=== PATIENT | female | born 1970 | race Caucasian/White ===

== ENCOUNTER 2020-04-05 06:52 | Outpatient (REF) | payer MEDICARE, MEDICAID, SELFPAY ==
[2020-04-05 07:25] LABS: MANUAL DIFF FLAG NO
[2020-04-05 07:28] LABS: Basophils Absolute Auto 0.1 X10*3/uL (0.0-0.2); Basophils Percent Auto 0.6 % (0-2); Eosinophils Absolute Auto 0.1 X10*3/uL (0.0-0.4); Eosinophils Percent Auto 1.7 % (0-4); Hemoglobin 14.4 g/dl (12.0-16.0); Imm Gran Abs Auto 0.06 X10*3/uL (0.00-0.03); Imm Gran Pct Auto 0.7 % (0.0-0.4); Lymphocytes Absolute Auto 2.2 X10*3/uL (1.2-4.9); Lymphocytes Percent Auto 27.2 % (20-40); Mean Corpuscular HGB Conc 34.3 g/dl (31.0-35.0); Mean Corpuscular Hemoglobin 30.7 pg (27.0-33.0); Mean Corpuscular Volume 89.6 fL (80-98); Mean Platelet Volume 9.5 fL (9.4-12.3); Monocytes Absolute Auto 0.6 X10*3/uL (0.1-1.2); Monocytes Percent Auto 7.3 % (2-11); Neutrophils Absolute Auto 5.1 X10*3/uL (2.0-8.3); Neutrophils Percent Auto 62.5 % (45-73); Platelet Count 300 X10*3/uL (160-400); Red Blood Count 4.69 X10*6/uL (4.20-5.50); Red Cell Distribution Width 12.3 % (11.0-16.0); White Blood Count 8.2 X10*3/uL (4.8-10.8)
[2020-04-05 07:51] LABS: Alanine Aminotransferase 24 U/L (0-31); Alkaline Phosphatase 82 U/L (39-117); Anion Gap 12 (12-20); Aspartate Amino Transferase 17 U/L (5-31); Bilirubin Total 0.6 mg/dL (0.0-1.0); Blood Urea Nitrogen 13 mg/dL (9-16); Calcium 8.3 mg/dL (8.4-10.2); Carbon Dioxide 22 mmol/L (22-29); Chloride 110 mmol/L (96-108); Cholesterol 169 mg/dL; Estimated Glomerular Filt Rate > 60; Glucose Random 109 mg/dL (60-115); HDL Cholesterol 43 mg/dL; LDL Cholesterol Calculated 108 mg/dl; Potassium 4.2 mmol/l (3.3-5.1); Sodium 140 mmol/L (135-145); Total Protein 6.6 g/dL (6.5-8.0); Triglycerides 91 mg/dL
[2020-04-05 08:12] LABS: Vitamin D 25-OH Total 25.9 ng/mL (>30)
== END 2020-04-05 06:53 | disposition home or self-care (01) ==
LOC: HO.LAB 06:52
PROVIDERS: Visit Provider Internal Medicine
DX: Z00.00 Encounter for general adult medical examination without abnormal findings (principal); Z13.6 Encounter for screening for cardiovascular disorders
CPT/HCPCS: 36415; 80053; 80061; 82306; 85025

== ENCOUNTER 2020-06-04 08:36 | Outpatient (REF) | payer MEDICARE, MEDICAID, SELFPAY ==
--- NOTE | 2020-06-04 | MM_ITS ---
EXAMINATION: BONE DENSITOMETRY CLINICAL INDICATION: Other specified disorders of bone density and structure, multiple sites. COMPARISON: None (current study represents initial baseline exam). TECHNIQUE: Using a [employer] DXA System (software version: 13.1) manufactured by [employer], dual-energy x-ray absorptiometry was performed of the lumbar spine and left hip. The images are of good technical quality. Summary results are attached. FINDINGS: AP SPINE L1-L2 (excluding L3 and L4): The data of L1-L4 has been changed to exclude the L3 and L4 vertebral bodies, because probable degenerative changes at these levels may cause overestimation of lumbar spine density. BMD 1.251 g/cm2, Z-score 0.1, T-score 0.7, normal. LEFT FEMUR, NECK: BMD 1.225 g/cm2, Z-score 1.4, T-score 1.3, normal. LEFT FEMUR, TOTAL: BMD 1.289 g/cm2, Z-score 1.9, T-score 2.2, normal. IDENTIFIED RISK FACTORS: Early menopause, secondary osteoporosis, family history (parental hip fracture), hysterectomy. HISTORY OF FRACTURE: None listed. MEDICATIONS: None listed. MM/XR DEXA axial skeleton IMPRESSION: 1. DIAGNOSIS: Normal bone density based on the lowest T-score value of 0.7 in the lumbar spine applying World Health Organization criteria. 2. 10-YEAR FRACTURE RISK PREDICTION, FRAX: Major osteoporotic fracture (clinical spine, forearm, hip or shoulder) 6.7%. Hip fracture 0.0%. 3. Treatment Recommendations: NOF guidelines recommend consideration for treatment in postmenopausal women and men age 50 and older presenting with the following: -A hip or vertebral (clinical or morphometric) fracture. -T-score less than or equal to -2.5 at the femoral neck or spine after appropriate evaluation to exclude secondary causes. -Low bone mass at the hip or spine and a 10-year fracture probability by FRAX of greater than or equal to 3% for hip fracture or greater than or equal to 20% for major osteoporotic fracture based on the [place] adapted WHO algorithm. 4. Other Recommendations: All treatment decisions require clinical judgment and consideration of individual patient factors, including patient preferences, comorbidities, previous drug use, risk factors not captured in the FRAX model (e.g. frailty, falls, vitamin D deficiency, increased bone turnover, interval significant decline in bone density) and possible under or overestimation of fracture risk by FRAX. FUTURE SCAN RECOMMENDATION: People with diagnosed cases of osteoporosis or at high risk for fracture should have regular bone mineral density tests. For patients eligible for Medicare, routine testing is allowed once every 2 years. The testing frequency can be increased to one year for patients who have rapidly progressing disease, those who are receiving or discontinuing medical therapy to restore bone mass, or have additional risk factors.
--- NOTE | 2020-06-04 | MM_ITS ---
EXAMINATION: MM SCREENING DIGITAL BREAST TOMOSYNTHESIS, BILATERAL CLINICAL INFORMATION: Screening. Asymptomatic. The lifetime risk of breast cancer based on the Tyrer-Cuzick Model is 16%. COMPARISON: Outside 2-D mammography images 04/20/2018, 12/31/2016, 04/20/2013 ([facility]) TECHNIQUE: Digital breast tomosynthesis is performed in both the craniocaudal and mediolateral oblique views along with computer-aided detection (CAD). Synthesized 2D images are generated from the tomosynthesis. FINDINGS: The breasts are almost entirely fatty (ACR BI-RADS breast composition Category a). There are no significant masses, abnormal calcifications, or other abnormalities. The axilla and skin contours are unremarkable. No significant changes from prior outside exams. MM/MM tomosynthesis screening BI IMPRESSION: No mammographic evidence of malignancy. ASSESSMENT: BI-RADS 1: Negative RECOMMENDATION: Routine annual mammography screening. This patient's information was entered into a reminder system with a target due date for their next mammogram.
== END 2020-06-04 08:37 | disposition home or self-care (01) ==
LOC: HO.MAMMO 08:36
PROVIDERS: PCP Internal Medicine; Visit Provider Internal Medicine
DX: Z12.31 Encounter for screening mammogram for malignant neoplasm of breast (principal); M85.89 Other specified disorders of bone density and structure, multiple sites
CPT/HCPCS: 77063; 77067; 77080

== ENCOUNTER 2021-05-07 07:50 | Outpatient (REF) | payer MEDICARE, MEDICAID, SELFPAY ==
[2021-05-07 09:01] LABS: TSH reflex Free T4 0.14 uIU/mL (0.32-4.0)
[2021-05-07 09:38] LABS: Free T4 (Free Thyroxine) 1.47 ng/dL (0.71-1.85)
== END 2021-05-07 07:51 | disposition home or self-care (01) ==
LOC: HO.LAB 07:50
PROVIDERS: PCP Internal Medicine; Visit Provider Internal Medicine
DX: E03.9 Hypothyroidism, unspecified (principal)
CPT/HCPCS: 36415; 84439; 84443

== ENCOUNTER 2021-06-13 13:09 | Outpatient (REF) | payer MEDICARE, MEDICAID, SELFPAY ==
--- NOTE | ~2021-06-13 | XR_ITS ---
EXAMINATION: XR ANKLE, RIGHT CLINICAL INFORMATION: Right ankle joint pain COMPARISON: None TECHNIQUE: AP, lateral, and mortise views of the right ankle. FINDINGS: The bones and soft tissues are normal. No fracture. Alignment is anatomic. Joint spaces are maintained. No joint effusion. XR/XR ankle RT min 3V IMPRESSION: Normal right ankle.
== END 2021-06-13 13:10 | disposition home or self-care (01) ==
LOC: HO.XRAY 13:09
PROVIDERS: PCP Internal Medicine; Visit Provider Physician Assistant
DX: M25.571 Pain in right ankle and joints of right foot (principal)
CPT/HCPCS: 73610

== ENCOUNTER 2021-06-20 18:05 | Outpatient (REF) | payer MEDICARE, MEDICAID, SELFPAY ==
--- NOTE | ~2021-06-20 | MR_ITS ---
EXAMINATION: MR KNEE WITHOUT CONTRAST, LEFT CLINICAL INFORMATION: Left knee pain. COMPARISON: None TECHNIQUE: MRI of the knee without contrast was performed using routine sequences on a high-field scanner. FINDINGS: MENISCI: Medial Meniscus: Intact. Subtle focus of degenerative signal of the posterior horn. Lateral Meniscus: Intact. Subtle focus of degenerative signal of the posterior horn without a definite tear. LIGAMENTS: Cruciate: Intact. Collateral: Prominent edema extends along the medial collateral ligament likely representing a grade 1 sprain. The lateral collateral ligament complex appears intact. EXTENSOR MECHANISM: Intact. ARTICULAR CARTILAGE/BONE: Patellofemoral Compartment: Foci of mild cartilage thinning and surface irregularity of the central patella and lateral trochlea. Medial Compartment: Mild cartilage thinning and surface irregularity of the weightbearing femoral condyle and cartilage thinning of the peripheral tibia medially. Small marginal osteophytes. Lateral Compartment: Probable mild contusion at the posterior-most aspect of the femoral condyle. No focal articular cartilage defect. JOINT FLUID AND BURSAE: Small joint effusion. MR/MR knee LT wo con IMPRESSION: Grade 1 MCL sprain. No definite meniscal tear. Impaction bone bruise of the lateral tibia posteriorly. Mild patellofemoral and medial compartment osteoarthritis with a small joint effusion.
--- NOTE | ~2021-06-20 | MR_ITS ---
EXAMINATION: MR KNEE WITHOUT CONTRAST, RIGHT CLINICAL INFORMATION: Right knee pain. COMPARISON: None TECHNIQUE: MRI of the knee without contrast was performed using routine sequences on a high-field scanner. FINDINGS: MENISCI: Medial Meniscus: Intact Lateral Meniscus: There is a discoid lateral meniscus. Mild inner margin fraying/ill-defined tearing along the inner margin which is adjacent to the tibial spine. LIGAMENTS: Cruciate: Areas of ill-defined intermediate signal along the anterior cruciate ligament may represent mucoid degeneration or sprain/minimal partial tearing. The posterior cruciate ligament is intact. Collateral: Intact. EXTENSOR MECHANISM: Intact. ARTICULAR CARTILAGE/BONE: Patellofemoral Compartment: Areas of mild cartilage thinning and surface irregularity throughout the patellofemoral compartment. Medial Compartment: Mild cartilage thinning and surface irregularity of the weightbearing femoral condyle and cartilage thinning peripherally of the tibia medially. Small marginal osteophytes. Lateral Compartment: Peripheral cartilage thinning of the tibia medially. Small marginal osteophytes. Probable impaction bone bruise of the tibia posteriorly. JOINT FLUID AND BURSAE: Moderate joint effusion. There is a lobulated, elongated ganglion measuring 3.5 cm in length deep to the lateral retinaculum/joint capsule. MR/MR knee RT wo con IMPRESSION: Discoid lateral meniscus with inner margin fraying/ill-defined tearing adjacent to the tibial spine. Mucoid degeneration versus sprain/mild ill-defined partial tearing of the anterior cruciate ligament. Mild tricompartmental osteoarthritis with a moderate joint effusion.
== END 2021-06-20 18:06 | disposition home or self-care (01) ==
LOC: HO.MRI 18:05
PROVIDERS: PCP Internal Medicine; Visit Provider Physician Assistant
DX: M22.42 Chondromalacia patellae, left knee (principal); M22.41 Chondromalacia patellae, right knee; M25.562 Pain in left knee
CPT/HCPCS: 73721

== ENCOUNTER 2021-08-16 09:57 | Outpatient (REF) | payer MEDICARE, MEDICAID, SELFPAY ==
--- NOTE | ~2021-08-16 | MM_ITS ---
EXAMINATION: MM SCREENING DIGITAL BREAST TOMOSYNTHESIS, BILATERAL CLINICAL INFORMATION: Screening. Asymptomatic. The lifetime risk of breast cancer based on the Tyrer-Cuzick Model is 16%. COMPARISON: Mammography: 06/04/2020; outside mammography 04/20/2018, 12/31/2016 ([facility] TECHNIQUE: Digital breast tomosynthesis is performed in both the craniocaudal and mediolateral oblique views along with computer-aided detection (CAD). Synthesized 2D images are generated from the tomosynthesis. FINDINGS: The breasts are almost entirely fatty (ACR BI-RADS breast composition Category a). Background stromal and fibroglandular densities are stable. No developing density or interval architectural abnormality. There are no significant masses, abnormal calcifications, or other abnormalities. There are surgical clips again seen high left axilla. MM/MM tomosynthesis screening BI IMPRESSION: No mammographic evidence of malignancy. ASSESSMENT: BI-RADS 1: Negative RECOMMENDATION: Routine annual mammography screening. This patient's information was entered into a reminder system with a target due date for their next mammogram.
== END 2021-08-16 09:58 | disposition home or self-care (01) ==
LOC: HO.MAMMO 09:57
PROVIDERS: PCP Internal Medicine; Visit Provider Internal Medicine
DX: Z12.31 Encounter for screening mammogram for malignant neoplasm of breast (principal)
CPT/HCPCS: 77063; 77067

== ENCOUNTER 2021-11-08 07:41 | Outpatient (REF) | payer MEDICARE, MEDICAID, SELFPAY ==
[2021-11-08 07:51] LABS: MANUAL DIFF FLAG NO
[2021-11-08 08:27] LABS: Basophils Percent Auto 0.3 % (0-2); Eosinophils Absolute Auto 0.1 X10*3/uL (0.0-0.4); Eosinophils Percent Auto 2.2 % (0-4); Hematocrit 44.4 % (37.0-47.0); Hemoglobin 15.1 g/dl (12.0-16.0); Imm Gran Abs Auto 0.02 X10*3/uL (0.00-0.03); Imm Gran Pct Auto 0.3 % (0.0-0.4); Lymphocytes Absolute Auto 2.1 X10*3/uL (1.2-4.9); Lymphocytes Percent Auto 32.8 % (20-40); Mean Corpuscular Hemoglobin 30.9 pg (27.0-33.0); Mean Platelet Volume 9.2 fL (9.4-12.3); Monocytes Absolute Auto 0.5 X10*3/uL (0.1-1.2); Monocytes Percent Auto 7.5 % (2-11); Neutrophils Absolute Auto 3.6 x10*3/uL (2.0-8.3); Neutrophils Percent Auto 56.9 % (45-73); Platelet Count 272 X10*3/uL (160-400); Red Blood Count 4.88 X10*6/uL (4.20-5.50); Red Cell Distribution Width 11.9 % (11.0-16.0); White Blood Count 6.4 X10*3/uL (4.8-10.8)
[2021-11-08 08:58] LABS: Alanine Aminotransferase 18 U/L (0-31); Albumin Level 3.9 g/dL (3.5-5.0); Alkaline Phosphatase 74 U/L (39-117); Anion Gap 11 (12-20); Aspartate Amino Transferase 14 U/L (5-31); Bilirubin Total 0.7 mg/dL (0.0-1.0); Blood Urea Nitrogen 16 mg/dL (9-16); Calcium 9.6 mg/dL (8.4-10.2); Carbon Dioxide 27 mmol/L (22-29); Chloride 109 mmol/L (96-108); Estimated Glomerular Filt Rate > 60; Glucose Random 93 mg/dL (60-115); Magnesium 2.3 mg/dL (1.6-2.6); Potassium 4.5 mmol/L (3.3-5.1); Sodium 142 mmol/L (135-145); Total Protein 6.7 g/dL (6.5-8.0)
[2021-11-08 09:09] LABS: Free T4 (Free Thyroxine) 1.14 ng/dL (0.71-1.85); Thyroid Stimulating Hormone 1.68 uIU/mL (0.32-4.0)
== END 2021-11-08 07:42 | disposition home or self-care (01) ==
LOC: HO.LAB 07:41
PROVIDERS: PCP Internal Medicine; Visit Provider Internal Medicine
DX: E03.9 Hypothyroidism, unspecified (principal); R00.2 Palpitations
CPT/HCPCS: 36415; 80053; 83735; 84439; 84443; 85025

== ENCOUNTER 2022-09-15 12:47 | Outpatient (REF) | payer MEDICARE, MEDICAID, SELFPAY ==
[2022-09-15 14:11] LABS: TSH reflex Free T4 2.99 uIU/mL (0.32-4.0)
== END 2022-09-15 12:48 | disposition home or self-care (01) ==
LOC: HO.LAB 12:47
PROVIDERS: PCP Internal Medicine; Visit Provider Internal Medicine
DX: E03.9 Hypothyroidism, unspecified (principal)
CPT/HCPCS: 36415; 84443

== ENCOUNTER 2022-10-01 08:07 | Outpatient (REF) | payer MEDICARE, MEDICAID, SELFPAY ==
--- NOTE | ~2022-10-01 | MM_ITS ---
EXAMINATION: MM SCREENING DIGITAL BREAST TOMOSYNTHESIS, BILATERAL CLINICAL INFORMATION: Screening. Asymptomatic. The lifetime risk of breast cancer based on the Tyrer-Cuzick Model is 13.1%. COMPARISON: Mammography: August 16, 2021 and studies dating back to April 20, 2013 TECHNIQUE: Digital breast tomosynthesis is performed in both the craniocaudal and mediolateral oblique views along with computer-aided detection (CAD). Synthesized 2D images are generated from the tomosynthesis. FINDINGS: There are scattered areas of fibroglandular density (ACR BI-RADS breast composition Category b). Ulises are noted about the left axilla from previous surgery. There are no significant masses, abnormal calcifications, or other abnormalities. MM/MM tomosynthesis screening BI IMPRESSION: No significant changes ASSESSMENT: BI-RADS 1: Negative RECOMMENDATION: Routine annual mammography screening. This patient's information was entered into a reminder system with a target due date for their next mammogram.
== END 2022-10-01 08:08 | disposition home or self-care (01) ==
LOC: HO.MAMMO 08:07
PROVIDERS: PCP Internal Medicine; Visit Provider Internal Medicine
DX: Z12.31 Encounter for screening mammogram for malignant neoplasm of breast (principal)
CPT/HCPCS: 77063; 77067

== ENCOUNTER 2023-02-21 06:57 | Emergency (ER) | payer MEDICARE, MEDICAID, SELFPAY ==
--- NOTE | ~2023-02-21 | XR_ITS ---
EXAMINATION: X-ray left ankle X-ray left foot CLINICAL INFORMATION: Pain COMPARISON: None TECHNIQUE: Ankle 2 views. Left foot 3 views. FINDINGS: Ankle: No visible acute fracture. There is slight asymmetric prominence of the ankle mortise medial clear space, which may be related to positioning/technique. The talar dome appears intact. Question mild ankle soft tissue swelling. No suspicious soft tissue calcifications. Foot: Normal bone mineralization. Bony alignment is anatomic. Tarsometatarsal alignment is maintained. No visible acute fracture or dislocation. No significant joint space narrowing. No suspicious soft tissue calcifications. XR/XR foot LT min 3V IMPRESSION: Slight asymmetry of the ankle mortise, could be related to positioning/technique. Clinically correlate. No radiographic evidence of acute fracture or dislocation. If there are persistent symptoms, consider short-term follow-up imaging.
--- NOTE | ~2023-02-21 | XR_ITS ---
EXAMINATION: X-ray left ankle X-ray left foot CLINICAL INFORMATION: Pain COMPARISON: None TECHNIQUE: Ankle 2 views. Left foot 3 views. FINDINGS: Ankle: No visible acute fracture. There is slight asymmetric prominence of the ankle mortise medial clear space, which may be related to positioning/technique. The talar dome appears intact. Question mild ankle soft tissue swelling. No suspicious soft tissue calcifications. Foot: Normal bone mineralization. Bony alignment is anatomic. Tarsometatarsal alignment is maintained. No visible acute fracture or dislocation. No significant joint space narrowing. No suspicious soft tissue calcifications. XR/XR ankle LT min 3V IMPRESSION: Slight asymmetry of the ankle mortise, could be related to positioning/technique. Clinically correlate. No radiographic evidence of acute fracture or dislocation. If there are persistent symptoms, consider short-term follow-up imaging.
[2023-02-21 07:34] VITALS: BP 120/69; PULSE 83; RESP 18; TEMP 36.6; O2SAT 96; BMI 39.6
--- NOTE | 2023-02-21 07:44 | ED_ITS ---
HPI - Extremity Injury (Lower) General Chief Complaint: Extremity Injury, Lower Stated Complaint: L Leg pain Time Seen by Provider: 02/21/23 07:30 Source: patient Mode of arrival: ambulatory History of Present Illness HPI Narrative: 53-year-old female presents with top of left foot pain after she feels she may have hyperextended her foot yesterday during a mechanical fall and has no other acute complaints. Related Data Allergies Allergy/AdvReac Type Severity Reaction Status Date / Time No Known Allergies Allergy Verified 02/21/23 07:40 Review of Systems Review of Systems: Pertinent positives and negatives as stated in [facility] Past Medical History Source: nursing notes reviewed Social History Social History Alcohol intake: current Alcohol intake frequency: holidays/special occasions only Smoked in Last 30 Days: No Use of substances other than those prescribed or required for medical reasons: No Advance Directives: No Advance Directives Information Provided: Yes Physical Exam Vital Signs: Vital Signs: Last Vital Signs Temp 97.9 F 02/21/23 07:34 Pulse 83 02/21/23 07:34 Resp 18 02/21/23 07:34 BP 120/69 02/21/23 07:34 Pulse Ox 96 02/21/23 07:34 O2 Del Method Room Air 02/21/23 07:34 BMI result Body Mass Index 39.6 VITAL SIGNS: Reviewed. GENERAL: Well developed, well nourished, in no acute distress. HEAD: Normocephalic/atraumatic EYES: PERRLA, EOMI LUNGS: Normal breath sounds. No adventitious sounds or accessory muscle use. SpO2<96> CARDIOVASCULAR: Regular rate and rhythm without noted murmurs ABDOMEN: Soft, non-tender, non-distended with bowel sounds. MUSCULOSKELETAL: No tenderness, deformities, or effusions noted on gross inspection. EXTREMITIES: No cyanosis, clubbing or edema. LEFT FOOT: Pain on palpation over the mid foot, no medial or lateral malleoli swelling/erythema/induration noted, warm foot, palpable DP/PT, good capillary refill. Pain on dorsiflexion SKIN: Inspection of the skin reveals no rashes, ulcerations, jaundice, pallor, or petechiae. NEUROLOGIC: Alert and oriented x 4. Strength and sensation to light touch were grossly intact x 4. Medications Administered Discontinued Medications Generic Name Dose Route Start Last Admin Trade Name Dominic PRN Reason Stop Dose Admin Acetaminophen 975 mg 02/21/23 07:42 02/21/23 07:55 Acetaminophen 325 Mg Tablet PO 02/21/23 07:43 975 mg ONCE ONE Administration Ibuprofen 400 mg 02/21/23 07:42 02/21/23 07:56 Ibuprofen 400 Mg Tablet PO 02/21/23 07:43 400 mg ONCE ONE Administration Medical Decision Making Medical Decision Making MDM Narrative: 53-year-old female with history and clinical presentation of possible f racture/anterior strain of ankle, lower clinical suspicion for dislocation. Patient given combination analgesics and an ice pack. I reviewed imaging studies in do not appreciate any fracture or dislocation, after review of radiology evaluation my interpretation is in agreement. Jovani wrap and crutches provided as well as instructions for RICE. Differential Diagnosis Differential Diagnoses: The differential diagnosis associated with the presentation includes Please see the discussion above Admission/Observation Consideration of admission/observation: Escalation of care including admission/observation considered Please see the discussion above Radiology Impression Discussion of test interpretation with radiology: I have reviewed the radiologist's reading. Radiologist Impression: Please see the discussion above External Record Review External record reviewed: Outpatient record, Prior outpatient labs and Prior outpatient radiology Discharge Plan Discharge Clinical Impression: Ankle sprain and strain Patient Disposition: Home, Self-Care Instructions: Crutch Instructions (ED), R.I.C.E. Treatment (ED), Ankle Sprain (ED) Additional Instructions: 1. I recommend [id number] Tylenol/ibuprofen as needed for pain control. 2. Modify work as needed. Return to the ER for any worsening symptoms. Referrals: Brendan Dockery MD [Primary Care Provider] - Stand Alone Forms: Work/School Release
[2023-02-21] MEDS: Acetaminophen 325 MG TABLET 975 MG PO (07:55)
[2023-02-21] MEDS: Ibuprofen 400 MG TABLET PO (07:56)
== END 2023-02-21 08:42 | disposition home or self-care (01) ==
PROVIDERS: Emergency Provider Student in an Organized Health Care Education/Training Program; PCP Internal Medicine
DX: S93.402A Sprain of unspecified ligament of left ankle, initial encounter (principal); M79.605 Pain in left leg; W01.0XXA Fall on same level from slipping, tripping and stumbling without subsequent striking against object, initial encounter; Y93.9 Activity, unspecified; Y92.9 Unspecified place or not applicable; Y99.9 Unspecified external cause status
CPT/HCPCS: 73610; 73630; 99284

== ENCOUNTER 2023-08-06 14:06 | Outpatient (REF) | payer MEDICARE, MEDICAID, SELFPAY ==
[2023-08-06 16:01] LABS: Thyroid Stimulating Hormone 4.64 uIU/mL (0.32-4.0)
== END 2023-08-06 14:07 | disposition home or self-care (01) ==
LOC: HO.LAB 14:06
PROVIDERS: PCP Internal Medicine; Visit Provider Internal Medicine
DX: E03.9 Hypothyroidism, unspecified (principal)
CPT/HCPCS: 36415; 84443

== ENCOUNTER 2023-10-18 10:26 | Outpatient (REF) | payer MEDICARE, MEDICAID, SELFPAY ==
--- NOTE | ~2023-10-18 | MM_ITS ---
EXAMINATION: MM SCREENING DIGITAL BREAST TOMOSYNTHESIS, BILATERAL CLINICAL INFORMATION: Screening. Asymptomatic. The patient is status post left axillary surgery. COMPARISON: Mammography: This study is compared with prior exams dating back to 2017. TECHNIQUE: Digital breast tomosynthesis is performed in both the craniocaudal and mediolateral oblique views along with computer-aided detection (CAD). Synthesized 2D images are generated from the tomosynthesis. FINDINGS: The breasts are almost entirely fatty (ACR BI-RADS breast composition Category a). There are no significant masses, abnormal calcifications, or other abnormalities. There are multiple surgical clips in left axilla from prior surgery. MM/MM tomosynthesis screening BI IMPRESSION: No mammographic evidence of malignancy. ASSESSMENT: BI-RADS BI-RADS 2 - Benign Findings RECOMMENDATION: Routine annual mammography screening. 1 year F/U This examination should not preclude the clinical evaluation of a suspicious palpable abnormality. This patient's information was entered into a reminder system with a target due date for their next mammogram.
[2023-10-18 13:01] LABS: Free T4 (Free Thyroxine) 1.13 ng/dL (0.71-1.85); Thyroid Stimulating Hormone 1.15 uIU/mL (0.32-4.0)
== END 2023-10-18 10:27 | disposition home or self-care (01) ==
LOC: HO.MAMMO 10:26
PROVIDERS: PCP Internal Medicine; Visit Provider Internal Medicine
DX: E03.9 Hypothyroidism, unspecified (principal); Z12.31 Encounter for screening mammogram for malignant neoplasm of breast
CPT/HCPCS: 36415; 77063; 77067; 84439; 84443

== ENCOUNTER → 2023-10-18 11:00 | Outpatient (BNV) | payer MEDICARE, MEDICAID, SELFPAY | PROVIDERS: PCP Internal Medicine; Visit Provider Radiology Diagnostic Radiology | DX: Z12.31 Encounter for screening mammogram for malignant neoplasm of breast (principal) | CPT/HCPCS: 77063; 77067 ==

== ENCOUNTER 2023-11-08 06:34 | Outpatient (REF) | payer MEDICARE, MEDICAID, SELFPAY ==
[2023-11-08 06:47] LABS: MANUAL DIFF FLAG NO
[2023-11-08 08:04] LABS: Basophils Absolute Auto 0.1 X10*3/uL (0.0-0.2); Basophils Percent Auto 0.6 % (0-2); Eosinophils Absolute Auto 0.2 X10*3/uL (0.0-0.4); Hematocrit 43.8 % (37.0-47.0); Hemoglobin 15.2 g/dl (12.0-16.0); Imm Gran Abs Auto 0.04 X10*3/uL (0.00-0.03); Imm Gran Pct Auto 0.5 % (0.0-0.4); Lymphocytes Absolute Auto 2.4 X10*3/uL (1.2-4.9); Lymphocytes Percent Auto 28.1 % (20-40); Mean Corpuscular HGB Conc 34.7 g/dl (31.0-35.0); Mean Corpuscular Volume 92.2 fL (80.0-98.0); Mean Platelet Volume 9.9 fL (9.4-12.3); Monocytes Absolute Auto 0.5 X10*3/uL (0.1-1.2); Monocytes Percent Auto 5.9 % (2-11); Neutrophils Absolute Auto 5.5 x10*3/uL (2.0-8.3); Neutrophils Percent Auto 62.9 % (45-73); Platelet Count 276 X10*3/uL (160-400); Red Blood Count 4.75 X10*6/uL (4.20-5.50); Red Cell Distribution Width 12.6 % (11.0-16.0); White Blood Count 8.7 X10*3/uL (4.8-10.8)
[2023-11-08 08:53] LABS: Alanine Aminotransferase 24 U/L (0-31); Alkaline Phosphatase 74 U/L (39-117); Anion Gap 14 (12-20); Aspartate Amino Transferase 19 U/L (5-31); Bilirubin Total 0.4 mg/dL (0.0-1.0); Blood Urea Nitrogen 19 mg/dL (9-16); Calcium 9.4 mg/dL (8.4-10.2); Carbon Dioxide 22 mmol/L (22-29); Chloride 108 mmol/L (96-108); Cholesterol 208 mg/dL (<200); Estimated Glomerular Filt Rate > 60; Glucose Random 100 mg/dL (60-115); HDL Cholesterol 56 mg/dL (>40); LDL Cholesterol Calculated 127 mg/dL (<100); Potassium 3.8 mmol/L (3.3-5.1); Sodium 140 mmol/L (135-145); Total Protein 7.3 g/dL (6.5-8.0); Triglycerides 127 mg/dL (<150)
== END 2023-11-08 06:35 | disposition home or self-care (01) ==
LOC: HO.LAB 06:34
PROVIDERS: PCP Internal Medicine; Visit Provider Internal Medicine
DX: Z00.00 Encounter for general adult medical examination without abnormal findings (principal); Z13.6 Encounter for screening for cardiovascular disorders
CPT/HCPCS: 36415; 80053; 80061; 82306; 85025

== ENCOUNTER 2024-02-04 11:30 | Outpatient (REF) | payer MEDICARE, MEDICAID, SELFPAY ==
--- NOTE | ~2024-02-04 | XR_ITS ---
EXAMINATION: XR CHEST XR CERVICAL SPINE CLINICAL INFORMATION: Cervicalgia. Cough. COMPARISON: None available. TECHNIQUE: 2 views of the chest were obtained. 3 views of the cervical spine were obtained. FINDINGS: Chest: The lungs are moderately expanded. There is patchy opacity in the lingula. No pleural effusion. Cardiac silhouette is within normal limits. Cervical spine: The cervical spine is visualized to the C7 vertebral body. Relative straightening of the cervical lordosis. 2 mm anterolisthesis of C4 on C5. Vertebral body heights are maintained. Moderate intervertebral disc space narrowing at C5-C6 and C6-C7 with marginal osteophytes. Lateral masses are symmetric. The vertebral soft tissues are within normal limits. Status post partial first rib resection. Surgical clips project over the left apex. XR/XR cervical spine 3V IMPRESSION: Patchy opacity in the lingula possibly representing an acute infiltrate. Advise clinical correlation. Moderate degenerative disc disease at C5-C6 and C6-C7. Electronically signed by: Isaiah Rascon MD 02/04/2024 02:13 PM EDT
--- NOTE | ~2024-02-04 | XR_ITS ---
EXAMINATION: XR CHEST XR CERVICAL SPINE CLINICAL INFORMATION: Cervicalgia. Cough. COMPARISON: None available. TECHNIQUE: 2 views of the chest were obtained. 3 views of the cervical spine were obtained. FINDINGS: Chest: The lungs are moderately expanded. There is patchy opacity in the lingula. No pleural effusion. Cardiac silhouette is within normal limits. Cervical spine: The cervical spine is visualized to the C7 vertebral body. Relative straightening of the cervical lordosis. 2 mm anterolisthesis of C4 on C5. Vertebral body heights are maintained. Moderate intervertebral disc space narrowing at C5-C6 and C6-C7 with marginal osteophytes. Lateral masses are symmetric. The vertebral soft tissues are within normal limits. Status post partial first rib resection. Surgical clips project over the left apex. XR/XR chest 2V IMPRESSION: Patchy opacity in the lingula possibly representing an acute infiltrate. Advise clinical correlation. Moderate degenerative disc disease at C5-C6 and C6-C7. Electronically signed by: Isaiah Rascon MD 02/04/2024 02:13 PM EDT
== END 2024-02-04 11:31 | disposition home or self-care (01) ==
LOC: HO.XRAY 11:30
PROVIDERS: PCP Internal Medicine; Visit Provider Internal Medicine
DX: R05.9 Cough, unspecified (principal); M54.2 Cervicalgia
CPT/HCPCS: 71046; 72040

== ENCOUNTER 2024-02-11 11:12 | Outpatient (REF) | payer MEDICARE, MEDICAID, SELFPAY ==
--- NOTE | ~2024-02-11 | XR_ITS ---
EXAMINATION: XR CHEST CLINICAL INFORMATION: PNEUMONIA COMPARISON: Chest radiograph 02/04/2024 TECHNIQUE: 2 views of the chest FINDINGS: Lines and tubes: Surgical clips overlie the left axilla and left hemithorax. Clear lungs. No pleural effusion. No pneumothorax. Normal cardiomediastinal silhouette. XR/XR chest 2V IMPRESSION: * Clear lungs. Electronically signed by: Fany Dexter MD 02/18/2024 04:44 PM EDT
== END 2024-02-11 11:13 | disposition home or self-care (01) ==
LOC: HO.XRAY 11:12
PROVIDERS: PCP Internal Medicine; Visit Provider Physician Assistant
DX: J18.9 Pneumonia, unspecified organism (principal)
CPT/HCPCS: 71046

== ENCOUNTER 2024-03-03 18:07 | Outpatient (REF) | payer MEDICARE, MEDICAID, SELFPAY ==
--- NOTE | ~2024-03-03 | MR_ITS ---
EXAMINATION: MR CERVICAL SPINE WITHOUT CONTRAST CLINICAL INFORMATION: Radiculopathy COMPARISON: None available. TECHNIQUE: MRI of the cervical spine was obtained using routine sequences without contrast. FINDINGS: The imaged posterior fossa is unremarkable. Straightening of the normal cervical lordosis. Trace retrolisthesis at C5-6. No acute bone marrow abnormality. The vertebral body heights are preserved. Multilevel disc desiccation without significant disc height loss. The visualized spinal cord is normal in caliber. No abnormal cord signal. C2-3: Bilateral facet arthrosis. No significant spinal canal or neural foraminal narrowing. C3-4: Bilateral facet arthrosis. Mild left neural foraminal narrowing. No significant spinal canal or neural foraminal narrowing. C4-5: Bilateral facet arthrosis. No significant spinal canal or neural foraminal narrowing. C5-6: Disc osteophyte complex, bilateral uncovertebral hypertrophy, and bilateral facet arthrosis. Mild right neural foraminal narrowing. No significant spinal canal stenosis. C6-7: Disc osteophyte complex and bilateral facet arthrosis. No significant spinal canal or neural foraminal narrowing. C7-T1: Disc osteophyte complex. No significant spinal canal or neural foraminal narrowing. The paravertebral soft tissues are unremarkable. MR/MR cervical spine wo con IMPRESSION: Multilevel degenerative changes of the cervical spine without significant spinal canal or neural foraminal narrowing. Electronically signed by: Milena Henderson MD 03/13/2024 06:07 PM EDT
== END 2024-03-03 18:08 | disposition home or self-care (01) ==
LOC: HO.MRI 18:07
PROVIDERS: PCP Internal Medicine; Visit Provider Physician Assistant
DX: M54.12 Radiculopathy, cervical region (principal)
CPT/HCPCS: 72141

== ENCOUNTER 2024-03-16 14:15 | Outpatient (REF) | payer MEDICARE, MEDICAID, SELFPAY ==
--- NOTE | 2024-03-16 14:20 | EMG_ITS ---
Chief complaint: Neck pain, hand numbness History of TOS, left 1st rib removal, with good results after. Reason for referral: Evaluate for radiculopathy versus Carpal Tunnel Syndrome Referred by: Viviana LINARES Procedure done: Bilateral upper extremities NCS/EMG Precautions and/or limitations: None The limb temperature was monitored continuously and remained between 32-36 degrees C during the performance of the NCS. Nerve Conduction Studies Anti Sensory Summary Table ?Stim Site NR Onset (ms) Norm Onset (ms) Peak (ms) Norm Peak (ms) O-P Amp (?V) Norm O-P Amp Site1 Site2 Delta-0 (ms) Dist (cm) Yovanny (m/s) Norm Yovanny (m/s) Left Median Anti Sensory (2nd Digit) Wrist ? 2.1 2.8 <3.6 29.4 >10 Wrist 2nd Digit 2.1 14.0 67 Right Median Anti Sensory (2nd Digit) Wrist ? 2.3 3.1 <3.6 25.4 >10 Wrist 2nd Digit 2.3 14.0 61 Left Ulnar Anti Sensory (5th Digit) Wrist ? 0.9 3.0 <3.7 16.3 >15.0 Wrist 5th Digit 0.9 14.0 156 Right Ulnar Anti Sensory (5th Digit) Wrist ? 1.8 3.0 <3.7 7.1 >15.0 Wrist 5th Digit 1.8 14.0 78 Motor Summary Table ?Stim Site NR Onset (ms) Norm Onset (ms) O-P Amp (mV) Norm O-P Amp iAmp (mV) Amp (1st) (%) Site1 Site2 Delta-0 (ms) Dist (cm) Yovanny (m/s) Norm Yovanny (m/s) Left Median Motor (Abd Poll Brev) Wrist ? 3.3 <3.9 13.7 >4.5 17.5 100.0 Elbow Wrist 3.3 20.0 61 >45 Elbow ? 6.6 11.2 14.3 81.8 Right Median Motor (Abd Poll Brev) Wrist ? 3.2 <3.9 6.3 >4.5 8.3 100.0 Elbow Wrist 3.6 19.0 53 >45 Elbow ? 6.8 6.2 8.3 98.4 Left Ulnar Motor (Abd Dig Minimi) Wrist ? 2.7 <3.0 6.7 >5 8.1 100.0 B Elbow Wrist 2.9 18.0 62 >45 B Elbow ? 5.6 6.1 7.4 91.0 A Elbow B Elbow 2.0 10.0 50 >45 A Elbow ? 7.6 5.4 6.7 80.6 Right Ulnar Motor (Abd Dig Minimi) Wrist ? 2.6 <3.0 8.6 >5 10.6 100.0 B Elbow Wrist 3.1 18.5 60 >45 B Elbow ? 5.7 8.2 10.2 95.3 A Elbow B Elbow 1.8 10.0 56 >45 A Elbow ? 7.5 7.5 9.6 87.2 Comparison Summary Table ?Stim Site NR Peak (ms) Norm Peak (ms) P-T Amp (?V) Site1 Site2 Delta-P (ms) Norm Delta (ms) Right Median/Radial Dig I Comparison (Digit 1 - 10cm) Median ? 2.4 <2.9 38.9 Median Radial 0.0 Radial ? 2.4 <2.8 13.5 EMG ?Side Muscle Nerve Root Ins Act Fibs Psw Amp Dur Poly Recrt Int Pat Comment Right 1stDorInt Ulnar C8-T1 Nml Nml Nml Nml Nml 0 Nml Complete Right FlexCarRad Median C6-7 Nml Nml Nml Nml Nml 0 Nml Complete Right Biceps Musculocut C5-6 Nml Nml Nml Nml Nml 0 Nml Complete Right Triceps Radial C6-7-8 Nml Nml Nml Nml Nml 0 Nml Complete Right Deltoid Axillary C5-6 Nml Nml Nml Nml Nml 0 Nml Complete Left 1stDorInt Ulnar C8-T1 Nml Nml Nml Nml Nml 0 Nml Complete Left FlexCarRad Median C6-7 Nml Nml Nml Nml Nml 0 Nml Complete Left Biceps Musculocut C5-6 Nml Nml Nml Nml Nml 0 Nml Complete Left Triceps Radial C6-7-8 Nml Nml Nml Nml Nml 0 Nml Complete Left Deltoid Axillary C5-6 Nml Nml Nml Nml Nml 0 Nml Complete Paraspinal EMG ?Side Muscle Nerve Root Ins Act Fibs Psw Comment Right Cervical Upper Rami Nml Nml Nml Right Cervical Mid Rami Nml Nml Nml Right Cervical Lower Rami Nml Nml Nml Left Cervical Upper Rami Nml Nml Nml Left Cervical Mid Rami Nml Nml Nml Left Cervical Lower Rami Nml Nml Nml FINDINGS: All motor and sensory nerves tested showed normal latencies, amplitudes and conduction velocities. Concentric needle EMG was performed in selected muscles of the bilateral upper extremities and cervical paraspinals. Study did not reveal signs of electric abnormalities as shown in the table above. IMPRESSION: 1. This is a normal study. 2. There is no electrodiagnostic evidence for median neuropathy, ulnar neuropathy, brachial plexopathy, or cervical radiculopathy. Thank you for your kind referral. Italia Porter MD, MARTHA Board Certified, [place] [employer] and [employer] (ABPMR) Board Certified, [place] Board of Electrodiagnostic Medicine (ABEM) CODIN [phone] x 2 MTDD
== END 2024-03-16 14:16 | disposition home or self-care (01) ==
LOC: HO.NEURO 14:15
PROVIDERS: PCP Internal Medicine; Visit Provider Physician Assistant
DX: G56.03 Carpal tunnel syndrome, bilateral upper limbs (principal)
CPT/HCPCS: 95886; 95911

== ENCOUNTER → 2024-03-16 14:20 | Outpatient (BNV) | payer MEDICARE, MEDICAID, SELFPAY | PROVIDERS: PCP Internal Medicine; Visit Provider Physical Medicine & Rehabilitation | DX: R20.0 Anesthesia of skin (principal); R20.2 Paresthesia of skin; M54.2 Cervicalgia | CPT/HCPCS: 95886; 95911 ==

== ENCOUNTER 2024-03-31 13:44 | Outpatient (AMB) | payer MEDICARE, MEDICAID, SELFPAY ==
--- NOTE | 2024-03-31 13:58 | A.SPINEOV_ITS ---
Intake Visit Reasons: Disc desiccation with arthritic changes Intake Note: Mr. Chacon is here today c/o neck pain. 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
--- NOTE | 2024-03-31 14:07 | A.SPINEOV_ITS ---
Intake Visit Reasons: Disc desiccation with arthritic changes Allergies No Known Allergies Allergy (Verified 03/31/24 13:59) Assessment & Plan Assessment & Plan (1) Cervicalgia: Code(s): M54.2 - Cervicalgia Category: Medical Plan Dear colleague Thank you for referring Tamar Chacon to the office today with a chief complaint of neck pain. HPI: This 54-year-old legally blind female comes into the office complaining of posterior neck pain. She states that she is always in a flexed position her neck for reading due to the vision loss and has developed posterior neck pain. The pain is mostly day with flexion-extension. No radiation down her arms. No motor or sensory deficits. She has not tried any form of injections recently. She did receive occipital Botox injections for migraine headaches PMH: Hypertension, migraine, hypothyroidism Medications: Synthroid, propranolol, topiramate, famotidine, amitriptyline, omeprazole Allergies: Vaccines Social history: Nonsmoker Physical Exam: Pleasant female. She is able to move her neck in all directions. Spurling test is negative. No motor or sensory deficits. No pathological reflexes Radiological Studies: MRI done at [facility] on 03/03/2024, shows mild degenerative disc disease C5-6 and C6-7. Impression/Plan: This patient is suffering from cervicalgia most likely facet joint related. I will send her to our pain management team to see if they can alleviate her symptoms with some type of injections. Thank you for allowing me to participate in your patients care. total time spent was 30 minutes in counseling ,coordination of plan, personal review of imaging, surgical decision making and subsequent plan Jim Montanez MD, PhD Spine Fellowship Trained Neurosurgeon Director, [facility] Orders: Referrals Pain Management Referral M54.2 - Cervicalgia Coding Level of Care Code New Pt Level 3 (50136) Diagnoses Cervicalgia M54.2
== END 2024-03-31 14:12 | disposition home or self-care (01) ==
PROVIDERS: PCP Internal Medicine; Referring Provider Physician Assistant; Visit Provider Neurological Surgery
DX: M54.2 Cervicalgia (principal)
CPT/HCPCS: 99203

== ENCOUNTER → 2024-03-31 13:44 | Outpatient (BNVA) | payer MEDICARE, MEDICAID, SELFPAY | PROVIDERS: PCP Internal Medicine; Visit Provider Neurological Surgery | DX: M54.2 Cervicalgia (principal) | CPT/HCPCS: 99202 ==

== ENCOUNTER 2024-04-28 09:34 | Outpatient (AMB) | payer MEDICARE, MEDICAID, SELFPAY ==
[2024-04-28 09:40] VITALS: BP 141/71; PULSE 79; RESP 14; O2SAT 97; BMI 38.2
--- NOTE | 2024-04-28 09:40 | MHC.OFFVIS ---
Vital Signs 04/28/24 09:40 Height 5 ft 8 in Weight 251 lb BMI 38.2 BP 141/71 H Blood Pressure Location Lt brachial Position Sitting Respiration 14 Pulse 79 Pulse Source Pulse Oximeter Pulse Oximetry (%) 97 Oxygen Delivery Method Room Air Intake Visit Reasons: Cervicalgia steroid injection/facet blocks? Allergies No Known Allergies Allergy (Verified 04/28/24 09:41) Medication List - Last Reconciled 04/28/24 by Chetna Brewer LPN famotidine 40 mg PO DAILY levothyroxine (Synthroid) 137 mcg PO DAILY propranolol ER 80 mg PO DAILY topiramate 25 mg PO TID HPI HPI Cervicalgia steroid injection/facet blocks?: Details: 54-year-old female who presents to the office today for evaluation of cervicalgia. She was referred by Anthony Lou. She reports experiencing neck pain for a while. The pain is mostly day with flexion-extension. She has good days and bad days. She has not tried physical therapy yet. She had an MRI done at [facility] on 03/03/2024, which showed mild degenerative disc disease at C5-6 and C6-7. She also had an EMG done on 03/16/24, which was unremarkable. [facility] Social History Alcohol intake: current Alcohol intake frequency: holidays/special occasions only Review of Systems Const All systems reviewed & are unremarkable except as noted in HPI and below Physical Exam Vital Signs: Last Vital Signs Pulse 79 04/28/24 09:40 Resp 14 04/28/24 09:40 BP 141/71 H 04/28/24 09:40 Pulse Ox 97 04/28/24 09:40 Oxygen Delivery Method Room Air 04/28/24 09:40 BMI result Body Mass Index 38.2 General: Appears afebrile. Alert and oriented. Mood and affect appropriate. Follows and participates in conversation appropriately. Respiratory effort is unlabored. Able to transition from sit to stand unassisted. Ambulates with bilaterally normal heel strike and toe off. Cervical range of motion, flexion and extension is painful. Results Reviewed Results Reviewed: 03/03/24: MR CERVICAL SPINE WITHOUT CONTRAST The imaged posterior fossa is unremarkable. Straightening of the normal cervical lordosis. Trace retrolisthesis at C5-6. No acute bone marrow abnormality. The vertebral body heights are preserved. Multilevel disc desiccation without significant disc height loss. The visualized spinal cord is normal in caliber. No abnormal cord signal. C2-3: Bilateral facet arthrosis. No significant spinal canal or neural foraminal narrowing. C3-4: Bilateral facet arthrosis. Mild left neural foraminal narrowing. No significant spinal canal or neural foraminal narrowing. C4-5: Bilateral facet arthrosis. No significant spinal canal or neural foraminal narrowing. C5-6: Disc osteophyte complex, bilateral uncovertebral hypertrophy, and bilateral facet arthrosis. Mild right neural foraminal narrowing. No significant spinal canal stenosis. C6-7: Disc osteophyte complex and bilateral facet arthrosis. No significant spinal canal or neural foraminal narrowing. C7-T1: Disc osteophyte complex. No significant spinal canal or neural foraminal narrowing. The paravertebral soft tissues are unremarkable. IMPRESSION: Multilevel degenerative changes of the cervical spine without significant spinal canal or neural foraminal narrowing. Assessment & Plan Assessment & Plan (1) Degenerative cervical disc: Code(s): M50.30 - Other cervical disc degeneration, unspecified cervical region Category: Medical (2) Cervical spondylosis: Code(s): M47.812 - Spondylosis without myelopathy or radiculopathy, cervical region Category: Medical Plan Patient is suffering from cervicalgia, most likely facet joint related. Reviewed the MRI results with the patient. It showed multilevel degenerative changes of the cervical spine. As she has not tried physical therapy yet, I recommended physical therapy and advised her do stretching exercises twice a day for 15-20 minutes at home to help alleviate the pain. I also recommended using pillow with the groove. If the pain does not improve with physical therapy, we will consider nerve stimulator therapy. Patient will return to the office as needed. Scribed for Dr. Sanchez by Williams Harrison, medical lab scientist, on 04/28/2024. I, Dr. Sanchez, have personally reviewed and agree with the information entered by the scribe. Orders: Orders PT Evaluation and Treatment 04/28/24 M47.812 - Spondylosis without myelopathy or radiculopathy, cervical region, M50.30 - Other cervical disc degeneration, unspecified cervical region Scribe Plan - Not visible on output: Scribed for Dr. Sanchez by Williams Tao, medical lab scientist, on 04/17/2024.? I, Dr. Sanchez, have personally reviewed and agree with the information entered by the scribe. Coding Level of Care Code New Pt Level 4 (17580) Diagnoses Degenerative cervical disc M50.30 Cervical spondylosis M47.812
== END 2024-04-28 10:07 | disposition home or self-care (01) ==
PROVIDERS: PCP Internal Medicine; Visit Provider Internal Medicine
DX: M50.30 Other cervical disc degeneration, unspecified cervical region (principal); M47.812 Spondylosis without myelopathy or radiculopathy, cervical region
CPT/HCPCS: 99204

== ENCOUNTER → 2024-04-28 09:34 | Outpatient (BNVA) | payer MEDICARE, MEDICAID, SELFPAY | PROVIDERS: PCP Internal Medicine; Visit Provider Internal Medicine | DX: M50.30 Other cervical disc degeneration, unspecified cervical region (principal); M47.812 Spondylosis without myelopathy or radiculopathy, cervical region | CPT/HCPCS: 99202 ==

== ENCOUNTER 2024-06-09 10:53 | Outpatient (RCR) | payer MEDICARE, MEDICAID, SELFPAY ==
[2024-05-29 12:59] VITALS: BP 133/82; PULSE 85
--- NOTE | 2024-05-29 13:59 | MHC.PT.EP ---
[facility] [place] Office [place] Office [place] Office [address] [phone] F: [phone] F: [phone] F: [phone] F: [phone] Physical Therapy Plan of Care Date of Evaluation: 05/29/24 Date of Surgery: NA Diagnosis: Spondylosis without myelopathy or radiculopathy Degenerative cervical disc Assessment: Tamar is a 54 year old female who is referred to PT for Spondylosis without myelopathy or radiculopathy, Degenerative cervical disc . She reports of having neck pain for several years however it got worse about 2 years back. Her pain has progressively gotten worse. She is legally blind and looks down or leans forward too much to read and this has aggravated her neck pain. On PT examination she presents with 5/10 pain in her neck, TTP from C7 to T4 and B medial border of scapula, B UT- R>L, decreased cervical ROM, decreased scap and cervical muscle strength and altered posture. She lives alone and is independent with all ADLS but has pain with them. She is disabled due to vision. She would benefit from skilled PT to address the aforementioned impairments and improve tolerance to functional activities. Frequency and Duration: The patient will be seen 2/week for 5 weeks Short Term Goals: 1. Pt will have 50% decrease in pain which will enable her to sleep without pain in 2 weeks 2. Pt will be able to move her neck through all planes of motion without pain which will enable her perform all her ADLS with pain no more than 2/10 in 3 weeks Long-Term Goals: 1. Pt will demonstrate an increase in muscle strength by 1 grade which will enable her to hold upright posture when on phone, tablet or when cooking in 5 weeks. 2. Pt will be independent with all HEP for symptom management and maintenance following d/c in 5 weeks. Treatment Plan: Modalities to reduce pain, spasms and effusion. Manual therapy to restore motion and function. Therapeutic exercise to improve strength and flexibility. Neuromuscular re-education for posture and balance. Therapeutic activities to return to functional activities of daily living. Electronically signed by: Lorin Diaz PT DPT Please sign and return to therapist. Thank you for your referral.
--- NOTE | 2024-07-12 08:46 | MHC.PT.DC ---
[facility] [place] Office [place] Office [place] Office [address] [phone] F: [phone] F: [phone] F: [phone] F: [phone] Physical Therapy Discharge Report Diagnosis: Spondylosis without myelopathy or radiculopathy Degenerative cervical disc Date of Surgery: NA Date of Evaluation: 05/29/24 Date of Discharge: 07/12/24 Treatments to Date: 4 Cancellations to Date: 0 No Shows to Date: 0 Discharge Status: Patient Elected to Stop Discharge Summary: Tamar attended 4 PT visits. 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 She planned to return to PT in Jul if needed. She however has not called to schedule any appointments. She is therefore being d/c from PT. Electronically signed by: Lorin Diaz PT DPT Please sign and return to therapist. Thank you for your referral.
== END 2024-07-12 08:46 | disposition home or self-care (01) ==
LOC: HO.PT 10:53
PROVIDERS: PCP Internal Medicine; Visit Provider Internal Medicine
DX: M50.30 Other cervical disc degeneration, unspecified cervical region (principal); M47.812 Spondylosis without myelopathy or radiculopathy, cervical region
CPT/HCPCS: 97110; 97112; 97161

== ENCOUNTER → 2024-07-27 08:10 | Outpatient (BNVA) | payer MEDICARE, MEDICAID, SELFPAY | PROVIDERS: PCP Internal Medicine; Visit Provider Physician Assistant Surgical ==

== ENCOUNTER 2024-07-28 07:59 | Outpatient (AMB) | payer MEDICARE, MEDICAID, SELFPAY ==
--- NOTE | 2024-07-28 11:48 | MHC.OFFVISWM ---
VS Expanded 07/28/24 12:08 Height 5 ft 8 in Weight 255 lb BMI 38.8 Body Fat % 46.1 Body Fat Mass 117.6 Fat Free Mass 137.4 Visceral Fat Rating 14 Body Water % 38.3 Body Water Mass 97.6 Basal Metabolic Rate/Score 1,931 Intake Visit Reasons: [employer] [facility] vs [facility] BMI 38.8 Allergies Seasonal Allergies Allergy (Mild, Verified 07/28/24 11:48) sneezing vaccines Allergy (Unknown, Uncoded 07/28/24 11:48) unknown Medication List - Last Reconciled 07/28/24 by Alan Herr MD amitriptyline 50 mg PO BEDTIME famotidine 40 mg PO DAILY [hair skin and nails PO] levothyroxine (Synthroid) 137 mcg PO DAILY omeprazole 20 mg PO DAILY propranolol ER 80 mg PO DAILY topiramate 25 mg PO TID HPI HPI [employer] [facility] vs [facility] BMI 38.8: Details: Start time: 11.36am, End time: 12.36pm ?I spent 55 minutes speaking with the patient on the phone plus an additional 5 minutes reviewing and updating records for a total of 60 minutes HPI Comments Details: Previous weight loss efforts: WW, Weight management program Wakes up: 6am, Sleeps: 9.30pm Breakfast: 8am (toast, yogurt) Lunch: 12pm (yogurt, Barebell protein bar) Dinner: 4.30pm (salmon, salad, vegetables, soups) Snacks: 10am (pretzels, cheese, fruits), 2pm (same), after dinner (ice cream bars) Exercise: Has a stationary bike and Elliptical at home Fluids: Coffee (1 cup and 1 with Premade protein shake), tea:none, soda: rare, juice: none, ETOH: 1/mth (Vodka) PFSH Medical History (Updated 07/28/24 @ 12:26 by Alan Herr MD) History of nephrolithiasis Diaphragmatic hernia GERD (gastroesophageal reflux disease) Hypertension DJD (degenerative joint disease) Familial juvenile macular degeneration syndrome Anxiety Depression Surgical History (Updated 07/28/24 @ 11:55 by Alan Herr MD) History of resection of rib Hx of hysterectomy Hx of adenoidectomy Hx of tonsillectomy Hx of bladder endoscopy Hx of colonoscopy Family History (Updated 07/27/24 @ 08:51 by Sarah Leung CMA) Mother Malignant neoplasm of breast in full remission Arthritis Father Landon's disease Son No problems noted. Son No problems noted. Social History (Updated 07/27/24 @ 08:51 by Sarah Leung RECREATION LEADER) Alcohol intake: current Alcohol intake frequency: holidays/special occasions only Patient Tobacco Use Status: Never used Tobacco Telehealth Telehealth Telehealth Platform: Telephone Location of provider rendering services: practice address Location of patient: address on file Patient Identification confirmed using: Name, : Yes Telehealth method: voice only Patient verbally consented to treatment: Yes Patient verbally consented to billing insurance company: Yes Patient informed of any privacy concerns related to visit: Yes Minutes spent on Phone/Video with Pt.: 60 Assessment & Plan Assessment & Plan (1) Obesity: Code(s): E66.9 - Obesity, unspecified Category: Medical Qualifiers: Obesity type: due to excess calories Obesity classification: adult class 2 (BMI 35 - 39.9) Serious obesity comorbidity presence: with serious comorbidity Body mass index: BMI 38.0-38.9 Qualified Code(s): E66.812 - Obesity, class 2; E66.01 - Morbid (severe) obesity due to excess calories; Z68.38 - Body mass index [BMI] 38.0-38.9, adult Plan: 1.? Plan for lap sleeve gastrectomy. If diaphragmatic or ventral hernias are present at time of surgery, these will be repaired laparoscopically as well. I emphasized the importance of close follow-up, adherence to instructions and good communication. The surgery does not replace the need to change your lifestlyle which is the cause of the obesity problem. The surgery provides the motivation to try again to change your lifestyle, it reduces the appetite and make the transition to a better lifestyle easier and doubles the amount of weight you would lose compared to doing the lifestyle change without the surgery. You will need to be on a liquid diet with protein shakes for 2 weeks before surgery to maximize weight loss and boost your nutritional status to recover better from surgery and also for the first two weeks after surgery to let the stomach heal before we introduce other foods. After the first 2 weeks we will introduce protein bars and soft foods like scrambled eggs, cottage cheese and yogurt and after the 6th week will introduce meat, fish and cooked vegetables in small amounts. Over time you should be able to eat everything in small amounts. Side effects like nausea, vomiting, heartburn or abdominal pain are not common in the practice unless you are not following in the practice. This operation requires lifetime commitment to following in our practice and communication with me. You will much less weight and experience side effects if you don?t communicate or not following in the practice. Complications are rare and in our practice is about 1/10 of the national average. However, you can develop bleeding that may require transfusion (hasn?t happened for year in the practice), you may from complications (we did not have any deaths in the practice) and infections. Infections are usually a result of breakdown in communication or not understanding or following directions correctly. They are difficult to treat, they can happen during the first 6 weeks, they may require to be in the hospital for weeks or even months, not being able to eat by mouth and you may have drains and surgeries to try and correct the issue. Other risks and complications include possible conversion to an open procedure, leaks, small bowel obstruction, blood clots, cardiac, or pulmonary complications, as termite control technician complications such as ulcers, insufficient weight loss and vitamin deficiencies. 2.? Nutritional counseling. Start with one premade PREMIER shake (mix 4oz of Premier with 4oz low fat unsweetened almond milk each) at 7am-9am, 1 Barebell protein bar at 10am-12pm, one premade PREMIER shake (mix 4oz of Premier with 4oz low fat unsweetened almond milk each) at 1pm-3pm, one Barebell protein bar at 4pm-6pm and dinner at 7pm (8 forks of protein and 8 forks of salad/vegetables). So you do 2 protein shakes, 2 protein bars and one meal per day. Meal to include lean meat (beef, fish, pork, turkey, chicken), or tamazight yogurt, or egg whites, or beans with a salad with olive oil and fruits (berries, pears, apples, kiwi). Avoid salt, breads, potatoes, rice, pasta, desserts. 3. Each shake would be drunk slowly, like coffee in a period of 2 hours. 4. Cut each bar in 4 pieces and eat each piece in 30min ?to make each bar last 2 hours. 5. I emphasized the importance of measuring accurately the food portion and measure it when serving the food in plate 6. The meal portions include 8 full-size forks of meat and 8 full-size forks of salad. You always eat the meat portion but you can replace up to 4 forks for salad/vegetables with rice, potatoes or pasta, or a fruit ?if you like. The less you do it the better weight loss will be. 7. One full-size fork is what it can be scooped on the fork without falling aside and not what can be bit with the fork. Use regular forks like those you find in a typical restaurant. 8.? Please buy the body composition scale we discussed and send me weight measurements as soon as possible and then once a week. Always include your diet and exercise plan. 9. Start Elliptical with an incline of 0.0 and resistance of 0.0. Increase resistance by 1 every 3 min to a max resistance of 6.0, and repeat cycles for 300 calories. 10. Alternatively start stationary bike at a resistance level of 0.0 Increase level by 1.0 every 3 min to a max level of 6.0. Stay at this level for 3 min and then return to level 0.0 and repeat same steps until 300 calories are burned. . Goal is to burn 2000 calories per week on exercise 11. Goal is to lose at least 1.5-2lbs per week 12. Goal to lose 10% of your weight before surgery, which is about 25lbs. Ultimate weight goal: 230lbs before surgery 13. Please follow the diet plan exactly without any change. If you don't like something about the plan or you feel hungry you need to communicate with me so I can help you revise the plan. You should not change the plan yourself 14. To be scheduled for EGD on 08/16/24 due to the severe GERD. The possibility of biopsies was discussed. Patient needs to avoid use of NSAIDs and aspirin for 1 week prior to EGD. You must be on liquids only the day before your endoscopy. Risks of perforation and bleeding was discussed with the patient. This will be an outpatient procedure with IV sedation. Orders: Orders Hemoglobin A1c Today E66.9 - Obesity, unspecified, I10 - Essential (primary) hypertension, K21.9 - Gastro-esophageal reflux disease without esophagitis, Z68.38 - Body mass index [BMI] 38.0-38.9, adult Lipid Panel Today E66.9 - Obesity, unspecified, I10 - Essential (primary) hypertension, K21.9 - Gastro-esophageal reflux disease without esophagitis, Z68.38 - Body mass index [BMI] 38.0-38.9, adult Vitamin B12 and Folate Today E66.9 - Obesity, unspecified, I10 - Essential (primary) hypertension, K21.9 - Gastro-esophageal reflux disease without esophagitis, Z68.38 - Body mass index [BMI] 38.0-38.9, adult Vitamin D 25-OH Total Today E66.9 - Obesity, unspecified, I10 - Essential (primary) hypertension, K21.9 - Gastro-esophageal reflux disease without esophagitis, Z68.38 - Body mass index [BMI] 38.0-38.9, adult XR chest 2V Today E66.9 - Obesity, unspecified, I10 - Essential (primary) hypertension, K21.9 - Gastro-esophageal reflux disease without esophagitis, Z68.38 - Body mass index [BMI] 38.0-38.9, adult Insulin Today E66.9 - Obesity, unspecified, I10 - Essential (primary) hypertension, K21.9 - Gastro-esophageal reflux disease without esophagitis, Z68.38 - Body mass index [BMI] 38.0-38.9, adult H Pylori Breath Test Today E66.9 - Obesity, unspecified, I10 - Essential (primary) hypertension, K21.9 - Gastro-esophageal reflux disease without esophagitis, Z68.38 - Body mass index [BMI] 38.0-38.9, adult Complete Blood Count Auto Diff Today E66.9 - Obesity, unspecified, I10 - Essential (primary) hypertension, K21.9 - Gastro-esophageal reflux disease without esophagitis, Z68.38 - Body mass index [BMI] 38.0-38.9, adult IRON PROFILE Today E66.9 - Obesity, unspecified, I10 - Essential (primary) hypertension, K21.9 - Gastro-esophageal reflux disease without esophagitis, Z68.38 - Body mass index [BMI] 38.0-38.9, adult Comprehensive Met. Panel Today E66.9 - Obesity, unspecified, I10 - Essential (primary) hypertension, K21.9 - Gastro-esophageal reflux disease without esophagitis, Z68.38 - Body mass index [BMI] 38.0-38.9, adult Zinc Today E66.9 - Obesity, unspecified, I10 - Essential (primary) hypertension, K21.9 - Gastro-esophageal reflux disease without esophagitis, Z68.38 - Body mass index [BMI] 38.0-38.9, adult C Reactive Protein Today E66.9 - Obesity, unspecified, I10 - Essential (primary) hypertension, K21.9 - Gastro-esophageal reflux disease without esophagitis, Z68.38 - Body mass index [BMI] 38.0-38.9, adult Vitamin B1 Today E66.9 - Obesity, unspecified, I10 - Essential (primary) hypertension, K21.9 - Gastro-esophageal reflux disease without esophagitis, Z68.38 - Body mass index [BMI] 38.0-38.9, adult Vitamin A Today E66.9 - Obesity, unspecified, I10 - Essential (primary) hypertension, K21.9 - Gastro-esophageal reflux disease without esophagitis, Z68.38 - Body mass index [BMI] 38.0-38.9, adult TSH reflex Free T4 Today E66.9 - Obesity, unspecified, I10 - Essential (primary) hypertension, K21.9 - Gastro-esophageal reflux disease without esophagitis, Z68.38 - Body mass index [BMI] 38.0-38.9, adult Ferritin Today E66.9 - Obesity, unspecified, I10 - Essential (primary) hypertension, K21.9 - Gastro-esophageal reflux disease without esophagitis, Z68.38 - Body mass index [BMI] 38.0-38.9, adult US abdomen comp w elastography Today E66.9 - Obesity, unspecified, I10 - Essential (primary) hypertension, K21.9 - Gastro-esophageal reflux disease without esophagitis, Z68.38 - Body mass index [BMI] 38.0-38.9, adult ECG 12 lead EKG Today E66.9 - Obesity, unspecified, I10 - Essential (primary) hypertension, K21.9 - Gastro-esophageal reflux disease without esophagitis, Z68.38 - Body mass index [BMI] 38.0-38.9, adult FL upper GI w air Today E66.9 - Obesity, unspecified, I10 - Essential (primary) hypertension, K21.9 - Gastro-esophageal reflux disease without esophagitis, Z68.38 - Body mass index [BMI] 38.0-38.9, adult Referrals Behavioral Health Referral E66.9 - Obesity, unspecified, I10 - Essential (primary) hypertension, K21.9 - Gastro-esophageal reflux disease without esophagitis, Z68.38 - Body mass index [BMI] 38.0-38.9, adult Nutrition/Dietitian Referral E66.9 - Obesity, unspecified, I10 - Essential (primary) hypertension, K21.9 - Gastro-esophageal reflux disease without esophagitis, Z68.38 - Body mass index [BMI] 38.0-38.9, adult
[2024-07-28 12:08] VITALS: BMI 38.8
== END 2024-07-28 12:37 | disposition home or self-care (01) ==
LOC: HO.HBS 07:59
PROVIDERS: PCP Internal Medicine; Visit Provider Surgery
DX: E66.812 Obesity, class 2 (principal); E66.01 Morbid (severe) obesity due to excess calories; Z68.38 Body mass index [BMI] 38.0-38.9, adult
CPT/HCPCS: 99205

== ENCOUNTER 2024-07-31 06:18 | Outpatient (REF) | payer MEDICARE, MEDICAID, SELFPAY ==
--- NOTE | ~2024-07-31 | XR_ITS ---
EXAMINATION: XR CHEST CLINICAL INFORMATION: E66.9 - Obesity, unspecified COMPARISON: February 11, 2024 TECHNIQUE: 2 views of the chest were obtained. FINDINGS: No consolidation, pleural effusion or pneumothorax. Vascular clips overlapping the left upper hemithorax. Cardiomediastinal silhouette size is normal. Mild multilevel thoracolumbar spondylosis.. XR/XR chest 2V IMPRESSION: No acute airspace disease. Electronically signed by: Homar Gupta MD 07/31/2024 07:16 AM EST
--- OUTSIDE RECORDS SUMMARY | 2024-07-31 06:21 | XMS_ITS | Data Portability ---
Author Organization [facility] Luis Miguel Internal Medicine, Home Service Address [address] [place] [address] Assessment Encounter Date Assessment Date Assessment LastModified by Organization Details LastModified Time 09/23/2022 09/23/2022 Patient agreed and verbally consents to this audio and video Telehealth appt via a secure platform [email or web address] Not available 09/23/2022 11:25:36 08/23/2023 08/23/2023 Patient presente d to office today for their Medicare Annual Wellness Visit. Education was provided on healthy nutrition, including a diet rich in fruits and vegetables, minimizing simple carbohydrates, salt, and saturated fats. Encouraged regular cardiovascular exercise such as walking at least 30 minutes daily, 5 times per week. Emphasized preventive health measures and educated pt on fall prevention and community-based lifestyle interventions to help reduce health risks and promote healthy living. [email or web address] Not available 08/23/2023 10:15:32 11/03/2023 11/03/2023 Patient presente d to office today for their Medicare Annual Wellness Visit. Education was provided on healthy nutrition, including a diet rich in fruits and vegetables, minimizing simple carbohydrates, salt, and saturated fats. Encouraged regular cardiovascular exercise such as walking at least 30 minutes daily, 5 times per week. Emphasized preventive health measures and educated pt on fall prevention and community-based lifestyle interventions to help reduce health risks and promote healthy living. [email or web address] Not available 11/02/2023 16:23:59 02/04/2024 02/04/2024 [id number] [place] [id number] (COMMERCIAL CREDIT OFFICER) MDM MODERATE MUST MEET 2 OUT OF 3 ELEMENTS: PROBLEMS, DATA OR RISK ELEMENT 1: PROBLEMS ADDRESSED 1 OR MORE CHRONIC ILLNESS WITH EXACERBATION OR 2 OR MORE STABLE CHRONIC ILLNESSES OR 1 UNDIAGNOSED NEW PROBLEM OR 1 ACUTE ILLNESS W/SYMPTOMS OR 1 ACUTE COMPLICATED INJURY ELEMENT 2: DATA MUST MEET 1 OF 3 CATEGORIES CATEGORY 1: REVIEW OF PRIOR EXTERNAL NOTES, REVIEW OF RESULTS, ORDERING OF EACH TEST, ASSESSMENT REQUIRING INDEPENDENT HISTORIAN OR CATEGORY 2: INDEPENDENT INTERPRETATION OF TESTS BY ANOTHER PHYSICIAN OR SPECIALIST OR CATEGORY 3: DISCUSSION OF MGT OR TEST INTERPRETATION W/EXTERNAL PHYSICIAN OR SPECIALIST ELEMENT 3: RISK RISK OF COMPLICATIONS AND/OR MORBIDITY OR MORTALITY OF PATIENT MANAGEMENT PROVIDER MUST THOROUGHLY DOCUMENT EACH ELEMENT THAT IS COVERED Not available 02/04/2024 09:19:29 Plan of Treatment Reminders Order Date Submit Date Provider Last Modified By Organization Details Last Modified Time Details Appointments None recorded. Lab lipid panel, blood 2023 024 [facility], [address] [place] [address], [id number], 4 11:09:35 CBC w/ auto diff 2023 024 [facility], [address] [place] [address], [address], 4 11:09:35 CMP, serum or plasma 2023 024 [facility], [address] [place] [address], [address], 4 11:09:35 vitamin D, 25-hydroxy , total, serum 2023 024 [facility], [address] [place] [address], [address], 4 11:26:40 TSH + free T4, serum 2023 024 [facility], [address] [place] [address], [address], 4 11:07:38 TSH + free T4, serum 2023 024 [facility], [address] [place] [address], [address], 4 11:07:38 Referral neurologis t referral 2022 023 [email or web address] 10 [facility], [address], [place], [address], 3 08:49:05 Procedures None recorded. Surgeries None recorded. Imaging MRI, cervical spine, w/o contrast 2023 024 [email or web address] 10 [facility], [address] [place], [address], 4 07:54:29 electromyo gram + nerve conduction study - carpal tunnel, castillo hands and wrists 2023 024 [facility]), [address] [place], [address], 4 09:19:32 XR, cervical spine, 2 or 3 view 2023 024 [facility], [address] [place], [address], 4 14:30:08 XR, chest, 2 view 2023 024 [facility], [address] [place], [address], 4 14:30:08 Medication Orders codeine 10 mg-guaifen esin 100 mg/5 mL oral liquid 2023 024 [facility] #[id number], [address], [place], [id number], 4 09:45:13 cephalexin 500 mg capsule 2023 024 [facility] #[id number], [address], [place], [id number], 4 09:20:25 Synthroid 137 mcg tablet 2023 024 [facility] #[id number], [address], [place], [id number], 4 11:42:08 ciprofloxa radha 500 mg tablet 2022 023 [email or web address] [facility] #[id number], [address], [place], [id number], 09:58:28 Patient TargetsNo targets recorded. Patient Instructions Encounter Date Encounter Id Patient Instructions Last Modified By Organization Details Last Modified Time 08/23/2023 [id number] hypothyroidism: care instructions Not available 08/23/2023 22:06:42 11/03/2023 [id number] Skin Cyst: Care Instructions Not available 11/03/2023 11:27:04 Discussed and explained advance directives such as standard forms to the {{patient* caregi paola patient and caregiver}}. Face to face discussion lasted for a duration of _5__ minutes. Not available 11/03/2023 11:28:02 02/04/2024 [id number] neck pain: care instructions Not available 02/04/2024 09:16:54 cough: care instructions Not available 02/04/2024 09:21:28 Reason for Referral Neurologist Referral for Chauncey landa needs new neurologist, other neurologist retired Referring Physician: Jami Ramey, Internal Medicine, Encounter Date: 09/23/2022 Results Created Date Observation Date Name Description Value Unit Range Abnormal Flag Note LastModifiedBy Organization Detail LastModifiedTime 10/07/1910/01/2022 MAMMO , scree owen, digit al, bilat eral No observ ation record ed. [facility]'s [address] [place], [address], 10/07/2022 08:10:20 02/22/20 23 02/21/2023 XR, foot No observ ation record ed. [address] (Medical Records) [address] [place], [address], 02/21/2023 08:35:27 02/22/20 23 02/21/2023 XR, ankle No observ ation record ed. [address] (Medical Records) [address] [place], [address], 02/21/2023 08:35:58 11/08/19 24 10/18/2023 MAMMO , scree owen, digit al, bilat eral No observ ation record ed. [facility] [address] [place], [address], 11/08/2023 13:26:33 02/04/20 24 02/04/2024 XR, cervi alix spine , 2 or 3 view No observ ation record ed. [facility] (Medical Records) [address] [place], [address], 02/18/2024 09:49:01 02/04/20 24 02/04/2024 XR, chest , 2 view No observ ation record ed. [facility] (Medical Records) [address] [facility] [place], [address], 02/18/2024 09:49:00 02/18/20 24 02/11/2024 XR, chest , 2 view No observ ation record ed. [facility] (Medical Records) [address] [place], [address], 02/22/2024 15:40:53 03/13/20 24 03/03/2024 MRI, cervi alix spine , w/o contr ast No observ ation record ed. [facility] (Medical Records) [address] [facility] [place], [address], 03/14/2024 15:53:15 03/16/20 24 03/16/2024 elect romyo gram + nerve condu ction study No observ ation record ed. [email or web address] [facility] (Medical Records) [address] [place], [address], 03/17/2024 12:09:59 03/16/2003/16/2024 elect romyo gram + nerve condu ction study No observ ation record ed. [email or web address] [facility] (Medical Records) [address] [place], [address], 03/17/2024 12:09:59 Result Notes None recorded. 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 2019 Not Available [facility] 2 14:39:08 Acute sinusiti s 27933762 Active 2021 VIJAY HAAS [address] [place] [address], [address], [facility] 2 10:05:14 Posterio r rhinorrh ea 03532001 Active 2021 VIJAY HAAS [address] [place] [address], [address], [facility] 2 10:05:48 Pain in throat 842498131 Active 2021 VIJAY HAAS [address] [place] [address], [address], [facility] 2 10:05:53 COVID-19 346067627 Active 2021 VIJAY HAAS [address] [place] [address], [address], [facility] 2 10:28:01 Intermit tent palpitat ions 199005990 Active 2021 Brendan Dockery DO [address] [place] [address], [address], [facility] 2 14:24:47 Acute otitis media 7684774 Active 2022 VIJAY HAAS [address] [place] [address], [address], [facility] 3 14:11:22 Acute bronchit is 27458256 Active 2022 VIJAY HAAS [address] [place] [address], [address], [facility] 3 11:29:57 Acute otitis media 9928149 Active 2023 Brendan Dockery, DO [address] [place] [address], [address], [facility] 4 15:34:59 Epidermo id cyst of skin 235673311 Active 2023 Brendan Dockery, DO [address] [place] [address], [address], [facility] 4 11:26:25 Anxiety 01561204 Active 2023 Brendan Dockery, DO [address] [place] [address], [address], [facility] 4 11:04:14 Cough 23738500 Active 2023 Brendan Dockery, DO [address] [place] [address], [address], [facility] 4 09:46:18 Neck pain 70798866 Active 2023 Brendan Dockery, DO [address] [place] [address], [address], [facility] 4 09:16:11 Pneumoni a 512437886 Active 2023 Brendan Dockery, DO [address] [place] [address], [address], [facility] 4 14:44:04 Cervical radiculo lore 28893928 Active 2023 VIJAY HAAS [address] [place], [address], [facility] 4 09:40:00 Bilpritesh l carpal tunnel syndrome 39933607329 274479 Active 2023 VIJAY HAAS [address] [place], [address], [facility] 4 09:42:34 Cervical disc disorder 710112449 Active 2023 VIJAY HAAS [address] [place], [address], [facility] 4 15:54:20 Gastroes ophageal reflux disease 326499108 Active 2017 Not Available [facility] 2 14:39:08 Hypothyr oidism 69920244 Active 2017 Not Available [facility] 2 14:39:09 Migraine 20592711 Active 2017 Not Available [facility] 2 14:39:08 Fibromya lgia 233278899 Active 2017 Not Available [facility] 2 14:39:09 Family history of non-Hodg kin's lymphoma 317484174 Active 2017 father, dx'd 11/2010 Not Available [facility] 2 14:39:09 Thoracic outlet syndrome 952563919 Active 2017 s/p 1st rib removal 03/2012 Not Available [facility] 2 14:39:09 Chronic headache disorder 314453989 Active 2017 Not Available [facility] 2 14:39:09 Ventricu lar prematur e complex 484764413 Active 2017 Not Available [facility] 2 14:39:09 Hyperten sive disorder 31563887 Active 2017 Not Available [facility] 2 14:39:08 Tachycar mehnaz 3611625 Active 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 Procedures Surgical History Date Name Laterality Status Provider Name and Address Organization Details Recorded Time Colonoscopy completed Brendan Dockery , DO [address] [facility], [place], [address], [facility] 11/17/2021 15:53:34 Imaging Results Imaging Date Name Status LastModified by Organization Details LastModified Time 10/01/2022 MAMMO, screening, digital, bilateral completed [address] [place], [address], 10/07/2022 08:10:20 02/21/2023 XR, foot completed [address] (Medical Records) [address] [place] [address] [place], [address], 02/21/2023 08:35:27 02/21/2023 XR, ankle completed [address] (Medical Records) [address] [place] [address] [place], [address], 02/21/2023 08:35:58 10/18/2023 MAMMO, screening, digital, bilateral completed [address] [place], [address], 11/08/2023 13:26:33 02/04/2024 XR, cervical spine, 2 or 3 view completed [facility] (Medical Records) [address] [place], [address], 02/18/2024 09:49:01 02/04/2024 XR, chest, 2 view completed [facility] (Medical Records) [address] [place], [address], 02/18/2024 09:49:00 02/11/2024 XR, chest, 2 view completed [facility] (Medical Records) [address] [facility] [place], [address], 02/22/2024 15:40:53 03/03/2024 MRI, cervical spine, w/o contrast completed [email or web address] [facility] (Medical Records) [address] [place], [address], 03/14/2024 15:53:15 03/16/2024 electromyogram + nerve conduction study completed [email or web address] [facility] (Medical Records) [address] [place], [address], 03/17/2024 12:09:59 03/16/2024 electromyogram + nerve conduction study completed [email or web address] [facility] (Medical Records) [address] [place], [address], 03/17/2024 12:09:59 Procedure Notes None recorded. Medical Equipment None Reported. Allergies Allergen ID Allergen Name Allergen Category Reaction Reaction Severity Criticality Documentation Date Start Date Code Code System Note Provider Name and Address Organization Details Recorded Time 1277 Fluarix medicatio n Not available Not available Not available 10/15/2017 98254 UNK Rowan freitas [facility] 8 09:01:31 5796 Shingrix medicatio n Not available Not available Not available 11/17/2021 78137 26 RxNorm Brendan Dockery, DO [address] [place], [address], [facility] 2 15:05:01 8069 SARS-CoV- 2 (COVID-19 ) vaccine, protein [id number] 73 medicatio n Not available Not available Not available 11/03/2023 20965 73 RxNorm Hai freitas [facility] 4 10:55:25 Medications Name Sig Start Date Stop Date Status Note LastModified by Organization Details LastModified Time amoxicillin 500 mg capsule 11/23 completed Not Available Not Available Not Available furosemide 40 mg tablet Take 1 tablet every day by oral route for 30 days. active only prn Not Available Not Available Not Available levothyroxi ne 137 mcg tablet TAKE 1 TABLET BY MOUTH EVERY DAY active Not Available Not Available No t Available prednisone 10 mg tablet TAKE 4 TABLETS BY MOUTH DAILY FOR 2 DAYS THEN TAKE 3 TABLETS FOR 2 DAYS THEN TAKE 2 TABLETS FOR 2 DAYS THEN TAKE 1 TABLET FOR 2 DAYS 08/11 completed Not Available Not Available Not Available gabapentin 600 mg tablet 02/28 completed Not Available Not Available Not Available cefuroxime axetil 250 mg tablet Take 1 tablet every 12 hours by oral route for 10 days. 04/01 completed Not Available Not Available Not Available azithromyci n 250 mg tablet TAKE 2 TABLETS BY MOUTH ONCE FOR 1 DAY THEN 1 TABLET DAILY FOR 4 DAYS 02/17 completed Not Available Not Available Not Available sumatriptan 100 mg tablet prn 07/12 completed Not Available Not Available Not Available Synthroid 125 mcg tablet TAKE 1 TABLET BY MOUTH EVERY DAY 08/22 completed Not Available Not Available Not Available famotidine 40 mg tablet TAKE 1 TABLET BY MOUTH EVERY DAY active Not Available Not Available No t Available prednisone 20 mg tablet 3 tabs X 2 days, 2 tabs X 3 days 1 tab X 3 days 04/01 completed Not Available Not Available Not Available topiramate 25 mg tablet TAKE 1 TABLET BY MOUTH THREE TIMES DAILY active Not Available Not Available No t Available potassium chloride ER 10 mEq tablet,exte nded release Take 1 tablet every day by oral route for 30 days. active only prn w/fur osemi de Not Available Not Available Not Available valacyclovi r 500 mg tablet prn 01/13 completed Not Available Not Available Not Available ciprofloxac in 500 mg tablet TAKE 1 TABLET BY MOUTH EVERY 12 HOURS FOR 7 DAYS active Not Available Not Available No t Available sulfamethox azole 800 mg-trimetho prim 160 mg tablet Take 1 tablet every 12 hours by oral route. 10/03 completed Not Available Not Available Not Available tramadol 50 mg tablet Take 1 tablet every 6 hours by oral route for 7 days. 06/24 completed Not Available Not Available Not Available amitriptyli ne 50 mg tablet TAKE 1 TABLET BY MOUTH EVERY DAY active Not Available Not Available No t Available amoxicillin 500 mg tablet TAKE 1 TABLET BY MOUTH TWICE DAILY 7 DAYS 03/25 completed Not Available Not Available Not Available acyclovir 800 mg tablet TAKE 1 TABLET BY MOUTH FIVE TIMES DAILY FOR 10 DAYS 02/17 completed Not Available Not Available Not Available oxycodone-a cetaminophe n 5 mg-325 mg tablet TAKE 1 TABLET BY MOUTH EVERY 6 HOURS FOR 7 DAYS 08/11 completed Not Available Not Available Not Available lorazepam 0.5 mg tablet TAKE 1 TABLET BY MOUTH FOR 6 DAYS NEEDED active Not Available Not Available No t Available cephalexin 500 mg capsule TAKE 1 CAPSULE BY MOUTH THREE TIMES DAILY FOR 10 DAYS 02/17 completed Not Available Not Available Not Available ropinirole 0.5 mg tablet Take 1 tablet every day by oral route. 02/28 completed Not Available Not Available Not Available ranitidine 150 mg tablet Take one tablet every day. 04/01 completed Not Available Not Available Not Available propranolol ER 80 mg capsule,24 hr,extended release TAKE 1 CAPSULE BY MOUTH EVERY DAY active Not Available Not Available No t Available codeine 10 mg-guaifene sin 100 mg/5 mL oral liquid TAKE 10 ML BY MOUTH EVERY 4 HOURS active Not Available Not Available No t Available ranitidine 150 mg capsule 04/01 completed Not Available Not Available Not Available levofloxaci n 500 mg tablet TAKE 1 TABLET BY MOUTH EVERY 24 HOURS FOR 10 DAYS 02/17 completed Not Available Not Available Not Available methylpredn isolone 4 mg tablets in a dose pack FOLLOW PACKAGE DIRECTION S active Not Available Not Available No t Available albuterol sulfate HFA 90 mcg/actuati on aerosol inhaler INHALE 2 PUFFS BY MOUTH EVERY 4 HOURS NEEDED active Not Available Not Available No t Available etodolac 500 mg tablet Take one tablet twice a day. 07/12 completed Not Available Not Available Not Available fluticasone propionate 50 mcg/actuati on nasal spray,suspe nsion [place] 1 spray every day by intranasa l route. active Not Available Not Available No t Available doxycycline hyclate 100 mg tablet TAKE 1 TABLET BY MOUTH TWICE DAILY FOR 7 DAYS 11/17 completed Not Available Not Available Not Available spironolact one 50 mg tablet TAKE 1 TABLET BY MOUTH EVERY DAY 01/13 completed Not Available Not Available Not Available amoxicillin 875 mg-potassiu m clavulanate 125 mg tablet TAKE 1 TABLET BY MOUTH EVERY 12 HOURS FOR 10 DAYS 08/22 completed Not Available Not Available Not Available neomycin-po lymyxin-hyd rocort 3.5 mg-10,000 unit/mL-1 % ear drops,susp SHAKE LIQUID AND INSTILL 4 DROPS TO AFFECTED EAR THREE TIMES DAILY 09/23 completed Not Available Not Available Not Available metaxalone 800 mg tablet Take by oral route. 02/28 completed Not Available Not Available Not Available biotin active Not Available Not Availa ble Not Available Botox 200 unit injection Every 91 days. active Not Available Not Available No t Available COVID-19 test specimen collection TEST DIRECTED 03/25 completed Not Available Not Available Not Available BinaxNOW COVID-19 Ag Self Test kit TEST DIRECTED TODAY 08/11 completed Not Available Not Available Not Available Paxlovid 300 mg (150 mg x 2)-100 mg tablets in a dose pack TAKE 3 TABLETS BY MOUTH TWICE DAILY FOR 5 DAYS 08/11 completed Not Available Not Available Not Available Vitals Date Recorded Body height Body mass index (BMI) Body weight Heart rate Oxygen saturation Oxygen saturation in Arterial blood by Pulse oximetry Systolic blood pressure Diastolic blood pressure Provider Name and Address Organization Details Last Updated DateTime 4 172.72 cm 37.7 kg/m2 682489. 91 g 87 /min 97 % 97 % 138 mm[Hg] 68 mm[Hg] Madison Smith [facility] 4 10:00:36 Date Recorded Body height Body mass index (BMI) Body weight Heart rate Respiratory rate Oxygen saturation Oxygen saturation in Arterial blood by Pulse oximetry Systolic blood pressure Diastolic blood pressure Provider Name and Address Organization Details Last Updated DateTime 4 172.72 cm 38 kg/m2 090363. 45 g 64 /min 18 /min 96 % 96 % 128 mm[Hg] 70 mm[Hg] Hai Ahumada [facility] 4 10:55:03 Date Recorded Body height Body mass index (BMI) Body weight Heart rate Oxygen saturation Oxygen saturation in Arterial blood by Pulse oximetry Systolic blood pressure Diastolic blood pressure Provider Name and Address Organization Details Last Updated DateTime 4 172.72 cm 37.6 kg/m2 452279. 32 g 74 /min 95 % 95 % 116 mm[Hg] 82 mm[Hg] Cathy Forbes [facility] 4 09:29:51 Social History Question Answer Notes LastModified by Organizat ion Details LastModified Time Tobacco Smoking Status Never Smoker Not Available [facility] 04/09/2020 03:36:23 What Was The Date Of Your Most Recent Tobacco Screening? 02/18/2024 [email or web address] Information not available 02/18/2024 Sex: Unknown Functional Status None recorded. Mental Status None recorded. Family History Nothing Reported. Medical History Condition Response Coronary Artery Disease N Other N Gout N Kidney Stones N Blood Diseases N Breast Cancer N Blood Transfusion N Lung Disease N Depression N COPD N Defects or Inherited Disease N Anxiety Disorder N Muscle, Joint, or Bone Problems N Obesity N Vision or Eye Problems N Arthritis N Polyps N Infertility N Mental Disorder N Cancer N Varicosities N Stroke N Endometriosis N Bladder or Kidney Problems N High Cholesterol N Liver Disease N Headaches N Fibromyalgia N Kidney Disease N Allergies/Hayfever N Heart Problems N Hospitalizations N Thyroid Problems N GI Problems N Skin Problems N Eating Disorder N Anemia N MRSA exposure N Constipation N Mental Illness N Ovarian Cancer N Diabetes N Seizures/Epilepsy N Tuberculosis N Congestive Heart Failure (CHF) N Eczema N Diverticulitis N Abuse/Domestic Violence N Asthma N Reflux/GERD N Hepatitis N Heart Disease N Pulmonary Embolism N Hypertension N Osteoporosis N Chicken Pox N Autism Spectrum Disorder (ASD) N Gynecological HistoryNo gynecological history recorded. Obstetrics History GPAL:G 0 P 0 0 0 0 Immunizations Vaccine Type Date Status Note Provider Nam e and Address Organization Details Recorded Time COVID-19, mRNA, LNP-S, PF, 30 mcg/0.3 mL dose 1 completed Brendan Dockery DO [address] [place] [address], [address], [facility] 03/25/2021 14:56:42 COVID-19, mRNA, LNP-S, PF, 30 mcg/0.3 mL dose 1 completed Brendan Dockery DO [address] [place] [address], [address], [facility] 03/25/2021 14:56:50 COVID-19, mRNA, LNP-S, PF, 100 mcg/0.5mL dose or 50 mcg/0.25mL dose 2 completed Brendan Dockery DO [address] [place] [address], [address], [facility] 11/17/2021 15:06:29 zoster recombinant 2 completed Brendan Dockery [address], [address], [facility] 11/17/2021 15:06:54 Past Encounters Encounter ID Performer Location Encounter Start Date Encounter Closed Date Diagnosis/Indication Diagnosis SNOMED-CT Code Diagnosis ICD10 Code Diagnosis Note [id number] Brendan Dockery [facility] [address] [place] [address],[place] [address] 10/15/2017 14:39:05 10/15/2017 16:02:57 Tenosynovitis of wrist 293000490 M65.839 given she has tried splint and taken otc and rx nsaids without resolution Hypertensive disorder 38 225509 I10 bp is stable no issues noc cp [id number] Sheyla Coon NP, [facility] [address] [place] [address],[place] [address] 11/23/2017 13:24:41 11/23/2017 14:43:03 Acute bacterial sinusitis 18004011 J01.90 Hypothyroidism 33634092 E03.9 stable, reviewed labs Essential hypertension 04832296 I10 stable [id number] Brendan Dockery [facility] [address] [place] [address],[place] [address] 02/28/2018 10:59:14 02/28/2018 12:08:52 Hypothyroidism 76200496 E03.9 tsh is 0.8 Hypertensive disorder 38 824545 I10 bp is stable no issues noc cp Adult heal th examination 247204373 Z00.00 discussed need for exercise and diet Screening for cardiovascular system disease 182115693 Z13.6 Screening mammography 24 525910 Z12.31 [place] [id number] September STEPHANIE Ballesteros [facility] [address] [place] [address],[place] [address] 07/12/2018 09:48:11 07/12/2018 11:06:37 Migraine 73195377 G43.909 Using imitrex with relief Hypertensive disorder 38 958480 I10 diastolic slightly elevated, will monitor Hypothyroidism 15690356 E03.9 labs last done 02/2018 Benign par oxysmal positional vertigo 847567051 H81.11 improving with meclizine Acute sinusitis 84396481 J01.90 continue mucinex, flonase, fluids, humidifier [id number] Sheyla Coon NP, [facility] [address] [facility],[place] [address] 09/16/2018 11:50:53 09/16/2018 15:19:18 Otitis media 52273879 H66.92 Allergic cough 756967455 R05 Active or passive immunization 330522059 Z23 Hypertensive disorder 38 312633 I10 stable, reviewed Mar 2018 labs [id number] Sheyla Coon NP, [facility] [address] [facility],[place] [address] 09/26/2018 13:31:49 09/26/2018 14:23:51 Dysfunction of eustachian tube 71562788 H69.92 [id number] Sheyla Coon NP, [facility] Internal [facility] [address] [facility],[place] [address] 10/03/2018 14:57:35 10/03/2018 16:29:59 Dysfunction of left eustachian tube 0009597459 091434 H69.92 [id number] [facility] [address] [facility],[place] [address] 11/23/2018 16:09:46 11/25/2018 08:16:23 Hypertensive disorder 90299028 I10 bp is stable no issues noc cp Hypothyroidism 12641088 E03.9 tsh is 0.8 Edema of l ower extremity 949844823 R60.0 will add furosemide 40mg [id number] Brendan Dockery [facility] [address] [facility], [place] [address] 12/02/2018 13:35:55 12/02/2018 14:40:20 Hypertensive disorder 30520065 I10 bp is stable no issues noc cp will cont Edema of l ower extremity 971622265 R60.0 will cont furosemide 40mg [id number] September STEPHANIE Ballesteros [facility] [address] [facility],[place] [address] 01/13/2019 10:20:35 01/13/2019 11:04:19 Edema of lower extremity 090502831 R60.0 b/l improved on increased dose of lasix do 80 mg again today then return to 40 mg Hypertensive disorder 38 769398 I10 stable Hypothyroidism 67350316 E03.9 normal tsh 12/2018 [id number] Brendan Dockery [facility] [address] [facility],[place] [address] 01/30/2019 13:31:42 01/30/2019 14:09:46 Edema of lower extremity 914740493 R60.0 will cont furosemide 40mg and will cont to use bid when sudden changes potassium supp or bananas Hypertensive disorder 38 874095 I10 bp is stable no issues noc cp will cont Hypothyroidism 54305351 E03.9 tsh is wnl per [facility] lab Tinea pedis 2280258 B35. 3 lotrimin cream [id number] Brendan Dockery [facility] [address] [facility],[place] [address] 09/04/2019 11:07:27 09/04/2019 13:34:20 Acute sinusitis 39813093 J01.90 will need to treat given her past issues [id number] Brendan Dockery [facility] [address] [place] [address] 04/01/2020 13:27:40 04/01/2020 14:38:28 Adult health examination 288870064 Z00.00 discussed need for exercise and diet Screening for cardiovascular system disease 794972792 Z13.6 Screening for osteoporosis 681971077 Z13.820 Screening mammography 24 105719 Z12.31 [place] [id number] JAMI RAMEY [facility] [address] [facility],[place] [address] 04/15/2020 09:07:48 04/15/2020 11:14:34 Acute otitis media 5408390 H65.01 most likely another ear infection given symptoms and hx will fu with patient if still having symptoms or worsening pt understand s and will call Nasal congestion 3022958 0 R09.81 more with pressure, all right sided along maxillary and frontal sinuses Headache 81462519 R51.9 right sided, also suffers from chronic headaches so not uncommon [id number] Brendan Dockery DO [facility] [address] [facility],[place] [address] 03/25/2021 14:34:54 03/25/2021 16:24:44 Hypothyroidism 93728284 E03.9 tsh low and t4 is high and we nmeed to decrease her dose she is having a lot of hairloss Gastroesop hageal reflux disease 710455413 K21.00 has breakthrog uh [place] [id number] Brendan Dockery DO [facility] [address] [facility],[place] [address] 05/14/2021 09:37:08 05/14/2021 14:28:14 Gastroesophageal reflux disease 016758559 K21.00 has breakthrog uh need to incerease the nexium to bid Hypertensive disorder 38 473336 I10 bp is stable no issues noc cp will cont current tx Edema of l ower extremity 375950605 R60.0 furosemide 40mg as needed only and has not taken any since the summer and will cont to use prn when sudden changes potassium supp or bananas when she does take furosemide [id number] VIJAY HAAS [facility] [address] [facility],[place] [address] 06/16/2021 09:40:38 06/16/2021 16:20:27 Chondromalacia of patella 43725350 M22.41 will fu with MRI Pain of le ft knee joint 3875776936 10752 M25.562 will fu with MRI [id number] VIJAY HAAS [facility] [address] [facility],[place] [address] 06/30/2021 09:21:10 07/01/2021 15:55:17 Acute sinusitis 75237613 J01.01 will start on abx and fu with patient if no improvemen t Otalgia 07593144 H92.01 [place] [id number] VIJAY HAAS [facility] [address] [facility] [address] [address] 10/17/2021 09:21:32 10/17/2021 11:33:49 Acute sinusitis 53463983 J01.01 will start on abx and fu with patient if no improvemen t Posterior rhinorrhea 758 57205 R09.82 will fu with testing Pain in throat 803382671 R07.0 can use APAP and IBU for symptom management [id number] Brendan Dockery DO [facility] [address] [facility] [address],[place] [address] 11/17/2021 14:48:20 11/17/2021 15:56:50 Hypertensive disorder 51361145 I10 bp is stable no issues noc cp will cont current tx Hypothyroidism 67292364 E03.9 tsh low and t4 is high and we nmeed to decrease her dose she is having a lot of hairloss Active or passive immunization 033410460 Z23 patient advised she is due for a tdap Screening for malignant neoplasm of colon 581932269 Z12.11 already had done in jul Depression screening 171 606039 Z13.31 Did not bring glasses to fill out PHQ9 not able to complete today Tachycardia 6416961 R00. 0 given just one episode [id number] VIJAY HAAS [facility] [address] [facility] [address],[place] [address] 08/11/2022 13:49:58 08/11/2022 16:33:49 Acute otitis media 2646051 H65.01 will set up with cipro for 7 days BIDworks best for the patient [id number] VIJAY HAAS [facility] [address] [facility] [address] [address] 09/23/2022 09:07:41 09/23/2022 12:05:06 Acute otitis media 5605477 H65.01 will set up with cipro for 7 days BIDworks best for the patient Migraine 89369807 G43.10 9 will set up with second opinion with neuro [id number] Brendan Dockery DO [facility] [address] [facility],[place] [address] 08/23/2023 09:51:36 08/23/2023 10:25:31 Hypertensive disorder 12133292 I10 bp is stable no issues no cp will cont current tx Hypothyroidism 58447278 E03.9 tsh low and t4 is high and we need to decrease her dose she is having a lot of hairloss [id number] Brendan Dockery DO [facility] [address] [facility] [place] [address] 11/03/2023 10:35:53 11/03/2023 12:15:08 Adult health examination 621128575 Z00.00 discussed need for exercise and diet Screening for cardiovascular system disease 271645977 Z13.6 Screening for malignant neoplasm of colon 463335374 Z12.11 already had done in jul Depression screening 171 295528 Z13.31 Did not bring glasses to fill out PHQ9 not able to complete today Epidermoid cyst of skin 036907769 L72.0 [id number] Brendan Dockery DO [facility] [address] [facility], [place] [address] 02/04/2024 08:34:01 02/04/2024 14:30:07 Anxiety 57131082 F41.9 stable Hypertensive disorder 38 570816 I10 bp is stable no issues no cp will cont current tx Hypothyroidism 24217201 E03.9 stable Thoracic o utlet syndrome 138796160 G54.0 no chnges Neck pain 36602453 M54.2 possible radiculopa thy issue here having numbness Cough 45315956 R05.9 not getting better , will use use guaifen over weekend if no better will need levoflox etc will get cxr today [id number] VIJAY HAAS [facility] [address] [facility], [place] [address] 02/18/2024 09:14:53 02/18/2024 09:50:41 Cervical radiculopathy 22887470 M54.12 will set up MRI now and EMG for her arms Bilateral carpal tunnel syndrome 7458999242 2133035 G56.03 fu EMG Cough 08007093 R05.2 given syrup to use PRN for the coughing Health Concerns Section Related Observation LastModified by Organization Detai ls LastModified Time None Recorded Concern Status LastModified by Organization Details LastModified Time None Recorded Advance Directives Directive None Recorded Payers Encounter Date Sequence Insurance Name Policy Number Policy Blandon Covered Member ID Blandon Member ID Guarantor Name 09/23/2022 1 [place] [employer] Tamar Wenreau [id number] Tamar Wenreau 09/23/2022 2 [place] Tamar Wenreau [id number] Tamar Wenreau 08/23/2023 1 [place] Tamar Wenreau [id number] Tamar Wenreau 08/23/2023 2 [place] Tamar Wenreau [id number] Tamar Wenreau 11/03/2023 1 [place] [employer] Tamar Wenreau [id number] Tamar Wenreau 11/03/2023 2 [place] Tamar Wenreau [id number] Tamar Wenreau 02/04/2024 1 [place] [employer] Tamar Wenreau [id number] Tamar Wenreau 02/04/2024 2 [place] Tamar Wenreau [id number] Tamar Wenreau 02/18/2024 1 [place] [employer] Tamar Wenreau [id number] Tamar Wenreau 02/18/2024 2 [place] Tamar Wenreau [id number] Tamar Chacon Notes Date Note Type Note Provider Name a nd Address Organization Details Recorded Time 3 text/html c/o sore throat, right ear pain, swollen lymph nodes tele-med phone callpt consents to phone call the patient has a h/x of acute sinusitisanother infection; sinus pressure pain, nasal congestion, teeth pain agreed to do another round of cipro; works the best for her historically needs new neurologistwould like to stick with VIJAY De La Torre [address] [place], [address], [facility] 09/23/2022 11:28:14 4 text/html here for annual wellnessrelates has been under a lot of stress relates that she has been sad bc she can no longer drive etc Brendan Dockery, [address] [place], [address], [facility] 08/23/2023 22:06:45 4 text/html Medicare Annual Wellness VisitReported bypatient.Diet and Nutrition:healthy diet Fracture Risk:no history of fractures; no recent explained fracture; no sudden unexplained fractures; no previous musculoskeletal injuries Physical Activity:exercises on a regular basis; recent increase in physical activity; good physical condition Depression Risk:never feels sad, empty, or tearful; no loss of interest in activities; no significant changes in weight; no sleep disturbances or insomnia; no agitation; no loss of energy; no feelings of worthlessness or guilt; no thoughts of suicide; no history of depression; no history of mood disorders Orientation:no disorientation to time; no disorientation to date; no disorientation to place Concentration and Memory:no decreased concentrating ability; no memory lapses or loss; does not forget words Speech/Motor difficulties:no speech difficulties; no difficulty expressing formulated concepts; no difficulty with fine manipulative tasks; no difficulty writing/copying; no slowed reaction time; does not knock things over when trying to pick them up Hearing:no loss of hearing Vision:no vision problems Activities of Daily Living:able to bathe with limited or no assistance; able to contol urination and bowels; able to dress with limited or no assistance; able to feed self with limited or no assistance; able to get out of chair or bed with limited or no assistance; able to groom with limited or no assistance; able to toilet with limited or no assistance Instrumental Activities of Daily Living:able to do house work with limited or no assistance; able to grocery shop with limited or no assistance; able to manage medications with limited or no assistance; able to manage money with limited or no assistance; able to prepare meals with limited or no assistance; able to use the phone with limited or no assistance Falls Risk Assessment:no frequent falls while walking; no fall in the past year; no fall since last visit; no dizziness/vertigo Home Safety:no unsafe nehemiah hazzards; no unsafe stairs; no unsafe gas appliances; working smoke/CO detectors; wears protective head gear for biking/high velocity; use of seatbelts; practicing 'safer sex'; no vision or hearing loss while driving; no fire arms; has hand bars in the bathroom/shower; good lighting in the home here for rech and annual wellness evalstates biggest issue is fatigue always feels tired Brendan Dockery DO [address] [place], [address], [facility] 11/03/2023 11:28:39 4 text/html patient is evaluated via tele/video assessment per patient consentduring current pandemic starts with a head cold 2 weeks agonow coughing and hears crackle in chest no head cold synmptoms now just coughhaving neck pain as well with radiation down her arm worse lying downstates feels like something is in her neckhurts down her mid backfeels when arches her back Brendan Dockery DO [address] [place], [address], [facility] 02/04/2024 09:24:45 4 text/html f/u neck pain the patient reports that she is having neck painagreed to MRI for more information waiting on repeat CXRfor the pna, given cough syrup EMG will be needed for possible carpal tunnel on top of the radiculopathy from the neck will f/u after CXR comes in will fu after MRI VIJAY HAAS [address] [place], [address], [facility] 02/18/2024 09:49:55 OBGyn Episode No OBEpisode recorded.
[2024-07-31 06:33] LABS: MANUAL DIFF FLAG NO
--- NOTE | 2024-07-31 06:51 | ECG_ITS ---
Test Reason : e66.9 Blood Pressure : */* mmHG Vent. Rate : 80 BPM Atrial Rate : 80 BPM P-R Int : 186 ms QRS Dur : 108 ms QT Int : 370 ms P-R-T Axes : 66 1 5 degrees QTcB Int : 426 ms Normal sinus rhythm Incomplete right bundle branch block Nonspecific T wave abnormality Abnormal ECG No previous ECGs available Referred By: Alan Herr Electronically Signed By: TOREY BESS
[2024-07-31 07:40] LABS: Basophils Percent Auto 0.3 % (0-2); Eosinophils Absolute Auto 0.1 X10*3/uL (0.0-0.4); Eosinophils Percent Auto 1.2 % (0-4); Hematocrit 45.1 % (37.0-47.0); Hemoglobin 16.1 g/dl (12.0-16.0); Imm Gran Abs Auto 0.04 X10*3/uL (0.00-0.03); Imm Gran Pct Auto 0.4 % (0.0-0.4); Lymphocytes Absolute Auto 2.2 X10*3/uL (1.2-4.9); Lymphocytes Percent Auto 24.5 % (20-40); Mean Corpuscular HGB Conc 35.7 g/dl (31.0-35.0); Mean Corpuscular Hemoglobin 31.4 pg (27.0-33.0); Mean Corpuscular Volume 88.1 fL (80.0-98.0); Mean Platelet Volume 9.6 fL (9.4-12.3); Monocytes Absolute Auto 0.6 X10*3/uL (0.1-1.2); Monocytes Percent Auto 6.5 % (2-11); Neutrophils Absolute Auto 6.1 x10*3/uL (2.0-8.3); Neutrophils Percent Auto 67.1 % (45-73); Platelet Count 296 X10*3/uL (160-400); Red Blood Count 5.12 X10*6/uL (4.20-5.50); Red Cell Distribution Width 12.1 % (11.0-16.0)
[2024-07-31 07:59] LABS: Estimated Average Glucose 100 mg/dL; Hemoglobin A1C 134.6659 umol/L; Hemoglobin A1c % 5.1 % (<6.0); Total Hemoglobin (HGBA1C) 4122.3306 umol/L
[2024-07-31 08:12] LABS: Alanine Aminotransferase 30 U/L (0-31); Albumin Level 4.2 g/dL (3.5-5.0); Alkaline Phosphatase 78 U/L (39-117); Anion Gap 14 (12-20); Aspartate Amino Transferase 24 U/L (5-31); Bilirubin Total 0.5 mg/dL (0.0-1.0); Blood Urea Nitrogen 19 mg/dL (9-16); Calcium 9.6 mg/dL (8.4-10.2); Carbon Dioxide 21 mmol/L (22-29); Chloride 109 mmol/L (96-108); Cholesterol 200 mg/dL (<200); Estimated Glomerular Filt Rate > 60; Glucose Random 99 mg/dL (60-115); HDL Cholesterol 48 mg/dL (>40); Iron 82 mcg/dL (30-160); LDL Cholesterol Calculated 129 mg/dL (<100); Percent Iron Saturation 34 % (15-50); Potassium 3.9 mmol/L (3.3-5.1); Sodium 140 mmol/L (135-145); Total Iron Binding Capacity 238 mcg/dL (228-428); Total Protein 8.1 g/dL (6.5-8.0); Triglycerides 115 mg/dL (<150); Unsaturated Iron Binding 156 ug/dL
[2024-07-31 08:40] LABS: Folate 12.9 ng/mL (> or = 4.0); Vitamin B12 762 pg/mL (200-900)
[2024-07-31 08:41] LABS: Ferritin 113 ng/mL (10-250); TSH reflex Free T4 2.49 uIU/mL (0.32-4.0); Vitamin D 25-OH Total 38.5 ng/mL (>30)
[2024-07-31 08:51] LABS: Insulin 12 uU/mL (2-29)
[2024-08-02 19:08] LABS: Zinc 73 mcg/dL (60-130)
[2024-08-03 18:38] LABS: Vitamin A 67 mcg/dL (38-98)
[2024-08-11 00:33] LABS: Vitamin B1 31 nmol/L (8-30)
== END 2024-07-31 06:19 | disposition home or self-care (01) ==
LOC: HO.LAB 06:18
PROVIDERS: PCP Internal Medicine; Visit Provider Surgery
DX: E66.9 Obesity, unspecified (principal); Z68.38 Body mass index [BMI] 38.0-38.9, adult; I10 Essential (primary) hypertension; K21.9 Gastro-esophageal reflux disease without esophagitis; Z13.1 Encounter for screening for diabetes mellitus
CPT/HCPCS: 36415; 71046; 80053; 80061; 82306; 82607; 82728; 82746; 83036; 83525; 83540; 84425; 84443; 84590; 84630; 85025; 86140; 93005

== ENCOUNTER → 2024-07-31 06:35 | Outpatient (BNV) | payer MEDICARE, MEDICAID, SELFPAY | PROVIDERS: PCP Internal Medicine; Visit Provider Radiology Diagnostic Radiology | DX: E66.9 Obesity, unspecified (principal); Z68.38 Body mass index [BMI] 38.0-38.9, adult; I10 Essential (primary) hypertension; K21.9 Gastro-esophageal reflux disease without esophagitis | CPT/HCPCS: 71046 ==

== ENCOUNTER → 2024-07-31 06:51 | Outpatient (BNV) | payer MEDICARE, MEDICAID, SELFPAY | PROVIDERS: PCP Internal Medicine; Visit Provider Internal Medicine | DX: I45.19 Other right bundle-branch block (principal); R94.31 Abnormal electrocardiogram [ECG] [EKG] | CPT/HCPCS: 93010 ==

== ENCOUNTER → 2024-08-15 08:35 | Outpatient (REF) | payer MEDICARE, MEDICAID, SELFPAY ==
--- NOTE | 2024-08-15 08:38 | CA_ITS ---
Transthoracic Echocardiogram Patient (Last, First, Middle): Tamar Chacon A Gender: Female Date of : 1970 Age: 54 Procedure Date: 08/15/2024 Procedure Type: Transthoracic Echocardiogram Location: OP Height: 203.2 cm Weight: 115.67 kg BSA: 2.55 m2 Heart Rate: 74 bpm BP: 120 / 62 mmHg Home Security Alarm Installer: SB Referring MD: Alan Herr MD Symptoms: R94.31 - Abnormal electrocardiogram [ECG] [EKG] Study Quality: Adequate w contrast ECG Rhythm: Sinus Conclusions: - The left ventricular systolic function is normal. The calculated ejection fraction is 62% by biplane method. - No obvious valvular pathology seen on this study. Findings Procedure Information Contrast agent, definity, is being given per protocol without apparent complications. Left Ventricle Normal left ventricular cavity size. The left ventricular systolic function is normal. The calculated ejection fraction is 62% by biplane method. There is no evidence of regional wall motion abnormalities. Diastolic function is normal for age. There is mild septal asymmetric hypertrophy. Right Ventricle Normal right ventricular cavity size. There is normal right ventricular systolic function. Atria Both atria are normal in size. Aortic Valve There is a normal trileaflet aortic valve. There is no aortic valve stenosis. There is no aortic valve regurgitation. Mitral Valve The mitral valve appears normal. There is no mitral valve regurgitation. There is no mitral valve stenosis. Pulmonic Valve The pulmonic valve is likely normal. Tricuspid Valve There is trace tricuspid valve regurgitation. There is no evidence of pulmonary hypertension. Great Vessels The asc aorta and aortic arch are normal in size. Venous The inferior vena cava is normal in size and collapses less than 50% with inspiration. Pericardium/Pleural There is a trivial pericardial effusion. Prior Study Comparison No prior study available for comparison. Recommendations, Care & Conclusions No obvious valvular pathology seen on this study. Measurements 2D Linear Measurements IVSd: 1.06 0.6-0.9/0.6-1.0 cm LVIDd: 4.14 3.9-5.3/4.2-5.9 cm LVIDd Index: 1.62 2.4-3.2/2.2-3.1 cm/m2 LVIDs: 2.82 2.0-3.6 cm LVPWd: 0.86 0.7-1.1 cm LA Diam: 3.30 2.7-3.8/3.0-4.0 cm LAIDs Index: 1.29 1.5-2.3 cm/m2 LV Mass: 157.08 67-162/88-224 g LV Mass Index: 61.60 43-95/49-115 g/m2 LVOT Diam: 2.40 3.0+(-)1.3 cm 2D Systolic Function EF 4C: 53.70 >55% EF 2C: 65.80 >55% EF BiP: 61.70 >55% Mitral Valve MV Pk E: 0.53 MV PK A: 0.43 MV Decel Time: 186.00 E/A: 1.20 E'Lateral: 8.16 E'Medial: 6.20 E/E' Med: 8.50 E/E' Lat: 6.50 PHT: 54.00 MVA PHT: 4.07 Decel [place]: 2.84 Aortic Valve AoV Pk Yovanny: 0.95 AoV Pk Grad: 4.00 IVETT: 4.60 LVOT LVOT Pk Yovanny: 0.93 LVOT Mn Yovanny: 0.67 LVOT VTI: 0.18 LVOT Pk Grad: 3.00 LVOT Mn Grad: 2.00 LVOT Diam: 2.40 LVOT Area: 4.52 Diastolic Function MV Pk E: 0.53 MV Pk A: 0.43 E/A: 1.20 E'Medial: 6.20 E/E' Med: 8.50 E' Laterial: 8.16 E/E' Lat: 6.50 Right Ventricle TVS' Yovanny: 11.10 Tricuspid Valve TR Pk Yovanny: 2.10 TR Pk Grad: 18.00 RA Press: 3.00 RVSP: 21.00 Great Vessels Aorta Sinus of Valsalva: 3.50 2.0-3.5 cm Ao Asc: 3.00 2.1-3.4 cm Ao Arch: 2.50 Pulmonary Valve PV Pk Yovanny: 0.82 Peak PV Grad: 3.00 Updated in Other Vendor System with Status of Final Tonny Tobar MD electronically signed on 08/15/2024 10:38:56 AM with status of Final
--- OUTSIDE RECORDS SUMMARY | 2024-08-15 09:17 | XMS_ITS | Data Portability ---
Author Organization [facility], Home Service Address [address] [place] [address] Assessment Encounter Date Assessment Date Assessment LastModified [...] reduce health risks and promote healthy living. [email or web address] Not available 08/23/2023 10:15:32 11/03/2023 11/03/2023 Patient [...] [email or web address] Not available 11/02/2023 16:23:59 02/04/2024 02/04/2024 [id number] [place] [id number] (HOSPICE VOLUNTEER COORDINATOR) MDM MODERATE MUST MEET 2 OUT OF [...] recorded. Lab lipid panel, blood 2023 024 [facility], [address] [place] [address], [address], 4 11:09:35 CBC w/ auto diff 2023 024 [facility], [address] [place] [address], [address], 4 11:09:35 CMP, serum or plasma 2023 024 [facility], [address] [place] [address], [address], 4 11:09:35 vitamin D, 25-hydroxy , total, serum 2023 024 [facility], [address] [place] [address], [address], 4 11:26:40 TSH + free T4, serum 2023 024 [facility], [address] [place] [address], [address], 4 11:07:38 TSH + free T4, serum 2023 024 [facility], [address] [place] [address], [address], 4 11:07:38 Referral neurologis t referral 2022 023 [email or web address] 10 [facility], [address], [place], [address], 3 08:49:05 Procedures None recorded. Surgeries None recorded. Imaging MRI, cervical spine, w/o contrast 2023 024 [email or web address] 10 [facility], [address] [place], [address], 4 07:54:29 electromyo gram + nerve conduction study - carpal tunnel, castillo hands and wrists 2023 024 [facility] (Imaging), [address] [place], [address], 4 09:19:32 XR, cervical spine, 2 or 3 view 2023 024 [facility], [address] [place], [address], 4 14:30:08 XR, chest, 2 view 2023 024 [facility], [address] [place], [address], 4 14:30:08 Medication Orders codeine 10 mg-guaifen esin 100 mg/5 mL oral liquid 2023 024 [facility][id number], [address] [place], [place], [id number], 4 09:45:13 cephalexin 500 mg capsule 2023 024 [facility] #[id number], [address] [place], [place], [id number], 4 09:20:25 Synthroid 137 mcg tablet 2023 024 [facility] #51191, [address] [place], [place], [id number], 4 11:42:08 ciprofloxa radha 500 mg tablet 2022 023 [email or web address] [facility] #[id number], [address] [place], [place], [id number], 09:58:28 Patient TargetsNo targets recorded. Patient Instructions Encounter Date Encounter Id Patient Instructions Last Modified By Organization Details Last Modified Time 08/23/2023 [id number] hypothyroidism: care instructions Not available 08/23/2023 22:06:42 11/03/2023 [id number] Skin Cyst: Care Instructions Not available 11/03/2023 11:27:04 Discussed and explained advance directives such as standard forms to the {{patient* caregi paola patient and caregiver}}. Face to face discussion lasted for a duration of _5__ minutes. Not available 11/03/2023 11:28:02 02/04/2024 [id number] neck pain: care instructions Not available 02/04/2024 [...] bilat eral No observ ation record ed. [facility] [address] [place], [address], 10/07/2022 08:10:20 02/22/20 23 02/21/2023 XR, foot No observ ation record ed. [address] (Medical Records) [address] [facility] [place], [address], 02/21/2023 08:35:27 02/22/20 23 02/21/2023 XR, ankle No observ ation record ed. [address] (Medical Records) [address] [facility] [place], [address], 02/21/2023 08:35:58 11/08/19 24 10/18/2023 MAMMO , scree owen, digit al, bilat eral No observ ation record ed. [facility] [address] [place], [address], 11/08/2023 13:26:33 02/04/20 24 02/04/2024 XR, cervi alix spine , 2 or 3 view No observ ation record ed. [facility] (Medical Records) [address] [facility] [place], [address], 02/18/2024 09:49:01 02/04/20 24 02/04/2024 XR, chest , 2 view No observ ation record ed. [facility] (Medical Records) [address] [facility], [address], 02/18/2024 09:49:00 02/18/20 24 02/11/2024 XR, chest , 2 view No observ ation record ed. [facility] (Medical Records) [address] [facility] [place], [address], 02/22/2024 15:40:53 03/13/20 24 03/03/2024 MRI, cervi alix spine , w/o contr ast No observ ation record ed. [facility] (Medical Records) [address] [facility], [address], 03/14/2024 15:53:15 03/16/20 24 03/16/2024 elect romyo gram + nerve condu ction study No observ ation record ed. [email or web address] [facility] (Medical Records) [address] [place], [address], 03/17/2024 12:09:59 03/16/20 24 03/16/2024 elect romyo gram + nerve condu ction study No observ ation record ed. [email or web address] [facility] (Medical Records) [address] [place], [address], 03/17/2024 12:09:59 07/31/1907/31/2024 XR, chest , 2 view No observ ation record ed. [facility] (Medical Records) [address] [place], [address], 07/31/2024 08:12:29 Result Notes None recorded. Problems Name Problem SNOMED Code Status Onset Date Resolution Date Notes Provider Name and Address Organization Details Recorded Time Edema of lower extremit y 943727905 Active 2018 Not Available [facility] 2 14:39:08 Stargard t's disease 48351797 Active 2019 Not Available [facility] 2 14:39:08 Acute sinusiti s 02627580 Active 2021 VIJAY HAAS [address] [place] [address], [address], [facility] 2 10:05:14 Posterio r rhinorrh ea 00424241 Active 2021 VIJAY HAAS [address] [place], [address], [facility] 2 10:05:48 Pain in throat 019214504 Active 2021 VIJAY HAAS [address] [place] [address], [address], [facility] 2 10:05:53 COVID-19 973799925 Active 2021 VIJAY HAAS [address] [place] [address] [place], [address], [facility] 2 10:28:01 Intermit tent palpitat ions 037146547 Active 2021 Brendan Dockery, DO [address] [place] [address], [address], [facility] 2 14:24:47 Acute otitis media 0720376 Active 2022 VIJAY HAAS [address] [place] [address], [address], [facility] 3 14:11:22 Acute bronchit is 55807323 Active 2022 VIJAY HAAS [address] [place] [address], [address], [facility] 3 11:29:57 Acute otitis media 5416629 Active 2023 Brendan Dockery DO [address] [place] [address], [address], [facility] 4 15:34:59 Epidermo id cyst of skin 538137733 Active 2023 Brendan Dockery DO [address] [place] [address], [address], [facility] 4 11:26:25 Anxiety 36629265 Active 2023 Brendan Dockery DO [address] [place] [address], [address], [facility] 4 11:04:14 Cough 03420869 Active 2023 Brendan Dockery DO [address] [place] [address], [address], [facility] 4 09:46:18 Neck pain 51087424 Active 2023 Brendan Dockery DO [address] [place] [address], [address], [facility] 4 09:16:11 Pneumoni a 024440516 Active 2023 Brendan Dockery, [address] [place], [address], [facility] 4 14:44:04 Cervical radiculo lore 10003403 Active 2023 VIJAY HAAS [address] [place], [address], [facility] 4 09:40:00 Bilatera l carpal tunnel syndrome 21019787019 076887 Active 2023 VIJAY HAAS [address] [place], [address], [facility] 4 09:42:34 Cervical disc disorder 144981405 Active 2023 VIJAY HAAS [address] [place], [address], [facility] 4 15:54:20 Gastroes ophageal reflux disease 566285395 Active 2017 Not Available [facility] 2 14:39:08 Hypothyr oidism 66399526 Active 2017 Not Available [facility] 2 14:39:09 Migraine 27790954 Active 2017 Not Available [facility] 2 14:39:08 Fibromya lgia 486642932 Active 2017 Not Available [facility] 2 14:39:09 Family history of non-Hodg kin's lymphoma 561344759 Active 2017 father, dx'd 11/2010 Not Available [facility] 2 14:39:09 Thoracic outlet syndrome 809139449 Active 2017 s/p 1st rib removal 03/2012 Not Available [facility] 2 14:39:09 Chronic headache disorder 356306851 Active 2017 Not Available [facility] 2 14:39:09 Ventricu lar prematur e complex 244703396 Active 2017 Not Available [facility] 2 14:39:09 Hyperten sive disorder 24968010 Active 2017 Not Available [facility] 2 14:39:08 Tachycar mehnaz 8843099 Active 2017 w/RBBB Not Available [facility] 2 14:39:09 Tenosyno vitis of wrist 966204809 Active 2017 Not Available [facility] 2 14:39:09 Problem Notes None recorded. Procedures Surgical History Date Name Laterality Status Provider Name and Address Organization Details Recorded Time Colonoscopy completed Brendan Dockery , DO [address] [place] [address], [address], [facility] 11/17/2021 15:53:34 Imaging Results Imaging Date Name Status LastModified by Organization Details LastModified Time 10/01/2022 MAMMO, screening, digital, bilateral completed [address] [place], [address], 10/07/2022 08:10:20 02/21/2023 XR, foot completed [address] (Medical Records) [address] [place], [address], 02/21/2023 08:35:27 02/21/2023 XR, ankle completed [address] (Medical Records) [address] [facility] [place], [address], 02/21/2023 08:35:58 10/18/2023 MAMMO, screening, digital, bilateral completed [address] [place], [address], 11/08/2023 13:26:33 02/04/2024 XR, cervical spine, 2 or 3 view completed [facility] (Medical Records) [address] [place], [address], 02/18/2024 09:49:01 02/04/2024 XR, chest, 2 view completed [facility] (Medical Records) [address] [place], [address], 02/18/2024 09:49:00 02/11/2024 XR, chest, 2 view completed [facility] (Medical Records) [address] [facility] [place], [address], 02/22/2024 15:40:53 03/03/2024 MRI, cervical spine, w/o contrast completed [email or web address] [facility] (Medical Records) [address] [place], [address], 03/14/2024 15:53:15 03/16/2024 electromyogram + nerve conduction study completed [email or web address] (Medical Records) [address] [place], [address], 03/17/2024 12:09:59 03/16/2024 electromyogram + nerve conduction study [email or web address] [address] [place], [address], 03/17/2024 12:09:59 07/31/2024 XR, chest, 2 view completed [email or web address] [facility] (Medical Records) [address] [place], [address], 07/31/2024 08:12:29 Procedure Notes None recorded. Medical Equipment None Reported. Allergies Allergen ID Allergen Name Allergen Category Reaction Reaction Severity Criticality Documentation Date Start Date Code Code System Note Provider Name and Address Organization Details Recorded Time 1277 Fluarix medicatio n Not available Not available Not available 10/15/2017 06706 UNK Rowan freitas [facility] 8 09:01:31 5796 Shingrix medicatio n Not available Not available Not available 11/17/2021 18410 26 RxNorm Brendan Dockery, DO [address] [place], [address], [facility] 15:05:01 8069 SARS-CoV- 2 (COVID-19 ) vaccine, protein [id number] 73 medicatio n Not available Not available Not available 11/03/2023 32358 73 RxNorm Hai freitas [facility] 4 10:55:25 Medications Name [...] propionate 50 mcg/actuati on nasal spray,suspe nsion [place] 1 spray every day by intranasa l [...] Updated DateTime 4 172.72 cm 37.7 kg/m2 760486. 91 g 87 /min 97 % 97 % 138 mm[Hg] 68 mm[Hg] Madison [facility] 4 10:00:36 Date Recorded Body height Body mass index (BMI) Body weight Heart rate Respiratory rate Oxygen saturation Oxygen saturation in Arterial blood by Pulse oximetry Systolic blood pressure Diastolic blood pressure Provider Name and Address Organization Details Last Updated DateTime 4 172.72 cm 38 kg/m2 795195. 45 g 64 /min 18 /min 96 % 96 % 128 mm[Hg] 70 mm[Hg] Hai [facility] 4 10:55:03 Date Recorded Body height Body mass index (BMI) Body weight Heart rate Oxygen saturation Oxygen saturation in Arterial blood by Pulse oximetry Systolic blood pressure Diastolic blood pressure Provider Name and Address Organization Details Last Updated DateTime 4 172.72 cm 37.6 kg/m2 153057. 32 g 74 /min 95 % 95 % 116 mm[Hg] 82 mm[Hg] Cathy Forbes [facility] 4 09:29:51 Social History [...] mL dose 1 completed Brendan Dockery, DO [address] [place] [address], [place], [address], [facility] 03/25/2021 14:56:42 COVID-19, mRNA, LNP-S, PF, 30 mcg/0.3 mL dose 1 completed Brendan Dockery DO [address] [place] [address], [address], [facility] 03/25/2021 14:56:50 COVID-19, mRNA, LNP-S, PF, 100 mcg/0.5mL dose or 50 mcg/0.25mL dose 2 completed Brendan Dockery DO [address] [place] [address], [address], [facility] 11/17/2021 15:06:29 zoster recombinant 2 completed Brendan Dockrey DO [address] [place] [address], [address], [facility] 11/17/2021 15:06:54 Past Encounters Encounter ID Performer Location Encounter Start Date Encounter Closed Date Diagnosis/Indication Diagnosis SNOMED-CT Code Diagnosis ICD10 Code Diagnosis Note [id number] [facility] [address] [place] [address], [place] [address] 10/15/2017 14:39:05 10/15/2017 16:02:57 Tenosynovitis of wrist 367772038 M65.839 given she has tried splint and taken otc and rx nsaids without resolution Hypertensive disorder 38 750685 I10 bp is stable no issues noc cp [id number] Sheyla Coon NP, S [facility] [address] [place] [address], [place] [address] 11/23/2017 13:24:41 11/23/2017 14:43:03 Acute bacterial sinusitis 53587377 J01.90 Hypothyroidism 26171438 E03.9 stable, reviewed labs Essential hypertension 62174592 I10 stable [id number] [facility] [address] [place] [address],[place] [address] 02/28/2018 10:59:14 02/28/2018 12:08:52 Hypothyroidism 90749350 E03.9 tsh is 0.8 Hypertensive disorder 38 868718 I10 bp is stable no issues noc cp Adult heal th examination 777258146 Z00.00 discussed need for exercise and diet Screening for cardiovascular system disease 196364720 Z13.6 Screening mammography 24 760655 Z12.31 [place] [id number] September STEPHANIE Ballesteros [facility] [address] [facility] [address] [address] 07/12/2018 09:48:11 07/12/2018 11:06:37 Migraine 12693963 G43.909 Using imitrex with relief Hypertensive disorder 38 741140 I10 diastolic slightly elevated, will monitor Hypothyroidism 71388416 E03.9 labs last done 02/2018 Benign par oxysmal positional vertigo 595864521 H81.11 improving with meclizine Acute sinusitis 03376115 J01.90 continue mucinex, flonase, fluids, humidifier [id number] Sheyla Coon NP, [facility] [address] [facility], [place] [place] [address] 09/16/2018 11:50:53 09/16/2018 15:19:18 Otitis media 95559512 H66.92 Allergic cough 130889272 R05 Active or passive immunization 277134994 Z23 Hypertensive disorder 38 522985 I10 stable, reviewed Mar 2018 labs [id number] Sheyla Coon NP, [facility] [address] [facility], [place] [address] 09/26/2018 13:31:49 09/26/2018 14:23:51 Dysfunction of eustachian tube 85724667 H69.92 [id number] Sheyla Coon NP, [facility] [address] [facility], [place] [address] 10/03/2018 14:57:35 10/03/2018 16:29:59 Dysfunction of left eustachian tube 5572129170 769697 H69.92 [id number] Brendan Dockery, [facility] [address] [facility], [place] [address] 11/23/2018 16:09:46 11/25/2018 08:16:23 Hypertensive disorder 70179709 I10 bp is stable no issues noc cp Hypothyroidism 39163884 E03.9 tsh is 0.8 Edema of l ower extremity 099873507 R60.0 will add furosemide 40mg [id number] [facility] [address] [facility] [address] [address] 12/02/2018 13:35:55 12/02/2018 14:40:20 Hypertensive disorder 37401952 I10 bp is stable no issues noc cp will cont Edema of l ower extremity 160399188 R60.0 will cont furosemide 40mg [id number] September STEPHANIE Ballesteros [facility] [address] [facility] [address],[place] [facility] [place] [address] 01/13/2019 10:20:35 01/13/2019 11:04:19 Edema of lower extremity 649308136 R60.0 b/l improved on increased dose of lasix do 80 mg again today then return to 40 mg Hypertensive disorder 38 228701 I10 stable Hypothyroidism 42362470 E03.9 normal tsh 12/[id number] [facility] [address] [facility],[place] [address] [facility] [address] 01/30/2019 13:31:42 01/30/2019 14:09:46 Edema of lower extremity 913039809 R60.0 will cont furosemide 40mg and will cont to use bid when sudden changes potassium supp or bananas Hypertensive disorder 38 636738 I10 bp is stable no issues noc cp will cont Hypothyroidism 48091625 E03.9 tsh is wnl per [facility] lab Tinea pedis 6022375 B35. 3 lotrimin cream [id number] [facility] [address] [facility],[place] [address] 09/04/2019 11:07:27 09/04/2019 13:34:20 Acute sinusitis 73384079 J01.90 will need to treat given her past issues [id number] [facility] [address] [facility],[place] [address] 04/01/2020 13:27:40 04/01/2020 14:38:28 Adult health examination 715159331 Z00.00 discussed need for exercise and diet Screening for cardiovascular system disease 352468975 Z13.6 Screening for osteoporosis 283016494 Z13.820 Screening mammography 24 633869 Z12.31 [place] [id number] VIJAY HAAS [facility] [address] [facility], [place] [address] 04/15/2020 09:07:48 04/15/2020 11:14:34 Acute otitis media 1419534 H65.01 most likely another ear infection given symptoms and hx will fu with patient if still having symptoms or worsening pt understand s and will call Nasal congestion 8656398 0 R09.81 more with pressure, all right sided along maxillary and frontal sinuses Headache 70364692 R51.9 right sided, also suffers from chronic headaches so not uncommon [id number] Brendan Dockery DO [facility] [address] [facility],[place] [address] 03/25/2021 14:34:54 03/25/2021 16:24:44 Hypothyroidism 36482204 E03.9 tsh low and t4 is high and we nmeed to decrease her dose she is having a lot of hairloss Gastroesop hageal reflux disease 418555964 K21.00 has breakthrog uh [place] [id number] Brendan Dockery DO [facility] [address] [facility], [place] [address] 05/14/2021 09:37:08 05/14/2021 14:28:14 Gastroesophageal reflux disease 045066184 K21.00 has breakthrog uh need to incerease the nexium to bid Hypertensive disorder 38 878507 I10 bp is stable no issues noc cp will cont current tx Edema of l ower extremity 492967053 R60.0 furosemide 40mg as needed only and has not taken any since the summer and will cont to use prn when sudden changes potassium supp or bananas when she does take furosemide [id number] VIJAY HAAS [facility] [address] [facility], [place] [address] 06/16/2021 09:40:38 06/16/2021 16:20:27 Chondromalacia of patella 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.41 will fu with MRI Pain of le ft knee joint 7502535854 73550 M25.562 will fu with MRI [id number] VIJAY HAAS [facility] [address] [facility] [address],[place] [address] 06/30/2021 09:21:10 07/01/2021 15:55:17 Acute sinusitis 31212542 J01.01 will start on abx and fu with patient if no improvemen t Otalgia 71885482 H92.01 [place] on abx [id number] VIJAY HAAS [facility] [address] [facility] [address],[place] [address] 10/17/2021 09:21:32 10/17/2021 11:33:49 Acute sinusitis 55608971 J01.01 will start on abx and fu with patient if no improvemen t Posterior rhinorrhea 758 01797 R09.82 will fu with testing Pain in throat 309498002 R07.0 can use APAP and IBU for symptom management [id number] Brendan Dockery DO [facility] [address] [facility] [address] [address] 11/17/2021 14:48:20 11/17/2021 15:56:50 Hypertensive disorder 31236889 I10 bp is stable no issues noc cp will cont current tx Hypothyroidism 50738337 E03.9 tsh low and t4 is high and we nmeed to decrease her dose she is having a lot of hairloss Active or passive immunization 606299989 Z23 patient advised she is due for a tdap Screening for malignant neoplasm of colon 452989618 Z12.11 already had done in jul Depression screening 171 050413 Z13.31 Did not bring glasses to fill out PHQ9 not able to complete today Tachycardia 9629037 R00. 0 given just one episode [id number] VIJAY HAAS [facility] [address] [facility] [address],[place] [address] 08/11/2022 13:49:58 08/11/2022 16:33:49 Acute otitis media 5554838 H65.01 will set up with cipro for 7 days BIDworks best for the patient [id number] VIJAY HAAS [facility] [address] [facility],[place] [address] 09/23/2022 09:07:41 09/23/2022 12:05:06 Acute otitis media 8638058 H65.01 will set up with cipro for 7 days BIDworks best for the patient Migraine 53075177 G43.10 9 will set up with second opinion with neuro [id number] Brendan Dockery [facility] [address] [facility],[place] [address] 08/23/2023 09:51:36 08/23/2023 10:25:31 Hypertensive disorder 75038069 I10 bp is stable no issues no cp will cont current tx Hypothyroidism 09598414 E03.9 tsh low and t4 is high and we need to decrease her dose she is having a lot of hairloss [id number] Brendan Dockery DO [facility] [address] [facility],[place] [facility] [place] [address] 11/03/2023 10:35:53 11/03/2023 12:15:08 Adult health examination 395400389 Z00.00 discussed need for exercise and diet Screening for cardiovascular system disease 329510139 Z13.6 Screening for malignant neoplasm of colon 625653326 Z12.11 already had done in jul Depression screening 171 384381 Z13.31 Did not bring glasses to fill out PHQ9 not able to complete today Epidermoid cyst of skin 167404091 L72.0 [id number] Brendan Dockery DO [facility] [address] [facility],[place] [address] 02/04/2024 08:34:01 02/04/2024 14:30:07 Anxiety 13830970 F41.9 stable Hypertensive disorder 38 493566 I10 bp is stable no issues no cp will cont current tx Hypothyroidism [id number] E03.9 stable Thoracic o utlet syndrome [id number] G54.0 no chnges Neck pain [id number] M54.2 possible radiculopa thy issue here having numbness Cough [id number] R05.9 not getting better , will use use guaifen over weekend if no better will need levoflox etc will get cxr today [id number] VIJAY HAAS [facility] [address],[place] [address] 02/18/2024 09:14:53 02/18/2024 09:50:41 Cervical radiculopathy [id number] M54.12 will set up MRI now and EMG for her arms Bilateral carpal tunnel syndrome [id number] G56.03 fu EMG Cough [id number] R05.2 given syrup to use PRN for [...] [place] Tamar Chacon [id number] Tamar Chacon 09/23/2022 2 [place] Tamar Chacon [id number] Tamar Chacon 08/23/2023 1 [place] Tamar Chacon [id number] Tamar Chacon 08/23/2023 2 [place] Tamar Chacon [id number] Tamar Chacon 11/03/2023 1 [place] Tamar Chacon [id number] Y65 Tamar Wenreau 11/03/2023 2 [place] Tamar Chacon [id number] Tamar Chacon 02/04/2024 1 [place] Tamar Chacon [id number] Y65 Tamar Chacon 02/04/2024 2 [place] Tamar Chacon [id number] Tamar Chacon 02/18/2024 1 [place] [facility] Tamar Salinas Oswaldo [id number] Y65 Tamar Oswaldo 02/18/2024 2 [place] [facility] Tamar Salinas Oswaldo [id number] Tamar Oswaldo Notes Date Note Type Note [...] stick with VIJAY De La Torre [address], [place], [address], [facility] 09/23/2022 11:28:14 4 text/html here for annual wellnessrelates has been under a lot of stress relates that she has been sad bc she can no longer drive etc Brendan Dockery DO [address], [place], [address], [facility] 08/23/2023 22:06:45 4 text/html Medicare [...] fatigue always feels tired Brendan Dockery DO [address] [place] [address], [phone], [facility] 11/03/2023 11:28:39 4 text/html patient [...] when arches her back Brendan Dockery DO [address] [place] [address], [phone], [facility] 02/04/2024 09:24:45 4 text/html f/u neck pain the patient reports that she is having neck painagreed to MRI for more information waiting on repeat CXRfor the pna, given cough syrup EMG will be needed for possible carpal tunnel on top of the radiculopathy from the neck will f/u after CXR comes in will fu after MRI VIJAY HAAS [address], [place], [address], [facility] 02/18/2024 09:49:55 OBGyn Episode No OBEpisode recorded.
== END ==
LOC: HO.CARD 08:35
PROVIDERS: PCP Internal Medicine; Visit Provider Surgery
DX: R94.31 Abnormal electrocardiogram [ECG] [EKG] (principal)
CPT/HCPCS: 93306; Q9957

== ENCOUNTER → 2024-08-15 08:38 | Outpatient (BNV) | payer MEDICARE, MEDICAID, SELFPAY | PROVIDERS: PCP Internal Medicine; Visit Provider Internal Medicine | DX: I42.2 Other hypertrophic cardiomyopathy (principal); R94.31 Abnormal electrocardiogram [ECG] [EKG] | CPT/HCPCS: 93306 ==

== ENCOUNTER → 2024-08-23 09:10 | Outpatient (AMB) | payer MEDICARE, MEDICAID, SELFPAY ==
--- NOTE | 2024-08-23 09:00 | MHC.WMTHER ---
Intake Intake Visit Reasons: VIDEO BH Intake Allergies Seasonal Allergies Allergy (Mild, Verified 07/28/24 11:48) sneezing vaccines Allergy (Unknown, Uncoded 07/28/24 11:48) unknown [facility] Medical History (Updated 08/05/24 @ 09:47 by Alan Herr MD) History of nephrolithiasis Diaphragmatic hernia GERD (gastroesophageal reflux disease) Hypertension DJD (degenerative joint disease) Familial juvenile macular degeneration syndrome Anxiety Depression Surgical History (Updated 07/28/24 @ 11:55 by Alan Herr MD) History of resection of rib Hx of hysterectomy Hx of adenoidectomy Hx of tonsillectomy Hx of bladder endoscopy Hx of colonoscopy Family History (Updated 07/27/24 @ 08:51 by Sarah Leung CMA) Mother Malignant neoplasm of breast in full remission Arthritis Father Landon's disease Son No problems noted. Son No problems noted. Social History (Updated 07/27/24 @ 08:51 by Sarah Leung CMA) Alcohol intake: current Alcohol intake frequency: holidays/special occasions only Patient Tobacco Use Status: Never used Tobacco Behavioral Health Assessment Weight Management Therapy Therapy Notes Details PT is a 54 years old Female, who presents for initial visit to complete BH assessment as part of surgical weight loss program. PT reports her interest in weight-loss surgery as she is tired of being unhealthy and wants to feel good again. Presenting Concerns Referral Source WMP-Provider. Pt had an initial visit with Dr. Grover on 07/28. Reason for referral Completion of behavioral health assessment as part of process for weight-loss surgery. Precipitating Event Obesity. Living Situation Current Living Situation Own At risk of losing current housing? No Satisfied with current living situation? Yes Comments Pt lives alone with her 2 cats and 1 dog. Food/Weight/Diet Expectations of change The initial goal is to lose 10% of her weight before surgery, which is about 25lbs. Ultimate weight goal: 230lbs before surgery PT started the program on 07/28 at 255 Lbs, her Most recent weight as of 08/22/2024 was 239 lbs. The patient's goal is to be healthy and her target weight is 150 lbs. PT is implementing the following: Current meal plan: 2 protein shakes, 2 protein bars, and one meal per day. doing well, not feeling hungry . Exercise plan: 45 min walk every day, also had an elliptical and a bike, does 30 min on the days she doesn't walk. History/Relationship with food Example of meals before starting the program: Breakfast: Lunch: Dinner: Snacks: Drinks/Liquids: History/Relationship with weight She remembers being a chubby kid . 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 In the last 10 years, the patient's Lowest weight was 148 Lbs, and the highest was 259 lbs. Social History Family history and relationship . PT has 2 adult children they are 30 and 32, she also has 3 grandchildren. Mother is alive, father 9 years ago due to cancer. She has 2 sisters, she is the youngest. Parental/Familial high speed printer operator obligations None. Developmental history and status PT is legally blind. She has an eye degenerative condition since age 7 that become worse on her 40's. 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 Social support A neighbor across the street. Her mother, children, 2 sisters, 2 best friends. Community support Neighbors. Presybeterian/Spirituality None. Cultural/Ethnic information . Legal Involvement and History Current or historical involvement with the legal system? None reported. Education Highest grade completed 1 year college Preferred learning style Learn by doing Currently enrolled in educational program? No Interested in further educational program? 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 Employment Employment Status Other (Disable due to vision loss. ) Wants help to find employment? No Meaningful activities Baking bread, card scraper for veggies, kaley, Financial Situation Describe current financial situation Comfortable Financial assistance? Food [place], SSDI and Other (Alimony) Service Service? No Mental Health and Addiction Treatment Current/Past substance abuse? No Comments Alcohol: 1 at week with friends. Cigarettes/Tobacco: None. Cannabis/Edibles: None. Current/Past addictive behavior concerns? No Psychiatric history PT reports she has never been in counseling before, also in crisis, or is hospitalized for mental health. PT reports she suffers from seasonal and situational triggered depression/anxiety, but has never been formally diagnosed. She also had insomnia in the past and was treated with psych. meds by her PCP. It took about 6 months to return to normal sleep. Medical and Physical Health Summary Additional Medical History not covered in history None additional to the listed. Sexual History concerns None reported. Physical exam in the last year? Yes Pain Screening Current pain? Yes Pain in the last few months? Yes Comments Daily pain, due to multiple health conditions; on average is a 2 every day, very manageable and she doesn't take any pain meds. Medications Is the patient compliant with medications? Yes Does the patient have Garcia Guardian in place? Not applicable Does the patient use complimentary health approaches? No Trauma/Abuse History History of trauma? No Questionnaires PHQ-9 Over the last 2 weeks, how often have you been bothered by any of the following problems? 1. Little interest or pleasure in doing things: not at all 2. Feeling down, depressed, or hopeless: not at all 3. Trouble falling or staying asleep, or sleeping too much: several days 4. Feeling tired or having little energy: several days 5. Poor appetite or overeating: more than half the days 6. Feeling bad about yourself - or that you are a failure or have let yourself or your family down: more than half the days 7. Trouble concentrating on things, such as reading the newspaper or watching television: not at all 8. Moving or speaking so slowly that other people could have noticed. Or the opposite - being so fidgety or restless that you have been moving around a lot more than usual: not at all 9. Thoughts that you would be better off or of hurting yourself in some way: not at all Total score: 6 Depression Screening Interpretation: Positive (Given at new Pt maritza . ) Depression Screening Done: Yes Source: Developed by Drs. Molina Nj, Estrella Avendano, Arie Rooney and colleagues, with an educational rigoberto from [employer]. Assessment & Plan Assessment & Plan (1) Adjustment disorder with mixed anxiety and depressed mood: Code(s): F43.23 - Adjustment disorder with mixed anxiety and depressed mood Plan PT will return in 2 weeks to finish assessment. A new PHQ-9 will be administered for accurate scores, and BES will be reviewed. Next maritza: 09/06/2024 9am, Phone call Telehealth Telehealth Telehealth Platform: [employer] Location of provider rendering services: other Location of patient: address on file Patient Identification confirmed using: Name, : Yes Telehealth method: voice only Patient verbally consented to treatment: Yes Patient verbally consented to billing insurance company: Yes Patient informed of any privacy concerns related to visit: Yes Minutes spent on Phone/Video with Pt.: 60 Coding Level of Care Code New Pt Tele Psy Diag Eval (10966) Patient Type New Diagnoses Adjustment disorder with mixed anxiety and depressed mood F43.23 Time Spent (min) 60
--- OUTSIDE RECORDS SUMMARY | 2024-08-23 09:59 | XMS_ITS | Data Portability ---
Author Organization [facility], Home Service Address [address] [place] [address] Assessment Encounter Date Assessment Date Assessment LastModified [...] reduce health risks and promote healthy living. 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 Lab lipid panel, blood 2023 024 [facility], [address] [place] [address], [address], 4 11:09:35 CBC w/ auto diff 2023 024 [facility], [address] [place] [address], [address], 4 11:09:35 CMP, serum or plasma 2023 024 [facility], [address] [place] [address], [address], 4 11:09:35 vitamin D, 25-hydroxy , total, serum 2023 024 [facility], [address] [place] [address], [address], 4 11:26:40 TSH + free T4, serum 2023 024 [facility], [address] [place] [address], [address], 4 11:07:38 TSH + free T4, serum 2023 024 [facility], [address] [place] [address], [address], 4 11:07:38 Referral neurologis t referral 2022 023 [email or web address] 10 [facility], [address], [place], [address], 3 08:49:05 Procedures None recorded. Surgeries None recorded. Imaging MRI, cervical spine, w/o contrast 2023 024 [email or web address] 10 [facility], [address] [place], [address], 4 07:54:29 electromyo gram + nerve conduction study - carpal tunnel, castillo hands and wrists 2023 024 [facility] (Imaging), [address] [place], [address], 4 09:19:32 XR, cervical spine, 2 or 3 view 2023 024 [facility], [address] [place], [address], 4 14:30:08 XR, chest, 2 view 2023 024 [facility], [address] [place], [address], 4 14:30:08 Medication Orders codeine 10 mg-guaifen esin 100 mg/5 mL oral liquid 2023 024 [facility] #[id number], [address], [place], [id number], 4 09:45:13 cephalexin 500 mg capsule 2023 024 [facility] #[id number], [address], [place], [id number], 4 09:20:25 Synthroid 137 mcg tablet 2023 024 [facility] #[id number], [address], [place], [id number], 4 11:42:08 ciprofloxa radha 500 mg tablet 2022 023 [email or web address] [facility] #[id number], [address], [place], [id number], 09:58:28 Patient TargetsNo targets recorded. Patient Instructions Encounter Date Encounter Id Patient Instructions Last Modified By Organization Details Last Modified Time 08/23/2023 [id number] hypothyroidism: care instructions Not available 08/23/2023 22:06:42 11/03/2023 [id number] Skin Cyst: Care Instructions Not available 11/03/2023 11:27:04 Discussed and explained advance directives such as standard forms to the {{patient* caregi paola patient and caregiver}}. Face to face discussion lasted for a duration of _5__ minutes. Not available 11/03/2023 11:28:02 02/04/2024 [id number] neck pain: care instructions Not available 02/04/2024 [...] bilat eral No observ ation record ed. [facility] [address] [place], [address], 10/07/2022 08:10:20 02/22/20 23 02/21/2023 XR, foot No observ ation record ed. [address] (Medical Records) [address] [facility] [place], [address], 02/21/2023 08:35:27 02/22/20 23 02/21/2023 XR, ankle No observ ation record ed. [address] (Medical Records) [address] [facility] [place], [address], 02/21/2023 08:35:58 11/08/19 24 10/18/2023 MAMMO , scree owen, digit al, bilat eral No observ ation record ed. [facility] [address] [place], [address], 11/08/2023 13:26:33 02/04/20 24 02/04/2024 XR, cervi alix spine , 2 or 3 view No observ ation record ed. [facility] (Medical Records) [address] [facility] [place], [address], 02/18/2024 09:49:01 02/04/20 24 02/04/2024 XR, chest , 2 view No observ ation record ed. [facility] (Medical Records) [address] [facility] [place], [address], 02/18/2024 09:49:00 02/18/20 24 02/11/2024 XR, chest , 2 view No observ ation record ed. [facility] (Medical Records) [address] [facility] [place], [address], 02/22/2024 15:40:53 03/13/20 24 03/03/2024 MRI, cervi alix spine , w/o contr ast No observ ation record ed. [facility] (Medical Records) [address] [facility] [place], [address], 03/14/2024 15:53:15 03/16/20 24 03/16/2024 elect romyo gram + nerve condu ction study No observ ation record ed. [email or web address] [facility] (Medical Records) [address] [place], [address], 03/17/2024 12:09:59 03/16/20 24 03/16/2024 elect romyo gram + nerve condu ction study No observ ation record ed. [email or web address] [facility] (Medical Records) [address] [place], [address], 03/17/2024 12:09:59 07/31/1907/31/2024 XR, chest , 2 view No observ ation record ed. [facility] (Medical Records) [address] [place], [address], 07/31/2024 08:12:29 Result Notes None recorded. 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 2019 Not Available [facility] 2 14:39:08 Acute sinusiti s 21023417 Active 2021 VIJAY HAAS [address] [place] [address], [address], [facility] 2 10:05:14 Posterio r rhinorrh ea 97705148 Active 2021 VIJAY HAAS [address] [place], [address], [facility] 2 10:05:48 Pain in throat 712078872 Active 2021 VIJAY HAAS [address] [place] [address], [address], [facility] 2 10:05:53 COVID-19 798709540 Active 2021 VIJAY HAAS [address] [place] [address] [place], [address], [facility] 2 10:28:01 Intermit tent palpitat ions 108668580 Active 2021 Brendan Dockery, DO [address] [place] [address], [address], [facility] 2 14:24:47 Acute otitis media 4816031 Active 2022 VIJAY HAAS [address] [place] [address], [address], [facility] 3 14:11:22 Acute bronchit is 72307233 Active 2022 VIJAY HAAS [address] [place] [address], [address], [facility] 3 11:29:57 Acute otitis media 4749492 Active 2023 Brendan Dockery DO [address] [place] [address], [address], [facility] 4 15:34:59 Epidermo id cyst of skin 035880520 Active 2023 Brendan Dockery DO [address] [place] [address], [address], [facility] 4 11:26:25 Anxiety 88434654 Active 2023 Brendan Dockery DO [address] [place] [address], [address], [facility] 4 11:04:14 Cough 29417556 Active 2023 Brendan Dockery DO [address] [place] [address], [address], [facility] 4 09:46:18 Neck pain 45279826 Active 2023 Brendan Dockery DO [address] [place] [address], [address], [facility] 4 09:16:11 Pneumoni a 736757117 Active 2023 Brendan Dockery, [address] [place], [address], [facility] 4 14:44:04 Cervical radiculo lore 81428495 Active 2023 VIJAY HAAS [address] [place], [address], [facility] 4 09:40:00 Bilatera l carpal tunnel syndrome 05032660687 165307 Active 2023 VIJAY HAAS [address] [place], [address], [facility] 4 09:42:34 Cervical disc disorder 343208348 Active 2023 VIJAY HAAS [address] [place], [address], [facility] 4 15:54:20 Gastroes ophageal reflux disease 010629739 Active 2017 Not Available [facility] 2 14:39:08 Hypothyr oidism 48455851 Active 2017 Not Available [facility] 2 14:39:09 Migraine 70389986 Active 2017 Not Available [facility] 2 14:39:08 Fibromya lgia 631878317 Active 2017 Not Available [facility] 2 14:39:09 Family history of non-Hodg kin's lymphoma 667438416 Active 2017 father, dx'd 11/2010 Not Available [facility] 2 14:39:09 Thoracic outlet syndrome 297294222 Active 2017 s/p 1st rib removal 03/2012 Not Available [facility] 2 14:39:09 Chronic headache disorder 566486640 Active 2017 Not Available [facility] 2 14:39:09 Ventricu lar prematur e complex 098994681 Active 2017 Not Available [facility] 2 14:39:09 Hyperten sive disorder 87406412 Active 2017 Not Available [facility] 2 14:39:08 Tachycar mehnaz 3716865 Active 2017 w/RBBB Not Available [facility] 2 14:39:09 Tenosyno vitis of wrist 034555526 Active 2017 Not Available [facility] 2 14:39:09 Problem Notes None recorded. Procedures Surgical History Date Name Laterality Status Provider Name and Address Organization Details Recorded Time Colonoscopy completed Brendan Dockery , DO [address] [place] [address], [address], [facility] 11/17/2021 15:53:34 Imaging Results Imaging Date Name Status LastModified by Organization Details LastModified Time 10/01/2022 MAMMO, screening, digital, bilateral completed [address] [place], [address], 10/07/2022 08:10:20 02/21/2023 XR, foot completed [address] (Medical Records) [address] [place], [address], 02/21/2023 08:35:27 02/21/2023 XR, ankle completed [address] (Medical Records) [address] [facility] [place], [address], 02/21/2023 08:35:58 10/18/2023 MAMMO, screening, digital, bilateral completed [address] [place], [address], 11/08/2023 13:26:33 02/04/2024 XR, cervical spine, 2 or 3 view completed [facility] (Medical Records) [address] [place], [address], 02/18/2024 09:49:01 02/04/2024 XR, chest, 2 view completed [facility] (Medical Records) [address] [place], [address], 02/18/2024 09:49:00 02/11/2024 XR, chest, 2 view completed [facility] (Medical Records) [address] [facility] [place], [address], 02/22/2024 15:40:53 03/03/2024 MRI, cervical spine, w/o contrast completed [email or web address] [facility] (Medical Records) [address] [place], [address], 03/14/2024 15:53:15 03/16/2024 electromyogram + nerve conduction study completed [email or web address] [facility] (Medical Records) [address] [place], [address], 03/17/2024 12:09:59 03/16/2024 electromyogram + nerve conduction study completed [email or web address] (Medical Records) [address] [place], [address], 03/17/2024 12:09:59 07/31/2024 XR, chest, 2 view completed [email or web address] [facility] (Medical Records) [address] [place], [address], 07/31/2024 08:12:29 Procedure Notes None recorded. Medical Equipment None Reported. Allergies Allergen ID Allergen Name Allergen Category Reaction Reaction Severity Criticality Documentation Date Start Date Code Code System Note Provider Name and Address Organization Details Recorded Time 1277 Fluarix medicatio n Not available Not available Not available 10/15/2017 17803 UNK Rowan freitas [facility] 8 09:01:31 5796 Shingrix medicatio n Not available Not available Not available 11/17/2021 40692 26 RxNorm Brendan Dockery, DO [address] [place], [address], [facility] 15:05:01 8069 SARS-CoV- 2 (COVID-19 ) vaccine, protein [id number]-CoV23 73 medicatio n Not available Not available Not available 11/03/2023 85529 73 RxNorm Hai freitas [facility] [...] propionate 50 mcg/actuati on nasal spray,suspe nsion Hewlett 1 spray every day by intranasa l [...] Updated DateTime 4 172.72 cm 37.7 kg/m2 182125. 91 g 87 /min 97 % 97 % 138 mm[Hg] 68 mm[Hg] [facility] 4 10:00:36 Date Recorded Body height Body mass index (BMI) Body weight Heart rate Respiratory rate Oxygen saturation Oxygen saturation in Arterial blood by Pulse oximetry Systolic blood pressure Diastolic blood pressure Provider Name and Address Organization Details Last Updated DateTime 4 172.72 cm 38 kg/m2 217744. 45 g 64 /min 18 /min 96 % 96 % 128 mm[Hg] 70 mm[Hg] Hai [facility] 4 10:55:03 Date Recorded Body height Body mass index (BMI) Body weight Heart rate Oxygen saturation Oxygen saturation in Arterial blood by Pulse oximetry Systolic blood pressure Diastolic blood pressure Provider Name and Address Organization Details Last Updated DateTime 4 172.72 cm 37.6 kg/m2 130221. 32 g 74 /min 95 % 95 [...] mL dose 1 completed Brendan Dockery, DO [address] [place] [address], [place], [address], [facility] 03/25/2021 14:56:42 COVID-19, mRNA, LNP-S, PF, 30 mcg/0.3 mL dose 1 completed Brendan Dockery DO [address] [place] [address], [address], [facility] 03/25/2021 14:56:50 COVID-19, mRNA, LNP-S, PF, 100 mcg/0.5mL dose or 50 mcg/0.25mL dose 2 completed Brendan Dockery DO [address] [place] [address], [address], [facility] 11/17/2021 15:06:29 zoster recombinant 2 completed Brendan Dockery DO [address] [place] [address], [address], [facility] 11/17/2021 15:06:54 Past Encounters Encounter ID Performer Location Encounter Start Date Encounter Closed Date Diagnosis/Indication Diagnosis SNOMED-CT Code Diagnosis ICD10 Code Diagnosis Note [id number] Brendan Dockery [facility] [address] [place] [address], [place] [address] 10/15/2017 14:39:05 10/15/2017 16:02:57 Tenosynovitis of wrist 801438035 M65.839 given she has tried splint and taken otc and rx nsaids without resolution Hypertensive disorder 38 020059 I10 bp is stable no issues noc cp [id number] Sheyla Coon NP, S [facility] [address] [place] [address], [place] [address] 11/23/2017 13:24:41 11/23/2017 14:43:03 Acute bacterial sinusitis 67920327 J01.90 Hypothyroidism 68997528 E03.9 stable, reviewed labs Essential hypertension 91097984 I10 stable [id number] Brendan Dockery [facility] [address] [place] [address],[place] [address] 02/28/2018 10:59:14 02/28/2018 12:08:52 Hypothyroidism 05751749 E03.9 tsh is 0.8 Hypertensive disorder 38 311533 I10 bp is stable no issues noc cp Adult heal th examination 796398600 Z00.00 discussed need for exercise and diet Screening for cardiovascular system disease 999141898 Z13.6 Screening mammography 24 135435 Z12.31 [place] [id number] September STEPHANIE Ballesteros [facility] [address] [facility] [address] 07/12/2018 09:48:11 07/12/2018 11:06:37 Migraine 28498741 G43.909 Using imitrex with relief Hypertensive disorder 38 630929 I10 diastolic slightly elevated, will monitor Hypothyroidism 65624153 E03.9 labs last done 02/2018 Benign par oxysmal positional vertigo 273071880 H81.11 improving with meclizine Acute sinusitis 36967582 J01.90 continue mucinex, flonase, fluids, humidifier [id number] Sheyla Coon NP, [facility] [address] [facility], [facility] [place] [address] 09/16/2018 11:50:53 09/16/2018 15:19:18 Otitis media 39983663 H66.92 Allergic cough 240414274 R05 Active or passive immunization 941572118 Z23 Hypertensive disorder 38 740927 I10 stable, reviewed Mar 2018 labs [id number] Sheyla Coon NP, [facility] [address] [facility], [place] [address] 09/26/2018 13:31:49 09/26/2018 14:23:51 Dysfunction of eustachian tube 49744087 H69.92 [id number] Sheyla Coon NP, [facility] [address] [facility], [place] [address] 10/03/2018 14:57:35 10/03/2018 16:29:59 Dysfunction of left eustachian tube 9227629485 030440 H69.92 [id number] Brendan Dockery, [facility] [address] [facility], [place] [address] 11/23/2018 16:09:46 11/25/2018 08:16:23 Hypertensive disorder 39740426 I10 bp is stable no issues noc cp Hypothyroidism 11572717 E03.9 tsh is 0.8 Edema of l ower extremity 752623227 R60.0 will add furosemide 40mg [id number] Brendan Dockery [facility] [address] [facility],[place] [address] 12/02/2018 13:35:55 12/02/2018 14:40:20 Hypertensive disorder 66122538 I10 bp is stable no issues noc cp will cont Edema of l ower extremity 599868676 R60.0 will cont furosemide 40mg [id number] September STEPHANIE Ballesteros [facility] [address] [facility],[place] [facility] [place] [address] 01/13/2019 10:20:35 01/13/2019 11:04:19 Edema of lower extremity 871006389 R60.0 b/l improved on increased dose of lasix do 80 mg again today then return to 40 mg Hypertensive disorder 38 552911 I10 stable Hypothyroidism 60618755 E03.9 normal tsh 12/2018 [id number] Brendan Dockery [facility] [address] [facility],[place] [facility] [address] 01/30/2019 13:31:42 01/30/2019 14:09:46 Edema of lower extremity 101899755 R60.0 will cont furosemide 40mg and will cont to use bid when sudden changes potassium supp or bananas Hypertensive disorder 38 082794 I10 bp is stable no issues noc cp will cont Hypothyroidism 51580923 E03.9 tsh is wnl per [facility] lab Tinea pedis 0646687 B35. 3 lotrimin cream [id number] Brendan Dockery [facility] [address] [facility],[place] [address] 09/04/2019 11:07:27 09/04/2019 13:34:20 Acute sinusitis 27997663 J01.90 will need to treat given her past issues [id number] Brendan Dockery [facility] [address] [facility],[place] [address] 04/01/2020 13:27:40 04/01/2020 14:38:28 Adult health examination 618165726 Z00.00 discussed need for exercise and diet Screening for cardiovascular system disease 941883194 Z13.6 Screening for osteoporosis 487470747 Z13.820 Screening mammography 24 229034 Z12.31 [place] [id number] VIJAY HAAS [facility] [address] [facility], [place] [address] 04/15/2020 09:07:48 04/15/2020 11:14:34 Acute otitis media 2201173 H65.01 most likely another ear infection given symptoms and hx will fu with patient if still having symptoms or worsening pt understand s and will call Nasal congestion 0489726 0 R09.81 more with pressure, all right sided along maxillary and frontal sinuses Headache 41340097 R51.9 right sided, also suffers from chronic headaches so not uncommon [id number] Brendan Dockery DO [facility] [address] [facility],[place] [address] 03/25/2021 14:34:54 03/25/2021 16:24:44 Hypothyroidism 11667657 E03.9 tsh low and t4 is high and we nmeed to decrease her dose she is having a lot of hairloss Gastroesop hageal reflux disease 606850878 K21.00 has breakthrog uh [place] [id number] Brendan Dockery DO [facility] [address] [facility], [place] [address] 05/14/2021 09:37:08 05/14/2021 14:28:14 Gastroesophageal reflux disease 608996598 K21.00 has breakthrog uh need to incerease the nexium to bid Hypertensive disorder 38 388411 I10 bp is stable no issues noc cp will cont current tx Edema of l ower extremity 629186852 R60.0 furosemide 40mg as needed only and has not taken any since the summer and will cont to use prn when sudden changes potassium supp or bananas when she does take furosemide [id number] VIJAY HAAS [facility] [address] [facility], [place] [address] 06/16/2021 09:40:38 06/16/2021 16:20:27 Chondromalacia of patella 28866312 M22.41 will fu with MRI Pain of le ft knee joint 0237473148 85236 M25.562 will fu with MRI [id number] VIJAY HAAS [facility] [address],[place] [address] 06/30/2021 09:21:10 07/01/2021 15:55:17 Acute sinusitis 90015234 J01.01 will start on abx and fu with patient if no improvemen t Otalgia 50039476 H92.01 will start on abx [id number] VIJAY HAAS [facility] [address] [facility],[place] [address] 10/17/2021 09:21:32 10/17/2021 11:33:49 Acute sinusitis 87798398 J01.01 will start on abx and fu with patient if no improvemen t Posterior rhinorrhea 758 20130 R09.82 will fu with testing Pain in throat 397654186 R07.0 can use APAP and IBU for symptom management [id number] Brendan Dockery DO [facility] [address] [facility],[place] [address] 11/17/2021 14:48:20 11/17/2021 15:56:50 Hypertensive disorder 75394637 I10 bp is stable no issues noc cp will cont current tx Hypothyroidism 43386355 E03.9 tsh low and t4 is high and we nmeed to decrease her dose she is having a lot of hairloss Active or passive immunization 178556696 Z23 patient advised she is due for a tdap Screening for malignant neoplasm of colon 256223794 Z12.11 already had done in jul Depression screening 171 845799 Z13.31 Did not bring glasses to fill out PHQ9 not able to complete today Tachycardia 2121942 R00. 0 given just one episode [id number] VIJAY HAAS [facility] [address] [facility],[place] [address] 08/11/2022 13:49:58 08/11/2022 16:33:49 Acute otitis media 9735478 H65.01 will set up with cipro for 7 days BIDworks best for the patient [id number] VIJAY HAAS [facility] [address] [facility],[place] [address] 09/23/2022 09:07:41 09/23/2022 12:05:06 Acute otitis media 8449096 H65.01 will set up with cipro for 7 days BIDworks best for the patient Migraine 19073762 G43.10 9 will set up with second opinion with neuro [id number] Brendan Dockery [facility] Internal [facility] [address] [facility],[place] [address] 08/23/2023 09:51:36 08/23/2023 10:25:31 Hypertensive disorder 72379129 I10 bp is stable no issues no cp will cont current tx Hypothyroidism 34412153 E03.9 tsh low and t4 is high and we need to decrease her dose she is having a lot of hairloss [id number] Brendan Dockery DO [facility] [address] [facility],[place] [address] 11/03/2023 10:35:53 11/03/2023 12:15:08 Adult health examination 721063301 Z00.00 discussed need for exercise and diet Screening for cardiovascular system disease 828161357 Z13.6 Screening for malignant neoplasm of colon 865133011 Z12.11 already had done in jul Depression screening 171 363572 Z13.31 Did not bring glasses to fill out PHQ9 not able to complete today Epidermoid cyst of skin 239005932 L72.0 [id number] Brendan Dockery DO [facility] [address] [facility] [place] [address] 02/04/2024 08:34:01 02/04/2024 14:30:07 Anxiety 69600966 F41.9 stable Hypertensive disorder 38 [id number] I10 bp is stable no issues no cp will cont current tx Hypothyroidism 88218672 E03.9 stable Thoracic o utlet syndrome [id number] G54.0 no chnges Neck pain 13617564 M54.2 possible radiculopa thy issue here having numbness Cough [id number] R05.9 not getting better , will use use guaifen over weekend if no better will need levoflox etc will get cxr today [id number] VIJAY HAAS [facility] Internal [facility] [address],[place] [address] 02/18/2024 09:14:53 02/18/2024 09:50:41 Cervical radiculopathy [id number] M54.12 will set up MRI now and EMG for her arms Bilateral carpal tunnel syndrome [id number] G56.03 fu EMG Cough [id number] R05.2 given syrup to use PRN for [...] [place] Tamar Chacon [id number] Y65 Tamar Chacon 09/23/2022 2 [place] Tamar Chacon [id number] Tamar Chacon 08/23/2023 1 [place] Tamar Chacon [id number] Y65 Tamar Chacon 08/23/2023 2 [place] Tamar Chacon [id number] Tamar Chacon 11/03/2023 1 [place] [place] Tamar Chacon [id number] Y65 Tamar Wenreau 11/03/2023 2 [place] Tamar Chacon [id number] Tamar Chacon 02/04/2024 1 [place] [place] Tamar Chacon [id number] Y65 Tamar Chacon 02/04/2024 2 [place] Tamar Chacon [id number] Tamar Chacon 02/18/2024 1 [place] [facility] Tamar Salinas Oswaldo [id number] Y65 Tamar Oswaldo 02/18/2024 2 [place] [facility] Tamar Salinas Oswaldo [id number] Tamar Oswaldo Notes Date Note Type Note [...] stick with VIJAY De La Torre [address] [facility], [place], [address], [facility] Internal [facility] 09/23/2022 11:28:14 4 text/html here for annual wellnessrelates has been under a lot of stress relates that she has been sad bc she can no longer drive etc Brendan Dockery DO [address] [facility], [place], [address], [facility] Internal [facility] 08/23/2023 22:06:45 4 [...] fatigue always feels tired Brendan Dockery DO [address] [place] [address], [address], [facility] Internal [facility] 11/03/2023 11:28:39 4 [...] when arches her back Brendan Dockery DO [address] [place] [address], [address], [facility] 02/04/2024 09:24:45 4 text/html f/u neck pain the patient reports that she is having neck painagreed to MRI for more information waiting on repeat CXRfor the pna, given cough syrup EMG will be needed for possible carpal tunnel on top of the radiculopathy from the neck will f/u after CXR comes in will fu after MRI VIJAY HAAS [address] [facility], [place], [address], [facility] 02/18/2024 09:49:55 OBGyn Episode No OBEpisode recorded.
== END ==
LOC: HO.HBST 09:10
PROVIDERS: PCP Internal Medicine; Visit Provider Counselor Mental Health
DX: F43.23 Adjustment disorder with mixed anxiety and depressed mood (principal)
CPT/HCPCS: 90791

== ENCOUNTER → 2024-08-23 09:10 | Outpatient (BNVA) | payer MEDICARE, MEDICAID, SELFPAY | PROVIDERS: PCP Internal Medicine; Visit Provider Counselor Mental Health ==

== ENCOUNTER 2024-08-25 11:42 | Day surgery (SDC) | payer MEDICARE, MEDICAID, SELFPAY ==
--- OUTSIDE RECORDS SUMMARY | 2024-08-07 13:39 | XMS_ITS | Data Portability ---
Author Organization [facility], Home Service Address [address] [place] [address] Assessment Encounter Date Assessment Date Assessment LastModified [...] reduce health risks and promote healthy living. Not available 08/23/2023 10:15:32 11/03/2023 11/03/2023 Patient [...] [email or web address] Not available 11/02/2023 16:23:59 02/04/2024 02/04/2024 [id number] [place] [id number] ([employer] ARCHITECT) MDM MODERATE MUST MEET 2 OUT OF [...] recorded. Lab lipid panel, blood 2023 024 [facility], [address] [place] [address], [address], 4 11:09:35 CBC w/ auto diff 2023 024 [facility], [address] [place] [address], [address], 4 11:09:35 CMP, serum or plasma 2023 024 [facility], [address] [place] [address], [address], 4 11:09:35 vitamin D, 25-hydroxy , total, serum 2023 024 [facility], [address] [place] [address], [address], 4 11:26:40 TSH + free T4, serum 2023 024 [facility], [address] [place] [address], [address], 4 11:07:38 TSH + free T4, serum 2023 024 [facility], [address] [place] [address], [address], 4 11:07:38 Referral neurologis t referral 2022 023 [email or web address] [facility], [address], [place], [address], 3 08:49:05 Procedures None recorded. Surgeries None recorded. Imaging MRI, cervical spine, w/o contrast 2023 024 [email or web address] 10 [facility], [address] [place], [address], 4 07:54:29 electromyo gram + nerve conduction study - carpal tunnel, castillo hands and wrists 2023 024 [facility] ([facility]), [address] [place], [address], 4 09:19:32 XR, cervical spine, 2 or 3 view 2023 024 [facility], [address] [place], [address], 4 14:30:08 XR, chest, 2 view 2023 024 [facility], [address] [place], [address], 4 14:30:08 Medication Orders codeine 10 mg-guaifen esin 100 mg/5 mL oral liquid 2023 024 [facility] #[id number], [address], [place], [id number], 4 09:45:13 cephalexin 500 mg capsule 2023 024 [facility] #[id number], [address], [place], [id number], 4 09:20:25 Synthroid 137 mcg tablet 2023 024 [facility] #[id number], [address], [place], [id number], 4 11:42:08 ciprofloxa radha 500 mg tablet 2022 023 [email or web address] [facility] #[id number], [address], [place], [id number], 09:58:28 Patient TargetsNo targets recorded. Patient Instructions Encounter Date Encounter Id Patient Instructions Last Modified By Organization Details Last Modified Time 08/23/2023 [id number] hypothyroidism: care instructions Not available 08/23/2023 22:06:42 11/03/2023 [id number] Skin Cyst: Care Instructions Not available 11/03/2023 11:27:04 Discussed and explained advance directives such as standard forms to the {{patient* caregi paola patient and caregiver}}. Face to face discussion lasted for a duration of _5__ minutes. Not available 11/03/2023 11:28:02 02/04/2024 [id number] neck pain: care instructions Not available 02/04/2024 09:16:54 cough: care instructions Not available 02/04/2024 09:21:28 Reason for Referral Neurologist Referral for Chauncey landa needs new neurologist, other neurologist retired Referring Physician: Viviana Ramey, Internal Medicine, Encounter Date: 09/23/2022 Results Created Date Observation Date Name Description Value Unit Range Abnormal Flag Note LastModifiedBy Organization Detail LastModifiedTime 10/07/1910/01/2022 MAMMO , scree owen, digit al, bilat eral No observ ation record ed. [facility] [address] [place], [address], 10/07/2022 08:10:20 02/22/20 23 02/21/2023 XR, foot No observ ation record ed. [address] (Medical Records) [address] [place], [address], 02/21/2023 08:35:27 02/22/20 23 02/21/2023 XR, ankle No observ ation record ed. [address] (Medical Records) [address] [place], [address], 02/21/2023 08:35:58 11/08/19 24 10/18/2023 MAMMO , scree owen, digit al, bilat eral No observ ation record ed. [facility] [address] [place], [address], 11/08/2023 13:26:33 02/04/20 24 02/04/2024 XR, cervi alix spine , 2 or 3 view No observ ation record ed. [facility] (Medical Records) [address] [place], [address], 02/18/2024 09:49:01 02/04/20 24 02/04/2024 XR, chest , 2 view No observ ation record ed. [facility] (Medical Records) [address] [place], [address], 02/18/2024 09:49:00 02/18/20 24 02/11/2024 XR, chest , 2 view No observ ation record ed. [facility] (Medical Records) [address] [place], [address], 02/22/2024 15:40:53 03/13/20 24 03/03/2024 MRI, cervi alix spine , w/o contr ast No observ ation record ed. [facility] (Medical Records) [address] [place], [address], 03/14/2024 15:53:15 03/16/20 24 03/16/2024 elect romyo gram + nerve condu ction study No observ ation record ed. [email or web address] [facility] (Medical Records) [address] [place], [address], 03/17/2024 12:09:59 03/16/20 24 03/16/2024 elect romyo gram + nerve condu ction study No observ ation record ed. [email or web address] [facility] (Medical Records) [address] [place], [address], 03/17/2024 12:09:59 07/31/1907/31/2024 XR, chest , 2 view No observ ation record ed. [facility] (Medical Records) [address] [place], [address], 07/31/2024 08:12:29 Result Notes None recorded. 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 2019 Not Available [facility] 2 14:39:08 Acute sinusiti s 26200505 Active 2021 VIJAY HAAS [address] [place] [address], [address], [facility] 2 10:05:14 Posterio r rhinorrh ea 94336441 Active 2021 VIJAY HAAS [address] [place], [address], [facility] 2 10:05:48 Pain in throat 304647346 Active 2021 VIJAY HAAS [address] [place] [address], [address], [facility] 2 10:05:53 COVID-19 842398482 Active 2021 VIJAY HAAS [address] [place] [address] [place], [address], [facility] 2 10:28:01 Intermit tent palpitat ions 254117581 Active 2021 Brendan Dockery, DO [address] [place] [address], [address], [facility] 2 14:24:47 Acute otitis media 1755867 Active 2022 VIJAY HAAS [address] [place] [address], [address], [facility] 3 14:11:22 Acute bronchit is 98117336 Active 2022 VIJAY HAAS [address] [place] [address], [address], [facility] 3 11:29:57 Acute otitis media 7254441 Active 2023 Brendan Dockery DO [address] [place] [address], [address], [facility] 4 15:34:59 Epidermo id cyst of skin 753789914 Active 2023 Brendan Dockery DO [address] [place] [address], [address], [facility] 4 11:26:25 Anxiety 60867761 Active 2023 Brendan Dockery DO [address] [place] [address], [address], [facility] 4 11:04:14 Cough 12109583 Active 2023 Brendan Dockery DO [address] [place] [address], [address], [facility] 4 09:46:18 Neck pain 93671033 Active 2023 Brendan Dockery DO [address] [place] [address], [address], [facility] 4 09:16:11 Pneumoni a 516926355 Active 2023 Brendan Dockery, [address] [place], [address], [facility] 4 14:44:04 Cervical radiculo lore 97418844 Active 2023 VIJAY HAAS [address] [place], [address], [facility] 4 09:40:00 Bilatera l carpal tunnel syndrome 53863215118 338275 Active 2023 VIJAY HAAS [address] [place], [address], [facility] 4 09:42:34 Cervical disc disorder 952394850 Active 2023 VIJAY HAAS [address] [place], [address], [facility] 4 15:54:20 Gastroes ophageal reflux disease 532879202 Active 2017 Not Available [facility] 2 14:39:08 Hypothyr oidism 08601928 Active 2017 Not Available [facility] 2 14:39:09 Migraine 70260497 Active 2017 Not Available [facility] 2 14:39:08 Fibromya lgia 198414238 Active 2017 Not Available [facility] 2 14:39:09 Family history of non-Hodg kin's lymphoma 430385421 Active 2017 father, dx'd 11/2010 Not Available [facility] 2 14:39:09 Thoracic outlet syndrome 355273874 Active 2017 s/p 1st rib removal 03/2012 Not Available [facility] 2 14:39:09 Chronic headache disorder 960005778 Active 2017 Not Available [facility] 2 14:39:09 Ventricu lar prematur e complex 097951521 Active 2017 Not Available [facility] 2 14:39:09 Hyperten sive disorder 07473665 Active 2017 Not Available [facility] 2 14:39:08 Tachycar mehnaz 3723164 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 Procedures Surgical History Date Name Laterality Status Provider Name and Address Organization Details Recorded Time Colonoscopy completed Brendan Dockery , DO [address] [place] [address], [address], [facility] 11/17/2021 15:53:34 Imaging Results Imaging Date Name Status LastModified by Organization Details LastModified Time 10/01/2022 MAMMO, screening, digital, bilateral completed [address] [place], [address], 10/07/2022 08:10:20 02/21/2023 XR, foot completed [address] (Medical Records) [address] [place], [address], 02/21/2023 08:35:27 02/21/2023 XR, ankle completed [address] (Medical Records) [address] [place], [address], 02/21/2023 08:35:58 10/18/2023 MAMMO, screening, digital, bilateral completed [address] [place], [address], 11/08/2023 13:26:33 02/04/2024 XR, cervical spine, 2 or 3 view completed [facility] (Medical Records) [address] [place], [address], 02/18/2024 09:49:01 02/04/2024 XR, chest, 2 view completed [facility] (Medical Records) [address] [place], [address], 02/18/2024 09:49:00 02/11/2024 XR, chest, 2 view completed [facility] (Medical Records) [address] [facility] [place], [address], 02/22/2024 15:40:53 03/03/2024 MRI, cervical spine, w/o contrast completed [email or web address] [facility] (Medical Records) [address] [place], [address], 03/14/2024 15:53:15 03/16/2024 electromyogram + nerve conduction study completed [email or web address] (Medical Records) [address] [place], [address], 03/17/2024 12:09:59 03/16/2024 electromyogram + nerve conduction study completed [email or web address] (Medical Records) [address] [place], [address], 03/17/2024 12:09:59 07/31/2024 XR, chest, 2 view completed [email or web address] [facility] (Medical Records) [address] [place], [address], 07/31/2024 08:12:29 Procedure Notes None recorded. Medical Equipment None Reported. Allergies Allergen ID Allergen Name Allergen Category Reaction Reaction Severity Criticality Documentation Date Start Date Code Code System Note Provider Name and Address Organization Details Recorded Time 1277 Fluarix medicatio n Not available Not available Not available 10/15/2017 29214 UNK Rowan freitas [facility] 8 09:01:31 5796 Shingrix medicatio n Not available Not available Not available 11/17/2021 76470 26 RxNorm Brendan Dockery, DO [address] [place], [address], [facility] 15:05:01 8069 SARS-CoV- 2 (COVID-19 ) vaccine, protein [id number]-[id number] 73 medicatio n Not available Not available Not available 11/03/2023 97376 73 RxNorm Hai freitas [facility] 4 10:55:25 Medications Name Sig [...] propionate 50 mcg/actuati on nasal spray,suspe nsion [facility] [place] 1 spray every day by intranasa l [...] Updated DateTime 4 172.72 cm 37.7 kg/m2 753961. 91 g 87 /min 97 % 97 % 138 mm[Hg] 68 mm[Hg] Madison [facility] 4 10:00:36 Date Recorded Body height Body mass index (BMI) Body weight Heart rate Respiratory rate Oxygen saturation Oxygen saturation in Arterial blood by Pulse oximetry Systolic blood pressure Diastolic blood pressure Provider Name and Address Organization Details Last Updated DateTime 4 172.72 cm 38 kg/m2 170075. 45 g 64 /min 18 /min 96 % 96 % 128 mm[Hg] 70 mm[Hg] Hai [facility] 4 10:55:03 Date Recorded Body height Body mass index (BMI) Body weight Heart rate Oxygen saturation Oxygen saturation in Arterial blood by Pulse oximetry Systolic blood pressure Diastolic blood pressure Provider Name and Address Organization Details Last Updated DateTime 4 172.72 cm 37.6 kg/m2 314749. 32 g 74 /min 95 % 95 % 116 mm[Hg] 82 mm[Hg] Cathy Forbes [facility] 4 09:29:51 Social History Question Answer Notes LastModified by Organizat ion Details LastModified Time Tobacco Smoking Status Never Smoker Not Available [facility] 04/09/2020 03:36:23 What Was The Date Of Your Most Recent Tobacco Screening? 02/18/2024 [email or web address] Information not available 02/18/2024 Sex: Unknown Functional Status None recorded. Mental Status None recorded. Family History Nothing Reported. Medical History Condition Response Coronary Artery Disease N Gout N Other N Kidney Stones N Blood Diseases N Blood Transfusion N Breast Cancer N Lung Disease N Depression N COPD N Defects or Inherited Disease N Anxiety Disorder N Muscle, Joint, or Bone Problems N Obesity N Vision or Eye Problems N Arthritis N Infertility N Polyps N Mental Disorder N Cancer N Stroke N Varicosities N Endometriosis N Bladder or Kidney Problems N High Cholesterol N Liver Disease N Fibromyalgia N Headaches N Kidney Disease N Allergies/Hayfever N Heart Problems N Hospitalizations N Thyroid Problems N GI Problems N Eating Disorder N Skin Problems N Anemia N MRSA exposure N Constipation N Mental Illness N Diabetes N Ovarian Cancer N Seizures/Epilepsy N Tuberculosis N Congestive Heart Failure (CHF) N Eczema N Abuse/Domestic Violence N Diverticulitis N Asthma N Reflux/GERD N Hepatitis N Heart Disease N Pulmonary Embolism N Hypertension N Chicken Pox N Autism Spectrum Disorder (ASD) N Osteoporosis N Gynecological HistoryNo gynecological history recorded. Obstetrics History GPAL:G 0 P 0 0 0 0 Immunizations Vaccine Type Date Status Note Provider Nam e and Address Organization Details Recorded Time COVID-19, mRNA, LNP-S, PF, 30 mcg/0.3 mL dose 1 completed Brendan Dockery, DO [address] [place] [address], [place], [address], [facility] 03/25/2021 14:56:42 COVID-19, mRNA, LNP-S, PF, 30 mcg/0.3 mL dose 1 completed Brendan Dockery DO [address] [place] [address], [address], [facility] 03/25/2021 14:56:50 COVID-19, mRNA, LNP-S, PF, 100 mcg/0.5mL dose or 50 mcg/0.25mL dose 2 completed Brendan Dockery DO [address] [place] [address], [address], [facility] 11/17/2021 15:06:29 zoster recombinant 2 completed Brendan Dockery DO [address] [place] [address], [address], [facility] 11/17/2021 15:06:54 Past Encounters Encounter ID Performer Location Encounter Start Date Encounter Closed Date Diagnosis/Indication Diagnosis SNOMED-CT Code Diagnosis ICD10 Code Diagnosis Note [id number] Brendan Dockery [facility] [address] [place] [address], [place] [address] 10/15/2017 14:39:05 10/15/2017 16:02:57 Tenosynovitis of wrist 064285013 M65.839 given she has tried splint and taken otc and rx nsaids without resolution Hypertensive disorder 38 782075 I10 bp is stable no issues noc cp [id number] Sheyla Coon NP, S [facility] [address] [place] [address], [place] [address] 11/23/2017 13:24:41 11/23/2017 14:43:03 Acute bacterial sinusitis 64020714 J01.90 Hypothyroidism 27744778 E03.9 stable, reviewed labs Essential hypertension 68353542 I10 stable [id number] Brendan Dockery [facility] [address] [place] [address],[place] [address] 02/28/2018 10:59:14 02/28/2018 12:08:52 Hypothyroidism 03212788 E03.9 tsh is 0.8 Hypertensive disorder 38 274656 I10 bp is stable no issues noc cp Adult heal th examination 749662603 Z00.00 discussed need for exercise and diet Screening for cardiovascular system disease 725841233 Z13.6 Screening mammography 24 416605 Z12.31 [place] [id number] September STEPHANIE Ballesteros [facility] [address] [facility] [address] [address] 07/12/2018 09:48:11 07/12/2018 11:06:37 Migraine 94532261 G43.909 Using imitrex with relief Hypertensive disorder 38 373463 I10 diastolic slightly elevated, will monitor Hypothyroidism 67140887 E03.9 labs last done 02/2018 Benign par oxysmal positional vertigo 247028955 H81.11 improving with meclizine Acute sinusitis 57427385 J01.90 continue mucinex, flonase, fluids, humidifier [id number] Sheyla Coon NP, [facility] [address] [facility], [place] [address] 09/16/2018 11:50:53 09/16/2018 15:19:18 Otitis media 79262838 H66.92 Allergic cough 910218853 R05 Active or passive immunization 576955694 Z23 Hypertensive disorder 38 729820 I10 stable, reviewed Mar 2018 labs [id number] Sheyla Coon NP, [facility] [address] [facility], [place] [address] 09/26/2018 13:31:49 09/26/2018 14:23:51 Dysfunction of eustachian tube 53117783 H69.92 [id number] Sheyla Coon NP, [facility] [address] [facility], [place] [address] 10/03/2018 14:57:35 10/03/2018 16:29:59 Dysfunction of left eustachian tube 0170814281 921510 H69.92 [id number] Brendan Dockery, [facility] [address] [facility], [place] [address] 11/23/2018 16:09:46 11/25/2018 08:16:23 Hypertensive disorder 54701952 I10 bp is stable no issues noc cp Hypothyroidism 17230268 E03.9 tsh is 0.8 Edema of l ower extremity 802938812 R60.0 will add furosemide 40mg [id number] Brendan Dockery [facility] [address] [facility] [address],[place] [address] 12/02/2018 13:35:55 12/02/2018 14:40:20 Hypertensive disorder 34742514 I10 bp is stable no issues noc cp will cont Edema of l ower extremity 421109460 R60.0 will cont furosemide 40mg [id number] September STEPHANIE Ballesteros [facility] [address] [facility] [address],[place] [address] 01/13/2019 10:20:35 01/13/2019 11:04:19 Edema of lower extremity 892391171 R60.0 b/l improved on increased dose of lasix do 80 mg again today then return to 40 mg Hypertensive disorder 38 504505 I10 stable Hypothyroidism 17957383 E03.9 normal tsh 12/2018 [id number] Brendan Dockery [facility] [address] [facility],[place] [facility] [address] 01/30/2019 13:31:42 01/30/2019 14:09:46 Edema of lower extremity 738305027 R60.0 will cont furosemide 40mg and will cont to use bid when sudden changes potassium supp or bananas Hypertensive disorder 38 045487 I10 bp is stable no issues noc cp will cont Hypothyroidism 00795473 E03.9 tsh is wnl per [facility] lab Tinea pedis 9185152 B35. 3 lotrimin cream [id number] Brendan Dockery [facility] [address] [facility],[place] [address] 09/04/2019 11:07:27 09/04/2019 13:34:20 Acute sinusitis 28754145 J01.90 will need to treat given her past issues [id number] Brendan Dockery [facility] [address] [facility],[place] [address] 04/01/2020 13:27:40 04/01/2020 14:38:28 Adult health examination 313435482 Z00.00 discussed need for exercise and diet Screening for cardiovascular system disease 478711799 Z13.6 Screening for osteoporosis 436493297 Z13.820 Screening mammography 24 104980 Z12.31 [place] [id number] VIJAY HAAS [facility] [address] [facility], [place] [address] 04/15/2020 09:07:48 04/15/2020 11:14:34 Acute otitis media 1229139 H65.01 most likely another ear infection given symptoms and hx will fu with patient if still having symptoms or worsening pt understand s and will call Nasal congestion 7505151 0 R09.81 more with pressure, all right sided along maxillary and frontal sinuses Headache 02132400 R51.9 right sided, also suffers from chronic headaches so not uncommon [id number] Brendan Dockery DO [facility] [address] [facility],[place] [address] 03/25/2021 14:34:54 03/25/2021 16:24:44 Hypothyroidism 63933287 E03.9 tsh low and t4 is high and we nmeed to decrease her dose she is having a lot of hairloss Gastroesop hageal reflux disease 064732164 K21.00 has breakthrog [place] [id number] Brendan Dockery DO [facility] [address] [facility], [place] [address] 05/14/2021 09:37:08 05/14/2021 14:28:14 Gastroesophageal reflux disease 633721551 K21.00 has breakthrog uh need to incerease the nexium to bid Hypertensive disorder 38 602638 I10 bp is stable no issues noc cp will cont current tx Edema of l ower extremity 162526262 R60.0 furosemide 40mg as needed only and has not taken any since the summer and will cont to use prn when sudden changes potassium supp or bananas when she does take furosemide [id number] VIJAY HAAS [facility] [address] [facility], [place] [address] 06/16/2021 09:40:38 06/16/2021 16:20:27 Chondromalacia of patella 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 M22.41 will fu with MRI Pain of le ft knee joint 8920730107 52951 M25.562 will fu with MRI [id number] VIJAY HAAS [facility] [address] [facility] [address] [address] 06/30/2021 09:21:10 07/01/2021 15:55:17 Acute sinusitis 76721582 J01.01 will start on abx and fu with patient if no improvemen t Otalgia 57676972 H92.01 will start on abx [id number] VIJAY HAAS [facility] [address] [facility] [address],[place] [address] 10/17/2021 09:21:32 10/17/2021 11:33:49 Acute sinusitis 77800948 J01.01 will start on abx and fu with patient if no improvemen t Posterior rhinorrhea 758 14761 R09.82 will fu with testing Pain in throat 378048516 R07.0 can use APAP and IBU for symptom management [id number] Brendan Dockery DO [facility] [address] [facility] [address],[place] [address] 11/17/2021 14:48:20 11/17/2021 15:56:50 Hypertensive disorder 46681435 I10 bp is stable no issues noc cp will cont current tx Hypothyroidism 95534148 E03.9 tsh low and t4 is high and we nmeed to decrease her dose she is having a lot of hairloss Active or passive immunization 498161978 Z23 patient advised she is due for a tdap Screening for malignant neoplasm of colon 587151574 Z12.11 already had done in jul Depression screening 171 125303 Z13.31 Did not bring glasses to fill out PHQ9 not able to complete today Tachycardia 9463157 R00. 0 given just one episode [id number] VIJAY HAAS [facility] [address] [facility] [address] 08/11/2022 13:49:58 08/11/2022 16:33:49 Acute otitis media 3076021 H65.01 will set up with cipro for 7 days BIDworks best for the patient [id number] VIJAY HAAS [facility] [address] [facility],[place] [address] 09/23/2022 09:07:41 09/23/2022 12:05:06 Acute otitis media 3018884 H65.01 will set up with cipro for 7 days [employer]IDworks best for the patient Migraine [id number] G43.10 9 will set up with second opinion with neuro [id number] Brendan Dockery [facility] [address] [facility] [address] 08/23/2023 09:51:36 08/23/2023 10:25:31 Hypertensive disorder 09328323 I10 bp is stable no issues no cp will cont current tx Hypothyroidism 60027438 E03.9 tsh low and t4 is high and we need to decrease her dose she is having a lot of hairloss [id number] Brendan Dockery DO [facility] [address] [facility] [address] 11/03/2023 10:35:53 11/03/2023 12:15:08 Adult health examination 011224250 Z00.00 discussed need for exercise and diet Screening for cardiovascular system disease [id number] Z13.6 Screening for malignant neoplasm of colon 144651403 Z12.11 already had done in jul Depression screening 171 961404 Z13.31 Did not bring glasses to fill out PHQ9 not able to complete today Epidermoid cyst of skin 201117409 L72.0 [id number] Brendan Dockery DO [facility] [address] [facility],[place] [address] 02/04/2024 08:34:01 02/04/2024 14:30:07 Anxiety 86377815 F41.9 stable Hypertensive disorder 38 444069 I10 bp is stable no issues no cp will cont current tx Hypothyroidism 66299234 E03.9 stable Thoracic o utlet syndrome 927582108 G54.0 no chnges Neck pain 35399867 M54.2 possible radiculopa thy issue here having numbness Cough 61057046 R05.9 not getting better , will use use guaifen over weekend if no better will need levoflox etc will get cxr today [id number] VIJAY HAAS [facility] [address],[place] [address] 02/18/2024 09:14:53 02/18/2024 09:50:41 Cervical radiculopathy 36385229 M54.12 will set up MRI now and EMG for her arms Bilateral carpal tunnel syndrome [id number] 4812970 G56.03 fu EMG Cough 69012336 R05.2 given syrup to use PRN for [...] 1 [place] [employer] Tamar Chacon [id number] Tamar Chacon 09/23/2022 2 [place] [facility] Tamar Chacon [id number] Tamar Chacon 08/23/2023 1 [place] [place] Tamar Chacon [id number] Tamar Chacon 08/23/2023 2 [place] Tamar Chacon [id number] Tamar Chacon 11/03/2023 1 [place] [employer] Tamar Chacon [id number] Tamar Chacon 11/03/2023 2 [place] Tamar Chacon [id number] Tamar Chacon 02/04/2024 1 [place] [employer] Tamar Chacon [id number] Tamar Chacon 02/04/2024 2 [place] Tamar Chacon [id number] Tamar Chacon 02/18/2024 1 [place] [employer] [place] Tamar Chacon [id number] Tamar Chacon 02/18/2024 2 [facility] Tamar Salinas Oswaldo [id number] Tamar Oswaldo Notes Date Note Type Note Provider Name [...] stick with VIJAY De La Torre [address] [place], [address], [facility] 09/23/2022 11:28:14 4 text/html here for annual wellnessrelates has been under a lot of stress relates that she has been sad bc she can no longer drive etc Brendan Dockery DO [address] [place], [address], [facility] 08/23/2023 22:06:45 4 text/html [...] always feels tired Brendan Dockery DO [address] [facility], [place], [address], [facility] 11/03/2023 11:28:39 4 text/html [...] arches her back Brendan Dockery DO [address] [place], [address], [facility] 02/04/2024 09:24:45 4 text/html f/u neck pain the patient reports that she is having neck painagreed to MRI for more information waiting on repeat CXRfor the pna, given cough syrup EMG will be needed for possible carpal tunnel on top of the radiculopathy from the neck will f/u after CXR comes in will fu after MRI VIJAY HAAS [address] [facility], [place], [address], [facility] 02/18/2024 09:49:55 OBGyn Episode No OBEpisode recorded.
--- NOTE | 2024-08-14 13:19 | P.CONAN_ITS ---
Documented by User: Su Penny NP 08/14/24 13:21 HPI - Anesthesia Eval Consult details Narrative: 54yo F for Upper Endoscopy PMFSH Active Problems Active Problems: All Active Problems Abnormal EKG (Acute) Diaphragmatic hernia (Acute) GERD (gastroesophageal reflux disease) (Acute) Hypertension (Acute) DJD (degenerative joint disease) (Acute) Familial juvenile macular degeneration syndrome (Acute) Anxiety (Acute) Depression (Acute) BMI 38.0-38.9,adult (Acute) Obesity (Acute) Cervical spondylosis (Acute) Degenerative cervical disc (Acute) Cervicalgia (Acute) Past Medical History Medical History Hypothyroid History of nephrolithiasis Diaphragmatic hernia GERD (gastroesophageal reflux disease) Hypertension DJD (degenerative joint disease) Familial juvenile macular degeneration syndrome Anxiety Depression Family History Family History (Updated 07/27/24 @ 08:51 by Sarah Leung CMA) Mother Malignant neoplasm of breast in full remission Arthritis Father Landon's disease Son No problems noted. Son No problems noted. Surgical History Surgical History History of resection of rib Hx of hysterectomy Hx of adenoidectomy Hx of tonsillectomy Hx of bladder endoscopy Hx of colonoscopy Social History Social History (Updated 07/27/24 @ 08:51 by Sarah Leung CMA) Alcohol intake: current Alcohol intake frequency: holidays/special occasions only Patient Tobacco Use Status: Never used Tobacco Use of substances other than those prescribed or required for medical reasons: No Are you DNR?: No Advance Directives: No Advance Directives Information Provided: Yes Meds Allergies Allergy/AdvReac Type Severity Reaction Status Date / Time Seasonal Allergies Allergy Mild sneezing Verified 08/25/24 12:42 vaccines Allergy Unknown unknown Uncoded 07/28/24 11:48 Home Medications ?Medication ?Instructions ?Recorded ?Confirmed ?Last Taken ?Type famotidine 40 mg tablet 40 mg PO DAILY 04/28/24 07/28/24 Unknown History levothyroxine 137 mcg tablet 137 mcg PO DAILY 04/28/24 07/28/24 Unknown History (Synthroid) propranolol 80 mg capsule,24 80 mg PO DAILY 04/28/24 07/28/24 Unknown History hr,extended release topiramate 25 mg tablet 25 mg PO TID 04/28/24 07/28/24 Unknown History amitriptyline 50 mg tablet 50 mg PO BEDTIME 07/27/24 07/28/24 Unknown History hair skin and nails PO 07/27/24 07/28/24 Unknown History omeprazole 20 mg capsule,delayed 20 mg PO DAILY 07/27/24 07/28/24 Unknown History release Exam Pertinent Lab Results Pertinent Lab Results: Laboratory Tests 07/31/24 06:32 WBC 9.0 Hgb 16.1 H Hct 45.1 Plt Count 296 Sodium 140 Potassium 3.9 Chloride 109 H Carbon Dioxide 21 L BUN 19 H Creatinine 0.82 Narrative Narrative: EKG 07/2024 Vent. Rate : 80 BPM Atrial Rate : 80 BPM P-R Int : 186 ms QRS Dur : 108 ms QT Int : 370 ms P-R-T Axes : 66 1 5 degrees QTcB Int : 426 ms Normal sinus rhythm Incomplete right bundle branch block Nonspecific T wave abnormality Abnormal ECG No previous ECGs available Assessment and Plan Assessment Anesthesia Assessment: Chart Reviewed Documented by User: Ender Pompa MD 08/25/24 13:22 [facility] Past Medical History Medical History Hypothyroid History of nephrolithiasis Diaphragmatic hernia GERD (gastroesophageal reflux disease) Hypertension DJD (degenerative joint disease) Familial juvenile macular degeneration syndrome Anxiety Depression Family History Family History (Updated 07/27/24 @ 08:51 by Sarah Leung CMA) Mother Malignant neoplasm of breast in full remission Arthritis Father Landon's disease Son No problems noted. Son No problems noted. Family history of problems with anesthesia: No Surgical History Surgical History History of resection of rib Hx of hysterectomy Hx of adenoidectomy Hx of tonsillectomy Hx of bladder endoscopy Hx of colonoscopy History of Problems with Anesthesia: No Social History Social History (Updated 07/27/24 @ 08:51 by Sarah Colon, SURVEY RESEARCH MANAGER) Alcohol intake: current Alcohol intake frequency: holidays/special occasions only Patient Tobacco Use Status: Never used Tobacco Use of substances other than those prescribed or required for medical reasons: No Are you DNR?: No Advance Directives: No Advance Directives Information Provided: Yes Meds Allergies Allergy/AdvReac Type Severity Reaction Status Date / Time Seasonal Allergies Allergy Mild sneezing Verified 08/25/24 12:42 vaccines Allergy Unknown unknown Uncoded 07/28/24 11:48 Home Medications ?Medication ?Instructions ?Recorded ?Confirmed ?Last Taken ?Type famotidine 40 mg tablet 40 mg PO DAILY 04/28/24 07/28/24 Unknown History levothyroxine 137 mcg tablet 137 mcg PO DAILY 04/28/24 07/28/24 Unknown History (Synthroid) propranolol 80 mg capsule,24 80 mg PO DAILY 04/28/24 07/28/24 Unknown History hr,extended release topiramate 25 mg tablet 25 mg PO TID 04/28/24 07/28/24 Unknown History amitriptyline 50 mg tablet 50 mg PO BEDTIME 07/27/24 07/28/24 Unknown History hair skin and nails PO 07/27/24 07/28/24 Unknown History omeprazole 20 mg capsule,delayed 20 mg PO DAILY 07/27/24 07/28/24 Unknown History release Exam Airway Mallampati Class: II TM Dist: <=3cm Neck ROM: Full Loose/Missing/Broken Teeth: No Heart: ok Lungs: ok Assessment and Plan Assessment Anesthesia Assessment: Anesthesia Plan Discussed Final Anesthetic Review Family History of Problems with Anesthesia: No History of Problems with Anesthesia: No NPO: Yes ASA Class: III Final Preanesthetic Review: No Changes in Pt Med Stat, Meds/Allgs Chart Reviewed, Consent Obtained/Reviewed and Anes Risks/Benef Reviewed Patient Risk: High Procedure Risk: Intermediate Anesthetic Plan Anesthetic Plan: Agree w/ Assess. and Plan and TIVA Disposition: Standard PACU
[2024-08-23 12:20] VITALS: BMI 38.8
[2024-08-25 12:47] VITALS: BMI 36.1
[2024-08-25 12:55] VITALS: BP 131/82; PULSE 89; RESP 15; TEMP 36.6; O2SAT 97
--- NOTE | 2024-08-25 13:03 | P.HPSUR_ITS ---
Pre-Procedural Eval Section A - 24 Hr Update-Section A only Date of Service: 08/25/24 The patient is an INPATIENT: No The patient has been examined within 24 hours of the surgical procedure. The History & Physical has been completed within 30 days and I have reviewed it.: Yes Section B - Complete if H&P > 30 days Chief Complaint: Morbid (severe) obesity due to excess calories Details of Present Illness: GERD Relevant Family History (Specify if Yes): No Relevant Social History: None Present Medications: None Medical History: No relevant PMH History of Previous Operations: No relevant previous surgery Allergies: Allergies Allergy/AdvReac Type Severity Reaction Status Date / Time Seasonal Allergies Allergy Mild sneezing Verified 08/25/24 12:42 vaccines Allergy Unknown unknown Uncoded 07/28/24 11:48 Review of Systems Sugical H&P ROS: Negative: Constitution, Cardiovascular, Respiratory, Neurological, Psychiatric, Hem-Onc, Allergic/Immunologic, Gastrointestinal, Genitourinary, Musculoskeletal, Integumentary, Endocrine and Eyes/Ears/Nose/Throat Exam Surgical H&P Exam: Normal: HEENT, Normal: Heart, Normal: Lungs, Normal: Extremi ties, Normal: Abdomen, Normal: Skin and Normal: Neurological Plan Diagnosis/Plan: Unchanged (EGD to assess etiology of GERD. Risks of bleeding and perforation were discussed with the patient and she is in agreement with the plan.) I have reviewed the history and physical and performed a pertinent physical examination on my patient. No changes have occurred unless specified. Time Spent With Patient Time: Total time managing care of this patient today ____ minutes.
[2024-08-25] MEDS: Lactated Ringers 1,000 ML 100 ML IVCONT (13:04)
--- NOTE | 2024-08-25 13:07 | PM.OP ---
Brief Operative Note Date of Service: 08/25/24 Pre-op diagnosis: GERD Post-op diagnosis: same (& gastric polyps) Procedure: PROCEDURE DATE: 08/25/2024 PREOPERATIVE DIAGNOSIS: GERD POSTOPERATIVE DIAGNOSIS: ?Same as above. 1) Gastric polyps PROCEDURE: Pmhqzulx-pqmfwn-jeiuwszjbuwl with biopsies Surgeon: ?Juarez Herr M.D.. Ph.D. Optical Engineering Technician: None ? Anesthesia: IV sedation Estimated blood loss: ?Minimal FINDINGS AND PROCEDURE: ? OPERATIVE INDICATIONS: ?The patient is a 54 year old female known to me who is interested in bariatric surgery. The patient has GERD. Based on this information I recommended an upper endoscopy to evaluate the patient's symptoms. Risks and complications of the surgery were discussed with the patient in advance particularly the possibility of perforation or bleeding that may require surgical intervention. The patient understood the risks and was in agreement with the plan. ? PROCEDURE: After informed consent was obtained by the patient, the patient was ?transferred to the Operating Room and was placed in the supine position.? After successful induction of IV sedation, a mouth block was inserted and the patient was placed in the left lateral decubitus position. An upper endoscopy was performed next, the oropharynx and esophagus appeared within the normal limits. There was no hiatal hernia. The z-line was smooth. Two biopsies were obtained from the distal esophagus 2-3 cm proximal to the GE junction and two additional biopsies from the GE junction. The stomach was entered and it appeared to be of normal size. There were scattered benign-appearing polyps of various sizes. Two of them were biopsied. There was no gastritis. There was no stricture or ulcer. A biopsy was obtained from the gastric fundus and the antrum. No significant bleeding was noted from any of the biopsy sites. Retroflexion of the scope confirmed a normal GE junction. The scope was then advanced into the duodenum which appeared to be normal as well. At that point the duodenum ?and the stomach were decompressed and the scope was withdrawn from the patient's mouth. The patient extubated and was transferred in stable condition to the Recovery Room for further care. I was present and performed all steps of the procedure. There were no residents to assist with this case. Juarez Herr M.D., Ph.D. Surgeon: Alan Herr MD Anesthesia: MAC Was an Optical Engineering Technician used for this Procedure?: No Estimated blood loss (mL): 0 IV fluids (mL): 400 Urine output (mL): 0 (No Ashley to record output) Pathology: other (1) antrum x1, 2) fundus x1, 3) GE junction x2, 4) distal esophagus x2, 5) gastric polyp #1 x1, 6) gastric polyp #2 x1) Condition: stable Disposition: PACU
[2024-08-25 13:49] VITALS: BP 120/69; PULSE 80; RESP 16; TEMP 36.6; O2SAT 96
[2024-08-25 14:04] VITALS: BP 119/74; PULSE 72; RESP 16; TEMP 36.4; O2SAT 97
== END 2024-08-25 14:44 | disposition home or self-care (01) ==
PROVIDERS: PCP Internal Medicine; Visit Provider Surgery
PROC: 0DJ08ZZ Inspection of Upper Intestinal Tract, Via Natural or Artificial Opening Endoscopic (ICD-10-PCS; CPT 43235; principal; 2024-08-25 13:20)
DX: K31.7 Polyp of stomach and duodenum (principal); K22.81 Esophageal polyp; K20.90 Esophagitis, unspecified without bleeding; K44.9 Diaphragmatic hernia without obstruction or gangrene; K21.9 Gastro-esophageal reflux disease without esophagitis; E66.01 Morbid (severe) obesity due to excess calories; Z68.38 Body mass index [BMI] 38.0-38.9, adult; I10 Essential (primary) hypertension; H35.54 Dystrophies primarily involving the retinal pigment epithelium; Z90.710 Acquired absence of both cervix and uterus; Z79.899 Other long term (current) drug therapy
CPT/HCPCS: 43239; 88305; 88313; 88342; J2003; J2704; J3010

== ENCOUNTER → 2024-08-25 11:42 | Outpatient (BNV) | payer MEDICARE, MEDICAID, SELFPAY | PROVIDERS: PCP Internal Medicine; Visit Provider Surgery | DX: K31.7 Polyp of stomach and duodenum (principal) | CPT/HCPCS: 43239 ==

== ENCOUNTER 2024-08-30 08:07 | Outpatient (REF) | payer MEDICARE, MEDICAID, SELFPAY ==
--- NOTE | ~2024-08-30 | US_ITS ---
EXAMINATION: US ABDOMEN COMPLETE WITH LIVER ELASTOGRAPHY HISTORY: E66.9 - Obesity, unspecified TECHNIQUE: Real-time grayscale ultrasound imaging of the abdomen was performed and images were reviewed. COMPARISON: There are no prior studies for comparison. FINDINGS: Liver: The right lobe of the liver measures 14.5 cm in size. The left lobe of the liver measures 6.8 cm in size. The liver demonstrates increased echotexture, consistent with steatosis. No focal mass or intrahepatic biliary ductal dilatation is identified. There is normal hepatopedal flow in the portal vein. Ultrasound elastography of the liver was performed with 10 separate measurements of the liver parenchyma with the patient in the supine position. Measurements were obtained approximately 2 cm below Elvi's capsule and perpendicular to the capsule. Images are of satisfactory quality. The median shear wave velocity is 1.25 m/s. The interquartile range/median (IQR/median) is 0.30. Gallbladder and biliary tree: The gallbladder is unremarkable, without evidence of calculi, wall thickening, or pericholecystic fluid. There is no sonographic Monreal sign. The common bile duct is normal in caliber measuring 5 mm. Kidneys: The right kidney measures 11.3 cm in length. The left kidney measures 10.2 cm in length. The kidneys are unremarkable, without evidence of masses, hydronephrosis, or calculi. Pancreas: The pancreatic head, neck, and body are unremarkable. The pancreatic tail is obscured by bowel gas. Spleen: The spleen is normal in size and contour, measuring 11.0 cm in length. Abdominal aorta and inferior vena cava: The visualized portions of the abdominal aorta and inferior vena cava are normal in caliber. There is no free fluid in the abdomen. US/US abdomen comp w elastography IMPRESSION: Hepatic steatosis. The median shear wave velocity in the liver is 1.25 m/s, corresponding to a median liver stiffness of 4.84 kPa. The IQR/median value is 0.30. This is indicative of a poor quality data set, and the estimated liver stiffness may be unreliable. Findings are indicative of a normal elastography value with a low likelihood of severe fibrosis or cirrhosis. REFERENCE: Society of Radiologists in Ultrasound Liver Stiffness Thresholds (2020): LIVER STIFFNESS THRESHOLDS: *Shear wave velocity less than 1.3 m/s (Liver Stiffness equal or less than 5 kPa): High probability of being normal. *Shear wave velocity less than 1.7 m/s (Liver Stiffness less than 9 kPa): In the absence of other known clinical signs, rules out compensated advanced chronic liver disease. *Shear wave velocity between 1.7-2.1 m/s (Liver Stiffness 9-13 kPa): Suggestive of compensated advanced chronic liver disease but need further test for confirmation. *Shear wave velocity between 2.1-2.4 m/s (Liver Stiffness 13-17 kPa): Rules in compensated advanced chronic liver disease. *Shear wave velocity greater than 2.4 m/s (Liver Stiffness over 17 kPa): Suggestive of clinically significant portal hypertension. QUALITY OF DATA SET: *IQR/Median value equal or less than 0.15 implies a quality data set. *IQR/Median value over 0.15 implies a poor quality data set. SIGNIFICANT CHANGE FROM PRIOR EXAM: Significant change if liver stiffness measurement is 10% or greater from prior exam. OTHER CONSIDERATIONS: The stage of liver fibrosis may be overestimated in the setting of acute hepatitis, liver inflammation, elevated liver function tests, hepatic vascular congestion, obstructive cholestasis, non-fasting state, and infiltrative diseases such as amyloidosis and lymphoma. In some patients with NAFLD, the liver stiffness thresholds for compensated advanced chronic liver disease may be lower. In causes other than viral hepatitis and NAFLD, liver stiffness thresholds are not well established. Electronically signed by: Molina Marrufo MD 08/30/2024 09:52 AM EDT
--- OUTSIDE RECORDS SUMMARY | 2024-08-30 08:21 | XMS_ITS | Data Portability ---
Author Organization [facility] Luis Miguel Internal [facility], Home Service Address [address] [place] [address] Assessment Encounter Date Assessment Date Assessment LastModified [...] reduce health risks and promote healthy living. [email or web address] Not available 08/23/2023 10:15:32 11/03/2023 11/03/2023 Patient [...] [email or web address] Not available 11/02/2023 16:23:59 02/04/2024 02/04/2024 [id number] [place] [id number] (RADIOLOGICAL TECHNICIAN) MDM MODERATE MUST MEET 2 OUT OF [...] recorded. Lab lipid panel, blood 2023 024 [facility], [address] [place] [address], [address], 4 11:09:35 CBC w/ auto diff 2023 024 [facility], [address] [place] [address], [address], 4 11:09:35 CMP, serum or plasma 2023 024 [facility], [address] [place] [address], [address], 4 11:09:35 vitamin D, 25-hydroxy , total, serum 2023 024 [facility], [address] [place] [address], [address], 4 11:26:40 TSH + free T4, serum 2023 024 [facility], [address] [place] [address], [address], 4 11:07:38 TSH + free T4, serum 2023 024 [facility], [address] [place] [address], [address], 4 11:07:38 Referral neurologis t referral 2022 023 [email or web address] 10 [facility], [address], [place], [address], 3 08:49:05 Procedures None recorded. Surgeries None recorded. Imaging MRI, cervical spine, w/o contrast 2023 024 [email or web address] 10 [facility], [address] [place], [address], 4 07:54:29 electromyo gram + nerve conduction study - carpal tunnel, castillo hands and wrists 2023 024 [facility] (Imaging), [address] [place], [address], 4 09:19:32 XR, cervical spine, 2 or 3 view 2023 024 [facility], [address] [place], [address], 4 14:30:08 XR, chest, 2 view 2023 024 [facility], [address] [place], [address], 4 14:30:08 Medication Orders codeine 10 mg-guaifen esin 100 mg/5 mL oral liquid 2023 024 [facility] #[id number], [address] [place], [place], [id number], 4 09:45:13 cephalexin 500 mg capsule 2023 024 [facility] #[id number], [address], [place], [id number], 4 09:20:25 Synthroid 137 mcg tablet 2023 024 [facility] #[id number], [address], [place], [id number], 4 11:42:08 ciprofloxa radha 500 mg tablet 2022 023 [email or web address] [facility] #[id number], [address], [place], [id number], 09:58:28 Patient TargetsNo targets recorded. Patient Instructions Encounter Date Encounter Id Patient Instructions Last Modified By Organization Details Last Modified Time 08/23/2023 [id number] hypothyroidism: care instructions Not available 08/23/2023 22:06:42 11/03/2023 [id number] Skin Cyst: Care Instructions Not available 11/03/2023 11:27:04 Discussed and explained advance directives such as standard forms to the {{patient* caregi paola patient and caregiver}}. Face to face discussion lasted for a duration of _5__ minutes. Not available 11/03/2023 11:28:02 02/04/2024 [id number] neck pain: care instructions Not available 02/04/2024 [...] bilat eral No observ ation record ed. [facility]'s [address] [place], [address], 10/07/2022 08:10:20 02/22/20 23 02/21/2023 XR, foot No observ ation record ed. [address] (Medical Records) [address] [facility] [place] [address], 02/21/2023 08:35:27 02/22/20 23 02/21/2023 XR, ankle No observ ation record ed. [address] (Medical Records) 575 [facility] [place] [address], 02/21/2023 08:35:58 11/08/19 24 10/18/2023 MAMMO , scree owen, digit al, bilat eral No observ ation record ed. [facility] [address] [place], [address], 11/08/2023 13:26:33 02/04/20 24 02/04/2024 XR, cervi alix spine , 2 or 3 view No observ ation record ed. [facility] (Medical Records) [address] [facility] [place], [address], 02/18/2024 09:49:01 02/04/20 24 02/04/2024 XR, chest , 2 view No observ ation record ed. [facility] (Medical Records) [address] [facility] [place], [address], 02/18/2024 09:49:00 02/18/20 24 02/11/2024 XR, chest , 2 view No observ ation record ed. [facility] (Medical Records) [address] [facility] [place] [address], 02/22/2024 15:40:53 03/13/20 24 03/03/2024 MRI, cervi alix spine , w/o contr ast No observ ation record ed. [facility] (Medical Records) [address] [facility] [place], [address], 03/14/2024 15:53:15 03/16/20 24 03/16/2024 elect romyo gram + nerve condu ction study No observ ation record ed. [email or web address] [facility] (Medical Records) [address] [place], [address], 03/17/2024 12:09:59 03/16/20 24 03/16/2024 elect romyo gram + nerve condu ction study No observ ation record ed. [email or web address] [facility] (Medical Records) [address] [place], [address], 03/17/2024 12:09:59 07/31/1907/31/2024 XR, chest , 2 view No observ ation record ed. [facility] (Medical Records) [address] [place], [address], 07/31/2024 08:12:29 Result Notes None recorded. Problems Name Problem SNOMED Code Status Onset Date Resolution Date Notes Provider Name and Address Organization Details Recorded Time Edema of lower extremit y 153069751 Active 2018 Not Available [facility] 2 14:39:08 Stargard t's disease 99359489 Active 2019 Not Available [facility] 2 14:39:08 Acute sinusiti s 99028614 Active 2021 VIJAY HAAS [address] [place] [address], [address], [facility] 2 10:05:14 Posterio r rhinorrh ea 92890406 Active 2021 VIJAY HAAS [address] [place], [address], [facility] 2 10:05:48 Pain in throat 098846692 Active 2021 VIJAY HAAS [address] [place] [address], [address], [facility] 2 10:05:53 COVID-19 783309624 Active 2021 VIJAY HAAS [address] [place] [address] [place], [address], [facility] 2 10:28:01 Intermit tent palpitat ions 125281844 Active 2021 Brendan Dockery, DO [address] [place] [address], [address], [facility] 2 14:24:47 Acute otitis media 5937195 Active 2022 VIJAY HAAS [address] [place] [address], [address], [facility] 3 14:11:22 Acute bronchit is 31875362 Active 2022 VIJAY HAAS [address] [place] [address], [address], [facility] 3 11:29:57 Acute otitis media 8126000 Active 2023 Brendan Dockery DO [address] [place] [address], [address], [facility] 4 15:34:59 Epidermo id cyst of skin 915157093 Active 2023 Brendan Dockery DO [address] [place] [address], [address], [facility] 4 11:26:25 Anxiety 75163418 Active 2023 Brendan Dockery DO [address] [place] [address], [address], [facility] 4 11:04:14 Cough 32619906 Active 2023 Brendan Dockery DO [address] [place] [address], [address], [facility] 4 09:46:18 Neck pain 08101581 Active 2023 Brendan Dockery DO [address] [place] [address], [address], [facility] 4 09:16:11 Pneumoni a 615863348 Active 2023 Brendan Dockery, [address] [place], [address], [facility] 4 14:44:04 Cervical radiculo lore 97844216 Active 2023 VIJAY HAAS [address] [place], [address], [facility] 4 09:40:00 Bilatera l carpal tunnel syndrome 16889182516 938434 Active 2023 VIJAY HAAS [address] [place], [address], [facility] 4 09:42:34 Cervical disc disorder 072829565 Active 2023 VIJAY HAAS [address] [place], [address], [facility] 4 15:54:20 Gastroes ophageal reflux disease 185743386 Active 2017 Not Available [facility] 2 14:39:08 Hypothyr oidism 60187175 Active 2017 Not Available [facility] 2 14:39:09 Migraine 51871924 Active 2017 Not Available [facility] 2 14:39:08 Fibromya lgia 818818445 Active 2017 Not Available [facility] 2 14:39:09 Family history of non-Hodg kin's lymphoma 677873887 Active 2017 father, dx'd 11/2010 Not Available [facility] 2 14:39:09 Thoracic outlet syndrome 800437025 Active 2017 s/p 1st rib removal 03/2012 Not Available [facility] 2 14:39:09 Chronic headache disorder 558238522 Active 2017 Not Available [facility] 2 14:39:09 Ventricu lar prematur e complex 261171838 Active 2017 Not Available [facility] 2 14:39:09 Hyperten sive disorder 66098767 Active 2017 Not Available [facility] 2 14:39:08 Tachycar 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 Procedures Surgical History Date Name Laterality Status Provider Name and Address Organization Details Recorded Time Colonoscopy completed Brendan Dockery , DO [address] [place] [address], [address], [facility] 11/17/2021 15:53:34 Imaging Results Imaging Date Name Status LastModified by Organization Details LastModified Time 10/01/2022 MAMMO, screening, digital, bilateral completed [address] [place], [address], 10/07/2022 08:10:20 02/21/2023 XR, foot completed [address] (Medical Records) 575 [place], [address], 02/21/2023 08:35:27 02/21/2023 XR, ankle completed [address] (Medical Records) 575 [facility] [place], [address], 02/21/2023 08:35:58 10/18/2023 MAMMO, screening, digital, bilateral completed [address] [place], [address], 11/08/2023 13:26:33 02/04/2024 XR, cervical spine, 2 or 3 view completed [facility] (Medical Records) [address] [place] [place], [address], 02/18/2024 09:49:01 02/04/2024 XR, chest, 2 view completed [facility] (Medical Records) [address] [place], [address], 02/18/2024 09:49:00 02/11/2024 XR, chest, 2 view completed [facility] (Medical Records) 575 [facility] [place], [address], 02/22/2024 15:40:53 03/03/2024 MRI, cervical spine, w/o contrast completed [email or web address] [facility] (Medical Records) [address] [place], [address], 03/14/2024 15:53:15 03/16/2024 electromyogram + nerve conduction study completed [facility]9 [facility] (Medical Records) [address] [place], [address], 03/17/2024 12:09:59 03/16/2024 electromyogram + nerve conduction study [email or web address] (Medical Records) [address] [place], [address], 03/17/2024 12:09:59 07/31/2024 XR, chest, 2 view completed [email or web address] [facility] (Medical Records) [address] [place], [address], 07/31/2024 08:12:29 Procedure Notes None recorded. Medical Equipment None Reported. Allergies Allergen ID Allergen Name Allergen Category Reaction Reaction Severity Criticality Documentation Date Start Date Code Code System Note Provider Name and Address Organization Details Recorded Time 1277 Fluarix medicatio n Not available Not available Not available 10/15/2017 02000 UNK Rowan freitas [facility] 8 09:01:31 5796 Shingrix medicatio n Not available Not available Not available 11/17/2021 01690 26 RxNorm Brendan Dockery, DO [address] [place], [address], [facility] 15:05:01 8069 SARS-CoV- 2 (COVID-19 ) vaccine, protein NVX-CoV23 73 medicatio n Not available Not available Not available 11/03/2023 47547 73 RxNorm Hai freitas [facility] 4 10:55:25 Medications Name Sig [...] propionate 50 mcg/actuati on nasal spray,suspe nsion [place] 1 spray every day by intranasa l [...] Updated DateTime 4 172.72 cm 37.7 kg/m2 024315. 91 g 87 /min 97 % 97 % 138 mm[Hg] 68 mm[Hg] Madison [facility] 4 10:00:36 Date Recorded Body height Body mass index (BMI) Body weight Heart rate Respiratory rate Oxygen saturation Oxygen saturation in Arterial blood by Pulse oximetry Systolic blood pressure Diastolic blood pressure Provider Name and Address Organization Details Last Updated DateTime 4 172.72 cm 38 kg/m2 133116. 45 g 64 /min 18 /min 96 % 96 % 128 mm[Hg] 70 mm[Hg] Hai [facility] 4 10:55:03 Date Recorded Body height Body mass index (BMI) Body weight Heart rate Oxygen saturation Oxygen saturation in Arterial blood by Pulse oximetry Systolic blood pressure Diastolic blood pressure Provider Name and Address Organization Details Last Updated DateTime 4 172.72 cm 37.6 kg/m2 736278. 32 g 74 /min 95 % 95 % 116 mm[Hg] 82 mm[Hg] Cathy Forbes [facility] 4 09:29:51 Social History Question [...] N Blood Diseases N Blood Transfusion N COPD N Depression N Anxiety Disorder N Muscle, Joint, or Bone Problems N Obesity N Vision or Eye Problems N Arthritis N Polyps N Infertility N Mental Disorder N Cancer N Varicosities N Stroke N Headaches N Fibromyalgia N Kidney Disease N Heart Problems N Hospitalizations N Eating Disorder N Skin Problems N MRSA exposure N Constipation N Tuberculosis N Asthma N Hepatitis N Pulmonary Embolism N Chicken Pox N Autism Spectrum Disorder (ASD) N Breast Cancer N Lung Disease N Defects or Inherited Disease N Endometriosis N Bladder or Kidney Problems N High Cholesterol N Liver Disease N Allergies/Hayfever N Thyroid Problems N GI Problems N Anemia N Mental Illness N Diabetes N Ovarian Cancer N Seizures/Epilepsy N Congestive Heart Failure (CHF) N Eczema N Abuse/Domestic Violence N Diverticulitis N Reflux/GERD N Heart Disease N Hypertension N Osteoporosis N Gynecological HistoryNo gynecological history recorded. Obstetrics History GPAL:G 0 P 0 0 0 0 Immunizations Vaccine Type Date Status Note Provider Nam e and Address Organization Details Recorded Time COVID-19, mRNA, LNP-S, PF, 30 mcg/0.3 mL dose 1 completed Brendan Dockery, DO [address] [place] [address], [place], [address], [facility] 03/25/2021 14:56:42 COVID-19, mRNA, LNP-S, PF, 30 mcg/0.3 mL dose 1 completed Brendan Dockery DO [address] [place] [address], [address], [facility] 03/25/2021 14:56:50 COVID-19, mRNA, LNP-S, PF, 100 mcg/0.5mL dose or 50 mcg/0.25mL dose 2 completed Brendan Dockery DO [address] [place] [address], [address], [facility] 11/17/2021 15:06:29 zoster recombinant 2 completed Brendan Dockery DO [address] [place] [address], [address], [facility] 11/17/2021 15:06:54 Past Encounters Encounter ID Performer Location Encounter Start Date Encounter Closed Date Diagnosis/Indication Diagnosis SNOMED-CT Code Diagnosis ICD10 Code Diagnosis Note [id number] Brendan Dockery [facility] [address] [place] [address], [place] [address] 10/15/2017 14:39:05 10/15/2017 16:02:57 Tenosynovitis of wrist 227380579 M65.839 given she has tried splint and taken otc and rx nsaids without resolution Hypertensive disorder 38 814376 I10 bp is stable no issues noc cp [id number] Sheyla Coon NP, S [facility] [address] [place] [address], [place] [address] 11/23/2017 13:24:41 11/23/2017 14:43:03 Acute bacterial sinusitis 90522358 J01.90 Hypothyroidism 81350263 E03.9 stable, reviewed labs Essential hypertension 52930775 I10 stable [id number] Brendan Dockery [facility] [address] [place] [address],[place] [address] 02/28/2018 10:59:14 02/28/2018 12:08:52 Hypothyroidism 60883728 E03.9 tsh is 0.8 Hypertensive disorder 38 691767 I10 bp is stable no issues noc cp Adult heal th examination 074180128 Z00.00 discussed need for exercise and diet Screening for cardiovascular system disease 423140600 Z13.6 Screening mammography 24 918364 Z12.31 [place] [id number] September STEPHANIE Ballesteros [facility] [address] [facility] [place] [address] 07/12/2018 09:48:11 07/12/2018 11:06:37 Migraine 60349143 G43.909 Using imitrex with relief Hypertensive disorder 38 320905 I10 diastolic slightly elevated, will monitor Hypothyroidism 06628954 E03.9 labs last done 02/2018 Benign par oxysmal positional vertigo 437788526 H81.11 improving with meclizine Acute sinusitis 78848565 J01.90 continue mucinex, flonase, fluids, humidifier [id number] Sheyla Coon NP, [facility] [address] [facility], [facility] [place] [address] 09/16/2018 11:50:53 09/16/2018 15:19:18 Otitis media 76214874 H66.92 Allergic cough 630569725 R05 Active or passive immunization 409908305 Z23 Hypertensive disorder 38 445642 I10 stable, reviewed Mar 2018 labs [id number] Sheyla Coon NP, [facility] [address] [facility], [place] [address] 09/26/2018 13:31:49 09/26/2018 14:23:51 Dysfunction of eustachian tube 75713737 H69.92 [id number] Sheyla Coon NP, [facility] [address] [facility], [place] [address] 10/03/2018 14:57:35 10/03/2018 16:29:59 Dysfunction of left eustachian tube 8877325969 906712 H69.92 [id number] Brendan Dockery, [facility] [address] [facility], [place] [address] 11/23/2018 16:09:46 11/25/2018 08:16:23 Hypertensive disorder 04399628 I10 bp is stable no issues noc cp Hypothyroidism 05467940 E03.9 tsh is 0.8 Edema of l ower extremity 724716758 R60.0 will add furosemide 40mg [id number] Brendan Dockery [facility] [address] [facility] [address] [address] 12/02/2018 13:35:55 12/02/2018 14:40:20 Hypertensive disorder 46391666 I10 bp is stable no issues noc cp will cont Edema of l ower extremity 495223855 R60.0 will cont furosemide 40mg [id number] September STEPHANIE Ballesteros [facility] [address] [facility] [address] [address] 01/13/2019 10:20:35 01/13/2019 11:04:19 Edema of lower extremity 534498479 R60.0 b/l improved on increased dose of lasix do 80 mg again today then return to 40 mg Hypertensive disorder 38 308248 I10 stable Hypothyroidism 24192554 E03.9 normal tsh 12/2018 [id number] Brendan Dockery [facility] [address] [facility],[place] [address] 01/30/2019 13:31:42 01/30/2019 14:09:46 Edema of lower extremity 002788923 R60.0 will cont furosemide 40mg and will cont to use bid when sudden changes potassium supp or bananas Hypertensive disorder 38 689695 I10 bp is stable no issues noc cp will cont Hypothyroidism 13100148 E03.9 tsh is wnl per [facility] lab Tinea pedis 4584254 B35. 3 lotrimin cream [id number] Brendan Dockery [facility] [address] [facility],[place] [address] 09/04/2019 11:07:27 09/04/2019 13:34:20 Acute sinusitis 39931552 J01.90 will need to treat given her past issues [id number] Brendan Dockery [facility] [address] [facility],[place] [address] 04/01/2020 13:27:40 04/01/2020 14:38:28 Adult health examination 300848959 Z00.00 discussed need for exercise and diet Screening for cardiovascular system disease 933445017 Z13.6 Screening for osteoporosis 950680348 Z13.820 Screening mammography 24 329190 Z12.31 [place] [id number] VIJAY HAAS [facility] [address] [facility], [place] [address] 04/15/2020 09:07:48 04/15/2020 11:14:34 Acute otitis media 0189574 H65.01 most likely another ear infection given symptoms and hx will fu with patient if still having symptoms or worsening pt understand s and will call Nasal congestion 3126816 0 R09.81 more with pressure, all right sided along maxillary and frontal sinuses Headache 03048653 R51.9 right sided, also suffers from chronic headaches so not uncommon [id number] Brendan Dockery DO [facility] [address] [facility],[place] [address] 03/25/2021 14:34:54 03/25/2021 16:24:44 Hypothyroidism 51803697 E03.9 tsh low and t4 is high and we nmeed to decrease her dose she is having a lot of hairloss Gastroesop hageal reflux disease 969734040 K21.00 has breakthrog uh [place] [id number] Brendan Dockery DO [facility] [address] [facility], [place] [address] 05/14/2021 09:37:08 05/14/2021 14:28:14 Gastroesophageal reflux disease 256539797 K21.00 has breakthrog uh need to incerease the nexium to bid Hypertensive disorder 38 070002 I10 bp is stable no issues noc cp will cont current tx Edema of l ower extremity 368540001 R60.0 furosemide 40mg as needed only and has not taken any since the summer and will cont to use prn when sudden changes potassium supp or bananas when she does take furosemide [id number] VIJAY HAAS [facility] [address] [facility], [place] [address] 06/16/2021 09:40:38 06/16/2021 16:20:27 Chondromalacia of patella 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 M22.41 will fu with MRI Pain of le ft knee joint 7922049086 21721 M25.562 will fu with MRI [id number] VIJAY HAAS [facility] [address] [facility] [address],[place] [address] 06/30/2021 09:21:10 07/01/2021 15:55:17 Acute sinusitis 06314150 J01.01 will start on abx and fu with patient if no improvemen t Otalgia 93424599 H92.01 [place] on abx [id number] VIJAY HAAS [facility] [address] [facility] [address] [address] 10/17/2021 09:21:32 10/17/2021 11:33:49 Acute sinusitis 35854356 J01.01 will start on abx and fu with patient if no improvemen t Posterior rhinorrhea 758 94123 R09.82 will fu with testing Pain in throat 440461283 R07.0 can use APAP and IBU for symptom management [id number] Brendan Dockery DO [facility] [address] [facility] [address] [address] 11/17/2021 14:48:20 11/17/2021 15:56:50 Hypertensive disorder 12477502 I10 bp is stable no issues noc cp will cont current tx Hypothyroidism 11714258 E03.9 tsh low and t4 is high and we nmeed to decrease her dose she is having a lot of hairloss Active or passive immunization 265438876 Z23 patient advised she is due for a tdap Screening for malignant neoplasm of colon 334128249 Z12.11 already had done in jul Depression screening 171 548904 Z13.31 Did not bring glasses to fill out PHQ9 not able to complete today Tachycardia 6473489 R00. 0 given just one episode [id number] VIJAY HAAS [facility] [address] [facility] [address] [address] 08/11/2022 13:49:58 08/11/2022 16:33:49 Acute otitis media 9113470 H65.01 will set up with cipro for 7 days [employer] best for the patient [id number] VIJAY HAAS [facility] [address] [facility] [address] 09/23/2022 09:07:41 09/23/2022 12:05:06 Acute otitis media [id number] H65.01 will set up with cipro for 7 days [employer] for the patient Migraine [id number] G43.10 9 will set up with second opinion with neuro [id number] Brendan Dockery [facility] [address] [facility] [address] 08/23/2023 09:51:36 08/23/2023 10:25:31 Hypertensive disorder [id number] I10 bp is stable no issues no cp will cont current tx Hypothyroidism 85442399 E03.9 tsh low and t4 is high and we need to decrease her dose she is having a lot of hairloss [id number] Brendan Dockery DO [facility] [address] [facility] [address] 11/03/2023 10:35:53 11/03/2023 12:15:08 Adult health examination [id number] Z00.00 discussed need for exercise and diet Screening for cardiovascular system disease 021115602 Z13.6 Screening for malignant neoplasm of colon 384154320 Z12.11 already had done in jul Depression screening 171 770395 Z13.31 Did not bring glasses to fill out PHQ9 not able to complete today Epidermoid cyst of skin [id number] L72.0 [id number] Brendan Dockery DO [facility] [address] [facility] [address] 02/04/2024 08:34:01 02/04/2024 14:30:07 Anxiety 42968209 F41.9 stable Hypertensive disorder 38 744121 I10 bp is stable no issues no cp will cont current tx Hypothyroidism 49106253 E03.9 stable Thoracic o utlet syndrome 344372471 G54.0 no chnges Neck pain 63012957 M54.2 possible radiculopa thy issue here having numbness Cough 54244597 R05.9 not getting better , will use use guaifen over weekend if no better will need levoflox etc will get cxr today [id number] VIJAY HAAS [facility] [address] [facility] [address],[place] [address] 02/18/2024 09:14:53 02/18/2024 09:50:41 Cervical radiculopathy 85513900 M54.12 will set up MRI now and EMG for her arms Bilateral carpal tunnel syndrome [id number] 2444062 G56.03 fu EMG Cough 47222649 R05.2 given syrup to use PRN for [...] [place] Tamar Chacon [id number] Tamar Chacon 09/23/2022 2 [place] Tamar Chacon [id number] Tamar Chacon 08/23/2023 1 [place] Tamar Chacon [id number] Tamar Chacon 08/23/2023 2 [place] Tamar Chacon [id number] Tamar Chacon 11/03/2023 1 [place] [place] Tamar Chacon [id number] Y65 Tamar Wenreau 11/03/2023 2 [place] Tamar Chacon [id number] Tamar Chacon 02/04/2024 1 [place] [employer] [place] Tamar Chacon [id number] Y65 Tamar Chacon 02/04/2024 2 [place] Tamar Chacon [id number] Tamar Chacon 02/18/2024 1 [place] [facility] Tamar Salinas Oswaldo [id number] Tamar Oswaldo 02/18/2024 2 [place] [facility] Tamar Salinas Oswaldo [id number] Tamar Oswaldo Notes Date Note Type Note [...] stick with VIJAY De La Torre [address] [facility], [place], [address], [facility] 09/23/2022 11:28:14 4 text/html here for annual wellnessrelates has been under a lot of stress relates that she has been sad bc she can no longer drive etc Brendan Dockery DO [address] [facility], [place], [address], [facility] 08/23/2023 22:06:45 4 [...] fatigue always feels tired Brendan Dockery DO [address] [place] [address], [phone], [facility] 11/03/2023 11:28:39 4 [...] when arches her back Brendan Dockery DO [address] [place] [address], [phone], [facility] 02/04/2024 09:24:45 4 text/html f/u neck pain the patient reports that she is having neck painagreed to MRI for more information waiting on repeat CXRfor the pna, given cough syrup EMG will be needed for possible carpal tunnel on top of the radiculopathy from the neck will f/u after CXR comes in will fu after MRI VIJAY HAAS [address] [facility], [place], [address], [facility] 02/18/2024 09:49:55 OBGyn Episode No OBEpisode recorded.
== END 2024-08-30 08:08 | disposition home or self-care (01) ==
LOC: HO.US 08:07
PROVIDERS: PCP Internal Medicine; Visit Provider Surgery
DX: E66.9 Obesity, unspecified (principal); Z68.38 Body mass index [BMI] 38.0-38.9, adult; I10 Essential (primary) hypertension; K21.9 Gastro-esophageal reflux disease without esophagitis
CPT/HCPCS: 76700; 76981

== ENCOUNTER → 2024-08-30 08:10 | Outpatient (BNV) | payer MEDICARE, MEDICAID, SELFPAY | PROVIDERS: PCP Internal Medicine; Visit Provider Radiology Diagnostic Radiology | DX: K76.0 Fatty (change of) liver, not elsewhere classified (principal) | CPT/HCPCS: 76700; 76981 ==

== ENCOUNTER 2024-09-06 09:03 | Outpatient (AMB) | payer MEDICARE, MEDICAID, SELFPAY ==
--- NOTE | 2024-09-06 09:00 | A.OFFWM_ITS ---
Intake Intake Visit Reasons: TV Intake Part 2 Allergies Seasonal Allergies Allergy (Mild, Verified 08/25/24 12:42) sneezing vaccines Allergy (Unknown, Uncoded 07/28/24 11:48) unknown PFSH Medical History Hypothyroid History of nephrolithiasis Diaphragmatic hernia GERD (gastroesophageal reflux disease) Hypertension DJD (degenerative joint disease) Familial juvenile macular degeneration syndrome Anxiety Depression Surgical History History of resection of rib Hx of hysterectomy Hx of adenoidectomy Hx of tonsillectomy Hx of bladder endoscopy Hx of colonoscopy Family History (Updated 07/27/24 @ 08:51 by Sarah Leung CMA) Mother Malignant neoplasm of breast in full remission Arthritis Father Landon's disease Son No problems noted. Son No problems noted. Social History (Updated 07/27/24 @ 08:51 by Sarah Leung CMA) Alcohol intake: current Alcohol intake frequency: holidays/special occasions only Patient Tobacco Use Status: Never used Tobacco Behavioral Health Assessment Weight Management Therapy Therapy Notes Details Patient is a 54-year-old female presenting for a second visit to complete behavioral health () assessment as part of a surgical weight loss program. The patient expresses interest in weight-loss surgery, stating she is tired of feeling unhealthy and desires to improve her overall well-being. The patient reports no prior history of counseling, psychiatric crises, or hospitalizations related to mental health. She describes experiencing seasonal a nd situational depression and anxiety, although she has never received a formal diagnosis. She also reports a past history of insomnia, for which she was treated with psychiatric medication by her primary care provider. It took approximately six months for her sleep to return to normal following treatment. The patient denies any history or current concerns regarding suicidal ideation (SI), self-harm, or harm to others. Additionally, there is no history of substance use reported. On the other hand, the patient reports no current issues with stress or emotional eating. The BES (Binge Eating Scale) suggests a low to moderate risk for binge eating behavior. PHQ-9 scores indicate no active symptoms of depression. The patient?s mental status exam is within normal limits, indicating that her current mental functioning is intact and not impaired. From a behavioral health standpoint, the patient is cleared to proceed with the surgical weight loss program. A follow-up behavioral health screening and support session will be scheduled in 1-3 weeks post-operatively. Presenting Concerns Referral Source WMP-Provider. Pt had an initial visit with Dr. Grover on 07/28. Reason for referral Completion of behavioral health assessment as part of process for weight-loss surgery. Precipitating Event Obesity. Living Situation Current Living Situation Own At risk of losing current housing? No Satisfied with current living situation? Yes Comments Pt lives alone with her 2 cats and 1 dog. Food/Weight/Diet Expectations of change The initial goal is to lose 10% of her weight before surgery, which is about 25 lbs. Ultimate weight goal: 230lbs before surgery PT started the program on 07/28 at 255 Lbs. Her most recent weight as of 08/22/2024 was 239 lbs. Weight as of 09/02/2024: 234Lbs The patient's goal is to be healthy, and her target weight is 150 lbs. PT is implementing the following: Current meal plan: 2 protein shakes, 2 protein bars, and one meal per day. Doing well, not feeling hungry . Exercise plan: 45-minute walk every day. She also has an elliptical and a bike, using them for 30 minutes on the days she doesn't walk. History/Relationship with food PT reports that she has a history of emotional eating, often eating food when bored, happy, or celebrating. In general, she has been used to food-centered activities, leading to gaining weight over the years. Before starting the program, she didn't have a set meal schedule. Since she has been living alone, she became less into cooking and was getting used to quick meals or pre-made foods. Example of meals before starting the program: Breakfast: @9am - yogurt and granola or a slice of sourdough with ham. Lunch: if hungry, @12- would have cheese and crackers, protein bar, or a sandwich if very hungry. Dinner: @5pm frozen pizza, pasta, roasted potatoes, and salmon or something simple and fast. Snacks: @7pm ice-cream Drinks/Liquids: @7am coffee in the morning History/Relationship with weight She remembers being a chubby kid . 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 In the last 10 years, the patient's Lowest weight was 148 Lbs, and the highest was 259 lbs. History/Relationship with dieting -Weight watchers 2 times. -Diet-centered program (lost 80 Lbs). -Counting calories. Binge Eating Do you frequently eat large amounts of food in short periods of time, not feeling physically hungry? Yes Do you feel out of control when you eat a large amount of food in a short period of time? No Do you eat large amounts of food rapidly and typically alone? No Night Eating Do you wake up at least once during the night to eat? No If you wake up in the night, do you find that it is necessary to eat something in order to fall back asleep? No Do you have little or no appetite in the morning and feel very hungry in the evening, often overeating between dinner and when you go to bed? No Social History Family history and relationship . PT has 2 adult children they are 30 and 32, she also has 3 grandchildren. Mother is alive, father 9 years ago due to cancer. She has 2 sisters, she is the youngest. Parental/Familial cold strip feeder obligations None. Developmental history and status PT is legally blind. She has an eye degenerative condition since age 7 that become worse on her 40's. 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 Social support A neighbor across the street. Her mother, children, 2 sisters, 2 best friends. Community support Neighbors. Restorationism/Spirituality None. Cultural/Ethnic information . Legal Involvement and History Current or historical involvement with the legal system? None reported. Education Highest grade completed 1 year college Preferred learning style Learn by doing Currently enrolled in educational program? No Interested in further educational program? 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 Employment Employment Status Other (Disable due to vision loss. ) Wants help to find employment? No Meaningful activities Baking bread, fermenter for veggies, kaley, Financial Situation Describe current financial situation Comfortable Financial assistance? Food [place], SSDI and Other (Alimony) Service Service? No Mental Health and Addiction Treatment Current/Past substance abuse? No Comments Alcohol: 1 at week with friends. Cigarettes/Tobacco: None. Cannabis/Edibles: None. Current/Past addictive behavior concerns? No Psychiatric history PT reports she has never been in counseling before, nor has she been in crisis or is hospitalized for mental health. PT reports she suffers from seasonal and situational triggered depression/anxiety, but has never been formally diagnosed. She also had insomnia in the past and was treated with psych. meds by her PCP. It took about 6 months to return to normal sleep. Medical and Physical Health Summary Additional Medical History not covered in history None additional to the listed. Sexual History concerns None reported. Physical exam in the last year? Yes Pain Screening Current pain? Yes Pain in the last few months? Yes Comments Daily pain, due to multiple health conditions; on average is a 2 every day, very manageable and she doesn't take any pain meds. Medications Is the patient compliant with medications? Yes Does the patient have Garcia Guardian in place? Not applicable Does the patient use complimentary health approaches? No Trauma/Abuse History History of trauma? No Questionnaires PHQ-9 Over the last 2 weeks, how often have you been bothered by any of the following problems? 1. Little interest or pleasure in doing things: not at all 2. Feeling down, depressed, or hopeless: not at all 3. Trouble falling or staying asleep, or sleeping too much: not at all 4. Feeling tired or having little energy: not at all 5. Poor appetite or overeating: not at all 6. Feeling bad about yourself - or that you are a failure or have let yourself or your family down: not at all 7. Trouble concentrating on things, such as reading the newspaper or watching television: not at all 8. Moving or speaking so slowly that other people could have noticed. Or the opposite - being so fidgety or restless that you have been moving around a lot more than usual: not at all 9. Thoughts that you would be better off or of hurting yourself in some way: not at all Total score: 0 Depression Screening Interpretation: Negative Depression Screening Done: Yes 60344 - PHQ-9 Billing: Yes Source: Developed by Drs. Molina Nj, Estrella Avendano, Arie Rooney and colleagues, with an educational rigoberto from [employer]. Binge Eating Scale Group 1 A. I don't feel self-conscious about my wt. or body size when I'm with others. B. I feel concerned about how I look to others, but it normally does not make me fell disappointed with myself C. I do get self-conscious about my appearance and wt. which makes me feel disappointed in myself. D. I feel very self-conscious about my wt. and frequently I feel intense shame and disgust for myself. I try to avoid social contacts because of my self- consciousness. Response Group 1: D Group 2 A. I don't have any difficulty eating slowly in the proper manner. B. Although I seem to gobble down foods, I don't end up feeling stuffed because of eating to much. C. At times, I tend to eat quickly and then, I feel uncomfortably full afterwards. D. I have the habit of bolting down my food, without really chewing it. When this happens I usually feel uncomfortably stuffed because I've eaten to much. Response Group 2: B Group 3 A. I feel capable to control my eating urges when I want to. B. I feel like I have failed to control my eating more than the average person. C. I feel utterly helpless when it comes to feeling in control of my eating urges. D. Because I feel so helpless about controlling my eating I have become very desperate about trying to get control. Response Group 3: B Group 4 A. I don't have the habit of eating when I'm bored. B. I sometimes eat when I'm bored, but often I'm able to get busy and get my mind off food. C. I have a regular habit of eating when I'm bored, but occasionally, I can use some other activity to get my mind off eating. D. I have a strong habit of eating when I'm bored. Nothing seems to help me breath the habit. Response Group 4: C Group 5 A. I'm usually physically hungry when I eat something. B. Occasionally, I eat something on impulse even though I really am not hungry. C. I have the regular habit of eating foods, that I might not really enjoy, to satisfy a hungry feeling even though physically, I don't need the food. D. Although I'm not physically hungry, I get a hungry feeling in my mouth that only seems to be satisfied when I eat a food, like sandwich, that fills my mouth. Sometimes, when I eat the food to satisfy my mouth hunger, I then spit the food out so I won't gain weight. Response Group 5: C Group 6 A. I don't feel any guilt or self-hate after I overeat. B. After I overeat, occasionally I feel guilt or self-hate. C. Almost all the time I experience strong guilt or self-hate after I overeat. Response Group 6: B Group 7 A. I don't lose total control of my eating when dieting even after periods when I overeat. B. Sometimes when I eat a forbidden food on a diet, I feel like I blew it and eat even more. C. Frequently, I have the habit of saying to myself, I've blown it now, why not go all the way, when I overeat on a diet. When that happens I eat more. D. I have a regular habit of starting a strict diets for myself but I break the diets by going on an eating binge. My life seems to be either a feast or famine. Response Group 7: B Group 8 A. I rarely eat so much food that I feel uncomfortably stuffed afterwards. B. Usually about once a month, I each such a quantity of food, I end up feeling very stuffed. C. I have regular periods during the month when I eat large amounts of food, either at mealtime or at snacks. D. I eat so much food that I regularly feel quite uncomfortable after eating and sometimes a bit nauseous. Response Group 8: A Group 9 A. My level of calorie intake does not go up very high or go down very low on a regular basis. B. Sometimes after I overeat, I will try to reduce my caloric intake to almost nothing to compensate for the excess calories I've eaten. C. I have a regular habit of overeating during the night. It seems that my routine is not to be hungry in the morning but overeat in the evening. D. In my adult years, I have had week-long periods where I practically starve myself. This follows periods when I overeat. It seems I live a life of either feast or famine. Response Group 9: A Group 10 A. I usually am able to stop eating when I want to. I know when enough is enough. B. Every so often, I experience a compulsion to eat which I can't seem to control. C. Frequently, I experience strong urges to eat which I seem unable to control, but at other times I can control my eating urges. D. I feel incapable of controlling urges to eat. I have a fear of not being able to stop eating voluntarily. Response Group 10: B Group 11 A. I don't have any problem stopping eating when I feel full. B. I usually can stop eating when I feel full but occasionally overeat leaving me feeling uncomfortably stuffed. C. I have a problem stopping eating once I start and usually I feel uncomfortably stuffed after I eat a meal. D. Because I have a problem not being able to stop eating when I want, I sometimes have to induce vomiting to relieve my stuffed feeling. Response Group 11: B Group 12 A. I seem to eat just as much when I'm with others, Family social gatherings as when I'm by myself. B. Sometimes, when I'm with other persons, I don't eat as much as I want to eat because I'm self-conscious about my eating. C. Frequently, I eat only a small amount of food when others are present, because I'm very embarrassed about my eating. D. I feel so ashamed about overeating that I pick times to overeat when I know no one will see me. I feel like a closet eater. Response Group 12: B Group 13 A. I eat three meals a day with only an occasional between meal snack. B. I eat 3 meals a day, but I also normally snack between meals. C. When I am snacking heavily, I get in the habit of skipping regular meals. D. There are regular periods when I seem to be continually eating, with no planned meals. Response Group 13: D Group 14 A. I don't think much about trying to control unwanted eating urges. B. At least some of the time, I feel my thoughts are pre-occupied with trying to control my eating urges. C. I feel that frequently I spend much time thinking about how much I ate or about trying not to eat anymore. D. It seems to me that most of my waking hours are pre-occupied by thoughts about eating or not eating. I feel like I'm constantly struggling not to eat. Response Group 14: B Group 15 A. I don't think about food a great deal. B. I have strong craving for food but they last only for brief periods of time. C. I have days when I can't seem to think about anything else but food. D. Most of my days seem to be pre-occupied with thoughts about food. I feel like I live to eat. Response Group 15: D Group 16 A. I usually know whether or not I'm physically hungry. I take the right portion of food to satisfy me. B. Occasionally, I feel uncertain about knowing whether or not I'm physically hungry. A these times it's hard to know how much food I should take to satisfy me. C. Even though I might know how many calories I should eat, I don't have any idea what is a normal amount of food for me. Response Group 16: C Binge Eating Score: 23 Score less than 17 Minimal Risk Score between 18-26 Moderate Risk Score between 27-46 High Risk Assessment & Plan Assessment & Plan (1) Adjustment disorder with mixed anxiety and depressed mood: Code(s): F43.23 - Adjustment disorder with mixed anxiety and depressed mood Plan The patient is cleared from BH standpoint and can be submitted for insurance approval when ready. A follow-up behavioral health screening and support session will be scheduled in 1-3 weeks post-operatively. Telehealth Telehealth [facility] Location of provider rendering services: other Location of patient: address on file Patient Identification confirmed using: Name, : Yes Telehealth method: voice only Patient verbally consented to treatment: Yes Patient verbally consented to billing insurance company: Yes Patient informed of any privacy concerns related to visit: Yes Minutes spent on Phone/Video with Pt.: 45 Coding Level of Care Code Established Pt Tele Psytx 45 mins (16077) Patient Type Established Diagnoses Adjustment disorder with mixed anxiety and depressed mood F43.23 Additional Codes PHQ-9 - 75147 - PHQ-9 Billing: Yes ([id number]) Time Spent (min) 45
--- OUTSIDE RECORDS SUMMARY | 2024-09-06 09:54 | XMS_ITS | Data Portability ---
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 Lab lipid panel, blood 2023 024 [facility], [address] [place] [address], [address], 4 11:09:35 CBC w/ auto diff 2023 024 [facility], [address] [place] [address], [address], 4 11:09:35 CMP, serum or plasma 2023 024 [facility], [address] [place] [address], [address], 4 11:09:35 vitamin D, 25-hydroxy , total, serum 2023 024 [facility], [address] [place] [address], [address], 4 11:26:40 TSH + free T4, serum 2023 024 [facility], [address] [place] [address], [address], 4 11:07:38 TSH + free T4, serum 2023 024 [facility], [address] [place] [address], [address], 4 11:07:38 Referral neurologis t referral 2022 023 [email or web address] 10 [facility], [address], [place], [address], 3 08:49:05 Procedures None recorded. Surgeries None recorded. Imaging MRI, cervical spine, w/o contrast 2023 024 [email or web address] 10 [facility], [address] [place], [address], 4 07:54:29 electromyo gram + nerve conduction study - carpal tunnel, castillo hands and wrists 2023 024 [facility] (Imaging), [address] [place], [address], 4 09:19:32 XR, cervical spine, 2 or 3 view 2023 024 [facility], [address] [place], [address], 4 14:30:08 XR, chest, 2 view 2023 024 [facility], [address] [place], [address], 4 14:30:08 Medication Orders codeine 10 mg-guaifen esin 100 mg/5 mL oral liquid 2023 024 [facility] #[id number], [address] [place], [place], [id number], 4 09:45:13 cephalexin 500 mg capsule 2023 024 [facility] #[id number], [address] [place], [place], [id number], 4 09:20:25 Synthroid 137 mcg tablet 2023 024 [facility] #93505, [address], [place], [id number], 4 11:42:08 ciprofloxa radha 500 mg tablet 2022 023 [email or web address] [facility] #[id number], [address], [place], [id number], 09:58:28 Patient TargetsNo targets recorded. Patient Instructions Encounter Date Encounter Id Patient Instructions Last Modified By Organization Details Last Modified Time 08/23/2023 [id number] hypothyroidism: care instructions Not available 08/23/2023 22:06:42 11/03/2023 [id number] Skin Cyst: Care Instructions Not available 11/03/2023 11:27:04 Discussed and explained advance directives such as standard forms to the {{patient* caregi paola patient and caregiver}}. Face to face discussion lasted for a duration of _5__ minutes. Not available 11/03/2023 11:28:02 02/04/2024 [id number] neck pain: care instructions Not available 02/04/2024 [...] bilat eral No observ ation record ed. [facility]'s [address] [place], [address], 10/07/2022 08:10:20 02/22/20 23 02/21/2023 XR, foot No observ ation record ed. [address] (Medical Records) [address] [place], [address], 02/21/2023 08:35:27 02/22/20 23 02/21/2023 XR, ankle No observ ation record ed. [address] (Medical Records) [address] [place], [address], 02/21/2023 08:35:58 11/08/19 24 10/18/2023 MAMMO , scree owen, digit al, bilat eral No observ ation record ed. [facility] [address] [place], [address], 11/08/2023 13:26:33 02/04/20 24 02/04/2024 XR, cervi alix spine , 2 or 3 view No observ ation record ed. [facility] (Medical Records) [address] [place], [address], 02/18/2024 09:49:01 02/04/20 24 02/04/2024 XR, chest , 2 view No observ ation record ed. [facility] (Medical Records) [address] [place], [address], 02/18/2024 09:49:00 02/18/20 24 02/11/2024 XR, chest , 2 view No observ ation record ed. [facility] (Medical Records) [address] [place], [address], 02/22/2024 15:40:53 03/13/20 24 03/03/2024 MRI, cervi alix spine , w/o contr ast No observ ation record ed. [facility] (Medical Records) [address] [place], [address], 03/14/2024 15:53:15 03/16/20 24 03/16/2024 elect romyo gram + nerve condu ction study No observ ation record ed. [email or web address] [facility] (Medical Records) [address] [place], [address], 03/17/2024 12:09:59 03/16/20 24 03/16/2024 elect romyo gram + nerve condu ction study No observ ation record ed. [email or web address] [facility] (Medical Records) [address] [place], [address], 03/17/2024 12:09:59 07/31/19 25 07/31/2024 XR, chest , 2 view No observ ation record ed. [facility] (Medical Records) [address] [place], [address], 07/31/2024 08:12:29 08/31/19 25 08/30/2024 US, abdom en No observ ation record ed. [email or web address] [facility] (Medical Records) [address] [place], [address], 08/30/2024 10:11:14 Result Notes None recorded. 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 Active 2019 Not Available [facility] 2 14:39:08 Acute sinusiti s 82811161 Active 2021 VIJAY HAAS [address] [place], [address], [place] [facility] 2 10:05:14 Posterio r rhinorrh ea 86927882 Active 2021 VIJAY HAAS [address] [place], [address], [place] [facility] 2 10:05:48 Pain in throat 552353082 Active 2021 VIJAY HAAS [address] [place] [address], [address], [facility] 2 10:05:53 COVID-19 465650219 Active 2021 VIJAY HAAS [address] [place] [address], [address], [facility] 2 10:28:01 Intermit tent palpitat ions 788178273 Active 2021 Brendan Dockery, DO [address] [place] [address], [address], [facility] 2 14:24:47 Acute otitis media 7477924 Active 2022 VIJAY HAAS [address] [place] [address], [address], [facility] 3 14:11:22 Acute bronchit is 71793860 Active 2022 VIJAY HAAS [address] [place] [address], [address], [facility] 3 11:29:57 Acute otitis media 7255254 Active 2023 Brendan Dockery DO [address] [place] [address], [address], [facility] 4 15:34:59 Epidermo id cyst of skin 951255226 Active 2023 Brendan Dockery DO [address] [place] [address], [address], [facility] 4 11:26:25 Anxiety 12453763 Active 2023 Brendan Dockery DO [address] [place] [address], [address], [facility] 4 11:04:14 Cough 93802165 Active 2023 Brendan Dockery DO [address] [place] [address], [address], [facility] 4 09:46:18 Neck pain 96069687 Active 2023 Brendan Dockery, [address] [place] [address], [address], [facility] 4 09:16:11 Pneumoni a 176102026 Active 2023 Brendan Dockery DO [address] [place], [address], [facility] 4 14:44:04 Cervical radiculo lore 96492622 Active 2023 VIJAY HAAS [address] [place] [address], [address], [facility] 4 09:40:00 Bilatera l carpal tunnel syndrome 92864124702 794138 Active 2023 VIJAY HAAS [address] [place] [address], [address], [facility] 4 09:42:34 Cervical disc disorder 659032900 Active 2023 VIJAY HAAS [address] [place] [address], [address], [facility] 4 15:54:20 Gastroes ophageal reflux disease 290305467 Active 2017 Not Available [facility] 2 14:39:08 Hypothyr oidism 91512460 Active 2017 Not Available [facility] 2 14:39:09 Migraine 11307073 Active 2017 Not Available [facility] 2 14:39:08 Fibromya lgia 529026812 Active 2017 Not Available [facility] 2 14:39:09 Family history of non-Hodg kin's lymphoma 151655569 Active 2017 father, dx'd 11/2010 Not Available [facility] 2 14:39:09 Thoracic outlet syndrome 938840431 Active 2017 s/p 1st rib removal 03/2012 Not Available [facility] 2 14:39:09 Chronic headache disorder 635752507 Active 2017 Not Available [facility] 2 14:39:09 Ventricu lar prematur e complex 863294380 Active 2017 Not Available [facility] 2 14:39:09 Hyperten sive disorder 03874555 Active 2017 Not Available [facility] 2 14:39:08 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 Procedures Surgical History Date Name Laterality Status Provider Name and Address Organization Details Recorded Time Colonoscopy completed Brendan Dockery , DO [address] [place], [address], [facility] 11/17/2021 15:53:34 Imaging Results Imaging Date Name Status LastModified by Organization Details LastModified Time 10/01/2022 MAMMO, screening, digital, bilateral completed [address] [place], [address], 10/07/2022 08:10:20 02/21/2023 XR, foot completed [address] (Medical Records) [address] [place], [address], 02/21/2023 08:35:27 02/21/2023 XR, ankle completed [address] (Medical Records) [address] [place], [address], 02/21/2023 08:35:58 10/18/2023 MAMMO, screening, digital, bilateral completed [email or web address] [place], [address], 11/08/2023 13:26:33 02/04/2024 XR, cervical spine, 2 or [facility] [address] [place], [address], 02/18/2024 09:49:01 02/04/2024 XR, chest, 2 view completed [facility] (Medical Records) [address] [place], [address], 02/18/2024 09:49:00 02/11/2024 XR, chest, 2 view completed [facility] (Medical Records) [address] [place], [address], 02/22/2024 15:40:53 03/03/2024 MRI, cervical spine, w/o contrast completed [facility] (Medical Records) [address] [place], [address], 03/14/2024 15:53:15 03/16/2024 electromyogram + nerve conduction study completed [email or web address] (Medical Records) [address] [place], [address], 03/17/2024 12:09:59 03/16/2024 electromyogram + nerve conduction study completed [address] (Medical Records) [address] [place] [address], [address], 03/17/2024 12:09:59 07/31/2024 XR, chest, 2 view completed [address] (Medical Records) [address] [place], [address], 07/31/2024 08:12:29 08/30/2024 [email or web address] [address] [place], [address], 08/30/2024 10:11:14 Procedure Notes None recorded. Medical Equipment None Reported. Allergies Allergen ID Allergen Name Allergen Category Reaction Reaction Severity Criticality Documentation Date Start Date Code Code System Note Provider Name and Address Organization Details Recorded Time 127 Fluarix medicatio n Not available Not available Not available 10/15/2017 48737 UNK Rowan Sean freitas, [facility] 8 09:01:31 5796 Shingrwillie medicatio n Not available Not available Not available 11/17/2021 60690 26 RxNorm Brendan Dockery, DO [address] [place], [address], [facility] 2 15:05:01 8069 SARS-CoV- 2 (COVID-19 ) vaccine, protein [id number] 73 medicatio n Not available Not available Not available 11/03/2023 22353 73 RxNorm Hai freitas [facility] 4 10:55:25 Medications Name Sig Start Date [...] propionate 50 mcg/actuati on nasal spray,suspe nsion [place] 1 spray every day by intranasa l [...] Updated DateTime 4 172.72 cm 37.7 kg/m2 360981. 91 g 87 /min 97 % 97 % 138 mm[Hg] 68 mm[Hg] Madison Smith [facility] 4 10:00:36 Date Recorded Body height Body mass index (BMI) Body weight Heart rate Respiratory rate Oxygen saturation Oxygen saturation in Arterial blood by Pulse oximetry Systolic blood pressure Diastolic blood pressure Provider Name and Address Organization Details Last Updated DateTime 4 172.72 cm 38 kg/m2 930999. 45 g 64 /min 18 /min 96 % 96 % 128 mm[Hg] 70 mm[Hg] Hai [place] [facility] 4 10:55:03 Date Recorded Body height Body mass index (BMI) Body weight Heart rate Oxygen saturation Oxygen saturation in Arterial blood by Pulse oximetry Systolic blood pressure Diastolic blood pressure Provider Name and Address Organization Details Last Updated DateTime 4 172.72 cm 37.6 kg/m2 433863. 32 g 74 /min 95 % 95 % 116 mm[Hg] 82 mm[Hg] Cathy Forbes [facility] 4 09:29:51 Social History Question Answer Notes LastModified by Foneshow ion Details LastModified Time Tobacco Smoking Status Never Smoker Not Available [facility] 04/09/2020 03:36:23 What Was The Date Of Your Most Recent Tobacco Screening? 02/18/2024 [email or web address] Information not available 02/18/2024 Sex: Unknown Functional Status None recorded. Mental Status None recorded. Family History Nothing Reported. Medical History Condition Response Coronary Artery Disease N Gout N Other N Kidney Stones N Blood Diseases N Blood Transfusion N Breast Cancer N COPD N Depression N Lung Disease N Defects or Inherited Disease N Anxiety [...] mL dose 1 completed Brendan Dockery DO [address] [place] [address], [address], [facility] 03/25/2021 14:56:42 COVID-19, mRNA, LNP-S, PF, 30 mcg/0.3 mL dose 1 completed Brendan Dockery DO [address] [place] [address], [address], [facility] 03/25/2021 14:56:50 COVID-19, mRNA, LNP-S, PF, 100 mcg/0.5mL dose or 50 mcg/0.25mL dose 2 completed Brendan Dockery DO [address] [place] [address], [address], [facility] 11/17/2021 15:06:29 zoster recombinant 2 completed Brendan Dockery DO [address] [place] [address], [address], [facility] 11/17/2021 15:06:54 Past Encounters Encounter ID Performer Location Encounter Start Date Encounter Closed Date Diagnosis/Indication Diagnosis SNOMED-CT Code Diagnosis ICD10 Code Diagnosis Note [id number] Brendan Dockery DO [facility] [address],[place] [address] 10/15/2017 14:39:05 10/15/2017 16:02:57 Tenosynovitis of wrist 454513135 M65.839 given she has tried splint and taken otc and rx nsaids without resolution Hypertensive disorder 38 794473 I10 bp is stable no issues noc cp [id number] Sheyla Coon NP, S [facility] Medicine [address] [place] [address],[place] [address] 11/23/2017 13:24:41 11/23/2017 14:43:03 Acute bacterial sinusitis 82962325 J01.90 Hypothyroidism 60442495 E03.9 stable, reviewed labs Essential hypertension 93906023 I10 stable [id number] Brendan Dockery DO [facility] [address] [facility],[place] [address] 02/28/2018 10:59:14 02/28/2018 12:08:52 Hypothyroidism 93286277 E03.9 tsh is 0.8 Hypertensive disorder 38 625491 I10 bp is stable no issues noc cp Adult heal th examination 261842905 Z00.00 discussed need for exercise and diet Screening for cardiovascular system disease 810911391 Z13.6 Screening mammography 24 862833 Z12.31 [place] [id number] September STEPHANIE Ballesteros [facility] Medicine [address] [facility],[place] [address] 07/12/2018 09:48:11 07/12/2018 11:06:37 Migraine 29892890 G43.909 Using imitrex with relief Hypertensive disorder 38 041082 I10 diastolic slightly elevated, will monitor Hypothyroidism 13745640 E03.9 labs last done 02/2018 Benign par oxysmal positional vertigo 030822333 H81.11 improving with meclizine Acute sinusitis 41057400 J01.90 continue mucinex, flonase, fluids, humidifier [id number] Sheyla Coon NP, [facility] Medicine [address] [facility],[place] [address] 09/16/2018 11:50:53 09/16/2018 15:19:18 Otitis media 29138590 H66.92 Allergic cough 208550201 R05 Active or passive immunization 852262934 Z23 Hypertensive disorder 38 425408 I10 stable, reviewed Mar 2018 labs [id number] Sheyla Coon NP, [facility] Medicine [address] [facility],[place] [address] 09/26/2018 13:31:49 09/26/2018 14:23:51 Dysfunction of eustachian tube 74779473 H69.92 [id number] Sheyla Coon NP, [facility] Medicine [address] [facility],[place] [address] 10/03/2018 14:57:35 10/03/2018 16:29:59 Dysfunction of left eustachian tube 0765319258 601575 H69.92 [id number] Brendan Dockery [facility] Medicine [address] [facility],[place] [address] 11/23/2018 16:09:46 11/25/2018 08:16:23 Hypertensive disorder 55961688 I10 bp is stable no issues noc cp Hypothyroidism 70965305 E03.9 tsh is 0.8 Edema of l ower extremity 647533082 R60.0 will add furosemide 40mg [id number] Brendan Dockery [facility] Medicine [address] [facility], [place] [address] 12/02/2018 13:35:55 12/02/2018 14:40:20 Hypertensive disorder 41400760 I10 bp is stable no issues noc cp will cont Edema of l ower extremity 429422056 R60.0 will cont furosemide 40mg [id number] September STEPHANIE Ballesteros [facility] Medicine [address] [facility] [address] 01/13/2019 10:20:35 01/13/2019 11:04:19 Edema of lower extremity 033456637 R60.0 b/l improved on increased dose of lasix do 80 mg again today then return to 40 mg Hypertensive disorder 38 842408 I10 stable Hypothyroidism 54432898 E03.9 normal tsh 12/2018 [id number] Brendan Dockery [facility] [address] [facility] [place] [address] 01/30/2019 13:31:42 01/30/2019 14:09:46 Edema of lower extremity 204738088 R60.0 will cont furosemide 40mg and will cont to use bid when sudden changes potassium supp or bananas Hypertensive disorder 38 676876 I10 bp is stable no issues noc cp will cont Hypothyroidism 56857900 E03.9 tsh is wnl per [facility] lab Tinea pedis 2596524 B35. 3 lotrimin cream [id number] Brendan Dockery [facility] [address] [facility],[place] [address] 09/04/2019 11:07:27 09/04/2019 13:34:20 Acute sinusitis 25989210 J01.90 will need to treat given her past issues [id number] Brendan Dockery DO [facility] Medicine [address] [facility],[place] [address] 04/01/2020 13:27:40 04/01/2020 14:38:28 Adult health examination 394546198 Z00.00 discussed need for exercise and diet Screening for cardiovascular system disease 481441676 Z13.6 Screening for osteoporosis 707863791 Z13.820 Screening mammography 24 351894 Z12.31 [place] [id number] VIJAY HAAS [facility] Medicine [address] [facility],[place] [address] 04/15/2020 09:07:48 04/15/2020 11:14:34 Acute otitis media 9332622 H65.01 most likely another ear infection given symptoms and hx will fu with patient if still having symptoms or worsening pt understand s and will call Nasal congestion 4183682 0 R09.81 more with pressure, all right sided along maxillary and frontal sinuses Headache 78915591 R51.9 right sided, also suffers from chronic headaches so not uncommon [id number] Brendan SalinasAlba DO Sarkis [facility] Medicine [address] [facility],[place] [address] 03/25/2021 14:34:54 03/25/2021 16:24:44 Hypothyroidism 36064576 E03.9 tsh low and t4 is high and we nmeed to decrease her dose she is having a lot of hairloss Gastroesop hageal reflux disease 324058700 K21.00 has breakthrog uh [place] [id number] Brendan Dockery DO [facility] Medicine [address] [facility], [place] [address] 05/14/2021 09:37:08 05/14/2021 14:28:14 Gastroesophageal reflux disease 552000579 K21.00 has breakthrog uh need to incerease the nexium to bid Hypertensive disorder 38 671687 I10 bp is stable no issues noc cp will cont current tx Edema of l ower extremity 757171713 R60.0 furosemide 40mg as needed only and has not taken any since the summer and will cont to use prn when sudden changes potassium supp or bananas when she does take furosemide [id number] VIJAY HAAS [facility] Medicine [address] [facility] [address] 06/16/2021 09:40:38 06/16/2021 16:20:27 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 will fu with MRI Pain of le ft knee joint 4461370979 99415 M25.562 will fu with MRI [id number] VIJAY HAAS [facility] Medicine [address] [facility] [address] 06/30/2021 09:21:10 07/01/2021 15:55:17 Acute sinusitis 84589177 J01.01 will start on abx and fu with patient if no improvemen t Otalgia 95812394 H92.01 [place] on abx [id number] VIJAY HAAS [facility] Medicine [address] [facility],[place] [address] 10/17/2021 09:21:32 10/17/2021 11:33:49 Acute sinusitis 44445086 J01.01 will start on abx and fu with patient if no improvemen t Posterior rhinorrhea 758 76967 R09.82 will fu with testing Pain in throat 226595417 R07.0 can use APAP and IBU for symptom management [id number] Brendan Dockery DO [facility] [address] [facility],[place] [address] 11/17/2021 14:48:20 11/17/2021 15:56:50 Hypertensive disorder 09433180 I10 bp is stable no issues noc cp will cont current tx Hypothyroidism 83032766 E03.9 tsh low and t4 is high and we nmeed to decrease her dose she is having a lot of hairloss Active or passive immunization 194310549 Z23 patient advised she is due for a tdap Screening for malignant neoplasm of colon 259190188 Z12.11 already had done in jul Depression screening 171 Z13.31 Did not bring glasses to fill out PHQ9 not able to complete today Tachycardia 4057686 R00. 0 given just one episode [id number] VIJAY HAAS [facility] Medicine [address] [facility],[place] [address] 08/11/2022 13:49:58 08/11/2022 16:33:49 Acute otitis media 5572134 H65.01 will set up with cipro for 7 days BIDworks best for the patient [id number] VIJAY HAAS [facility] Medicine [address] [facility],[place] [address] 09/23/2022 09:07:41 09/23/2022 12:05:06 Acute otitis media 8846719 H65.01 will set up with cipro for 7 days BIDworks best for the patient Migraine 87276391 G43.10 9 will set up with second opinion with neuro [id number] Brendan Dockery [facility] Medicine [address] [facility],[place] [address] 08/23/2023 09:51:36 08/23/2023 10:25:31 Hypertensive disorder 35292158 I10 bp is stable no issues no cp will cont current tx Hypothyroidism 98620210 E03.9 tsh low and t4 is high and we need to decrease her dose she is having a lot of hairloss [id number] Brendan Dockery [facility] Medicine [address] [facility] [address] [address] 11/03/2023 10:35:53 11/03/2023 12:15:08 Adult health examination [id number] Z00.00 discussed need for exercise and diet Screening for cardiovascular system disease [id number] Z13.6 Screening for malignant neoplasm of colon 743629909 Z12.11 already had done in jul Depression screening 171 Z13.31 Did not bring glasses to fill out PHQ9 not able to complete today Epidermoid cyst of skin 514874168 L72.0 [id number] Brendan Dockery [facility] Internal Medicine [address] [facility],[place] [address] 02/04/2024 08:34:01 02/04/2024 14:30:07 Anxiety 47117285 F41.9 stable Hypertensive disorder 38 372536 I10 bp is stable no issues no cp will cont current tx Hypothyroidism 80962866 E03.9 stable Thoracic o utlet syndrome 398612892 G54.0 no chnges Neck pain 56314311 M54.2 possible radiculopa thy issue here having numbness Cough 20666002 R05.9 not getting better , will use use guaifen over weekend if no better will need levoflox etc will get cxr today [id number] VIJAY HAAS [facility] Internal Medicine [address] [facility],[place] [address] 02/18/2024 09:14:53 02/18/2024 09:50:41 Cervical radiculopathy 70769423 M54.12 will set up MRI now and EMG for her arms Bilateral carpal tunnel syndrome [id number] 6702948 G56.03 fu EMG Cough 51726810 R05.2 given syrup to use PRN for the coughing Health Concerns Section Related Observation LastModified by Organization Detai ls LastModified Time None Recorded Concern Status LastModified by Organization Details LastModified Time None Recorded Advance Directives Directive None Recorded Payers Encounter Date Sequence Insurance Name Policy Number Policy Blandon Covered Member ID Blandon Member ID Guarantor Name 09/23/2022 1 [place] [employer] Tamar Chacon [id number] Tamar Chacon 09/23/2022 2 [place] [facility] Tamar Chacon [id number] Tamar Chacon 08/23/2023 1 [place] [employer] Tamar Chacon [id number] Tamar Chacon 08/23/2023 2 [place] Tamar Chacon [id number] Tamar Chacon 11/03/2023 1 [place] [employer] Tamar Chacon [id number] Tamar Oswaldo 11/03/2023 2 [place] [facility] Tamar Chacon [id number] Tamar Chacon 02/04/2024 1 [place] [facility] Tamar Chacon [id number] Tamar Oswaldo 02/04/2024 2 [place] [facility] Tamar Chacon [id number] Tamar Oswaldo 02/18/2024 1 [place] [facility] Tamar Chacon [id number] Tamar Oswaldo 02/18/2024 2 [place] [facility] Tamar Chacon [id number] Tamar Chacon Notes Date Note Type Note Provider Name a mi Address Organization Details Recorded Time 3 text/html [...] stick with VIJAY De La Torre [address] [place], [address], [facility] Internal Medicine 09/23/2022 11:28:14 4 text/html here for annual wellnessrelates has been under a lot of stress relates that she has been sad bc she can no longer drive etc Brendan Dockery DO [address] [place], [address], [facility] Internal Medicine 08/23/2023 22:06:45 4 text/html [...] issue is fatigue always feels tired Brendan Dockery, DO [address] [facility], [place], [address], [facility] 11/03/2023 11:28:39 4 text/html patient [...] arches her back Brendan Dockery DO [address] [facility], [place], [address], [place] [facility] Internal Medicine 02/04/2024 09:24:45 4 text/html f/u neck pain the patient reports that she is having neck painagreed to MRI for more information waiting on repeat CXRfor the pna, given cough syrup EMG will be needed for possible carpal tunnel on top of the radiculopathy from the neck will f/u after CXR comes in will fu after MRI VIJAY HAAS [address] [facility], [place], [address], [place] [facility] Internal Medicine 02/18/2024 09:49:55 OBGyn Episode No OBEpisode recorded.
== END 2024-09-06 09:56 | disposition home or self-care (01) ==
LOC: HO.HBST 09:03
PROVIDERS: PCP Internal Medicine; Visit Provider Counselor Mental Health
DX: F43.23 Adjustment disorder with mixed anxiety and depressed mood (principal)
CPT/HCPCS: 90834

== ENCOUNTER 2024-09-15 09:52 | Outpatient (REF) | payer MEDICARE, MEDICAID, SELFPAY ==
--- NOTE | ~2024-09-15 | FL_ITS ---
EXAMINATION: XR FLUOROSCOPY UPPER GI WITH AIR CLINICAL INFORMATION: Obesity. Preop. COMPARISON: None available. TECHNIQUE: Routine upper GI air contrast study was performed in upright and lying position. FINDINGS: Following oral administration of thick barium and effervescent granules there is normal propagation bolus from the oral cavity through the pharynx, esophagus into stomach without obstruction, narrowing or stricture. No laryngeal penetration or aspiration seen. No retention of barium in the valleculae or piriform sinuses. On placing patient in supine and prone lying position there is small sliding hiatal hernia with mild gastroesophageal reflux. The mucosal pattern of stomach, duodenal bulb and sweep is normal. The course. The course and caliber of the duodenum is normal. FLUOROSCOPY TIME: 1 minute 52 seconds DOSE AREA PRODUCT: 1730 uGy-m2 (microgray-meter squared) FL/FL upper GI w air IMPRESSION: Small sliding hiatal hernia with mild gastroesophageal reflux . Electronically signed by: Baldev Hoyos MD 09/15/2024 02:11 PM EDT
--- OUTSIDE RECORDS SUMMARY | 2024-09-15 10:30 | XMS_ITS | Data Portability ---
Author Organization [facility] Luis Miguel [facility], Home Service Address [address] [place] [address] Assessment Encounter Date Assessment Date Assessment LastModified [...] reduce health risks and promote healthy living. [email or web address] Not available 08/23/2023 10:15:32 11/03/2023 11/03/2023 Patient [...] [email or web address] Not available 11/02/2023 16:23:59 02/04/2024 02/04/2024 [id number] [place] [id number] (AGENCY RECRUITER) MDM MODERATE MUST MEET 2 OUT OF [...] recorded. Lab lipid panel, blood 2023 024 [facility], [address] [place] [address], [address], 4 11:09:35 CBC w/ auto diff 2023 024 [facility], [address] [place] [address], [address], 4 11:09:35 CMP, serum or plasma 2023 024 [facility], [address] [place] [address], [address], 4 11:09:35 vitamin D, 25-hydroxy , total, serum 2023 024 [facility], [address] [place] [address], [address], 4 11:26:40 TSH + free T4, serum 2023 024 [facility], [address] [place] [address], [address], 4 11:07:38 TSH + free T4, serum 2023 024 [facility], [address] [place] [address], [address], 4 11:07:38 Referral neurologis t referral 2022 023 [email or web address] 10 [facility], [address], [place], [address], 3 08:49:05 Procedures None recorded. Surgeries None recorded. Imaging MRI, cervical spine, w/o contrast 2023 024 [email or web address] 10 [facility], [address] [place], [address], 4 07:54:29 electromyo gram + nerve conduction study - carpal tunnel, castillo hands and wrists 2023 024 [facility] (Imaging), [address] [place], [address], 4 09:19:32 XR, cervical spine, 2 or 3 view 2023 024 [facility], [address] [place], [address], 4 14:30:08 XR, chest, 2 view 2023 024 [facility], [address] [place], [address], 4 14:30:08 Medication Orders codeine 10 mg-guaifen esin 100 mg/5 mL oral liquid 2023 024 [id number], [address] [place], [place], [id number], 4 09:45:13 cephalexin 500 mg capsule 2023 024 [facility] #[id number], [address] [place], [place], [id number], 4 09:20:25 Synthroid 137 mcg tablet 2023 024 [facility] #01383, [address] [place], [place], [id number], 4 11:42:08 ciprofloxa radha 500 mg tablet 2022 023 [email or web address] [facility] #19435, [address] [place], [place], [id number], 09:58:28 Patient TargetsNo targets recorded. Patient Instructions Encounter Date Encounter Id Patient Instructions Last Modified By Organization Details Last Modified Time 08/23/2023 [id number] hypothyroidism: care instructions Not available 08/23/2023 22:06:42 11/03/2023 [id number] Skin Cyst: Care Instructions Not available 11/03/2023 11:27:04 Discussed and explained advance directives such as standard forms to the {{patient* caregi paola patient and caregiver}}. Face to face discussion lasted for a duration of _5__ minutes. Not available 11/03/2023 11:28:02 02/04/2024 [id number] neck pain: care instructions Not available 02/04/2024 [...] bilat eral No observ ation record ed. [facility]'s [address] [place], [address], 10/07/2022 08:10:20 02/22/20 23 02/21/2023 XR, foot No observ ation record ed. [address] (Medical Records) [address] [place], [address], 02/21/2023 08:35:27 02/22/20 23 02/21/2023 XR, ankle No observ ation record ed. [address] (Medical Records) [address] [place], [address], 02/21/2023 08:35:58 11/08/19 24 10/18/2023 MAMMO , scree owen, digit al, bilat eral No observ ation record ed. [facility] [address] [place], [address], 11/08/2023 13:26:33 02/04/20 24 02/04/2024 XR, cervi alix spine , 2 or 3 view No observ ation record ed. [facility] (Medical Records) [address] [place], [address], 02/18/2024 09:49:01 02/04/20 24 02/04/2024 XR, chest , 2 view No observ ation record ed. [facility] (Medical Records) [address] [place], [address], 02/18/2024 09:49:00 02/18/20 24 02/11/2024 XR, chest , 2 view No observ ation record ed. [facility] (Medical Records) [address] [place], [address], 02/22/2024 15:40:53 03/13/20 24 03/03/2024 MRI, cervi alix spine , w/o contr ast No observ ation record ed. [facility] (Medical Records) [address] [place], [address], 03/14/2024 15:53:15 03/16/20 24 03/16/2024 elect romyo gram + nerve condu ction study No observ ation record ed. [email or web address] [facility] (Medical Records) [address] [place], [address], 03/17/2024 12:09:59 03/16/20 24 03/16/2024 elect romyo gram + nerve condu ction study No observ ation record ed. [email or web address] [facility] (Medical Records) [address] [place], [address], 03/17/2024 12:09:59 07/31/19 25 07/31/2024 XR, chest , 2 view No observ ation record ed. [facility] (Medical Records) [address] [place], [address], 07/31/2024 08:12:29 08/31/19 25 08/30/2024 US, abdom en No observ ation record ed. [email or web address] [facility] (Medical Records) [address] [place], [address], 08/30/2024 10:11:14 Result Notes None recorded. Problems Name Problem SNOMED Code Status Onset Date Resolution Date Notes Provider Name and Address Organization Details Recorded Time Edema of lower extremit y 426807044 Active 2018 Not Available [facility] 2 14:39:08 Stargard t's disease 39124051 Active 2019 Not Available [facility] 2 14:39:08 Acute sinusiti s 83460227 Active 2021 VIJAY HAAS [address] [place], [address], [place] [facility] 2 10:05:14 Posterio r rhinorrh ea 65136147 Active 2021 VIJAY HAAS [address] [place], [address], [place] [facility] 2 10:05:48 Pain in throat 977024977 Active 2021 VIJAY HAAS [address] [place] [address], [address], [facility] 2 10:05:53 COVID-19 879876985 Active 2021 VIJAY HAAS [address] [place] [address], [address], [facility] 2 10:28:01 Intermit tent palpitat ions 994644275 Active 2021 Brendan Dockery, DO [address] [place] [address], [address], [facility] 2 14:24:47 Acute otitis media 5747023 Active 2022 VIJAY HAAS [address] [place] [address], [address], [facility] 3 14:11:22 Acute bronchit is 05607516 Active 2022 VIJAY HAAS [address] [place] [address], [address], [facility] 3 11:29:57 Acute otitis media 0282999 Active 2023 Brendan Dockery DO [address] [place] [address], [address], [facility] 4 15:34:59 Epidermo id cyst of skin 203376673 Active 2023 Brendan Dockery DO [address] [place] [address], [address], [facility] 4 11:26:25 Anxiety 61666152 Active 2023 Brendan Dockery DO [address] [place] [address], [address], [facility] 4 11:04:14 Cough 92020846 Active 2023 Brendan Dockery DO [address] [place] [address], [address], [facility] 4 09:46:18 Neck pain 52499223 Active 2023 Brendan Dockery, [address] [place] [address], [address], [facility] 4 09:16:11 Pneumoni a 345514627 Active 2023 Brendan Dockery DO [address] [place], [address], [facility] 4 14:44:04 Cervical radiculo lore 33696356 Active 2023 VIJAY HAAS [address] [place] [address], [address], [facility] 4 09:40:00 Bilatera l carpal tunnel syndrome 24229595007 675478 Active 2023 VIJAY HAAS [address] [place] [address], [address], [facility] 4 09:42:34 Cervical disc disorder 811560463 Active 2023 VIJAY HAAS [address] [place] [address], [address], [facility] 4 15:54:20 Gastroes ophageal reflux disease 272614935 Active 2017 Not Available [facility] 2 14:39:08 Hypothyr oidism 29992028 Active 2017 Not Available [facility] 2 14:39:09 Migraine 77417682 Active 2017 Not Available [facility] 2 14:39:08 Fibromya lgia 564565958 Active 2017 Not Available [facility] 2 14:39:09 Family history of non-Hodg kin's lymphoma 587448870 Active 2017 father, dx'd 11/2010 Not Available [facility] 2 14:39:09 Thoracic outlet syndrome 648047246 Active 2017 s/p 1st rib removal 03/2012 Not Available [facility] 2 14:39:09 Chronic headache disorder 247890414 Active 2017 Not Available [facility] 2 14:39:09 Ventricu lar prematur e complex 087817773 Active 2017 Not Available [facility] 2 14:39:09 Hyperten sive disorder 83539915 Active 2017 Not Available [facility] 2 14:39:08 Tachycar mehnaz 2482364 Active 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 Procedures Surgical History Date Name Laterality Status Provider Name and Address Organization Details Recorded Time Colonoscopy completed Brendan Dockery , DO [address] [place], [address], [facility] 11/17/2021 15:53:34 Imaging Results Imaging Date Name Status LastModified by Organization Details LastModified Time 10/01/2022 MAMMO, screening, digital, bilateral completed [address] [place], [address], 10/07/2022 08:10:20 02/21/2023 XR, foot completed [address] (Medical Records) [address] [place], [address], 02/21/2023 08:35:27 02/21/2023 XR, ankle completed [address] (Medical Records) [address] [place], [address], 02/21/2023 08:35:58 10/18/2023 MAMMO, screening, digital, bilateral completed [email or web address] [place], [address], 11/08/2023 13:26:33 02/04/2024 XR, cervical spine, 2 or 3 [facility] [address] [place], [address], 02/18/2024 09:49:01 02/04/2024 XR, chest, 2 view completed [facility] (Medical Records) [address] [place], [address], 02/18/2024 09:49:00 02/11/2024 XR, chest, 2 view completed [facility] (Medical Records) [address] [place], [address], 02/22/2024 15:40:53 03/03/2024 MRI, cervical spine, w/o contrast completed [facility] (Medical Records) [address] [place], [address], 03/14/2024 15:53:15 03/16/2024 electromyogram + nerve conduction study completed [email or web address] (Medical Records) [address] [place], [address], 03/17/2024 12:09:59 03/16/2024 electromyogram + nerve conduction study completed [address] (Medical Records) [address] [place] [address], [address], 03/17/2024 12:09:59 07/31/2024 XR, chest, 2 view completed [address] (Medical Records) [address] [place], [address], 07/31/2024 08:12:29 08/30/2024 [email or web address] [address] [place], [address], 08/30/2024 10:11:14 Procedure Notes None recorded. Medical Equipment None Reported. Allergies Allergen ID Allergen Name Allergen Category Reaction Reaction Severity Criticality Documentation Date Start Date Code Code System Note Provider Name and Address Organization Details Recorded Time 1272 Fluarix medicatio n Not available Not available Not available 10/15/2017 10058 UNK Rowan Sean freitas, [facility] 8 09:01:31 5796 Shingrwillie medicatio n Not available Not available Not available 11/17/2021 85560 26 RxNorm Brendan Dockery, DO [address] [place], [address], [facility] 2 15:05:01 8069 SARS-CoV- 2 (COVID-19 ) vaccine, protein [id number] medicatio n Not available Not available Not available 11/03/2023 17108 73 RxNorm Hai freitas [facility] 4 10:55:25 Medications Name Sig Start [...] propionate 50 mcg/actuati on nasal spray,suspe nsion Mcgregor 1 spray every day by intranasa l [...] Updated DateTime 4 172.72 cm 37.7 kg/m2 766450. 91 g 87 /min 97 % 97 % 138 mm[Hg] 68 mm[Hg] Madison Smith [facility] 4 10:00:36 Date Recorded Body height Body mass index (BMI) Body weight Heart rate Respiratory rate Oxygen saturation Oxygen saturation in Arterial blood by Pulse oximetry Systolic blood pressure Diastolic blood pressure Provider Name and Address Organization Details Last Updated DateTime 4 172.72 cm 38 kg/m2 940323. 45 g 64 /min 18 /min 96 % 96 % 128 mm[Hg] 70 mm[Hg] Hai Zita [facility] 4 10:55:03 Date Recorded Body height Body mass index (BMI) Body weight Heart rate Oxygen saturation Oxygen saturation in Arterial blood by Pulse oximetry Systolic blood pressure Diastolic blood pressure Provider Name and Address Organization Details Last Updated DateTime 4 172.72 cm 37.6 kg/m2 128381. 32 g 74 /min 95 % 95 % 116 mm[Hg] 82 mm[Hg] Cathy Forbes [facility] 4 09:29:51 Social History Question Answer Notes LastModified by Aivo ion Details LastModified Time Tobacco Smoking Status Never Smoker Not Available [facility] 04/09/2020 03:36:23 What Was The Date Of [...] mL dose 1 completed Brendan Dockery DO [address] [place] [address], [address], [facility] 03/25/2021 14:56:42 COVID-19, mRNA, LNP-S, PF, 30 mcg/0.3 mL dose 1 completed Brendan Dockery DO [address] [place] [address], [address], [facility] 03/25/2021 14:56:50 COVID-19, mRNA, LNP-S, PF, 100 mcg/0.5mL dose or 50 mcg/0.25mL dose 2 completed Brendan Dockery DO [address] [place] [address], [address], [facility] 11/17/2021 15:06:29 zoster recombinant 2 completed Brendan Dockery DO [address] [place] [address], [address], [facility] 11/17/2021 15:06:54 Past Encounters Encounter ID Performer Location Encounter Start Date Encounter Closed Date Diagnosis/Indication Diagnosis SNOMED-CT Code Diagnosis ICD10 Code Diagnosis Note [id number] Brendan Dockery DO [facility] [address] [address] 10/15/2017 14:39:05 10/15/2017 16:02:57 Tenosynovitis of wrist 120535691 M65.839 given she has tried splint and taken otc and rx nsaids without resolution Hypertensive disorder 38 256764 I10 bp is stable no issues noc cp [id number] Sheyla Coon NP, S [facility] [address] [place] [address],[place] [address] 11/23/2017 13:24:41 11/23/2017 14:43:03 Acute bacterial sinusitis 35627629 J01.90 Hypothyroidism 65242431 E03.9 stable, reviewed labs Essential hypertension 53710225 I10 stable [id number] Brendan Dockery DO [facility] [address] [facility],[place] [address] 02/28/2018 10:59:14 02/28/2018 12:08:52 Hypothyroidism 62000620 E03.9 tsh is 0.8 Hypertensive disorder 38 648851 I10 bp is stable no issues noc cp Adult heal th examination 024688603 Z00.00 discussed need for exercise and diet Screening for cardiovascular system disease 560865399 Z13.6 Screening mammography 24 030915 Z12.31 [place] [id number] September STEPHANIE Ballesteros [facility] [address] [facility],[place] [address] 07/12/2018 09:48:11 07/12/2018 11:06:37 Migraine 51621721 G43.909 Using imitrex with relief Hypertensive disorder 38 701988 I10 diastolic slightly elevated, will monitor Hypothyroidism 92636900 E03.9 labs last done 02/2018 Benign par oxysmal positional vertigo 854259810 H81.11 improving with meclizine Acute sinusitis 77260444 J01.90 continue mucinex, flonase, fluids, humidifier [id number] Sheyla Coon NP, [facility] [address] [facility],[place] [address] 09/16/2018 11:50:53 09/16/2018 15:19:18 Otitis media 20634195 H66.92 Allergic cough 127284505 R05 Active or passive immunization 570573662 Z23 Hypertensive disorder 38 431269 I10 stable, reviewed Mar 2018 labs [id number] Sheyla Coon NP, [facility] [address] [facility],[place] [address] 09/26/2018 13:31:49 09/26/2018 14:23:51 Dysfunction of eustachian tube 00861935 H69.92 [id number] Sheyla Coon NP, [facility] [address] [facility],[place] [address] 10/03/2018 14:57:35 10/03/2018 16:29:59 Dysfunction of left eustachian tube 7455227047 745065 H69.92 [id number] Brendan Dockery [facility] [address] [facility],[place] [address] 11/23/2018 16:09:46 11/25/2018 08:16:23 Hypertensive disorder 16648934 I10 bp is stable no issues noc cp Hypothyroidism 14459101 E03.9 tsh is 0.8 Edema of l ower extremity 522364366 R60.0 will add furosemide 40mg [id number] Brendan Dockery [facility] [address] [facility], [place] [address] 12/02/2018 13:35:55 12/02/2018 14:40:20 Hypertensive disorder 15420774 I10 bp is stable no issues noc cp will cont Edema of l ower extremity 135049255 R60.0 will cont furosemide 40mg [id number] September STEPHANIE Ballesteros [facility] [address] [facility] [place] [address] 01/13/2019 10:20:35 01/13/2019 11:04:19 Edema of lower extremity 383691578 R60.0 b/l improved on increased dose of lasix do 80 mg again today then return to 40 mg Hypertensive disorder 38 421181 I10 stable Hypothyroidism 28285030 E03.9 normal tsh 12/2018 [id number] Brendan Dockery [facility] [address] [facility] [address] [address] 01/30/2019 13:31:42 01/30/2019 14:09:46 Edema of lower extremity 820681288 R60.0 will cont furosemide 40mg and will cont to use bid when sudden changes potassium supp or bananas Hypertensive disorder 38 029482 I10 bp is stable no issues noc cp will cont Hypothyroidism 83843647 E03.9 tsh is wnl per [facility] lab Tinea pedis 2210323 B35. 3 lotrimin cream [id number] Brendan Dockery [facility] [address] [facility],[place] [address] 09/04/2019 11:07:27 09/04/2019 13:34:20 Acute sinusitis 41801376 J01.90 will need to treat given her past issues [id number] Brendan Dockery DO [facility] [address] [facility],[place] [address] 04/01/2020 13:27:40 04/01/2020 14:38:28 Adult health examination 853178316 Z00.00 discussed need for exercise and diet Screening for cardiovascular system disease 190863783 Z13.6 Screening for osteoporosis 436109000 Z13.820 Screening mammography 24 985847 Z12.31 [place] [id number] VIJAY HAAS [facility] [address] [facility],[place] [address] 04/15/2020 09:07:48 04/15/2020 11:14:34 Acute otitis media 2983643 H65.01 most likely another ear infection given symptoms and hx will fu with patient if still having symptoms or worsening pt understand s and will call Nasal congestion 3472119 0 R09.81 more with pressure, all right sided along maxillary and frontal sinuses Headache 09064212 R51.9 right sided, also suffers from chronic headaches so not uncommon [id number] Brendan SalinasAlba DO Sarkis [facility] [address] [facility],[place] [address] 03/25/2021 14:34:54 03/25/2021 16:24:44 Hypothyroidism 31099584 E03.9 tsh low and t4 is high and we nmeed to decrease her dose she is having a lot of hairloss Gastroesop hageal reflux disease 354018935 K21.00 has breakthrog uh [place] [id number] Brendan Dockery DO [facility] [address] [facility], [place] [address] 05/14/2021 09:37:08 05/14/2021 14:28:14 Gastroesophageal reflux disease 528256685 K21.00 has breakthrog uh need to incerease the nexium to bid Hypertensive disorder 38 024635 I10 bp is stable no issues noc cp will cont current tx Edema of l ower extremity 725303273 R60.0 furosemide 40mg as needed only and has not taken any since the summer and will cont to use prn when sudden changes potassium supp or bananas when she does take furosemide [id number] VIJAY HAAS [facility] [address] [facility] [address] [address] 06/16/2021 09:40:38 06/16/2021 16:20:27 Chondromalacia of patella 57473163 M22.41 will fu with MRI Pain of le ft knee joint 2812334291 64591 M25.562 will fu with MRI [id number] VIJAY HAAS [facility] [address] [facility] [address] [address] 06/30/2021 09:21:10 07/01/2021 15:55:17 Acute sinusitis 96439881 J01.01 will start on abx and fu with patient if no improvemen t Otalgia 99355028 H92.01 [place] start on abx [id number] VIJAY HAAS [facility] [address] [facility] [address],[place] [address] 10/17/2021 09:21:32 10/17/2021 11:33:49 Acute sinusitis 48400713 J01.01 will start on abx and fu with patient if no improvemen t Posterior rhinorrhea 758 04402 R09.82 will fu with testing Pain in throat 044169157 R07.0 can use APAP and IBU for symptom management [id number] Brendan Dockery DO [facility] [address] [facility] [address],[place] [address] 11/17/2021 14:48:20 11/17/2021 15:56:50 Hypertensive disorder 27924515 I10 bp is stable no issues noc cp will cont current tx Hypothyroidism 76020996 E03.9 tsh low and t4 is high and we nmeed to decrease her dose she is having a lot of hairloss Active or passive immunization 405419981 Z23 patient advised she is due for a tdap Screening for malignant neoplasm of colon 710016708 Z12.11 already had done in jul Depression screening 171 Z13.31 Did not bring glasses to fill out PHQ9 not able to complete today Tachycardia 0284742 R00. 0 given just one episode [id number] VIJAY HAAS [facility] [address] [facility] [address],[place] [address] 08/11/2022 13:49:58 08/11/2022 16:33:49 Acute otitis media 9109998 H65.01 will set up with cipro for 7 days BIDworks best for the patient [id number] VIJAY HAAS [facility] [address] [facility] [address],[place] [address] 09/23/2022 09:07:41 09/23/2022 12:05:06 Acute otitis media 8787887 H65.01 will set up with cipro for 7 days BIDworks best for the patient Migraine 51460932 G43.10 9 will set up with second opinion with neuro [id number] Brendan Dockery [facility] [address] [facility],[place] [address] 08/23/2023 09:51:36 08/23/2023 10:25:31 Hypertensive disorder 35612948 I10 bp is stable no issues no cp will cont current tx Hypothyroidism 11995726 E03.9 tsh low and t4 is high and we need to decrease her dose she is having a lot of hairloss [id number] Brendan Dockery [facility] [address] [facility] [address],[place] [address] 11/03/2023 10:35:53 11/03/2023 12:15:08 Adult health examination 652309276 Z00.00 discussed need for exercise and diet Screening for cardiovascular system disease 153980583 Z13.6 Screening for malignant neoplasm of colon 460578396 Z12.11 already had done in jul Depression screening 171 Z13.31 Did not bring glasses to fill out PHQ9 not able to complete today Epidermoid cyst of skin [id number] L72.0 [id number] Brendan Dockery [facility] [address] [facility],[place] [address] 02/04/2024 08:34:01 02/04/2024 14:30:07 Anxiety 09918443 F41.9 stable Hypertensive disorder 38 417723 I10 bp is stable no issues no cp will cont current tx Hypothyroidism 16828726 E03.9 stable Thoracic o utlet syndrome [id number] G54.0 no chnges Neck pain 45594515 M54.2 possible radiculopa thy issue here having numbness Cough 78470223 R05.9 not getting better , will use use guaifen over weekend if no better will need levoflox etc will get cxr today [id number] VIJAY HAAS [facility] Internal Medicine [address],[place] [address] 02/18/2024 09:14:53 02/18/2024 09:50:41 Cervical radiculopathy 07429804 M54.12 will set up MRI now and EMG for her arms Bilateral carpal tunnel syndrome [id number] 2790264 G56.03 fu EMG Cough 20485737 R05.2 given syrup to use PRN for the coughing Health Concerns Section Related Observation LastModified by Organization Detai ls LastModified Time None Recorded Concern Status LastModified by Organization Details LastModified Time None Recorded Advance Directives Directive None Recorded Payers Encounter Date Sequence Insurance Name Policy Number Policy B[place]on Covered Member ID Blandon Member ID Guarantor Name 09/23/2022 1 [place] [employer] Tamar Chacon [id number] Tamar Chacon 09/23/2022 2 [place] [facility] Tamar Chacon [id number] Tamar Chacon 08/23/2023 1 [place] [employer] Tamar Chacon [id number] Tamar Chacon 08/23/2023 2 [place] Tamar Chacon [id number] Tamar Chacon 11/03/2023 1 [place] [employer] Tamar Chacon [id number] Tamar Oswaldo 11/03/2023 2 [place] [facility] Tamar Chacon [id number] Tamar Chacon 02/04/2024 1 [place] [facility] Tamar Chacon [id number] Tamar Oswaldo 02/04/2024 2 [place] [facility] Tamar Chacon [id number] Tamar Oswaldo 02/18/2024 1 [place] [facility] Tamar Chacon [id number] Tamar Oswaldo 02/18/2024 2 [place] [facility] Tamar Chacon [id number] Tamar Chacon Notes Date Note Type Note Provider Name a ne Address Organization Details Recorded Time 3 text/html [...] stick with VIJAY De La Torre [address] [place], [address], [facility] 09/23/2022 11:28:14 4 text/html here for annual wellnessrelates has been under a lot of stress relates that she has been sad bc she can no longer drive etc Brendan Dockery DO [address] [place], [address], [facility] 08/23/2023 22:06:45 [...] always feels tired Brendan Dockery, DO [address] [facility], [place], [address], [facility] 11/03/2023 11:28:39 4 text/html [...] arches her back Brendan Dockery DO [address] [facility], [place], [address], [place] [facility] Internal Medicine 02/04/2024 09:24:45 4 text/html f/u neck pain the patient reports that she is having neck painagreed to MRI for more information waiting on repeat CXRfor the pna, given cough syrup EMG will be needed for possible carpal tunnel on top of the radiculopathy from the neck will f/u after CXR comes in will fu after MRI VIJAY HAAS [address] [facility], [place], [address], [place] [facility] Internal Medicine 02/18/2024 09:49:55 OBGyn Episode No OBEpisode recorded.
== END 2024-09-15 09:53 | disposition home or self-care (01) ==
LOC: HO.XRAY 09:52
PROVIDERS: PCP Internal Medicine; Visit Provider Surgery
DX: Z13.89 Encounter for screening for other disorder (principal)
CPT/HCPCS: 74246

== ENCOUNTER → 2024-09-15 09:55 | Outpatient (BNV) | payer MEDICARE, MEDICAID, SELFPAY | PROVIDERS: PCP Internal Medicine; Visit Provider Radiology Diagnostic Radiology | DX: E66.9 Obesity, unspecified (principal); Z01.818 Encounter for other preprocedural examination | CPT/HCPCS: 74246 ==

== ENCOUNTER → 2024-09-15 10:08 | Outpatient (REF) | payer MEDICARE, MEDICAID, SELFPAY ==
--- NOTE | 2024-09-15 10:12 | CA_ITS ---
Acquisition Time: 2024-09-15 10:34:19 Total Exercise Time: 00:06:30 Test Indications: Abnormal ECG,Pre-Op Evaluation Medications: PROPRANOLOL TOPIRAMATE OMEPRAZOLE LEVOTHYROXINE FAMOTIDINE AMITRIPTYLINE Protocol: ABEL Max HR: 151 BPM 91% of Pred: 165 BPM Max BP: 128/74 mmHG Max Work Load: 7.7 METS Exercise stress test with exercise 6 mins 30 secs of Abel Protocol, achieving 88% MPHR, with reports of mild SOB, no chest pain, without any arrythmias, with normotensive response to exercise. Without EKG changes meeting criteria for ischemia. In recovery, breathing returned to baseline. Echo images obtained by tech at rest and post peak exercise. Definity contrast utilized. Test reviewed with Dr. Rowley. Referred By: Alan Herr Electronically Signed By: Art Osei
== END ==
LOC: HO.CARD 10:08
PROVIDERS: PCP Internal Medicine; Visit Provider Surgery
DX: R94.31 Abnormal electrocardiogram [ECG] [EKG] (principal)
CPT/HCPCS: 74246; 93350; Q9957

== ENCOUNTER → 2024-09-15 10:12 | Outpatient (BNV) | payer MEDICARE, MEDICAID, SELFPAY | PROVIDERS: PCP Internal Medicine | DX: R06.02 Shortness of breath (principal); R94.31 Abnormal electrocardiogram [ECG] [EKG] | CPT/HCPCS: 93016; 93018; 93350; 93352 ==

== ENCOUNTER 2024-09-28 08:11 | Outpatient (AMB) | payer MEDICARE, MEDICAID, SELFPAY ==
--- OUTSIDE RECORDS SUMMARY | 2024-09-28 08:24 | XMS_ITS | Data Portability ---
Author Organization [facility], Home Service Address [address] [place] [address] Assessment Encounter Date Assessment Date Assessment LastModified [...] reduce health risks and promote healthy living. 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 Lab lipid panel, blood 2023 024 [facility], [address] [place] [address], [address], 4 11:09:35 CBC w/ auto diff 2023 024 [facility], [address] [place] [address], [address], 4 11:09:35 CMP, serum or plasma 2023 024 [facility], [address] [place] [address], [address], 4 11:09:35 vitamin D, 25-hydroxy , total, serum 2023 024 [facility], [address] [place] [address], [address], 4 11:26:40 TSH + free T4, serum 2023 024 [facility], [address] [place] [address], [address], 4 11:07:38 TSH + free T4, serum 2023 024 [facility], [address] [place] [address], [address], 4 11:07:38 Referral neurologis t referral 2022 023 [email or web address] 10 [facility], [address], [place], [address], 3 08:49:05 Procedures None recorded. Surgeries None recorded. Imaging MRI, cervical spine, w/o contrast 2023 024 [email or web address] 10 [facility], [address] [place], [address], 4 07:54:29 electromyo gram + nerve conduction study - carpal tunnel, castillo hands and wrists 2023 024 [facility] (Imaging), [address] [place], [address], 4 09:19:32 XR, cervical spine, 2 or 3 view 2023 024 [facility], [address] [place], [address], 4 14:30:08 XR, chest, 2 view 2023 024 [facility], [address] [place], [address], 4 14:30:08 Medication Orders codeine 10 mg-guaifen esin 100 mg/5 mL oral liquid 2023 024 [facility][id number], [address] [place], [place], [id number], 4 09:45:13 cephalexin 500 mg capsule 2023 024 [facility] #[id number], [address] [place], [place], [id number], 4 09:20:25 Synthroid 137 mcg tablet 2023 024 [facility] #[id number], [address], [place], [id number], 4 11:42:08 ciprofloxa radha 500 mg tablet 2022 023 [email or web address] [facility] #[id number], [address], [place], [id number], 09:58:28 Patient TargetsNo targets recorded. Patient Instructions Encounter Date Encounter Id Patient Instructions Last Modified By Organization Details Last Modified Time 08/23/2023 [id number] hypothyroidism: care instructions Not available 08/23/2023 22:06:42 11/03/2023 [id number] Skin Cyst: Care Instructions Not available 11/03/2023 11:27:04 Discussed and explained advance directives such as standard forms to the {{patient* caregi paola patient and caregiver}}. Face to face discussion lasted for a duration of _5__ minutes. Not available 11/03/2023 11:28:02 02/04/2024 [id number] neck pain: care instructions Not available 02/04/2024 [...] bilat eral No observ ation record ed. [facility] [address] [place], [address], 10/07/2022 08:10:20 02/22/20 23 02/21/2023 XR, foot No observ ation record ed. [address] (Medical Records) [address] [place], [address], 02/21/2023 08:35:27 02/22/20 23 02/21/2023 XR, ankle No observ ation record ed. [address] (Medical Records) [address] [place], [address], 02/21/2023 08:35:58 11/08/19 24 10/18/2023 MAMMO , scree owen, digit al, bilat eral No observ ation record ed. [facility] [address] [place], [address], 11/08/2023 13:26:33 02/04/20 24 02/04/2024 XR, cervi alix spine , 2 or 3 view No observ ation record ed. [facility] (Medical Records) [address] [place], [address], 02/18/2024 09:49:01 02/04/20 24 02/04/2024 XR, chest , 2 view No observ ation record ed. [facility] (Medical Records) [address] [place], [address], 02/18/2024 09:49:00 02/18/20 24 02/11/2024 XR, chest , 2 view No observ ation record ed. [facility] (Medical Records) [address] [place], [address], 02/22/2024 15:40:53 03/13/20 24 03/03/2024 MRI, cervi alix spine , w/o contr ast No observ ation record ed. [facility] (Medical Records) [address] [place], [address], 03/14/2024 15:53:15 03/16/20 24 03/16/2024 elect romyo gram + nerve condu ction study No observ ation record ed. [email or web address] [facility] (Medical Records) [address] [place], [address], 03/17/2024 12:09:59 03/16/20 24 03/16/2024 elect romyo gram + nerve condu ction study No observ ation record ed. [email or web address] [facility] (Medical Records) [address] [place], [address], 03/17/2024 12:09:59 07/31/19 25 07/31/2024 XR, chest , 2 view No observ ation record ed. [facility] (Medical Records) [address] [place], [address], 07/31/2024 08:12:29 08/31/19 25 08/30/2024 US, abdom en No observ [facility]ion [facility] ed. [email or web address] [address] [place], [address], 08/30/2024 10:11:14 09/16/19 25 09/15/2024 RF, upper gastr ointe gayatri l tract , w/ contr ast PO No observ ation record ed. [facility] (Medical Records) [address] [place], [address], 09/15/2024 15:29:33 Result Notes None recorded. Problems Name Problem SNOMED Code Status Onset Date Resolution Date Notes Provider Name and Address Organization Details Recorded Time Edema of lower extremit y 636517239 Active 2018 Not Available [facility] 2 14:39:08 Stargard t's disease 24322458 Active 2019 Not Available [facility] 2 14:39:08 Acute sinusiti s 43697202 Active 2021 VIJAY HAAS [address] [place] [address], [address], [facility] 2 10:05:14 Posterio r rhinorrh ea 53495808 Active 2021 VIJAY HAAS [address] [place] [address], [address], [facility] 2 10:05:48 Pain in throat 831260066 Active 2021 VIJAY HAAS [address] [place] [address], [address], [facility] 2 10:05:53 COVID-19 905048142 Active 2021 VIJAY HAAS [address] [place] [address], [address], [facility] 2 10:28:01 Intermit tent palpitat ions 018580995 Active 2021 Brendan Dockery DO [address] [place] [address], [address], [facility] 2 14:24:47 Acute otitis media 9850141 Active 2022 VIJAY HAAS [address] [place] [address], [address], [facility] 3 14:11:22 Acute bronchit is 29816592 Active 2022 VIJAY HAAS [address] [place] [address], [address], [facility] 3 11:29:57 Acute otitis media 8025842 Active 2023 Brendan Dockery, [address], [address], [facility] 4 15:34:59 Epidermo id cyst of skin 506514659 Active 2023 Brendan Dockery [address], [address], [facility] 4 11:26:25 Anxiety 91040690 Active 2023 Brendan Dockery DO [address] [place] [address], [address], [facility] 4 11:04:14 Cough 42162353 Active 2023 Brendan Dockery DO [address] [place] [address], [address], [facility] 4 09:46:18 Neck pain 35755081 Active 2023 Brendan Dockery DO [address] [place] [address], [address], [facility] 4 09:16:11 Pneumoni a 384763135 Active 2023 Brendan Dockery DO [address] [place] [address], [address], [facility] 4 14:44:04 Cervical radiculo lore 48957126 Active 2023 VIJAY HAAS [address] [place] [address], [address], [facility] 4 09:40:00 Bilatera l carpal tunnel syndrome 12744845084 844745 Active 2023 VIJAY HAAS [address] [place] [address], [address], [facility] 4 09:42:34 Cervical disc disorder 741002122 Active 2023 VIJAY HAAS [address] [place] [address], [address], [facility] 4 15:54:20 Gastroes ophageal reflux disease 305594460 Active 2017 Not Available [facility] 2 14:39:08 Hypothyr oidism 32530641 Active 2017 Not Available [facility] 2 14:39:09 Migraine 34825992 Active 2017 Not Available [facility] 2 14:39:08 Fibromya lgia 314911240 Active 2017 Not Available [facility] 2 14:39:09 Family history of non-Hodg kin's lymphoma 578630968 Active 2017 father, dx'd 11/2010 Not Available [facility] 2 14:39:09 Thoracic outlet syndrome 338005267 Active 2017 s/p 1st rib removal 03/2012 Not Available [facility] 2 14:39:09 Chronic headache disorder 412280345 Active 2017 Not Available [facility] 2 14:39:09 Ventricu lar prematur e complex 873530965 Active 2017 Not Available [facility] 2 14:39:09 Hyperten sive disorder 06261609 Active 2017 Not Available [facility] 2 14:39:08 Tachycar mehnaz 8508862 Active 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 Procedures Surgical History Date Name Laterality Status Provider Name and Address Organization Details Recorded Time Colonoscopy completed Brendan Dockery , DO [address] [place] [address], [place], [address], [facility] 11/17/2021 15:53:34 Imaging Results Imaging Date Name Status LastModified by Organization Details LastModified Time 10/01/2022 MAMMO, screening, digital, bilateral completed [facility] [address] [place] [address] [place], [address], 10/07/2022 08:10:20 02/21/2023 XR, foot completed [facility] (Medical Records) [address] [place], [address], 02/21/2023 08:35:27 02/21/2023 XR, ankle completed [facility] (Medical Records) [address] [place], [address], 02/21/2023 08:35:58 10/18/2023 MAMMO, screening, digital, bilateral completed [facility] [address] [place], [address], 11/08/2023 13:26:33 02/04/2024 XR, cervical spine, 2 or 3 view completed [facility] (Medical Records) [address] [place], [address], 02/18/2024 09:49:01 02/04/2024 XR, chest, 2 view completed [facility] (Medical Records) [address] [place], [address], 02/18/2024 09:49:00 02/11/2024 XR, chest, 2 view completed [facility] (Medical Records) [address] [place], [address], 02/22/2024 15:40:53 03/03/2024 MRI, cervical spine, w/o contrast completed [facility] (Medical Records) [address] [place], [address], 03/14/2024 15:53:15 03/16/2024 electromyogram + nerve conduction study completed [address] (Medical Records) [address] [place], [address], 03/17/2024 12:09:59 03/16/2024 electromyogram + nerve conduction study completed [address] (Medical Records) [address] [place], [address], 03/17/2024 12:09:59 07/31/2024 XR, chest, 2 view completed [address] (Medical Records) [address] [place], [address], 07/31/2024 08:12:29 08/30/2024 US, abdomen completed [facility] (Medical Records) [address] [place], [place], [address], 08/30/2024 10:11:14 09/15/2024 RF, upper gastrointestinal tract, w/ contrast PO completed [facility] (Medical Records) [address] [place], [address], 09/15/2024 15:29:33 Procedure Notes None recorded. Medical Equipment None Reported. Allergies Allergen ID Allergen Name Allergen Category Reaction Reaction Severity Criticality Documentation Date Start Date Code Code System Note Provider Name and Address Organization Details Recorded Time 1277 Fluarix medicatio n Not available Not available Not available 10/15/2017 60806 UNK Rowan freitas [facility] 8 09:01:31 5796 Shingrix medicatio n Not available Not available Not available 11/17/2021 99928 26 RxNorm Brendan Dockery, DO [address] [place], [address], [facility] 2 15:05:01 8069 SARS-CoV- 2 (COVID-19 ) vaccine, protein [id number]-CoV23 73 medicatio n Not available Not available Not available 11/03/2023 20825 73 RxNorm Hai freitas [facility] 4 10:55:25 Medications Name Sig [...] propionate 50 mcg/actuati on nasal spray,suspe nsion Lebo 1 spray every day by intranasa l [...] completed Not Available Not Available Not Available [employer] COVID-19 Ag Self Test kit TEST DIRECTED [...] Updated DateTime 4 172.72 cm 37.7 kg/m2 307545. 91 g 87 /min 97 % 97 % 138 mm[Hg] 68 mm[Hg] Madison Smith [facility] 4 10:00:36 Date Recorded Body height Body mass index (BMI) Body weight Heart rate Respiratory rate Oxygen saturation Oxygen saturation in Arterial blood by Pulse oximetry Systolic blood pressure Diastolic blood pressure Provider Name and Address Organization Details Last Updated DateTime 4 172.72 cm 38 kg/m2 240733. 45 g 64 /min 18 /min 96 % 96 % 128 mm[Hg] 70 mm[Hg] Hai Ahumada [facility] 4 10:55:03 Date Recorded Body height Body mass index (BMI) Body weight Heart rate Oxygen saturation Oxygen saturation in Arterial blood by Pulse oximetry Systolic blood pressure Diastolic blood pressure Provider Name and Address Organization Details Last Updated DateTime 4 172.72 cm 37.6 kg/m2 208518. 32 g 74 /min 95 % 95 % 116 mm[Hg] 82 mm[Hg] Cathy Forbes [facility] 4 09:29:51 Social History Question Answer Notes LastModified by Organizat ion Details LastModified Time Tobacco Smoking Status Never Smoker Not Available [facility] 04/09/2020 03:36:23 What Was The Date [...] dose 1 completed Brendan Dockery DO [address] [place] [address], [address], [facility] 03/25/2021 14:56:42 COVID-19, mRNA, LNP-S, PF, 30 mcg/0.3 mL dose 1 completed Brendan Dockery DO [address] [place] [address], [address], [facility] 03/25/2021 14:56:50 COVID-19, mRNA, LNP-S, PF, 100 mcg/0.5mL dose or 50 mcg/0.25mL dose 2 completed Brendan Dockery DO [address] [place] [address], [address], [facility] 11/17/2021 15:06:29 zoster recombinant 2 completed Brendan Dockery DO [address] [place] [address], [address], [facility] 11/17/2021 15:06:54 Past Encounters Encounter ID Performer Location Encounter Start Date Encounter Closed Date Diagnosis/Indication Diagnosis SNOMED-CT Code Diagnosis ICD10 Code Diagnosis Note [id number] [facility] [address] [facility] [address] 10/15/2017 14:39:05 10/15/2017 16:02:57 Tenosynovitis of wrist 298495757 M65.839 given she has tried splint and taken otc and rx nsaids without resolution Hypertensive disorder 38 297429 I10 bp is stable no issues noc cp [id number] Sheyla Coon NP, [facility] [address] [facility] [address],[place] [address] 11/23/2017 13:24:41 11/23/2017 14:43:03 Acute bacterial sinusitis 53074602 J01.90 Hypothyroidism 16708453 E03.9 stable, reviewed labs Essential hypertension 74690746 I10 stable [id number] [facility] [address] [facility] [address] 02/28/2018 10:59:14 02/28/2018 12:08:52 Hypothyroidism 21332908 E03.9 tsh is 0.8 Hypertensive disorder 38 765177 I10 bp is stable no issues noc cp Adult heal th examination 881577912 Z00.00 discussed need for exercise and diet Screening for cardiovascular system disease 893286017 Z13.6 Screening mammography 24 793179 Z12.31 [place] [id number] [facility] [address] [facility] [address] 07/12/2018 09:48:11 07/12/2018 11:06:37 Migraine 95348845 G43.909 Using imitrex with relief Hypertensive disorder 38 036536 I10 diastolic slightly elevated, will monitor Hypothyroidism 54497658 E03.9 labs last done 02/2018 Benign par oxysmal positional vertigo 729539742 H81.11 improving with meclizine Acute sinusitis 17285954 J01.90 continue mucinex, flonase, fluids, humidifier [id number] Sheyla Coon NP, S [facility] Internal Medicine [address] [facility] [address] [address] 09/16/2018 11:50:53 09/16/2018 15:19:18 Otitis media 05604410 H66.92 Allergic cough 988379020 R05 Active or passive immunization 663080523 Z23 Hypertensive disorder 38 474991 I10 stable, reviewed Mar 2018 labs [id number] Sheyla Coon NP, [facility] Medicine [address] [facility] [address], [place] [address] 09/26/2018 13:31:49 09/26/2018 14:23:51 Dysfunction of eustachian tube 04197358 H69.92 [id number] Sheyla Coon NP, [facility] [address] [facility] [address], [place] [address] 10/03/2018 14:57:35 10/03/2018 16:29:59 Dysfunction of left eustachian tube 5050410176 556523 H69.92 [id number] [facility] [address] [facility] [address], [place] [address] 11/23/2018 16:09:46 11/25/2018 08:16:23 Hypertensive disorder 59057361 I10 bp is stable no issues noc cp Hypothyroidism 04526298 E03.9 tsh is 0.8 Edema of l ower extremity 172267396 R60.0 will add furosemide 40mg [id number] [facility] [address] [facility] [address], [place] [address] 12/02/2018 13:35:55 12/02/2018 14:40:20 Hypertensive disorder 18403312 I10 bp is stable no issues noc cp will cont Edema of l ower extremity 783288660 R60.0 will cont furosemide 40mg [id number] September STEPHANIE Ballesteros [facility] Internal Medicine [address] [facility] [address], [place] [address] 01/13/2019 10:20:35 01/13/2019 11:04:19 Edema of lower extremity 501298245 R60.0 b/l improved on increased dose of lasix do 80 mg again today then return to 40 mg Hypertensive disorder 38 063641 I10 stable Hypothyroidism 48901555 E03.9 normal tsh 12/2018 [id number] Brendan Dockery DO [facility] Internal Medicine [address] [facility],[place] [address] 01/30/2019 13:31:42 01/30/2019 14:09:46 Edema of lower extremity 828060154 R60.0 will cont furosemide 40mg and will cont to use bid when sudden changes potassium supp or bananas Hypertensive disorder 38 434201 I10 bp is stable no issues noc cp will cont Hypothyroidism 27866998 E03.9 tsh is wnl per [facility] lab Tinea pedis 0434445 B35. 3 lotrimin cream [id number] Brendan Dockery DO [facility] Internal Medicine [address] [facility] [address] 09/04/2019 11:07:27 09/04/2019 13:34:20 Acute sinusitis 03704341 J01.90 will need to treat given her past issues [id number] Brendan Dockery [facility] Internal Medicine [address] [facility],[place] [address] 04/01/2020 13:27:40 04/01/2020 14:38:28 Adult health examination 656243109 Z00.00 discussed need for exercise and diet Screening for cardiovascular system disease 230094156 Z13.6 Screening for osteoporosis 953470303 Z13.820 Screening mammography 24 216940 Z12.31 [place] [id number] VIJAY HAAS [facility] Internal Medicine [address] [facility],[place] [address] 04/15/2020 09:07:48 04/15/2020 11:14:34 Acute otitis media 4546961 H65.01 most likely another ear infection given symptoms and hx will fu with patient if still having symptoms or worsening pt understand s and will call Nasal congestion 2217842 0 R09.81 more with pressure, all right sided along maxillary and frontal sinuses Headache 37745513 R51.9 right sided, also suffers from chronic headaches so not uncommon [id number] Brendan Dockery DO [facility] Internal Medicine [address] [facility],[place] [address] 03/25/2021 14:34:54 03/25/2021 16:24:44 Hypothyroidism 00563919 E03.9 tsh low and t4 is high and we nmeed to decrease her dose she is having a lot of hairloss Gastroesop hageal reflux disease 966472636 K21.00 has breakthrog uh [place] [id number] Brendan Dockery DO [facility] Internal Medicine [address] [facility], [place] [address] 05/14/2021 09:37:08 05/14/2021 14:28:14 Gastroesophageal reflux disease 926247416 K21.00 has breakthrog uh need to incerease the nexium to bid Hypertensive disorder 38 221983 I10 bp is stable no issues noc cp will cont current tx Edema of l ower extremity 922468611 R60.0 furosemide 40mg as needed only and has not taken any since the summer and will cont to use prn when sudden changes potassium supp or bananas when she does take furosemide [id number] VIJAY HAAS [facility] Internal Medicine [address] [facility], [place] [address] 06/16/2021 09:40:38 06/16/2021 16:20:27 Chondromalacia of patella 14264315 M22.41 will fu with MRI Pain of le ft knee joint 2786319373 31011 M25.562 will fu with MRI [id number] VIJAY HAAS [facility] Internal Medicine [address] [facility], [place] [facility] [place] [address] 06/30/2021 09:21:10 07/01/2021 15:55:17 Acute sinusitis 19424902 J01.01 will start on abx and fu with patient if no improvemen t Otalgia 05247217 H92.01 [place] abx [id number] VIJAY HAAS [facility] Internal Medicine [address] [facility], [place] [address] 10/17/2021 09:21:32 10/17/2021 11:33:49 Acute sinusitis 87195950 J01.01 will start on abx and fu with patient if no improvemen t Posterior rhinorrhea 758 45358 R09.82 will fu with testing Pain in throat 789587589 R07.0 can use APAP and IBU for symptom management [id number] Brendan Dockery DO [facility] Internal Medicine [address] [facility], [place] [address] 11/17/2021 14:48:20 11/17/2021 15:56:50 Hypertensive disorder 62860979 I10 bp is stable no issues noc cp will cont current tx Hypothyroidism 27735636 E03.9 tsh low and t4 is high and we nmeed to decrease her dose she is having a lot of hairloss Active or passive immunization 243740527 Z23 patient advised she is due for a tdap Screening for malignant neoplasm of colon 782822289 Z12.11 already had done in jul Depression screening 171 381556 Z13.31 Did not bring glasses to fill out PHQ9 not able to complete today Tachycardia 0889191 R00. 0 given just one episode [id number] VIJAY HAAS [facility] Internal Medicine [address] [facility], [place] [address] 08/11/2022 13:49:58 08/11/2022 16:33:49 Acute otitis media 9442022 H65.01 will set up with cipro for 7 days [facility] best for the patient [id number] VIJAY HAAS [facility] [address] [facility], [place] [address] 09/23/2022 09:07:41 09/23/2022 12:05:06 Acute otitis media 7900041 H65.01 will set up with cipro for 7 days [employer] the patient Migraine [id number] G43.10 9 will set up with second opinion with neuro [id number] Brendan Dockery DO [facility] [address] [facility], [address] [facility] [place] [address] 08/23/2023 09:51:36 08/23/2023 10:25:31 Hypertensive disorder [id number] I10 bp is stable no issues no cp will cont current tx Hypothyroidism 10886239 E03.9 tsh low and t4 is high and we need to decrease her dose she is having a lot of hairloss [id number] Brendan Dockery DO [facility] Internal [facility] [address] [facility],[place] [address] 11/03/2023 10:35:53 11/03/2023 12:15:08 Adult health examination 036120899 Z00.00 discussed need for exercise and diet Screening for cardiovascular system disease 818151147 Z13.6 Screening for malignant neoplasm of colon 370144147 Z12.11 already had done in jul Depression screening 171 181778 Z13.31 Did not bring glasses to fill out PHQ9 not able to complete today Epidermoid cyst of skin 328910957 L72.0 [id number] Brendan SalinasAlba Dockery [facility] Internal Medicine [address] [facility],[place] [address] 02/04/2024 08:34:01 02/04/2024 14:30:07 Anxiety 30663869 F41.9 stable Hypertensive disorder 38 229087 I10 bp is stable no issues no cp will cont current tx Hypothyroidism 74864449 E03.9 stable Thoracic o utlet syndrome 634246444 G54.0 no chnges Neck pain 00192387 M54.2 possible radiculopa thy issue here having numbness Cough 39169750 R05.9 not getting better , will use use guaifen over weekend if no better will need levoflox etc will get cxr today [id number] VIJAY HAAS [facility] Internal [facility] [address] [facility] [address] 02/18/2024 09:14:53 02/18/2024 09:50:41 Cervical radiculopathy 31683542 M54.12 will set up MRI now and EMG for her arms Bilateral carpal tunnel syndrome [id number] 8026475 G56.03 fu EMG Cough 82216008 R05.2 given syrup to use PRN for the coughing Health Concerns Section Related Observation LastModified by Organization Detai ls LastModified Time None Recorded Concern Status LastModified by Organization Details LastModified Time None Recorded Advance Directives Directive None Recorded Payers Encounter Date Sequence Insurance Name Policy Number Policy Blandon Covered Member ID Blandon Member ID Guarantor Name 09/23/2022 1 [place] [employer] Tamar Chacon [id number] Tamar Oswaldo 09/23/2022 2 [place] Tamar Salinas Oswaldo [id number] Tamar Oswaldo 08/23/2023 1 [place] [employer] Tamar Salinas Oswaldo [id number] Tamar Oswaldo 08/23/2023 2 [place] Tamar Salinas Oswaldo [id number] Tamar Oswaldo 11/03/2023 1 [place] [employer] Tamar Salinas Oswaldo [id number] Tamar Oswaldo 11/03/2023 2 [place] Tamar Salinas Oswaldo [id number] Tamar Oswaldo 02/04/2024 1 [place] [employer] Tamar Salinas Oswaldo [id number] Tamar Oswaldo 02/04/2024 2 [place] Tamar Salinas Oswaldo [id number] Tamar Oswaldo 02/18/2024 1 [place] [employer] Tamar Salinas Oswaldo [id number] Tamar Oswalod 02/18/2024 2 [place] Tamar Salinas Oswaldo [id number] Tamar Oswaldo Notes Date Note Type Note [...] to stick with VIJAY De La Torre [address] [place] [address], [place], [address], [facility] 09/23/2022 11:28:14 4 text/html here for annual wellnessrelates has been under a lot of stress relates that she has been sad bc she can no longer drive etc Brendan BradAlba Gomezkeyshawn, DO [address] [facility], [place], [address], [facility] 08/23/2023 22:06:45 4 text/html Medicare [...] issue is fatigue always feels tired Brendan BradAlba Dockery, [address] [place], [address], [facility] 11/03/2023 11:28:39 4 text/html [...] mid backfeels when arches her back Brendan BradAlba Dockery DO [address] [place], [address], [facility] 02/04/2024 09:24:45 4 text/html f/u neck pain the patient reports that she is having neck painagreed to MRI for more information waiting on repeat CXRfor the pna, given cough syrup EMG will be needed for possible carpal tunnel on top of the radiculopathy from the neck will f/u after CXR comes in will fu after MRI VIJAY HAAS [address] [place], [address], [facility] 02/18/2024 09:49:55 OBGyn Episode No OBEpisode recorded.
--- NOTE | 2024-09-28 08:29 | MHC.OFFVISWM ---
VS Expanded 09/28/24 08:44 Height 5 ft 8 in Weight 226 lb 4 oz BMI 34.4 Body Fat % 44.8 Body Fat Mass 101.4 Fat Free Mass 125 Visceral Fat Rating 16 Body Water % 37.9 Body Water Mass 85.8 Basal Metabolic Rate/Score 1,590 Intake Visit Reasons: TV Pre Op LSG 10/12/24 Allergies Seasonal Allergies Allergy (Mild, Verified 09/28/24 08:33) sneezing vaccines Allergy (Unknown, Uncoded 09/28/24 08:33) unknown Medication List - Last Reconciled 09/28/24 by Alan Herr MD amitriptyline 50 mg PO BEDTIME famotidine 40 mg PO DAILY [hair skin and nails PO] levothyroxine (Synthroid) 137 mcg PO DAILY omeprazole 20 mg PO DAILY ondansetron 4 mg PO Q12H pantoprazole 40 mg PO DAILY polyethylene glycol 3350 17 grams PO DAILY propranolol ER 80 mg PO DAILY sucralfate 10 mL PO BID topiramate 25 mg PO TID HPI HPI TV Pre Op LSG 10/12/24: Details: Start time: 8.22am, End time: 8.52am ?I spent 25 minutes speaking with the patient on the phone plus an additional 5 minutes reviewing and updating records for a total of 30 minutes HPI Comments Details: Overall weight loss: 28.6lbs, or 11.2% TBWL Is doing 2 premade Premier (4oz of Premier mixed with 4oz almond milk), 2 [employer]Bell protein bars and one meal (8 forks of protein and 8 forks of salad or vegetables) Exercise: either walking or elliptical/bike for 300 calories daily PFSH Medical History Hypothyroid History of nephrolithiasis Diaphragmatic hernia GERD (gastroesophageal reflux disease) Hypertension DJD (degenerative joint disease) Familial juvenile macular degeneration syndrome Anxiety Depression Surgical History History of resection of rib Hx of hysterectomy Hx of adenoidectomy Hx of tonsillectomy Hx of bladder endoscopy Hx of colonoscopy Family History (Updated 07/27/24 @ 08:51 by Sarah Leung CMA) Mother Malignant neoplasm of breast in full remission Arthritis Father Landon's disease Son No problems noted. Son No problems noted. Social History (Updated 07/27/24 @ 08:51 by Sarah Leung CMA) Alcohol intake: current Alcohol intake frequency: holidays/special occasions only Patient Tobacco Use Status: Never used Tobacco Telehealth Telehealth Telehealth Platform: Telephone Location of provider rendering services: practice address Location of patient: address on file Patient Identification confirmed using: Name, : Yes Telehealth method: voice only Patient verbally consented to treatment: Yes Patient verbally consented to billing insurance company: Yes Patient informed of any privacy concerns related to visit: Yes Minutes spent on Phone/Video with Pt.: 30 Assessment & Plan Assessment & Plan (1) Obesity: Code(s): E66.9 - Obesity, unspecified Category: Medical Qualifiers: Obesity type: due to excess calories Obesity classification: adult class 2 (BMI 35 - 39.9) Serious obesity comorbidity presence: with serious comorbidity Body mass index: BMI 38.0-38.9 Qualified Code(s): E66.812 - Obesity, class 2; E66.01 - Morbid (severe) obesity due to excess calories; Z68.38 - Body mass index [BMI] 38.0-38.9, adult Plan: 1. Plan for lap sleeve gastrectomy including upper GI endoscopy. All tests has been completed and reviewed and the patient is cleared for the surgery. ?If diaphragmatic or ventral hernias are present at time of surgery, these will be repaired laparoscopically as well. Risks and complications were discussed in detail including possible conversion to an open procedure, anastomotic leak, bleeding requiring transfusion, small bowel obstruction, , DVT and pulmonary embolism, cardiac, or pulmonary complications, as manager intermediate complications such as anastomotic ulcer, insufficient weight loss and vitamin deficiencies. I emphasized the importance of close follow-up, adherence to instructions and good communication. So far she has proven to be an excellent communicator and very compliant with all our directions accomplishing a great weight loss. I believe that she is an excellent candidate and she is ready. 2. Preop prescriptions were provided and explained the purpose of each one. Need to be purchased preop. Start Pantoprazole now as you get it from the pharmacy, 1 pill per day. Sucralfate and Zofran are for after surgery as needed. 3. Bowel prep: please do 7 packets ?of Miralax mixing each one with a an 8oz glass of water, crystal light, gatorade zero, or propel ?on 10/10/24 and the same amount on 10/11/24. The Miralax you begin with one packet at a time in 8oz water or crystal light, gatorade zero, or propel ?as early in the day as you can and you do them back to back until you finish them. Continue the protein shakes during ?the bowel prep. 4. Needs to purchase 1oz medicine cups . 5. Needs to purchase Children's liquid Tylenol for postop pain control. 6. Avoid aspirin, motrin, Advil, Aleve, Meloxicam, Excedrin, Ibuprofen, Naproxyn. Tylenol is OK. 7. She needs to purchase the Celebrate multivitamins from the hospital's gift shop, chewable or pills whatever you prefer. 8. Will do basic preop blood work-up on Wednesday10/04/24 fasting for 12 hours and is scheduled to see the Anesthesiologist prior to the day of surgery. 9. Importance of adherence to postop folllow-up and recommendations was underscored and she understands that. 10. Stop food and bars as of Wednesday10/02/24 and continue with 4 premade Premier protein shakes (5.5oz of Premier mixed with 4oz almond milk) at 7am-9am, 10am-12pm, 1pm-3pm, 4pm-6pm and at 7pm-9pm 11. No soups, broths or V8 12. The patient's?medical?history has been reviewed and they are considered low risk for post op DVT and therefore DVT prophylaxis is not considered necessary. Travel after surgery was reviewed. The patient has not disclosed any travel plans during the first 30 days after surgery and they have been advised that within the first 30 days after surgery any bus, plane, train or car travel over 2 hours in duration is contraindicated due to the possibility of developing blood clots from immobility. Any travel, needs to include periods of ambulation of 10 minutes in duration every 2 hours.? Patient was instructed to discuss any plans for travel during this period with their bariatric surgeon.? 13. As of tomorrow, please check your blood pressure daily in the morning. If your blood pressure is: Below 120/70: do not take the Propranolol 121/71 to 135/85: take HALF Propranolol Over 136/86: take the whole Propranolol 14. Please take at the day of surgery the following medications: Lisinopril if the blood pressure that day is high enough to justify it based on the parameters at the previous bullet point. 15. Stop any control pills and don't use them for one month after surgery 16. Absolutely no smoking or vaping, or marijuana until the surgery and for at least the first 4 weeks. Only nicotine patches are allowed. 17. Send me weight measurements on 10/05/24 and then on 10/12/24, the day of surgery before you go to the hospital. 18. Avoid any steroids by mouth for any reason. Let me know if someone prescribes them to you 19. These instructions supersede anything else you read in the handbook, anything you watched in videos or classes or you were told by any other provider. If there is any conflict, you follow the above instructions and nothing else. Orders: Orders Comprehensive Met. Panel Today E66.01 - Morbid (severe) obesity due to excess calories, E66.812 - Obesity, class 2, I10 - Essential (primary) hypertension, K21.9 - Gastro-esophageal reflux disease without esophagitis, Z68.34 - Body mass index [BMI] 34.0-34.9, adult, Z68.38 - Body mass index [BMI] 38.0-38.9, adult C Reactive Protein Today E66.01 - Morbid (severe) obesity due to excess calories, E66.812 - Obesity, class 2, I10 - Essential (primary) hypertension, K21.9 - Gastro-esophageal reflux disease without esophagitis, Z68.34 - Body mass index [BMI] 34.0-34.9, adult, Z68.38 - Body mass index [BMI] 38.0-38.9, adult Complete Blood Count Auto Diff Today E66.01 - Morbid (severe) obesity due to excess calories, E66.812 - Obesity, class 2, I10 - Essential (primary) hypertension, K21.9 - Gastro-esophageal reflux disease without esophagitis, Z68.34 - Body mass index [BMI] 34.0-34.9, adult, Z68.38 - Body mass index [BMI] 38.0-38.9, adult TSH reflex Free T4 Today E66.01 - Morbid (severe) obesity due to excess calories, E66.812 - Obesity, class 2, I10 - Essential (primary) hypertension, K21.9 - Gastro-esophageal reflux disease without esophagitis, Z68.34 - Body mass index [BMI] 34.0-34.9, adult, Z68.38 - Body mass index [BMI] 38.0-38.9, adult Hemoglobin A1c Today E66.01 - Morbid (severe) obesity due to excess calories, E66.812 - Obesity, class 2, I10 - Essential (primary) hypertension, K21.9 - Gastro-esophageal reflux disease without esophagitis, Z68.34 - Body mass index [BMI] 34.0-34.9, adult, Z68.38 - Body mass index [BMI] 38.0-38.9, adult Prothrombin Time INR Today E66.01 - Morbid (severe) obesity due to excess calories, E66.812 - Obesity, class 2, I10 - Essential (primary) hypertension, K21.9 - Gastro-esophageal reflux disease without esophagitis, Z68.34 - Body mass index [BMI] 34.0-34.9, adult, Z68.38 - Body mass index [BMI] 38.0-38.9, adult Lipid Panel Today E66.01 - Morbid (severe) obesity due to excess calories, E66.812 - Obesity, class 2, I10 - Essential (primary) hypertension, K21.9 - Gastro-esophageal reflux disease without esophagitis, Z68.34 - Body mass index [BMI] 34.0-34.9, adult, Z68.38 - Body mass index [BMI] 38.0-38.9, adult Type and Screen Today E66.01 - Morbid (severe) obesity due to excess calories, E66.812 - Obesity, class 2, I10 - Essential (primary) hypertension, K21.9 - Gastro-esophageal reflux disease without esophagitis, Z68.34 - Body mass index [BMI] 34.0-34.9, adult, Z68.38 - Body mass index [BMI] 38.0-38.9, adult Partial Thromboplastin Time Today E66.01 - Morbid (severe) obesity due to excess calories, E66.812 - Obesity, class 2, I10 - Essential (primary) hypertension, K21.9 - Gastro-esophageal reflux disease without esophagitis, Z68.34 - Body mass index [BMI] 34.0-34.9, adult, Z68.38 - Body mass index [BMI] 38.0-38.9, adult Insulin Today E66.01 - Morbid (severe) obesity due to excess calories, E66.812 - Obesity, class 2, I10 - Essential (primary) hypertension, K21.9 - Gastro-esophageal reflux disease without esophagitis, Z68.34 - Body mass index [BMI] 34.0-34.9, adult, Z68.38 - Body mass index [BMI] 38.0-38.9, adult Medications: New sucralfate 10 mL PO BID 600 mL 2RF K21.9 - Gastro-esophageal reflux disease without esophagitis pantoprazole 40 mg PO DAILY 90 tabs 0RF K21.9 - Gastro-esophageal reflux disease without esophagitis ondansetron Only take one every 12 hours as needed if you have nausea 4 mg PO Q12H 20 tabs 0RF nausea and vomiting R11.0 - Nausea polyethylene glycol 3350 Mix each measuring cup with 8oz of water, Crystal light, or Gatorade zero, or Propel and do 7 measuring cups on 10/10/24 and another 7 measuring cups on 10/11/24 17 grams PO DAILY 238 grams 0RF Z01.818 - Encounter for other preprocedural examination
[2024-09-28 08:44] VITALS: BMI 34.4
== END 2024-09-28 08:53 | disposition home or self-care (01) ==
LOC: HO.HBS 08:11
PROVIDERS: PCP Internal Medicine; Visit Provider Surgery
DX: E66.812 Obesity, class 2 (principal); E66.01 Morbid (severe) obesity due to excess calories; Z68.38 Body mass index [BMI] 38.0-38.9, adult
CPT/HCPCS: 99214

== ENCOUNTER → 2024-09-28 08:11 | Outpatient (BNVA) | payer MEDICARE, MEDICAID, SELFPAY | PROVIDERS: PCP Internal Medicine; Visit Provider Surgery ==

== ENCOUNTER → 2024-10-04 08:27 | Outpatient (BNVA) | payer MEDICARE, MEDICAID, SELFPAY | PROVIDERS: PCP Internal Medicine; Visit Provider Surgery ==

== ENCOUNTER 2024-10-12 06:18 | Inpatient (IN) | payer MEDICARE, MEDICAID, SELFPAY ==
[2024-09-28 10:44] VITALS: BMI 34.4
[2024-10-04 08:29] LABS: MANUAL DIFF FLAG NO
[2024-10-04 08:49] LABS: Basophils Percent Auto 0.3 % (0-2); Eosinophils Absolute Auto 0.1 X10*3/uL (0.0-0.4); Eosinophils Percent Auto 0.8 % (0-4); Hematocrit 43.2 % (37.0-47.0); Hemoglobin 15.2 g/dl (12.0-16.0); Imm Gran Abs Auto 0.03 X10*3/uL (0.00-0.03); Imm Gran Pct Auto 0.5 % (0.0-0.4); Lymphocytes Absolute Auto 1.5 X10*3/uL (1.2-4.9); Lymphocytes Percent Auto 22.6 % (20-40); Mean Corpuscular HGB Conc 35.2 g/dl (31.0-35.0); Mean Corpuscular Hemoglobin 31.3 pg (27.0-33.0); Mean Corpuscular Volume 88.9 fL (80.0-98.0); Mean Platelet Volume 9.7 fL (9.4-12.3); Monocytes Absolute Auto 0.4 X10*3/uL (0.1-1.2); Monocytes Percent Auto 6.6 % (2-11); Neutrophils Absolute Auto 4.6 x10*3/uL (2.0-8.3); Neutrophils Percent Auto 69.2 % (45-73); Platelet Count 237 X10*3/uL (160-400); Red Blood Count 4.86 X10*6/uL (4.20-5.50); Red Cell Distribution Width 13.2 % (11.0-16.0); White Blood Count 6.6 X10*3/uL (4.8-10.8)
[2024-10-04 08:56] LABS: Estimated Average Glucose 94 mg/dL; Hemoglobin A1C 117.0735 umol/L; Hemoglobin A1c % 4.9 % (<6.0); Total Hemoglobin (HGBA1C) 3925.5026 umol/L
[2024-10-04 08:57] LABS: INTERNATIONAL NORM RATIO 1.1 (0.9-1.1); Prothrombin Time 12.8 SEC (10.9-12.4)
[2024-10-04 09:00] LABS: Partial Thromboplastin Time 35.8 SEC (26.0-36.8)
[2024-10-04 09:39] LABS: Alanine Aminotransferase 19 U/L (0-31); Albumin Level 4.1 g/dL (3.5-5.0); Anion Gap 14 (12-20); Aspartate Amino Transferase 24 U/L (5-31); Bilirubin Total 0.4 mg/dL (0.0-1.0); Blood Urea Nitrogen 16 mg/dL (9-16); C Reactive Protein 1.21 mg/dL (< or = 0.50); Calcium 9.3 mg/dL (8.4-10.2); Carbon Dioxide 24 mmol/L (22-29); Chloride 107 mmol/L (96-108); Cholesterol 154 mg/dL (<200); Creatinine Clr Calc Pharmacy 112.1; Estimated Glomerular Filt Rate > 60; Glucose Random 80 mg/dL (60-115); HDL Cholesterol 50 mg/dL (>40); LDL Cholesterol Calculated 94 mg/dL (<100); Potassium 3.4 mmol/L (3.3-5.1); Sodium 142 mmol/L (135-145); Triglycerides 53 mg/dL (<150)
[2024-10-04 10:01] LABS: Alkaline Phosphatase 65 U/L (39-117); Insulin 5 uU/mL (2-29); TSH reflex Free T4 0.37 uIU/mL (0.32-4.0)
--- NOTE | 2024-10-10 13:22 | HO.ANESPROP2 ---
Documented by User: Su Penny NP 10/10/24 13:24 HPI - Anesthesia Eval Consult details Narrative: 54yo F for Gastrectomy Sleeve - EGD, possible diaphragmatic hernia, possible ventral hernia, possible open PMFSH Active Problems Active Problems: All Active Problems Abnormal EKG (Acute) BMI 38.0-38.9,adult (Acute) Obesity (Acute) Cervical spondylosis (Acute) Degenerative cervical disc (Acute) Cervicalgia (Acute) Diaphragmatic hernia (Acute) GERD (gastroesophageal reflux disease) (Acute) Hypertension (Acute) DJD (degenerative joint disease) (Acute) Familial juvenile macular degeneration syndrome (Acute) Anxiety (Acute) Depression (Acute) Past Medical History Medical History (Updated 09/28/24 @ 10:22 by Kamala Solitario RN) Legally blind Back pain Graves disease Kidney stones Hypothyroid History of nephrolithiasis Diaphragmatic hernia GERD (gastroesophageal reflux disease) Hypertension DJD (degenerative joint disease) Familial juvenile macular degeneration syndrome Anxiety Depression Family History Family History (Updated 07/27/24 @ 08:51 by Sarah Leung CMA) Mother Malignant neoplasm of breast in full remission Arthritis Father Landon's disease Son No problems noted. Son No problems noted. Family history of problems with anesthesia: No Surgical History Surgical History (Updated 09/28/24 @ 10:22 by Kamala Solitario RN) History of esophagogastroduodenoscopy (EGD) History of resection of rib Hx of hysterectomy Hx of adenoidectomy Hx of tonsillectomy Hx of bladder endoscopy Hx of colonoscopy History of Problems with Anesthesia: No Social History Social History (Updated 07/27/24 @ 08:51 by Sarah Leung CMA) Are you a primary home health care coordinator to a significant other at home: No Do you presently have visiting nurse or other home services: No Alcohol intake: current Alcohol intake frequency: does not drink Patient Tobacco Use Status: Never used Tobacco Use of substances other than those prescribed or required for medical reasons: No Have you been hit, kicked, punched, or otherwise hurt by someone within the past year? If so, by whom?: No Are you DNR?: No Advance Directives: No Advance Directives Information Provided: No Advance Directives on File: No Patient : No : No Poor oral hygiene: No Meds Allergies Allergy/AdvReac Type Severity Reaction Status Date / Time Seasonal Allergies Allergy Mild sneezing Verified 10/12/24 06:43 vaccines Allergy Unknown unknown Uncoded 10/12/24 06:43 Home Medications ?Medication ?Instructions ?Recorded ?Confirmed ?Last Taken ?Type levothyroxine 137 mcg tablet 137 mcg PO DAILY 04/28/24 10/12/24 10/12/24 05:00 History (Synthroid) propranolol 80 mg capsule,24 80 mg PO BEDTIME 04/28/24 10/12/24 10/12/24 05:00 History hr,extended release topiramate 25 mg tablet 75 mg PO DAILY 04/28/24 10/12/24 10/11/24 History amitriptyline 50 mg tablet 50 mg PO BEDTIME 07/27/24 10/12/24 10/11/24 History hair skin and nails 1 tab PO DAILY 07/27/24 10/12/24 10/11/24 History loratadine 10 mg tablet (Claritin) 10 mg PO BID 09/28/24 10/12/24 10/11/24 History Exam Height,Weight and Vital Signs: Height 5 ft 8 in Weight 102.512 kg Pertinent Lab Results Pertinent Lab Results: Laboratory Tests 10/04/24 10/04/24 08:11 08:27 WBC 6.6 RBC 4.86 Hgb 15.2 Hct 43.2 MCV 88.9 MCH 31.3 MCHC 35.2 H RDW 13.2 Plt Count 237 MPV 9.7 Immature Gran % (Auto) 0.5 H Neut % (Auto) 69.2 Lymph % (Auto) 22.6 Deuel % (Auto) 6.6 Eos % (Auto) 0.8 Baso % (Auto) 0.3 Lymph # (Auto) 1.5 Deuel # (Auto) 0.4 Eos # (Auto) 0.1 Baso # (Auto) 0.0 Abs Immat Gran (auto) 0.03 Absolute Neuts (auto) 4.6 Absolute Nucleated RBC 0.000 Nucleated RBC % (auto) 0.0 PT 12.8 H INR 1.1 APTT 35.8 Sodium 142 Potassium 3.4 Chloride 107 Carbon Dioxide 24 Anion Gap 14 BUN 16 Creatinine 0.71 Estim Creat Clear Calc 112.1 Estimated GFR > 60 Random Glucose 80 Estimat Average Glucose 94 Hemoglobin A1c % 4.9 Insulin Level 5 Calcium 9.3 Total Bilirubin 0.4 AST 24 ALT 19 Alkaline Phosphatase 65 C-Reactive Protein 1.21 H Total Protein 7.0 Albumin 4.1 Triglycerides 53 Cholesterol 154 LDL Cholesterol, Calc 94 HDL Cholesterol 50 TSH 0.37 Blood Type O Positive Antibody Screen NEGATIVE Narrative Narrative: EKG 07/2024 Vent. Rate : 80 BPM Atrial Rate : 80 BPM P-R Int : 186 ms QRS Dur : 108 ms QT Int : 370 ms P-R-T Axes : 66 1 5 degrees QTcB Int : 426 ms Normal sinus rhythm Incomplete right bundle branch block Nonspecific T wave abnormality Abnormal ECG No previous ECGs available ECHO 2024 Conclusions: - The left ventricular systolic function is normal. The calculated ejection fraction is 62% by biplane method. - No obvious valvular pathology seen on this study. Stress ECHO 2024 Protocol: GEOVANNY Max HR: 151 BPM 91% of Pred: 165 BPM Max BP: 128/74 mmHG Max Work Load: 7.7 METS Exercise stress test with exercise 6 mins 30 secs of Geovanny Protocol, achieving 88% MPHR, with reports of mild SOB, no chest pain, without any arrythmias, with normotensive response to exercise. Without EKG changes meeting criteria for ischemia. In recovery, breathing returned to baseline. Echo images obtained by tech at rest and post peak exercise. Definity contrast utilized. Test reviewed with Dr. Rowley. Echo images reviewed at rest and post stress. At rest: Normal LVEF and no RWMA. Post stress: LV cavity appears smaller and EF appears to augment. No obvious regional wall motion abnormalities. TR tracings are not reliable to comment about exercise related change in PA pressures. Conclusion: Normal stress echo for ischemia at achieved workload. Assessment and Plan Assessment Anesthesia Assessment: Chart Reviewed Final Anesthetic Review Family History of Problems with Anesthesia: No History of Problems with Anesthesia: No Documented by User: Marques Truong MD 10/12/24 07:12 [facility] Past Medical History Medical History (Updated 09/28/24 @ 10:22 by Kamala Solitario RN) Legally blind Back pain Graves disease Kidney stones Hypothyroid History of nephrolithiasis Diaphragmatic hernia GERD (gastroesophageal reflux disease) Hypertension DJD (degenerative joint disease) Familial juvenile macular degeneration syndrome Anxiety Depression Family History Family History (Updated 07/27/24 @ 08:51 by Sarah Leung CMA) Mother Malignant neoplasm of breast in full remission Arthritis Father Landon's disease Son No problems noted. Son No problems noted. Surgical History Surgical History (Updated 09/28/24 @ 10:22 by Kamala Solitario RN) History of esophagogastroduodenoscopy (EGD) History of resection of rib Hx of hysterectomy Hx of adenoidectomy Hx of tonsillectomy Hx of bladder endoscopy Hx of colonoscopy Social History Social History (Updated 07/27/24 @ 08:51 by Sarah Leung CMA) Are you a primary home health care coordinator to a significant other at home: No Do you presently have visiting nurse or other home services: No Alcohol intake: current Alcohol intake frequency: does not drink Patient Tobacco Use Status: Never used Tobacco Use of substances other than those prescribed or required for medical reasons: No Have you been hit, kicked, punched, or otherwise hurt by someone within the past year? If so, by whom?: No Are you DNR?: No Advance Directives: No Advance Directives Information Provided: No Advance Directives on File: No Patient : No : No Poor oral hygiene: No Meds Allergies Allergy/AdvReac Type Severity Reaction Status Date / Time Seasonal Allergies Allergy Mild sneezing Verified 10/12/24 06:43 vaccines Allergy Unknown unknown Uncoded 10/12/24 06:43 Home Medications ?Medication ?Instructions ?Recorded ?Confirmed ?Last Taken ?Type levothyroxine 137 mcg tablet 137 mcg PO DAILY 04/28/24 10/12/24 10/12/24 05:00 History (Synthroid) propranolol 80 mg capsule,24 80 mg PO BEDTIME 04/28/24 10/12/24 10/12/24 05:00 History hr,extended release topiramate 25 mg tablet 75 mg PO DAILY 04/28/24 10/12/24 10/11/24 History amitriptyline 50 mg tablet 50 mg PO BEDTIME 07/27/24 10/12/24 10/11/24 History hair skin and nails 1 tab PO DAILY 07/27/24 10/12/24 10/11/24 History loratadine 10 mg tablet (Claritin) 10 mg PO BID 09/28/24 10/12/24 10/11/24 History Exam Airway Mallampati Class: II TM Dist: >3cm Neck ROM: Full Assessment and Plan Assessment Anesthesia Assessment: Anesthesia Plan Discussed Final Anesthetic Review NPO: Yes ASA Class: III Final Preanesthetic Review: No Changes in Pt Med Stat, Meds/Allgs Chart Reviewed, Consent Obtained/Reviewed, Anes Risks/Benef Reviewed and DNR Form (If Appl.) Patient Risk: Intermediate Procedure Risk: Intermediate Anesthetic Plan Anesthetic Plan: GA Disposition: Standard PACU
[2024-10-12] VITALS (22 sets, daily range): BP systolic 110–146; BP diastolic 62–83; PULSE 59–105; RESP 11–18; TEMP 36.1–36.8; O2SAT 94–100; BMI 35.3; BMI 36.5
[2024-10-12] MEDS: Aprepitant 32 MG/4.4 ML VIAL IVPUSH (06:39)
[2024-10-12] MEDS: Lactated Ringers 1,000 ML 999 ML IV (06:39)
--- OUTSIDE RECORDS SUMMARY | 2024-10-12 06:50 | XMS_ITS | Data Portability ---
Author Organization [facility], Home Service Address [address] [place] [address] Assessment Encounter Date Assessment Date Assessment LastModified [...] reduce health risks and promote healthy living. [email or web address] Not available 08/23/2023 10:15:32 11/03/2023 11/03/2023 Patient [...] [email or web address] Not available 11/02/2023 16:23:59 02/04/2024 02/04/2024 [id number] [place] [id number] ([employer]) MDM MODERATE MUST MEET 2 OUT OF [...] recorded. Lab lipid panel, blood 2023 024 [facility], [address] [place] [address], [address], 4 11:09:35 CBC w/ auto diff 2023 024 [facility], [address] [place] [address], [address], 4 11:09:35 CMP, serum or plasma 2023 024 [facility], [address] [place] [address], [address], 4 11:09:35 vitamin D, 25-hydroxy , total, serum 2023 024 [facility], [address] [place] [address], [address], 4 11:26:40 TSH + free T4, serum 2023 024 [facility], [address] [place] [address], [address], 4 11:07:38 TSH + free T4, serum 2023 024 [facility], [address] [place] [address], [address], 4 11:07:38 Referral neurologis t referral 2022 023 [email or web address] 10 [facility], [address], [place], [address], 3 08:49:05 Procedures None recorded. Surgeries None recorded. Imaging MRI, cervical spine, w/o contrast 2023 024 [email or web address] 10 [facility], [address] [place], [address], 4 07:54:29 electromyo gram + nerve conduction study - carpal tunnel, castillo hands and wrists 2023 024 [facility] ([facility]), [address] [place], [address], 4 09:19:32 XR, cervical spine, 2 or 3 view 2023 024 [facility], [address] [place], [address], 4 14:30:08 XR, chest, 2 view 2023 024 [facility], [address] [place], [address], 4 14:30:08 Medication Orders codeine 10 mg-guaifen esin 100 mg/5 mL oral liquid [address] [facility] #[id number], [address], [place], [id number], 4 09:45:13 cephalexin 500 [address] capsule [address] [facility] #15099, [address], [place], [id number], 4 09:20:25 Synthroid 137 mcg tablet 2023 024 [facility] #31231, [address], [place], [id number], 4 11:42:08 ciprofloxa radha 500 mg tablet 2022 023 [email or web address] [facility] #18740, [address], [place], [id number], 09:58:28 Patient TargetsNo targets recorded. Patient Instructions Encounter Date Encounter Id Patient Instructions Last Modified By Organization Details Last Modified Time 08/23/2023 [id number] hypothyroidism: care instructions Not available 08/23/2023 22:06:42 11/03/2023 [id number] Skin Cyst: Care Instructions Not available 11/03/2023 11:27:04 Discussed and explained advance directives such as standard forms to the {{patient* caregi paola patient and caregiver}}. Face to face discussion lasted for a duration of _5__ minutes. Not available 11/03/2023 11:28:02 02/04/2024 [id number] neck pain: care instructions Not available 02/04/2024 [...] bilat eral No observ ation record ed. [facility]'s [address] [place], [address], 10/07/2022 08:10:20 02/22/20 23 02/21/2023 XR, foot No observ ation record ed. [address] (Medical Records) [address] [place], [address], 02/21/2023 08:35:27 02/22/20 23 02/21/2023 XR, ankle No observ ation record ed. [address] (Medical Records) [address] [place], [address], 02/21/2023 08:35:58 11/08/19 24 10/18/2023 MAMMO , scree owen, digit al, bilat eral No observ ation record ed. [facility] [address] [place], [address], 11/08/2023 13:26:33 02/04/20 24 02/04/2024 XR, cervi alix spine , 2 or 3 view No observ ation record ed. [facility] (Medical Records) [address] [place], [address], 02/18/2024 09:49:01 02/04/20 24 02/04/2024 XR, chest , 2 view No observ ation record ed. [facility] (Medical Records) [address] [place], [address], 02/18/2024 09:49:00 02/18/20 24 02/11/2024 XR, chest , 2 view No observ ation record ed. [facility] (Medical Records) [address] [place], [address], 02/22/2024 15:40:53 03/13/20 24 03/03/2024 MRI, cervi alix spine , w/o contr ast No observ ation record ed. [facility] (Medical Records) [address] [place], [address], 03/14/2024 15:53:15 03/16/20 24 03/16/2024 elect romyo gram + nerve condu ction study No observ ation record ed. [email or web address] [facility] (Medical Records) [address] [place], [address], 03/17/2024 12:09:59 03/16/20 24 03/16/2024 elect romyo gram + nerve condu ction study No observ ation record ed. [email or web address] [facility] (Medical Records) [address] [place], [address], 03/17/2024 12:09:59 07/31/19 25 07/31/2024 XR, chest , 2 view No observ ation record ed. [facility] (Medical Records) [address] [place], [address], 07/31/2024 08:12:29 08/31/19 25 08/30/2024 US, abdom en No observ [facility]ion [facility] ed. [email or web address] [address] [place], [address], 08/30/2024 10:11:14 09/16/19 25 09/15/2024 RF, upper gastr ointe gayatri l tract , w/ contr ast PO No observ ation record ed. [facility] (Medical Records) [address] [place], [address], 09/15/2024 15:29:33 Result Notes None recorded. Problems Name Problem SNOMED Code Status Onset Date Resolution Date Notes Provider Name and Address Organization Details Recorded Time Edema of lower extremit y 985444047 Active 2018 Not Available [facility] 2 14:39:08 Stargard t's disease 83676930 Active 2019 Not Available [facility] 2 14:39:08 Acute sinusiti s 23879465 Active 2021 VIJAY HAAS [address] [place] [address], [address], [facility] 2 10:05:14 Posterio r rhinorrh ea 79264606 Active 2021 VIJAY HAAS [address] [place] [address], [address], [facility] 2 10:05:48 Pain in throat 331842702 Active 2021 VIJAY HAAS [address] [place] [address], [address], [facility] 2 10:05:53 COVID-19 684651746 Active 2021 VIJAY HAAS [address] [place] [address], [address], [facility] 2 10:28:01 Intermit tent palpitat ions 867148322 Active 2021 Brendan Dockery DO [address] [place] [address], [address], [facility] 2 14:24:47 Acute otitis media 8997011 Active 2022 VIJAY HAAS [address] [place] [address], [address], [facility] 3 14:11:22 Acute bronchit is 60431122 Active 2022 VIJAY HAAS [address] [place] [address], [address], [facility] 3 11:29:57 Acute otitis media 6687072 Active 2023 Brendan Dockery, [address], [address], [facility] 4 15:34:59 Epidermo id cyst of skin 412236164 Active 2023 Brendan Dockery [address], [address], [facility] 4 11:26:25 Anxiety 23114964 Active 2023 Brendan Dockery DO [address] [place] [address], [address], [facility] 4 11:04:14 Cough 44819830 Active 2023 Brendan Dockery DO [address] [place] [address], [address], [facility] 4 09:46:18 Neck pain 58115864 Active 2023 Brendan Dockery DO [address] [place] [address], [address], [facility] 4 09:16:11 Pneumoni a 328122639 Active 2023 Brendan Dockery DO [address] [place] [address], [address], [facility] 4 14:44:04 Cervical radiculo lore 95748605 Active 2023 VIJAY HAAS [address] [place] [address], [address], [facility] 4 09:40:00 Bilatera l carpal tunnel syndrome 22699357678 315928 Active 2023 VIJAY HAAS [address] [place] [address], [address], [facility] 4 09:42:34 Cervical disc disorder 925454348 Active 2023 VIJAY HAAS [address] [place] [address], [address], [facility] 4 15:54:20 Gastroes ophageal reflux disease 577741272 Active 2017 Not Available [facility] 2 14:39:08 Hypothyr oidism 03763616 Active 2017 Not Available [facility] 2 14:39:09 Migraine 95116733 Active 2017 Not Available [facility] 2 14:39:08 Fibromya lgia 361889200 Active 2017 Not Available [facility] 2 14:39:09 Family history of non-Hodg kin's lymphoma 125126600 Active 2017 father, dx'd 11/2010 [facility] Available [facility] 2 14:39:09 Thoracic outlet syndrome 835793057 Active 2017 s/p 1st rib removal 03/2012 Not Available [facility] 2 14:39:09 Chronic headache disorder 001084152 Active 2017 Not Available [facility] 2 14:39:09 Ventricu lar prematur e complex 852709723 Active 2017 Not Available [facility] 2 14:39:09 Hyperten sive disorder 75964927 Active 2017 Not Available [facility] 2 14:39:08 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 Procedures Surgical History Date Name Laterality Status Provider Name and Address Organization Details Recorded Time Colonoscopy completed Brendan Dockery , DO [address] [place] [address], [place], [address], [facility] 11/17/2021 15:53:34 Imaging Results Imaging Date Name Status LastModified by Organization Details LastModified Time 10/01/2022 MAMMO, screening, digital, bilateral completed [facility] [address] [place] [address] [place], [address], 10/07/2022 08:10:20 02/21/2023 XR, foot completed [facility] (Medical Records) [address] [place], [address], 02/21/2023 08:35:27 02/21/2023 XR, ankle completed [facility] (Medical Records) [address] [place], [address], 02/21/2023 08:35:58 10/18/2023 MAMMO, screening, digital, bilateral completed [facility] [address] [place], [address], 11/08/2023 13:26:33 02/04/2024 XR, cervical spine, 2 or 3 view completed [facility] (Medical Records) [address] [place], [address], 02/18/2024 09:49:01 02/04/2024 XR, chest, 2 view completed [facility] (Medical Records) [address] [place], [address], 02/18/2024 09:49:00 02/11/2024 XR, chest, 2 view completed [facility] [address] [facility] [place] [address], 02/22/2024 15:40:53 03/03/2024 MRI, cervical spine, w/o contrast completed [facility] (Medical Records) [address] [place], [address], 03/14/2024 15:53:15 03/16/2024 electromyogram + nerve conduction study completed [address] (Medical Records) [address] [place], [address], 03/17/2024 12:09:59 03/16/2024 electromyogram + nerve conduction study completed [address] (Medical Records) [address] [place], [address], 03/17/2024 12:09:59 07/31/2024 XR, chest, 2 view completed [address] (Medical Records) [address] [place], [address], 07/31/2024 08:12:29 08/30/2024 US, abdomen completed [facility] Records[facility] [address] [facility] [place], [address], 08/30/2024 10:11:14 09/15/2024 RF, upper gastrointestinal tract, w/ contrast PO completed [facility] (Medical Records) [address] [place], [address], 09/15/2024 15:29:33 Procedure Notes None recorded. Medical Equipment None Reported. Allergies Allergen ID Allergen Name Allergen Category Reaction Reaction Severity Criticality Documentation Date Start Date Code Code System Note Provider Name and Address Organization Details Recorded Time 1277 Fluarix medicatio n Not available Not available Not available 10/15/2017 36265 UNK Rowan freitas [facility] 8 09:01:31 5796 Shingrix medicatio n Not available Not available Not available 11/17/2021 67830 26 RxNorm Brendan Dockery, DO [address] [place], [address], [facility] 2 15:05:01 8069 SARS-CoV- 2 (COVID-19 ) vaccine, protein [id number]-CoV23 73 medicatio n Not available Not available Not available 11/03/2023 53595 73 RxNorm Hai freitas [facility] 4 10:55:25 Medications [...] propionate 50 mcg/actuati on nasal spray,suspe nsion [place] 1 spray every day by intranasa l [...] Updated DateTime 4 172.72 cm 37.7 kg/m2 629326. 91 g 87 /min 97 % 97 % 138 mm[Hg] 68 mm[Hg] Madison Smith [facility] 4 10:00:36 Date Recorded Body height Body mass index (BMI) Body weight Heart rate Respiratory rate Oxygen saturation Oxygen saturation in Arterial blood by Pulse oximetry Systolic blood pressure Diastolic blood pressure Provider Name and Address Organization Details Last Updated DateTime 4 172.72 cm 38 kg/m2 360296. 45 g 64 /min 18 /min 96 % 96 % 128 mm[Hg] 70 mm[Hg] Hai Ahumada [facility] 4 10:55:03 Date Recorded Body height Body mass index (BMI) Body weight Heart rate Oxygen saturation Oxygen saturation in Arterial blood by Pulse oximetry Systolic blood pressure Diastolic blood pressure Provider Name and Address Organization Details Last Updated DateTime 4 172.72 cm 37.6 kg/m2 449919. 32 g 74 /min 95 % 95 % 116 mm[Hg] 82 mm[Hg] Cathy Forbes [facility] 4 09:29:51 Social History Question Answer Notes LastModified by Organizat ion Details LastModified Time Tobacco Smoking Status Never Smoker Not Available [facility] 04/09/2020 03:36:23 What Was The Date Of [...] mL dose 1 completed Brendan Dockery DO [address] [place] [address], [address], [facility] 03/25/2021 14:56:42 COVID-19, mRNA, LNP-S, PF, 30 mcg/0.3 mL dose 1 completed Brendan Dockery DO [address] [place] [address], [address], [facility] 03/25/2021 14:56:50 COVID-19, mRNA, LNP-S, PF, 100 mcg/0.5mL dose or 50 mcg/0.25mL dose 2 completed Brendan Dockery DO [address] [place] [address], [address], [facility] 11/17/2021 15:06:29 zoster recombinant 2 completed Brendan Dockery DO [address] [place] [address], [address], [facility] 11/17/2021 15:06:54 Past Encounters Encounter ID Performer Location Encounter Start Date Encounter Closed Date Diagnosis/Indication Diagnosis SNOMED-CT Code Diagnosis ICD10 Code Diagnosis Note [id number] Brendan Bowen Sarkis [facility] [address] [facility] [address] 10/15/2017 14:39:05 10/15/2017 16:02:57 Tenosynovitis of wrist 637231010 M65.839 given she has tried splint and taken otc and rx nsaids without resolution Hypertensive disorder 38 619456 I10 bp is stable no issues noc cp [id number] Brendan Bowen Sarkis [facility] [address] [facility] [address] [address] 11/23/2017 13:24:41 11/23/2017 14:43:03 Acute bacterial sinusitis 49440185 J01.90 Hypothyroidism 58778825 E03.9 stable, reviewed labs Essential hypertension 93358539 I10 stable [id number] Brendan Bowen Sarkis [facility] [address] [facility] [address] 02/28/2018 10:59:14 02/28/2018 12:08:52 Hypothyroidism 12505325 E03.9 tsh is 0.8 Hypertensive disorder 38 022232 I10 bp is stable no issues noc cp Adult heal th examination 957055324 Z00.00 discussed need for exercise and diet Screening for cardiovascular system disease 270908610 Z13.6 Screening mammography 24 997342 Z12.31 [place] [id number] Brendan SalinasAlba Dockery [facility] [address] [facility],[place] [address] 07/12/2018 09:48:11 07/12/2018 11:06:37 Migraine 16218138 G43.909 Using imitrex with relief Hypertensive disorder 38 000693 I10 diastolic slightly elevated, will monitor Hypothyroidism 80746416 E03.9 labs last done 02/2018 Benign par oxysmal positional vertigo 882651571 H81.11 improving with meclizine Acute sinusitis 23725064 J01.90 continue mucinex, flonase, fluids, humidifier [id number] Brendan SalinasAlba Dockery [facility] [address] [facility] [address] [address] 09/16/2018 11:50:53 09/16/2018 15:19:18 Otitis media 24020504 H66.92 Allergic cough 039948957 R05 Active or passive immunization 651912535 Z23 Hypertensive disorder 38 572992 I10 stable, reviewed Mar 2018 labs [id number] Brendan Dockery [facility] [address] [facility] [address] [address] 09/26/2018 13:31:49 09/26/2018 14:23:51 Dysfunction of eustachian tube 45441334 H69.92 [id number] Brendan Bowen Sarkis [facility] [address] [facility] [address] [address] 10/03/2018 14:57:35 10/03/2018 16:29:59 Dysfunction of left eustachian tube 4135586891 714819 H69.92 [id number] Brendan Dockery [facility] [address] [facility] [address] [address] 11/23/2018 16:09:46 11/25/2018 08:16:23 Hypertensive disorder 94118203 I10 bp is stable no issues noc cp Hypothyroidism 88238324 E03.9 tsh is 0.8 Edema of l ower extremity 310277559 R60.0 will add furosemide 40mg [id number] Brendan Dockery [facility] [address] [facility] [address] [address] 12/02/2018 13:35:55 12/02/2018 14:40:20 Hypertensive disorder 21427245 I10 bp is stable no issues noc cp will cont Edema of l ower extremity 510228234 R60.0 will cont furosemide 40mg [id number] Brendan Dockery [facility] [address] [facility] [address] [address] 01/13/2019 10:20:35 01/13/2019 11:04:19 Edema of lower extremity 394476265 R60.0 b/l improved on increased dose of lasix do 80 mg again today then return to 40 mg Hypertensive disorder 38 706149 I10 stable Hypothyroidism 93834349 E03.9 normal tsh 12/2018 [id number] Brendan Dockery [facility] [address] [facility] [facility] [place] [address] 01/30/2019 13:31:42 01/30/2019 14:09:46 Edema of lower extremity 294279180 R60.0 will cont furosemide 40mg and will cont to use bid when sudden changes potassium supp or bananas Hypertensive disorder 38 012931 I10 bp is stable no issues noc cp will cont Hypothyroidism 12544228 E03.9 tsh is wnl per [facility] lab Tinea pedis 8261197 B35. 3 lotrimin cream [id number] Brendan Dockery [facility] [address] [facility] [address] 09/04/2019 11:07:27 09/04/2019 13:34:20 Acute sinusitis 67662599 J01.90 will need to treat given her past issues [id number] Brendan Dockery [facility] [address] [facility] [place] [facility] [place] [address] 04/01/2020 13:27:40 04/01/2020 14:38:28 Adult health examination 084341854 Z00.00 discussed need for exercise and diet Screening for cardiovascular system disease 671419890 Z13.6 Screening for osteoporosis 532066740 Z13.820 Screening mammography 24 433080 Z12.31 [place] [id number] Brendan Dockery [facility] [address] [facility] [facility] [place] [address] 04/15/2020 09:07:48 04/15/2020 11:14:34 Acute otitis media 8374146 H65.01 most likely another ear infection given symptoms and hx will fu with patient if still having symptoms or worsening pt understand s and will call Nasal congestion 7206785 0 R09.81 more with pressure, all right sided along maxillary and frontal sinuses Headache 67570640 R51.9 right sided, also suffers from chronic headaches so not uncommon [id number] Brendan Dockery [facility] [address] [facility] [address] 03/25/2021 14:34:54 03/25/2021 16:24:44 Hypothyroidism 38022649 E03.9 tsh low and t4 is high and we nmeed to decrease her dose she is having a lot of hairloss Gastroesop hageal reflux disease 486452322 K21.00 has breakthrog uh [place] [id number] Brendan Dockery [facility] [address] [facility],[place] [address] 05/14/2021 09:37:08 05/14/2021 14:28:14 Gastroesophageal reflux disease 166622162 K21.00 has breakthrog uh need to incerease the nexium to bid Hypertensive disorder 38 776645 I10 bp is stable no issues noc cp will cont current tx Edema of l ower extremity 393113735 R60.0 furosemide 40mg as needed only and has not taken any since the summer and will cont to use prn when sudden changes potassium supp or bananas when she does take furosemide [id number] Brendan Dockery [facility] [address] [facility],[place] [address] 06/16/2021 09:40:38 06/16/2021 16:20:27 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.41 will fu with MRI Pain of le ft knee joint 4387372405 51306 M25.562 will fu with MRI [id number] Brendan Dockery [facility] [address] [place] [address] 06/30/2021 09:21:10 07/01/2021 15:55:17 Acute sinusitis 04428347 J01.01 will start on abx and fu with patient if no improvemen t Otalgia 77282120 H92.01 [place] abx [id number] Brendan Dockery [facility] [address] [facility],[place] [address] 10/17/2021 09:21:32 10/17/2021 11:33:49 Acute sinusitis 10073644 J01.01 will start on abx and fu with patient if no improvemen t Posterior rhinorrhea 758 52140 R09.82 will fu with testing Pain in throat 358281704 R07.0 can use APAP and IBU for symptom management [id number] Brendan Dockery [facility] [address] [facility],[place] [address] 11/17/2021 14:48:20 11/17/2021 15:56:50 Hypertensive disorder 21659532 I10 bp is stable no issues noc cp will cont current tx Hypothyroidism 88321089 E03.9 tsh low and t4 is high and we nmeed to decrease her dose she is having a lot of hairloss Active or passive immunization 712391796 Z23 patient advised she is due for a tdap Screening for malignant neoplasm of colon 359314866 Z12.11 already had done in jul Depression screening 171 871927 Z13.31 Did not bring glasses to fill out PHQ9 not able to complete today Tachycardia 3469792 R00. 0 given just one episode [id number] Brendan Dockery [facility] [address] [facility],[place] [address] 08/11/2022 13:49:58 08/11/2022 16:33:49 Acute otitis media 4230967 H65.01 will set up with cipro for 7 days BIDworks best for the patient [id number] Brendan Dockery [facility] [address] [facility],[place] [address] 09/23/2022 09:07:41 09/23/2022 12:05:06 Acute otitis media 9075064 H65.01 will set up with cipro for 7 days [employer]IDworks best for the patient Migraine 42222620 G43.10 9 will set up with second opinion with neuro [id number] Brendan Dockery [facility] [address] [facility],[place] [address] 08/23/2023 09:51:36 08/23/2023 10:25:31 Hypertensive disorder 62492364 I10 bp is stable no issues no cp will cont current tx Hypothyroidism 60020934 E03.9 tsh low and t4 is high and we need to decrease her dose she is having a lot of hairloss [id number] Brendan Dockery [facility] [address],[place] [address] 11/03/2023 10:35:53 11/03/2023 12:15:08 Adult health examination [id number] Z00.00 discussed need for exercise and diet Screening for cardiovascular system disease 584215227 Z13.6 Screening for malignant neoplasm of colon 155515793 Z12.11 already had done in jul Depression screening 171 295366 Z13.31 Did not bring glasses to fill out PHQ9 not able to complete today Epidermoid cyst of skin 272399435 L72.0 [id number] [facility] [address],[place] [address] 02/04/2024 08:34:01 02/04/2024 14:30:07 Anxiety 05290840 F41.9 stable Hypertensive disorder 38 320045 I10 bp is stable no issues no cp will cont current tx Hypothyroidism 99954577 E03.9 stable Thoracic o utlet syndrome 749391732 G54.0 no chnges Neck pain 72833812 M54.2 possible radiculopa thy issue here having numbness Cough 52590303 R05.9 not getting better , will use use guaifen over weekend if no better will need levoflox etc will get cxr today [id number] Brendan Dockery [facility] [address],[place] [address] 02/18/2024 09:14:53 02/18/2024 09:50:41 Cervical radiculopathy 94773023 M54.12 will set up MRI now and EMG for her arms Bilateral carpal tunnel syndrome [id number] 7299408 G56.03 fu EMG Cough 57980094 R05.2 given syrup to use PRN for the coughing Health Concerns Section Related Observation LastModified by Organization Detai ls LastModified Time None Recorded Concern Status LastModified by Organization Details LastModified Time None Recorded Advance Directives Directive None Recorded Payers Encounter Date Sequence Insurance Name Policy Number Policy Blandon Covered Member ID Blandon Member ID Guarantor Name 09/23/2022 1 [place] [employer] Tamar Chacon [id number] Tamar Oswaldo 09/23/2022 2 [place] Tamar Salinas Oswaldo [id number] Tamar Oswaldo 08/23/2023 1 [place] [employer] Tamar Salinas Oswaldo [id number] Tamar Oswaldo 08/23/2023 2 [place] Tamar Salinas Oswaldo [id number] Tamar Oswaldo 11/03/2023 1 [place] [employer] Tamar Salinas Oswaldo [id number] Tamar Oswaldo 11/03/2023 2 [place] Tamar Salinas Oswaldo [id number] Tamar Oswaldo 02/04/2024 1 [place] [employer] Tamar Salinas Oswaldo [id number] Tamar Oswaldo 02/04/2024 2 [place] Tamar Salinas Oswaldo [id number] Tamar Oswaldo 02/18/2024 1 [place] [employer] Tamar Salinas Oswaldo [id number] Tamar Oswaldo 02/18/2024 2 [place] Tamar Salinas Oswaldo [id number] Tamar Oswaldo Notes Date Note Type Note [...] to stick with VIJAY De La Torre [address] [place] [address], [place], [address], [facility] 09/23/2022 11:28:14 4 text/html here for annual wellnessrelates has been under a lot of stress relates that she has been sad bc she can no longer drive etc Brendan BradAlba Gomezkeyshawn, DO [address], [place], [address], [facility] 08/23/2023 22:06:45 4 [...] issue is fatigue always feels tired Brendan BradlAba Dockery, [address] [place], [address], [facility] 11/03/2023 11:28:39 4 text/html [...] backfeels when arches her back Brendan BradAlba Dockery, [address] [place], [address], [facility] 02/04/2024 09:24:45 4 text/html f/u neck pain the patient reports that she is having neck painagreed to MRI for more information waiting on repeat CXRfor the pna, given cough syrup EMG will be needed for possible carpal tunnel on top of the radiculopathy from the neck will f/u after CXR comes in will fu after MRI VIJAY HAAS [address] [place], [address], [facility] 02/18/2024 09:49:55 OBGyn Episode No OBEpisode recorded.
--- NOTE | 2024-10-12 07:12 | PHA.MEDREC ---
Addendum entered by Fahad Smith [facility] 10/12/24 07:15: Spoke with pt to confirm they take 3 tablets of topiramate all at once for 75mg daily. Original Note: Pharmacy Consult ? Medication Reconciliation Pharmacy has reviewed the medication reconciliation completed by nursing.
--- NOTE | 2024-10-12 07:22 | MHC.SHP ---
Pre-Procedural Eval Section A - 24 Hr Update-Section A only Date of Service: 10/12/24 The patient is an INPATIENT: Yes The patient has been examined within 24 hours of the surgical procedure. The History & Physical has been completed within 30 days and I have reviewed it.: Yes Section B - Complete if H&P > 30 days Chief Complaint: Severe Obesity Relevant Family History (Specify if Yes): No Relevant Social History: None Present Medications: None Medical History: No relevant PMH History of Previous Operations: No relevant previous surgery Allergies: Allergies Allergy/AdvReac Type Severity Reaction Status Date / Time Seasonal Allergies Allergy Mild sneezing Verified 10/12/24 06:43 vaccines Allergy Unknown unknown Uncoded 10/12/24 06:43 Review of Systems Sugical H&P ROS: Negative: Constitution, Cardiovascular, Respiratory, Neurological, Psychiatric, Hem-Onc, Allergic/Immunologic, Gastrointestinal, Genitourinary, Musculoskeletal, Integumentary, Endocrine and Eyes/Ears/Nose/Throat Exam Surgical H&P Exam: Normal: HEENT, Normal: Heart, Normal: Lungs, Normal: Extremities, Normal: Abdomen, Normal: Skin and Normal: Neurological Plan Diagnosis/Plan: Unchanged I have reviewed the history and physical and performed a pertinent physical examination on my patient. No changes have occurred unless specified. Time Spent With Patient Time: Total time managing care of this patient today ____ minutes.
--- NOTE | 2024-10-12 07:23 | P.BOP_ITS ---
Brief Operative Note Date of Service: 10/12/24 Pre-op diagnosis: Severe obesity with comorbidities (see below) Post-op diagnosis: same Procedure: INITIAL PATIENT BMI ON PRESENTATION AT OUR OFFICE: 38.8 kg/m2 LAST BMI BEFORE SURGERY: 35 kg/m2 COMORBIDITIES: Legally blind, hypertension, hypothyroidism, GERD, migraines, depression, Anxiety, DJD, liver steatosis ?The patient presented to the Weight Management Program with significant obesity that was negatively impacting the patient's comorbidities as listed above.? The program is a phased program with a special focus on preoperative medical weight management to promote substantial weight loss and prepare the patients for the second phase of the program: bariatric surgery. The patient participated in an intensive weekly lifestyle ?intervention and exercise program during which the p atient ?has lost between the initial office visit and the last preoperative visit 22 lbs, or 10% of initial actual body weight. It was deemed appropriate for the patient to now have bariatric surgery. In light of the current Covid-19 pandemic and the well documented strong association of obesity and increased risk of worse outcomes if infected with Covid-19 (REFERENCES: https://pubmed.n cbi.nlm.nih.gov/70104453/ ,? https://pubmed.ncbi.nlm.nih.gov/29667705/ ), any delay in undergoing bariatric surgery may lead to the patient's worsening health condition and increased?risk of more severe Covid-19 disease if infected. In addition a recent?study from [facility] published in [facility] on 06/02/2021 ([email or web address]) found that, among patients with obesity, substantial weight loss achieved with surgery was associated with improved outcomes of COVID-19 infection. The findings suggest that obesity can be a modifiable risk factor for the severity of COVID-19 infection. In addition, the patient met the BMI-criteria for bariatric surgery based on the BMI on initial presentation. The patient should not be penalized for achieving such weight loss because ?it is not sustainable long-term without surgical intervention and it was achieved in preparation for bariatric surgery ?under my direction and based on my published research ([email or web address]).[email or web address] and? https://www.soard.org/article/[email or web address](29)88130-X/pdf ) ?that a 10% preoperative weight loss improves long-term weight loss after surgery and reduces perioperative complications.? Insurance carriers such as [facility] have endorsed my recommendations ?and have included in their policies criteria to include a 10% preoperative weight loss requirement. PROCEDURE: Esophago-gastroscopy, laparoscopic lysis of adhesions, laparoscopic sleeve gastrectomy and laparoscopic gastropexy INDICATIONS: This is a 54 year-old female who was electively scheduled for laparoscopic, possibly open sleeve gastrectomy. The risks and complications of the procedure were discussed with the patient in advance, particularly the possibility of ; pulmonary embolism; staple line leak; bleeding; GERD; cardiac, pulmonary, or renal complications; as well as long-term problems such as insufficient weight loss, vitamin deficiency, strictures, or ulcers. The patient understood all the risks, and was in agreement to proceed with surgery. DESCRIPTION OF PROCEDURE: After informed consent was obtained from the patient, the patient was given preoperative antibiotics, and was transferred to the operating room. After successful induction of general anesthesia, pneumatic compression devices were placed on both lower extremities. An upper endoscopy was performed next. The oropharynx and esophagus appeared to be within normal limits. There was no diaphragmatic hernia present. The stomach was entered. Then after all fluid and air were suctioned and the stomach was fully decompressed, the scope was withdrawn and secured in the mid esophagus. The patient was then prepped and draped in the usual sterile manner, and abdominal access was established at the right upper quadrant with the Lori technique. A 12 mm blunt port was inserted, and the abdomen was insufflated with CO2 to a pressure of 15 mmHg. Under direct visualization, additional ports were placed, specifically two 5 mm Versi-step ports to the left upper quadrant, and a 5 mm Versi-Step port to the right upper quadrant. 1% lidocaine plain was used to infiltrate all port sites as well as all fascia defects. Following that, the patient was placed in a steep reverse Trendelenburg position. An additional 5 mm port was placed to the right flank for the Mediflex retractor that was used to retract the left lobe of the liver. The gastro-esophageal fat pad was opened with the ultrasonic device (Anurag knutson Olympus) and the anterior esophagus and hiatus were exposed. The angle of His was opened with the ultrasonic device the fundus of the stomach from any diaphragmatic and splenic attachments. I then opened the gastrocolic ligament between the transverse colon and the greater curvature of the stomach with the ultrasonic device to enter the lesser sac and facilitate the ligation of the short gastric vessels. I started at a mid-point along the greater curvature and using the Thunderbeat, all short gastric vessels were divided all the way to the angle of His until the left nikki was completely dissected at its entirety. I then divided the gastro-colic ligament distally to a distance of about 3-4 cm proximal to the pylorus. There were extensive congenital adhesions between the pancreas and posterior gastric wall. Those were lysed completely with the ultrasonic device. Adhesiolysis took approximately 45 min to complete.. ? The stomach was then divided transversely with three Endo HEBERT-45 purple and three HEBERT-60 articulating purple loads using the [employer] stapler and loads. Every effort was made that the gastric sleeve had a tubular shape and an even caliber throughout. Once the sleeve resection was completed, the staple line of the gastric sleeve was reinforced with Hemoclips. The resected stomach was retrieved without difficulty from the Lori port. A gastropexy was then performed in order to prevent postoperative GERD and partial gastric volvulus. Several interrupted 2.0 Surgidac sutures were placed between the sleeve's staple line and the previously divided greater omentum and gastro-colic ligament using the Endo-Stitch device. ?An upper endoscopy was performed. There was no narrowing at the GE junction. The scope was easily advanced all the way to the pylorus which was clearly visualized. There was no narrowing anywhere and the sleeve's caliber was even throughout. The sleeve's staple line was inspected and there was no evidence of ischemia, bleeding or dehiscence. At that point the gastroscope was withdrawn from the patient?s mouth while we were decompressing the bowel and the stomach from any remaining air. I looked into the lesser sac to see how the sleeve was situating and it was situating well. There was no bleeding from the staple line, spleen, or short gastric vessels. The Mediflex retractor was removed, and the undersurface of the liver was inspected and there was no bleeding. The patient was placed in supine position. I closed the fascial defect of the 12 mm port site with a figure of eight #1 Polysorb suture. Then 30cc Ropivacaine plain with 10 mg of Dexamethasone were used to infiltrate the fascial closure as well as all skin incisions. At this point, the abdomen was deflated, all ports were removed under direct vision, and no bleeding was noted from any of the port sites. The skin incisions were irrigated with saline and were closed with 4-0 absorbable monofilament sutures. Steri-Strips and OpSites were used to cover all incisions. The patient was extubated and was transferred in stable condition to the recovery room for further care. I was present and performed all donahue parts of the procedure. Ms. Tlaley was the assistant professor of nursing. There were no residents to assist with this case. Juarez Herr MD, PhD, FACS Surgeon: Alan Herr MD Anesthesia: GETA, local and other (TAP block) Was an Tool And Die Technician used for this Procedure?: No Tool And Die Technician: Macy Talley Estimated blood loss (mL): 10 IV fluids (mL): 2,200 Urine output (mL): 0 (No Ashley to record output) Pathology: other (1) Stomach, 2) GEJ fat pad) Condition: stable Disposition: PACU
--- NOTE | 2024-10-12 07:26 | PM.PNGS ---
Subjective Subjective Date of Service: 10/13/24 Interval history: Feels well. Mild incisional pain. She is tolerating phase 1 bariatric diet Physical Exam Vital Signs: Vital Signs: Last Vital Signs Temp 98.3 F 10/12/24 06:35 Pulse 105 H 10/12/24 06:35 Resp 16 10/12/24 06:35 BP 134/67 10/12/24 06:35 Pulse Ox 95 10/12/24 06:35 O2 Del Method Room Air 10/12/24 06:35 BMI result Body Mass Index 35.3 GI: Inspection: Yes normal to inspection, Yes incision (clean, dry and intact) and Yes obesity Palpation (GI): Soft to palpation Extrem: Right lower extremity: normal to inspection (no calf tenderness) Left lower extremity: normal to inspection (no calf tenderness) Objective Data Active Medications Fentanyl (Fentanyl Citrate/Pf 100 Mcg/2 Ml Vial) 50 mcg IVPUSH Q5M PRN PRN Reason: Pain, Moderate to Severe (Pain Scale 4-10) Stop: 10/12/24 13:12 Lactated Ringer's (Lr) 1,000 mls @ 100 mls/hr IVCONT .Q10H LAMAR Lactated Ringer's (Lr) 1,000 mls @ 999 mls/hr IV .Q1H1M [facility] Stop: 10/12/24 08:30 Last Admin: 10/12/24 06:39 Dose: 999 mls/hr Documented By: CHETAN Naloxone HCl (Naloxone Hcl 0.4 Mg/Ml Vial) 0.04 mg IVPUSH Q5M PRN PRN Reason: Excessive sedation or RR < 8 Ondansetron HCl (Ondansetron Hcl 4 Mg/2 Ml Vial) 4 mg IVPUSH ONCE PRN PRN Reason: Nausea and Vomiting Stop: 10/12/24 13:12 Labs 10/13/24 05:02 10/13/24 05:02 Procedures Date of Service Date of Service: 10/13/24 Progress Note: A&P Assessment and plan (1) Obesity: Status: Acute Assessment and Plan: s/p laparoscopic sleeve gastrectomy, lysis of adhesions and gastropexy Doing well Will check am labs and if OK the patient will be discharged home (2) BMI 35.0-35.9,adult: Status: Acute (3) GERD (gastroesophageal reflux disease): Status: Acute (4) Hypertension: Status: Acute (5) Depression: Status: Acute (6) Anxiety: Status: Acute (7) DJD (degenerative joint disease): Status: Acute (8) Steatosis, liver: Status: Acute (9) Degenerative cervical disc: Status: Acute (10) Hypothyroid: Status: Acute (11) Diaphragmatic hernia: Status: Acute (12) Migraines: Status: Acute (13) Congenital intra-abdominal adhesions: Status: Acute (14) Status post laparoscopic sleeve gastrectomy: Status: Acute Time Spent With Patient Time: Total time managing care of this patient today ____ minutes. Quality Stroke Does the patient have a stroke diagnosis?: No VTE Prior VTE?: No VTE Risk Level:: Surgical - moderate VTE Device Contraindication: N/A - Device Ordered VTE Drug Contraindication: Treatment Not Indicated
[2024-10-12] MEDS: ceFAZolin Sodium/Dextrose,Iso 2 GM/50 ML PIGGYBACK IV ×2 (07:40→13:36)
--- NOTE | 2024-10-12 09:52 | P.DS_ITS ---
DS: Providers Provider Date of admission: 10/12/24 06:18 Primary care physician: Brendan Dockery MD DS: Diagnosis Discharge Diagnosis (1) Obesity: Status: Acute (2) BMI 35.0-35.9,adult: Status: Acute (3) GERD (gastroesophageal reflux disease): Status: Acute (4) Hypertension: Status: Acute (5) Depression: Status: Acute (6) Anxiety: Status: Acute (7) DJD (degenerative joint disease): Status: Acute (8) Steatosis, liver: Status: Acute (9) Degenerative cervical disc: Status: Acute (10) Hypothyroid: Status: Acute (11) Diaphragmatic hernia: Status: Acute (12) Migraines: Status: Acute DS: Summary Hospital Course Hospital Course: ADMITTING DIAGNOSIS: obesity, migraines, legally blind, hypothyroidism, liver steatosis, GERD, HTN, DJD, anxiety, depression DISCHARGE DIAGNOSIS: same, s/p laparoscopic sleeve gastrectomy and gastropexy PAST SURGICAL HISTORY:? History of resection of rib Hx of hysterectomy Hx of adenoidectomy Hx of tonsillectomy Hx of bladder endoscopy Hx of colonoscopy PROCEDURE: upper endoscopy, laparoscopic sleeve gastrectomy and gastropexy DISCHARGE SUMMARY: History of Present Illness: The patient is a?54 year-old woman with a BMI of?35.3 kg/m2 and associated co- morbidities as described above. The patient had extensive work-up, lost?23 lbs preoperatively and was electively scheduled for laparoscopic, possible open sleeve gastrectomy and gastropexy. Risks and complications of the surgery were discussed with the patient in advance, particularly the possibility of , pulmonary embolism, anastomotic leak, bleeding, bowel injury, GERD, cardiac, renal or pulmonary complications. The patient understood all the risks and was in agreement with the surgical plan. Hospital Course: The patient underwent an uneventful laparoscopic sleeve gastrectomy with gastropexy on the day of admission. Postoperatively, the patient was transferred to the surgical floor. The patient received IV Acetaminophen and IV dilaudid for pain control. Patient was started on bariatric phase 1 diet POD #0. On postoperative day one, the patient was feeling well without nausea, vomiting, fevers, or tachycardia. The patient had some mild incisional pain and the abdomen was soft.? ? On the morning of postoperative day one, the patient was continued on 1 ounce of water or ice every half hour. During the day, the patient did fairly well, having some incisional pain, but able to ambulate adequately and to tolerate liquids well. Since the patient is doing well, we decided that the patient was ready to be discharged. The patient was given instructions to follow-up in office next week and to call the office for any fever over 101, persistent abdominal pain, nausea, vomiting, GERD, symptoms of DVT such as calf tenderness, or leg swelling, or pulmonary embolism such as chest pain or shortness of breath.? The patient was also instructed to drink 40-60 ounces of liquids per day using the 1-ounce cups. The patient had been given prescriptions for Tylenol for pain, Zofran prn for nausea, and pantoprazole and carafate previously. The patient was encouraged to ambulate and use the incentive spirometer. The patient was allowed to shower, but no baths, and encouraged to stay active at home. All of these instructions were given to the patient personally. All questions were answered and the patient understood all instructions, the instructions were also given to the patient in print. Time Attestation Discharge Coordination Time (in mins): 30 Quality: Safe Use of Opioids Does Pt have an Active Cancer Diagnosis on the Problem List?: No Quality: Stroke Does the patient have a stroke diagnosis?: No Physical Exam Vital Signs: Vital Signs: Last Vital Signs Temp 98.2 F 10/12/24 09:42 Pulse 66 10/12/24 09:47 Resp 12 10/12/24 09:47 BP 125/67 10/12/24 09:47 Pulse Ox 95 10/12/24 09:47 O2 Del Method Nasal Cannula wit h Capnography 10/12/24 09:47 O2 Flow Rate 3 10/12/24 09:47 BMI result Body Mass Index 35.3 DS: Data Data Completed and Pending Pending studies at discharge: Pending at discharge 10/12/24 09:00 Surgical [PTH] Routine Discharge Plan Discharge Anticipated Discharge Date/Time: 10/13/24 10:00 Patient Disposition: Home, Self-Care Discharge Diagnosis: s/p laparoscopic sleeve gastrectomy with gastropexy Referrals: Brendan Dockery MD [Primary Care Provider] - 1 Week Discharge Medications: Continued loratadine [Claritin] 10 mg Tablet 10 mg PO BID levothyroxine [Synthroid] 137 mcg tablet 137 mcg PO DAILY topiramate 25 mg tablet 75 mg PO DAILY amitriptyline 50 mg tablet 50 mg PO BEDTIME pantoprazole 40 mg tablet,delayed release (DR/EC) 40 mg PO DAILY Qty: 90 0RF sucralfate 100 mg/mL suspension 10 ml PO BID Qty: 600 2RF ondansetron 4 mg tablet,disintegrating 4 mg PO Q12H Qty: 20 0RF Rx Instructions: Only take one every 12 hours as needed if you have nausea Held propranolol 80 mg capsule,extended release 24 hr 80 mg PO BEDTIME Hold Instructions: Resume on 10/13/24. Only resume according to parameters given by Dr. Herr Discontinued hair skin and nails 1 tab PO DAILY Activity on Discharge: No heavy lifting Stand Alone Forms: Patient Portal Discharge page Print Language: Mauritanian Care Plan Goals: weight loss Health Concerns: morbid obesity Plan of Treatment: No tub baths, sex or returning to work until discussed at first post op appointment. No alcohol, tobacco or illegal drug use. Continue to use incentive spirometer hourly while awake. Walk in home for 5- 10 minutes every 2 hours during the first week. Wear abdominal binder with activity. Follow all meal plan instructions from your bariatric surgeon. Review bariatric handbook and call with any questions. Discharge Instructions 1. Please call your doctor or come back to the emergency room should any new symptoms arise. 2. Activity: abstain from alcohol,? limited stair climbing, no bending, no driving, no exercise, no illicit substances, no lifting, no sex, no tub bath, no work. 4. Diet: follow your bariatric surgeon's recommendations for advancing diet. 5. Dressing Change/Wound Care: Your incisions are covered with waterproof dressings. You can shower with these and pat dry. Do not rub over dressings or incisions. If the area is tender, you may apply an ice pack for short intervals (no more than 20 minutes on, followed by at least 20 minutes off). Do not apply heat. Do not use creams, lotions, or topical antibiotics unless instructed to do so by your surgeon. 6. Call your doctor if: - Your temperature exceeds 101.5 F - You experience excessive pain or swelling - You have an unexpected reaction to medication - You have excessive bleeding - You experience continued vomiting/nausea - Your incision begins to separate - Your incision shows signs of infection such as increased redness, swelling, excessive pain, heat, or drainage (light blood or clear fluid is normal) General instructions: No lifting greater than 10 lbs for the next 6 weeks[address] driving within 24 hours of taking narcotic pain medications. If you do not move your bowels in the next 2 days, please take milk of magnesia over the counter. Please follow the post op diet and do not advance your diet until instructed by your surgeon or until you are seen in the office in about 1 week. Please walk around your home every hour or two to prevent blood clots from forming in your legs. You do not need to wake from sleeping to walk. Please sleep in a bed or couch to prevent kinking at the hips and knees. Please take your incentive spirometer (your lung cooling pipe inspector) home with you and use it for the next few days to prevent pneumonias. You may shower; no hot tubs, baths or swimming pools. Please make sure you are consuming 40-60 ounces of total fluids per day. Avoid all carbonation. Please call the office with any questions or concerns such as increasing abdominal pain, fever, chills, shortness of breath, chest pain, leg pain or swelling, or redness or drainage from your incisions. Do not hesitate to contact the office with any questions at . The patient's medical history has been reviewed and they are considered low risk for post op DVT and therefore DVT prophylaxis is not considered necessary. Travel after surgery was reviewed. The patient has not disclosed any travel plans during the first 30 days after surgery and they have been advised that within the first 30 days after surgery any bus, plane, train or car travel over 2 hours in duration is contraindicated due to the possibility of developing blood clots from immobility. Any travel, needs to include periods of ambulation of 10 minutes in duration every 2 hours.? The patient was instructed to discuss any plans for travel during this period with their bariatric surgeon. Assessment: s/p laparoscopic sleeve gastrectomy with gastropexy
[2024-10-12] MEDS: droPERidol 5 MG/2 ML VIAL 0.625 MG IVPUSH (10:23)
[2024-10-12] MEDS: Lactated Ringers 1,000 ML 100 ML IVCONT ×3 (10:55→19:41)
[2024-10-12 11:08] LABS: Hematocrit 38.8 % (37.0-47.0); Hemoglobin 13.6 g/dl (12.0-16.0)
[2024-10-12] MEDS: fentaNYL citrate/PF 100 MCG/2 ML VIAL 50 MCG IVPUSH (11:10)
[2024-10-12 11:23] LABS: Anion Gap 12 (12-20); Blood Urea Nitrogen 13 mg/dL (9-16); Calcium 8.6 mg/dL (8.4-10.2); Carbon Dioxide 23 mmol/L (22-29); Chloride 108 mmol/L (96-108); Creatinine Clr Calc Pharmacy 115.3; Estimated Glomerular Filt Rate > 60; Glucose Random 109 mg/dL (60-115); Potassium 3.9 mmol/L (3.3-5.1); Sodium 139 mmol/L (135-145)
[2024-10-12] MEDS: Acetaminophen 1,000 MG/100 ML PIGGYBACK 16.7 MG IV ×2 (13:35→18:09)
--- NOTE | 2024-10-12 18:26 | PC.NURSE ---
Pt educated on phase I diet tolerating well and following protocol. Pt voiding without difficulty ambulated in hallway and has been OOB to recliner . Lap sites intact umbilical dressing with some staining . good pain control with Tylenol infusion
[2024-10-12] MEDS: 0.9 % Sodium Chloride Flush 3 ML SYRINGE IVFLUSH (19:35)
[2024-10-12] MEDS: Amitriptyline HCl 50 MG TABLET PO (19:35)
[2024-10-12] MEDS: Loratadine 10 MG TABLET PO (19:35)
[2024-10-12] MEDS: Famotidine/PF 20 MG/2 ML VIAL IVPUSH (19:35)
[2024-10-13] MEDS: Acetaminophen 1,000 MG/100 ML PIGGYBACK 16.7 MG IV ×2 (00:03→05:56)
[2024-10-13 03:30] VITALS: BP 123/69; PULSE 70; RESP 18; TEMP 36.1; O2SAT 96
[2024-10-13] MEDS: Lactated Ringers 1,000 ML 100 ML IVCONT (05:14)
[2024-10-13] MEDS: Levothyroxine Sodium 112 MCG, Levothyroxine Sodium 25 MCG 137 MCG PO (05:20)
[2024-10-13 06:01] LABS: MANUAL DIFF FLAG NO
[2024-10-13 06:03] LABS: Basophils Percent Auto 0.2 % (0-2); Eosinophils Percent Auto 0.1 % (0-4); Hematocrit 41.3 % (37.0-47.0); Hemoglobin 14.3 g/dl (12.0-16.0); Imm Gran Abs Auto 0.06 X10*3/uL (0.00-0.03); Imm Gran Pct Auto 0.5 % (0.0-0.4); Lymphocytes Absolute Auto 1.9 X10*3/uL (1.2-4.9); Lymphocytes Percent Auto 15.9 % (20-40); Mean Corpuscular HGB Conc 34.6 g/dl (31.0-35.0); Mean Corpuscular Hemoglobin 30.5 pg (27.0-33.0); Mean Corpuscular Volume 88.1 fL (80.0-98.0); Monocytes Absolute Auto 0.9 X10*3/uL (0.1-1.2); Monocytes Percent Auto 7.6 % (2-11); Neutrophils Absolute Auto 8.8 x10*3/uL (2.0-8.3); Neutrophils Percent Auto 75.7 % (45-73); Platelet Count 258 X10*3/uL (160-400); Red Blood Count 4.69 X10*6/uL (4.20-5.50); White Blood Count 11.6 X10*3/uL (4.8-10.8)
[2024-10-13 06:21] LABS: Anion Gap 13 (12-20); Blood Urea Nitrogen 10 mg/dL (9-16); Calcium 8.9 mg/dL (8.4-10.2); Carbon Dioxide 24 mmol/L (22-29); Chloride 107 mmol/L (96-108); Creatinine Clr Calc Pharmacy 126.4; Estimated Glomerular Filt Rate > 60; Glucose Random 93 mg/dL (60-115); Sodium 140 mmol/L (135-145)
--- NOTE | 2024-10-13 07:38 | HO.POSTANES ---
Post Anesthesia Evaluation Post Anesthesia Evaluation Date of Service: 10/13/24 Vital Signs: Vital Signs Temp Pulse Resp BP Pulse Ox O2 Del Method 10/13/24 03:30 97.0 F 70 18 123/69 96 Room Air 10/12/24 23:44 98.0 F 74 18 128/76 98 Room Air Anesthesia: General Endotracheal-GETA Mental Status: Awake Pain Control: Satisfactory Nausea/Vomiting: None Hydration: Adequate Anesthesia-Related Issues: No Anes. Related Issues
[2024-10-13 07:49] VITALS: BP 126/60; PULSE 78; RESP 18; TEMP 37.1; O2SAT 96
[2024-10-13] MEDS: Famotidine/PF 20 MG/2 ML VIAL IVPUSH (08:25)
[2024-10-13] MEDS: Topiramate 25 MG TABLET 75 MG PO (08:25)
[2024-10-13] MEDS: Loratadine 10 MG TABLET PO (08:25)
--- NOTE | 2024-10-13 10:50 | MHC.CM.PN ---
Patient dc'd home self care via private transport prior to CM assessment.
== END 2024-10-13 10:22 | disposition home or self-care (01) | DRG 620 ==
LOC: HO.SSSA 09:52 → HO.S3 12:33
PROVIDERS: Physician Assistant Surgical; Admitting Provider Surgery; PCP Internal Medicine; Visit Provider Surgery
PROC: 0DB64Z3 Excision of Stomach, Percutaneous Endoscopic Approach, Vertical (ICD-10-PCS; CPT 43845; principal; 2024-10-12 07:30)
DX: E66.01 Morbid (severe) obesity due to excess calories (principal); Q43.3 Congenital malformations of intestinal fixation; H54.8 Legal blindness, as defined in USA; I10 Essential (primary) hypertension; M50.30 Other cervical disc degeneration, unspecified cervical region; K21.9 Gastro-esophageal reflux disease without esophagitis; G43.909 Migraine, unspecified, not intractable, without status migrainosus; F32.A Depression, unspecified; F41.9 Anxiety disorder, unspecified; K76.0 Fatty (change of) liver, not elsewhere classified; M19.90 Unspecified osteoarthritis, unspecified site; Z68.35 Body mass index [BMI] 35.0-35.9, adult; Z71.3 Dietary counseling and surveillance; Z79.890 Hormone replacement therapy; Z79.899 Other long term (current) drug therapy
CPT/HCPCS: 36415; 80048; 80053; 80061; 83036; 83525; 84443; 85014; 85018; 85025; 85610; 85730; 86140; 86850; 86900; 86901; 88304; 88305; 88307; 88342; C9145; J0131; J0690; J1100; J1308; J1790; J2003; J2250; J2405; J2598; J2704; J2795; J3010; J7120

== ENCOUNTER → 2024-10-12 06:18 | Outpatient (BNV) | payer MEDICARE, MEDICAID, SELFPAY | PROVIDERS: Admitting Provider Surgery; PCP Internal Medicine; Visit Provider Surgery | DX: E66.01 Morbid (severe) obesity due to excess calories (principal); Z68.35 Body mass index [BMI] 35.0-35.9, adult | CPT/HCPCS: 43659; 43775; 99024 ==

== ENCOUNTER 2024-10-19 11:09 | Outpatient (AMB) | payer MEDICARE, MEDICAID, SELFPAY ==
--- NOTE | 2024-10-19 10:30 | A.OFFWM_ITS ---
Intake Intake Visit Reasons: TV PO LSG 10/12/24 Allergies Seasonal Allergies Allergy (Mild, Verified 10/12/24 06:43) sneezing vaccines Allergy (Unknown, Uncoded 10/12/24 06:43) unknown [facility] Medical History (Updated 10/12/24 @ 09:52 by Alan Herr MD) Migraines Legally blind Back pain Graves disease Kidney stones Hypothyroid History of nephrolithiasis Diaphragmatic hernia GERD (gastroesophageal reflux disease) Hypertension DJD (degenerative joint disease) Familial juvenile macular degeneration syndrome Anxiety Depression Surgical History (Updated 10/19/24 @ 11:06 by Heidi White [facility]) History of esophagogastroduodenoscopy (EGD) History of resection of rib Hx of hysterectomy Hx of adenoidectomy Hx of tonsillectomy Hx of bladder endoscopy Hx of colonoscopy Family History (Updated 07/27/24 @ 08:51 by Sarah Leung CMA) Mother Malignant neoplasm of breast in full remission Arthritis Father Landon's disease Son No problems noted. Son No problems noted. Social History (Updated 07/27/24 @ 08:51 by Sarah Leung CMA) Household Members: None Housing: House Are you a primary day care worker to a significant other at home: No Do you presently have visiting nurse or other home services: No Alcohol intake: current Alcohol intake frequency: does not drink Patient Tobacco Use Status: Never used Tobacco Second Hand Smoke Exposure: No Behavioral Health Assessment Weight Management Therapy Therapy Notes Details Subjective: Patient (PT) reports she is experiencing a smooth recovery following bariatric surgery on 10/12/2024. She describes feeling well overall, with no complications or concerns at this time. PT states she has been receiving consistent support from her family and a neighbor, which she finds helpful. She denies experiencing hunger, mood disturbances, or emotional distress since the procedure. Objective: PT presented for a behavioral health () follow-up visit post-surgery. PHQ-9 administered; results fall within the normal range, indicating no current symptoms of depression. Discussed aspects of physical recovery, energy levels, emotional regulation, coping strategies, and the importance of social support during the post- operative period. Reviewed adherence to post-op medical and behavioral protocols, including nutritional guidelines and follow-up care. Shared information about available peer support groups and encouraged particip ation as a resource for emotional connection and shared experience. Assessment/Response: * Mental status: WNL. * Risk reported/identified: None. Food/Weight/Diet Expectations of change The initial goal is to lose 10% of her weight before surgery, which is about 25 lbs. Ultimate weight goal: 230lbs before surgery PT started the program on 07/28 at 255 Lbs. Her most recent weight as of 08/22/2024 was 239 lbs. Weight as of 09/02/2024: 234Lbs Surgery on 10/12/2024. PO weight 10/19/2024: 208Lbs The patient's goal is to be healthy, and her target weight is 150 lbs. PT is implementing the following: Current meal plan: liquid plan, 3 shakes and clear liquids. Total of 40oz Exercise plan: No cleared yet. Questionnaires PHQ-9 Over the last 2 weeks, how often have you been bothered by any of the following problems? 1. Little interest or pleasure in doing things: not at all 2. Feeling down, depressed, or hopeless: not at all 3. Trouble falling or staying asleep, or sleeping too much: not at all 4. Feeling tired or having little energy: several days 5. Poor appetite or overeating: not at all 6. Feeling bad about yourself - or that you are a failure or have let yourself or your family down: not at all 7. Trouble concentrating on things, such as reading the newspaper or watching television: not at all 8. Moving or speaking so slowly that other people could have noticed. Or the opposite - being so fidgety or restless that you have been moving around a lot more than usual: not at all 9. Thoughts that you would be better off or of hurting yourself in some way: not at all Total score: 1 Depression Screening Interpretation: Negative Depression Screening Done: Yes 54257 - PHQ-9 Billing: Yes Source: Developed by Drs. Molina Nj, Estrella Avendano, Arie Rooney and colleagues, with an educational rigoberto from [employer]. Assessment & Plan Assessment & Plan (1) Adjustment disorder with mixed anxiety and depressed mood: Code(s): F43.23 - Adjustment disorder with mixed anxiety and depressed mood (2) Status post laparoscopic sleeve gastrectomy: Code(s): Z98.84 - Bariatric surgery status Plan -PT to continue following her post-operative care plan, including medical follow-up and adherence to dietary recommendations. -No further BH appointments scheduled at this time; PT is aware of how to access services should needs arise. Telehealth Telehealth [facility] Location of provider rendering services: practice address Location of patient: address on file Patient Identification confirmed using: Name, : Yes Telehealth method: voice only Patient verbally consented to treatment: Yes Patient verbally consented to billing insurance company: Yes Patient informed of any privacy concerns related to visit: Yes Minutes spent on Phone/Video with Pt.: 30 Coding Level of Care Code Established Pt Tele Psytx 30 mins ([id number]) Patient Type Established Diagnoses Adjustment disorder with mixed anxiety and depressed mood F43.23 Status post laparoscopic sleeve gastrectomy Z98.84 Additional Codes PHQ-9 - 23139 - PHQ-9 Billing: Yes ([id number]) Time Spent (min) 30
--- OUTSIDE RECORDS SUMMARY | 2024-10-19 12:23 | XMS_ITS | Data Portability ---
Author Organization [facility], Home Service Address [address] [place] [address] Assessment Encounter Date Assessment Date Assessment LastModified [...] reduce health risks and promote healthy living. 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 Lab lipid panel, blood 2023 024 [facility], [address] [place] [address], [address], 4 11:09:35 CBC w/ auto diff 2023 024 [facility], [address] [place] [address], [address], 4 11:09:35 CMP, serum or plasma 2023 024 [facility], [address] [place] [address], [address], 4 11:09:35 vitamin D, 25-hydroxy , total, serum 2023 024 [facility], [address] [place] [address], [address], 4 11:26:40 TSH + free T4, serum 2023 024 [facility], [address] [place] [address], [address], 4 11:07:38 TSH + free T4, serum 2023 024 [facility], [address] [place] [address], [address], 4 11:07:38 Referral neurologis t referral 2022 023 [email or web address] 10 [facility], [address], [place], [address], 3 08:49:05 Procedures None recorded. Surgeries None recorded. Imaging MRI, cervical spine, w/o contrast 2023 024 [email or web address] 10 [facility], [address] [place], [address], 4 07:54:29 electromyo gram + nerve conduction study - carpal tunnel, castillo hands and wrists 2023 024 [facility]), [address] [place], [address], 4 09:19:32 XR, cervical spine, 2 or 3 view 2023 024 [facility], [address] [place], [address], 4 14:30:08 XR, chest, 2 view 2023 024 [facility], [address] [place], [address], 4 14:30:08 Medication Orders codeine 10 mg-guaifen esin 100 mg/5 mL oral liquid 2023 024 [facility] #[id number], [address] [place], [place], [id number], 4 09:45:13 cephalexin 500 mg capsule 2023 024 [facility] #08497, [address] [place], [place], [id number], 4 09:20:25 Synthroid 137 mcg tablet 2023 024 [facility] #44077, [address] [place], [place], [id number], 4 11:42:08 ciprofloxa radha 500 mg tablet 2022 023 [email or web address] [facility] #52684, [address], [place], [id number], 09:58:28 Patient TargetsNo targets recorded. Patient Instructions Encounter Date Encounter Id Patient Instructions Last Modified By Organization Details Last Modified Time 08/23/2023 [id number] hypothyroidism: care instructions Not available 08/23/2023 22:06:42 11/03/2023 [id number] Skin Cyst: Care Instructions Not available 11/03/2023 11:27:04 Discussed and explained advance directives such as standard forms to the {{patient* caregi paola patient and caregiver}}. Face to face discussion lasted for a duration of _5__ minutes. Not available 11/03/2023 11:28:02 02/04/2024 [id number] neck pain: care instructions Not available 02/04/2024 [...] bilat eral No observ ation record ed. [facility]'s [address] [place], [address], 10/07/2022 08:10:20 02/22/20 23 02/21/2023 XR, foot No observ ation record ed. [address] (Medical Records) [address] [place], [address], 02/21/2023 08:35:27 02/22/20 23 02/21/2023 XR, ankle No observ ation record ed. [address] (Medical Records) [address] [place], [address], 02/21/2023 08:35:58 11/08/19 24 10/18/2023 MAMMO , scree owen, digit al, bilat eral No observ ation record ed. [facility] [address] [place], [address], 11/08/2023 13:26:33 02/04/20 24 02/04/2024 XR, cervi alix spine , 2 or 3 view No observ ation record ed. [facility] (Medical Records) [address] [place], [address], 02/18/2024 09:49:01 02/04/20 24 02/04/2024 XR, chest , 2 view No observ ation record ed. [facility] (Medical Records) [address] [facility] [place], [address], 02/18/2024 09:49:00 02/18/20 24 02/11/2024 XR, chest , 2 view No observ ation record ed. [facility] (Medical Records) [address] [place], [address], 02/22/2024 15:40:53 03/13/20 24 03/03/2024 MRI, cervi alix spine , w/o contr ast No observ ation record ed. [facility] (Medical Records) [address] [facility] [place], [address], 03/14/2024 15:53:15 03/16/20 24 03/16/2024 elect romyo gram + nerve condu ction study No observ ation record ed. [email or web address] [facility] (Medical Records) [address] [place], [address], 03/17/2024 12:09:59 03/16/20 24 03/16/2024 elect romyo gram + nerve condu ction study No observ ation record ed. [email or web address] [facility] (Medical Records) [address] [place], [address], 03/17/2024 12:09:59 07/31/19 25 07/31/2024 XR, chest , 2 view No observ ation record ed. [facility] (Medical Records) [address] [place], [address], 07/31/2024 08:12:29 08/31/19 25 08/30/2024 US, abdom en No observ [facility]ion [facility] ed. [facility] [address] [place], [address], 08/30/2024 10:11:14 09/16/19 25 09/15/2024 RF, upper gastr ointe gayatri l tract , w/ contr ast PO No observ ation record ed. [facility] (Medical Records) [address] [place], [address], 09/15/2024 15:29:33 Result Notes None recorded. 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 Active 2019 Not Available [facility] 2 14:39:08 Acute sinusiti s 60327096 Active 2021 VIJAY HAAS [address] [place] [address], [address], [facility] 2 10:05:14 Posterio r rhinorrh ea 56522496 Active 2021 VIJAY HAAS [address] [place] [address], [address], [facility] 2 10:05:48 Pain in throat 908002342 Active 2021 VIJAY HAAS [address] [place] [address], [address], [facility] 2 10:05:53 COVID-19 275437473 Active 2021 VIJAY HAAS [address] [place] [address], [address], [facility] 2 10:28:01 Intermit tent palpitat ions 013765336 Active 2021 Brendan Dockery DO [address] [place] [address], [address], [facility] 2 14:24:47 Acute otitis media 1712011 Active 2022 VIJAY HAAS [address] [place] [address], [address], [facility] 3 14:11:22 Acute bronchit is 70467108 Active 2022 VIJAY HAAS [address] [place] [address], [address], [facility] 3 11:29:57 Acute otitis media 8964333 Active 2023 Brendan Dockery, [address], [address], [facility] 4 15:34:59 Epidermo id cyst of skin 686292246 Active 2023 Brendan Dockery [address], [address], [facility] 4 11:26:25 Anxiety 66736782 Active 2023 Brendan Dockery DO [address] [place] [address], [address], [facility] 4 11:04:14 Cough 65710764 Active 2023 Brendan Dockery DO [address] [place] [address], [address], [facility] 4 09:46:18 Neck pain 35931752 Active 2023 Brendan Dockery DO [address] [place] [address], [address], [facility] 4 09:16:11 Pneumoni a 724665156 Active 2023 Brendan Dockery DO [address] [place] [address], [address], [facility] 4 14:44:04 Cervical radiculo lore 31067974 Active 2023 VIJAY HAAS [address] [place] [address], [address], [facility] 4 09:40:00 Bilatera l carpal tunnel syndrome 79765398313 445474 Active 2023 VIJAY HAAS [address] [place] [address], [address], [facility] 4 09:42:34 Cervical disc disorder 179167601 Active 2023 VIJAY HAAS [address] [place] [address], [address], [facility] 4 15:54:20 Gastroes ophageal reflux disease 972288551 Active 2017 Not Available [facility] 2 14:39:08 Hypothyr oidism 30772320 Active 2017 Not Available [facility] 2 14:39:09 Migraine 48078263 Active 2017 Not Available [facility] 2 14:39:08 Fibromya lgia 603518560 Active 2017 Not Available [facility] 2 14:39:09 Family history of non-Hodg kin's lymphoma 352331202 Active 2017 father, dx'd 11/2010 Not Available [facility] 2 14:39:09 Thoracic outlet syndrome 419196358 Active 2017 s/p 1st rib removal 03/2012 Not Available [facility] 2 14:39:09 Chronic headache disorder 695870118 Active 2017 Not Available [facility] 2 14:39:09 Ventricu lar prematur e complex 464189398 Active 2017 Not Available [facility] 2 14:39:09 Hyperten sive disorder 66039704 Active 2017 Not Available [facility] 2 14:39:08 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 Procedures Surgical History Date Name Laterality Status Provider Name and Address Organization Details Recorded Time Colonoscopy completed Brendan Dockery , DO [address] [place] [address], [place], [address], [facility] 11/17/2021 15:53:34 Imaging Results Imaging Date Name Status LastModified by Organization Details LastModified Time 10/01/2022 MAMMO, screening, digital, bilateral completed [facility] [address] [place] [address] [place], [address], 10/07/2022 08:10:20 02/21/2023 XR, foot completed [facility] (Medical Records) [address] [place], [address], 02/21/2023 08:35:27 02/21/2023 XR, ankle completed [facility] (Medical Records) [address] [place], [address], 02/21/2023 08:35:58 10/18/2023 MAMMO, screening, digital, bilateral completed [facility] [address] [place], [address], 11/08/2023 13:26:33 02/04/2024 XR, cervical spine, 2 or 3 view completed [facility] (Medical Records) [address] [place], [address], 02/18/2024 09:49:01 02/04/2024 XR, chest, 2 view completed [facility] (Medical Records) [address] [place], [address], 02/18/2024 09:49:00 02/11/2024 XR, chest, 2 view completed [facility] [address] [facility] [place] [address], 02/22/2024 15:40:53 03/03/2024 MRI, cervical spine, w/o contrast completed [facility] (Medical Records) [address] [place], [address], 03/14/2024 15:53:15 03/16/2024 electromyogram + nerve conduction study completed [address] (Medical Records) [address] [place], [address], 03/17/2024 12:09:59 03/16/2024 electromyogram + nerve conduction study completed [address] (Medical Records) [address] [place], [address], 03/17/2024 12:09:59 07/31/2024 XR, chest, 2 view completed [address] (Medical Records) [address] [place], [address], 07/31/2024 08:12:29 08/30/2024 US, abdomen completed [facility] [place], [address], 08/30/2024 10:11:14 09/15/2024 RF, upper gastrointestinal tract, w/ contrast PO completed [facility] (Medical Records) [address] [place], [address], 09/15/2024 15:29:33 Procedure Notes None recorded. Medical Equipment None Reported. Allergies Allergen ID Allergen Name Allergen Category Reaction Reaction Severity Criticality Documentation Date Start Date Code Code System Note Provider Name and Address Organization Details Recorded Time 1277 Fluarix medicatio n Not available Not available Not available 10/15/2017 07302 UNK Rowan freitas [facility] 8 09:01:31 5796 Shingrix medicatio n Not available Not available Not available 11/17/2021 16523 26 RxNorm Brendan Dockery, DO [address] [place], [address], [facility] 2 15:05:01 8069 SARS-CoV- 2 (COVID-19 ) vaccine, protein [id number]-CoV23 73 medicatio n Not available Not available Not available 11/03/2023 45025 73 RxNorm Hai freitas [facility] 4 10:55:25 Medications [...] propionate 50 mcg/actuati on nasal spray,suspe nsion [place] 1 spray every day by intranasa l [...] Updated DateTime 4 172.72 cm 37.7 kg/m2 330476. 91 g 87 /min 97 % 97 % 138 mm[Hg] 68 mm[Hg] Madison Smith [facility] 4 10:00:36 Date Recorded Body height Body mass index (BMI) Body weight Heart rate Respiratory rate Oxygen saturation Oxygen saturation in Arterial blood by Pulse oximetry Systolic blood pressure Diastolic blood pressure Provider Name and Address Organization Details Last Updated DateTime 4 172.72 cm 38 kg/m2 667338. 45 g 64 /min 18 /min 96 % 96 % 128 mm[Hg] 70 mm[Hg] Hai Ahumada [facility] 4 10:55:03 Date Recorded Body height Body mass index (BMI) Body weight Heart rate Oxygen saturation Oxygen saturation in Arterial blood by Pulse oximetry Systolic blood pressure Diastolic blood pressure Provider Name and Address Organization Details Last Updated DateTime 4 172.72 cm 37.6 kg/m2 515719. 32 g 74 /min 95 % 95 % 116 mm[Hg] 82 mm[Hg] Cathy Forbes [facility] 4 09:29:51 Social History Question Answer Notes LastModified by Organizat ion Details LastModified Time Tobacco Smoking Status Never Smoker Not Available [facility] 04/09/2020 03:36:23 What Was The Date Of Your Most Recent Tobacco Screening? 02/18/2024 [email or web address] Information not available 02/18/2024 Sex: Unknown Functional Status None recorded. Mental Status None recorded. Family History Nothing Reported. Medical History Condition Response Coronary Artery Disease N Other N Gout N Kidney Stones N Blood Diseases N Breast Cancer N Blood Transfusion N Depression N COPD N Lung Disease N Defects or Inherited [...] mL dose 1 completed Brendan Dockery DO [address] [place] [address], [address], [facility] 03/25/2021 14:56:42 COVID-19, mRNA, LNP-S, PF, 30 mcg/0.3 mL dose 1 completed Brendan Dockery DO [address] [place] [address], [address], [facility] 03/25/2021 14:56:50 COVID-19, mRNA, LNP-S, PF, 100 mcg/0.5mL dose or 50 mcg/0.25mL dose 2 completed Brendan Dockery DO [address] [place] [address], [address], [facility] 11/17/2021 15:06:29 zoster recombinant 2 completed Brendan Dockery DO [address] [place] [address], [address], [facility] 11/17/2021 15:06:54 Past Encounters Encounter ID Performer Location Encounter Start Date Encounter Closed Date Diagnosis/Indication Diagnosis SNOMED-CT Code Diagnosis ICD10 Code Diagnosis Note [id number] Brendan Bowen [facility] [address] [facility] [address] 10/15/2017 14:39:05 10/15/2017 16:02:57 Tenosynovitis of wrist 938622300 M65.839 given she has tried splint and taken otc and rx nsaids without resolution Hypertensive disorder 38 030084 I10 bp is stable no issues noc cp [id number] Brendan Bowen [facility] [address] [facility] [address] [facility] [place] [address] 11/23/2017 13:24:41 11/23/2017 14:43:03 Acute bacterial sinusitis 64924948 J01.90 Hypothyroidism 31310274 E03.9 stable, reviewed labs Essential hypertension 95191995 I10 stable [id number] Brendan Bowen [facility] [address] [facility] [address] 02/28/2018 10:59:14 02/28/2018 12:08:52 Hypothyroidism 05301584 E03.9 tsh is 0.8 Hypertensive disorder 38 600027 I10 bp is stable no issues noc cp Adult heal th examination 690047995 Z00.00 discussed need for exercise and diet Screening for cardiovascular system disease 329063620 Z13.6 Screening mammography 24 698974 Z12.31 [place] [id number] Brendan SalinasAlba Dockery [facility] [address] [facility] [address] 07/12/2018 09:48:11 07/12/2018 11:06:37 Migraine 94928340 G43.909 Using imitrex with relief Hypertensive disorder 38 188733 I10 diastolic slightly elevated, will monitor Hypothyroidism 34251512 E03.9 labs last done 02/2018 Benign par oxysmal positional vertigo 948266957 H81.11 improving with meclizine Acute sinusitis 06761720 J01.90 continue mucinex, flonase, fluids, humidifier [id number] Brendan SalinasAlba Dockery [facility] [address] [facility] [address] [address] 09/16/2018 11:50:53 09/16/2018 15:19:18 Otitis media 36527144 H66.92 Allergic cough 717349654 R05 Active or passive immunization 248502525 Z23 Hypertensive disorder 38 047206 I10 stable, reviewed Mar 2018 labs [id number] Brendan Dockery [facility] [address] [facility] [address] [address] 09/26/2018 13:31:49 09/26/2018 14:23:51 Dysfunction of eustachian tube 70632685 H69.92 [id number] Brendan Bowen [facility] [address] [facility] [address] [address] 10/03/2018 14:57:35 10/03/2018 16:29:59 Dysfunction of left eustachian tube 5494456424 542673 H69.92 [id number] Brendan Dockery [facility] [address] [facility] [address] [address] 11/23/2018 16:09:46 11/25/2018 08:16:23 Hypertensive disorder 76802268 I10 bp is stable no issues noc cp Hypothyroidism 25497880 E03.9 tsh is 0.8 Edema of l ower extremity 488369727 R60.0 will add furosemide 40mg [id number] Brendan Dockery [facility] [address] [facility] [address] [address] 12/02/2018 13:35:55 12/02/2018 14:40:20 Hypertensive disorder 97274468 I10 bp is stable no issues noc cp will cont Edema of l ower extremity 399313528 R60.0 will cont furosemide 40mg [id number] Brendan Dockery [facility] [address] [facility] [address] [address] 01/13/2019 10:20:35 01/13/2019 11:04:19 Edema of lower extremity 320640914 R60.0 b/l improved on increased dose of lasix do 80 mg again today then return to 40 mg Hypertensive disorder 38 762977 I10 stable Hypothyroidism 27750115 E03.9 normal tsh 12/2018 [id number] Brendan Dockery [facility] [address] [facility] [address] 01/30/2019 13:31:42 01/30/2019 14:09:46 Edema of lower extremity 055444134 R60.0 will cont furosemide 40mg and will cont to use bid when sudden changes potassium supp or bananas Hypertensive disorder 38 649302 I10 bp is stable no issues noc cp will cont Hypothyroidism 93350525 E03.9 tsh is wnl per [facility] lab Tinea pedis 1561180 B35. 3 lotrimin cream [id number] Brendan Dockery [facility] [address] [facility] [address] 09/04/2019 11:07:27 09/04/2019 13:34:20 Acute sinusitis 55581382 J01.90 will need to treat given her past issues [id number] Brendan Dockery [facility] [address] [facility] [place] [address] 04/01/2020 13:27:40 04/01/2020 14:38:28 Adult health examination 582826430 Z00.00 discussed need for exercise and diet Screening for cardiovascular system disease 001143596 Z13.6 Screening for osteoporosis 655957720 Z13.820 Screening mammography 24 814879 Z12.31 [place] [id number] Brendan Dockery [facility] [address] [facility] [place] [address] 04/15/2020 09:07:48 04/15/2020 11:14:34 Acute otitis media 1066980 H65.01 most likely another ear infection given symptoms and hx will fu with patient if still having symptoms or worsening pt understand s and will call Nasal congestion 6980511 0 R09.81 more with pressure, all right sided along maxillary and frontal sinuses Headache 13996499 R51.9 right sided, also suffers from chronic headaches so not uncommon [id number] Brendan Dockery [facility] [address] [facility],[place] [address] 03/25/2021 14:34:54 03/25/2021 16:24:44 Hypothyroidism 95527603 E03.9 tsh low and t4 is high and we nmeed to decrease her dose she is having a lot of hairloss Gastroesop hageal reflux disease 880102952 K21.00 has breakthrog uh [place] [id number] Brendan Dockery [facility] [address] [facility],[place] [address] 05/14/2021 09:37:08 05/14/2021 14:28:14 Gastroesophageal reflux disease 804867180 K21.00 has breakthrog uh need to incerease the nexium to bid Hypertensive disorder 38 859225 I10 bp is stable no issues noc cp will cont current tx Edema of l ower extremity 717683608 R60.0 furosemide 40mg as needed only and has not taken any since the summer and will cont to use prn when sudden changes potassium supp or bananas when she does take furosemide [id number] Brendan Dockery [facility] [address] [facility],[place] [address] 06/16/2021 09:40:38 06/16/2021 16:20:27 Chondromalacia of patella 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.41 will fu with MRI Pain of le ft knee joint 5546101102 75901 M25.562 will fu with MRI [id number] Brendan Dockery [facility] [address] [place] [address] 06/30/2021 09:21:10 07/01/2021 15:55:17 Acute sinusitis 80722655 J01.01 will start on abx and fu with patient if no improvemen t Otalgia 70640615 H92.01 will start on abx [id number] Brendan Dockery [facility] [address] [facility],[place] [address] 10/17/2021 09:21:32 10/17/2021 11:33:49 Acute sinusitis 78257775 J01.01 will start on abx and fu with patient if no improvemen t Posterior rhinorrhea 758 07436 R09.82 will fu with testing Pain in throat 191953778 R07.0 can use APAP and IBU for symptom management [id number] Brendan Dockery [facility] [address] [facility],[place] [address] 11/17/2021 14:48:20 11/17/2021 15:56:50 Hypertensive disorder 60848802 I10 bp is stable no issues noc cp will cont current tx Hypothyroidism 58816385 E03.9 tsh low and t4 is high and we nmeed to decrease her dose she is having a lot of hairloss Active or passive immunization 614048049 Z23 patient advised she is due for a tdap Screening for malignant neoplasm of colon 554064027 Z12.11 already had done in jul Depression screening 171 036203 Z13.31 Did not bring glasses to fill out PHQ9 not able to complete today Tachycardia 4031744 R00. 0 given just one episode [id number] Brendan Dockery [facility] [address] [facility],[place] [address] 08/11/2022 13:49:58 08/11/2022 16:33:49 Acute otitis media 7793971 H65.01 will set up with cipro for 7 days BIDworks best for the patient [id number] Brendan Dockery [facility] Internal [facility] [address] [facility],[place] [address] 09/23/2022 09:07:41 09/23/2022 12:05:06 Acute otitis media [id number] H65.01 will set up with cipro for 7 days BIDworks best for the patient Migraine [id number] G43.10 9 will set up with second opinion with neuro [id number] Brendan Dockery [facility] Internal [facility] [address] [facility],[place] [address] 08/23/2023 09:51:36 08/23/2023 10:25:31 Hypertensive disorder [id number] I10 bp is stable no issues no cp will cont current tx Hypothyroidism 15636865 E03.9 tsh low and t4 is high and we need to decrease her dose she is having a lot of hairloss [id number] Brendan Dockery [facility] Internal Medicine [address] [facility],[place] [address] 11/03/2023 10:35:53 11/03/2023 12:15:08 Adult health examination [id number] Z00.00 discussed need for exercise and diet Screening for cardiovascular system disease [id number] Z13.6 Screening for malignant neoplasm of colon 404859179 Z12.11 already had done in jul Depression screening 171 651399 Z13.31 Did not bring glasses to fill out PHQ9 not able to complete today Epidermoid cyst of skin [id number] L72.0 [id number] [facility] [address] [facility],[place] [address] 02/04/2024 08:34:01 02/04/2024 14:30:07 Anxiety 24908117 F41.9 stable Hypertensive disorder 38 739991 I10 bp is stable no issues no cp will cont current tx Hypothyroidism 49203211 E03.9 stable Thoracic o utlet syndrome 202136074 G54.0 no chnges Neck pain 80875770 M54.2 possible radiculopa thy issue here having numbness Cough 24783626 R05.9 not getting better , will use use guaifen over weekend if no better will need levoflox etc will get cxr today [id number] Brendan Dockery [facility] Internal Medicine [address] [facility],[place] [address] 02/18/2024 09:14:53 02/18/2024 09:50:41 Cervical radiculopathy 71416110 M54.12 will set up MRI now and EMG for her arms Bilateral carpal tunnel syndrome [id number] 4364250 G56.03 fu EMG Cough 84765490 R05.2 given syrup to use PRN for the coughing Health Concerns Section Related Observation LastModified by Organization Detai ls LastModified Time None Recorded Concern Status LastModified by Organization Details LastModified Time None Recorded Advance Directives Directive None Recorded Payers Encounter Date Sequence Insurance Name Policy Number Policy Blandon Covered Member ID Blandon Member ID Guarantor Name 09/23/2022 1 [place] [employer] Tamar Chacon [id number] Tamar Oswaldo 09/23/2022 2 [place] Tamar Salinas Oswaldo [id number] Tamar Oswaldo 08/23/2023 1 [place] [employer] Tamar Salinas Oswaldo [id number] Tamar Oswaldo 08/23/2023 2 [place] Tamar Salinas Oswaldo [id number] Tamar Oswaldo 11/03/2023 1 [place] [employer] Tamar Salinas Oswaldo [id number] Tamar Oswaldo 11/03/2023 2 [place] Tamar Salinas Oswaldo [id number] Tamar Oswaldo 02/04/2024 1 [place] [employer] Tamar Salinas Oswaldo [id number] Tamar Oswaldo 02/04/2024 2 [place] Tamar Salinas Oswaldo [id number] Tamar Oswaldo 02/18/2024 1 [place] [employer] Tamar Salinas Oswaldo [id number] Tamar Oswaldo 02/18/2024 2 [place] Tamar Salinas Oswaldo [id number] Tamar Oswaldo Notes Date Note Type Note [...] to stick with VIJAY De La Torre [address] [place] [address], [place], [address], [facility] 09/23/2022 11:28:14 4 text/html here for annual wellnessrelates has been under a lot of stress relates that she has been sad bc she can no longer drive etc Brendan BradAlba Gomezkeyshawn, DO [address] [facility], [place], [address], [facility] 08/23/2023 22:06:45 4 [...] always feels tired Brendan BradAlba Dockery, [address] [place], [address], [facility] Internal Medicine 11/03/2023 11:28:39 4 text/html [...] arches her back Brendan BradAlba Dockery, [address] [place], [address], [facility] Internal Medicine 02/04/2024 09:24:45 4 text/html f/u neck pain the patient reports that she is having neck painagreed to MRI for more information waiting on repeat CXRfor the pna, given cough syrup EMG will be needed for possible carpal tunnel on top of the radiculopathy from the neck will f/u after CXR comes in will fu after MRI VIJAY HAAS [address] [place], [address], [facility] Internal Medicine 02/18/2024 09:49:55 OBGyn Episode No OBEpisode recorded.
== END 2024-10-19 11:10 | disposition home or self-care (01) ==
LOC: HO.HBST 11:09
PROVIDERS: PCP Internal Medicine; Visit Provider Counselor Mental Health
DX: F43.23 Adjustment disorder with mixed anxiety and depressed mood (principal); Z98.84 Bariatric surgery status
CPT/HCPCS: 90832

== ENCOUNTER → 2024-10-19 11:09 | Outpatient (BNVA) | payer MEDICARE, MEDICAID, SELFPAY | PROVIDERS: PCP Internal Medicine; Visit Provider Counselor Mental Health ==

== ENCOUNTER 2024-10-20 10:52 | Outpatient (AMB) | payer MEDICARE, MEDICAID, SELFPAY ==
--- NOTE | 2024-10-20 11:05 | A.OFFVIS_ITS ---
VS Expanded 10/20/24 11:22 BP 156/82 H Blood Pressure Location Rt brachial Blood Pressure Position Sitting Pulse 106 H Pulse Source Pulse Oximeter Temp 97.6 F Temperature Source Temporal Artery Scan Pulse Oximetry 97 Oxygen Delivery Method Room Air Height 5 ft 8 in Weight 209 lb BMI 31.8 Body Fat % 42.6 Body Fat Mass 89.0 Fat Free Mass 120.0 Visceral Fat Rating 11.0 Body Water % 40.8 Body Water Mass 85.4 Muscle Mass/Score 113.8 Basal Metabolic Rate/Score 1,661 Intake Visit Reasons: (OV) PO LSG 10/12/24 Allergies Seasonal Allergies Allergy (Mild, Verified 10/12/24 06:43) sneezing vaccines Allergy (Unknown, Uncoded 10/12/24 06:43) unknown HPI Comments Details: Patient is a pleasant 54-year-old female who returns to the office today in follow-up. She is 8 days post sleeve gastrectomy performed on 10/12/2024. Tolerating 2 ready to drink Premier protein shakes and 1 shake with 4 oz of liquid and 4 oz of almond milk. Proximally 40 oz of fluids total. No bowel movement yet. No abdominal pain. [facility] Medical History (Updated 10/12/24 @ 09:52 by Alan Herr MD) Migraines Legally blind Back pain Graves disease Kidney stones Hypothyroid History of nephrolithiasis Diaphragmatic hernia GERD (gastroesophageal reflux disease) Hypertension DJD (degenerative joint disease) Familial juvenile macular degeneration syndrome Anxiety Depression Surgical History (Updated 10/19/24 @ 11:06 by Heidi White [facility]) History of esophagogastroduodenoscopy (EGD) History of resection of rib Hx of hysterectomy Hx of adenoidectomy Hx of tonsillectomy Hx of bladder endoscopy Hx of colonoscopy Family History (Updated 07/27/24 @ 08:51 by Sarah Leung CMA) Mother Malignant neoplasm of breast in full remission Arthritis Father Landon's disease Son No problems noted. Son No problems noted. Social History (Updated 07/27/24 @ 08:51 by Sarah Leung CMA) Household Members: None Housing: House Are you a primary animal caretaker supervisor to a significant other at home: No Do you presently have visiting nurse or other home services: No Alcohol intake: current Alcohol intake frequency: does not drink Patient Tobacco Use Status: Never used Tobacco Second Hand Smoke Exposure: No Physical Exam GI Inspection: Yes incision (Clean, dry, intact.) Assessment & Plan Assessment & Plan (1) Status post laparoscopic sleeve gastrectomy: Code(s): Z98.84 - Bariatric surgery status Category: Surgical Plan: POD 8 s/p LSG on 10/12/[address] Herr Weight loss prior to surgery was 29.5 pounds or 11.5 % TBWL. Original weight on 07/28/2024 was 255 pounds and op weight was 225.5 pounds. Be sure to text Dr Herr exactly 1 week after surgery your weight from your home scale so he can adjust your meal plan. Continue meal plan until f/u w Vinnie in 2 weeks May shower, no submersion in bath for another week Continue abdominal binder with activity and exercise for the next 2 weeks. Exercise prior to surgery was walking outside and may resume No abdominal exercises for 6 weeks post operatively Will be emailed link to post op video for review Reminded of the pace of drinking, 2 mL per minute, 1 oz/15 min. Reports previously taking propranolol 80 mg at night. Blood pressure in the office 156/80 with a pulse of 97 however patient reports this morning blood pressure systolic the 1 teens. She will check blood pressure twice daily and report to Dr. Herr. Medications: New docusate sodium (Colace) 100 mg PO BID 60 caps 0RF
[2024-10-20 11:22] VITALS: BP 156/82; PULSE 106; TEMP 36.4; O2SAT 97; BMI 31.8
== END 2024-10-20 11:55 | disposition home or self-care (01) ==
PROVIDERS: PCP Internal Medicine; Visit Provider Physician Assistant Surgical
DX: Z98.84 Bariatric surgery status (principal)
CPT/HCPCS: 99024

== ENCOUNTER → 2024-10-20 10:52 | Outpatient (BNVA) | payer MEDICARE, MEDICAID, SELFPAY | PROVIDERS: PCP Internal Medicine; Visit Provider Physician Assistant Surgical | DX: Z48.815 Encounter for surgical aftercare following surgery on the digestive system (principal); Z98.84 Bariatric surgery status | CPT/HCPCS: 99212 ==

== ENCOUNTER 2024-11-08 10:12 | Outpatient (AMB) | payer MEDICARE, MEDICAID, SELFPAY ==
--- NOTE | 2024-11-08 10:19 | MHC.OFFVISWM ---
VS Expanded 11/08/24 10:26 BP 156/69 H Blood Pressure Location Rt brachial Blood Pressure Position Sitting Pulse 96 Pulse Source Pulse Oximeter Temp 97.5 F Temperature Source Temporal Artery Scan Pulse Oximetry 96 Oxygen Delivery Method Room Air Height 5 ft 8 in Weight 202 lb 12.8 oz BMI 30.8 Body Fat % 39.7 Body Fat Mass 80.4 Fat Free Mass 122.2 Visceral Fat Rating 10.0 Body Water % 42.9 Body Water Mass 86.8 Muscle Mass/Score 116.0 Basal Metabolic Rate/Score 1,674 Intake Visit Reasons: (OV) PO LSG 10/12/24 Animal Husbandman Required: No Allergies Seasonal Allergies Allergy (Mild, Verified 11/08/24 10:21) sneezing vaccines Allergy (Unknown, Uncoded 10/12/24 06:43) unknown Medication List - Last Reconciled 11/08/24 by VIJAY Diego amitriptyline 50 mg PO BEDTIME docusate sodium (Colace) 100 mg PO BID levothyroxine (Synthroid) 137 mcg PO DAILY loratadine (Claritin) 10 mg PO BID pantoprazole 40 mg PO DAILY propranolol ER 80 mg PO BEDTIME sucralfate 10 mL PO BID topiramate 75 mg PO DAILY HPI Comments Details: This?a?54?yo female who is s/p LSG without hiatal hernia repair on?10/12/2024. Presents for 1 month post op visit. Weight today is 202.8 pounds, with a BMI of 30.8. There has been a 52.2 pound weight loss,(initial weight 255 pounds) since starting the program on 07/28/2024 reflecting a 20.4 % total body weight loss and a weight loss of 22.7 pounds since surgery (operative weight 225.5 pounds) reflecting a 10 % TBWL since surgery. No complaints of nausea, emesis, abdominal pain or reflux. Reports infrequent but normal bowel movements every 2 days and uses stool softeners regularly. Present meal plan includes: Premier protein rtd shake 8-10, 11-1 Protein 2.0 water 2-4 Barbells protein bar 5-8 16 oz water daily Exercise routine includes: walk 2 mi daily and stationary bike 30 min daily 300 alix per day [facility] Medical History (Updated 10/27/24 @ 00:01 by Background Daemon) Migraines Legally blind Back pain Graves disease Kidney stones Hypothyroid History of nephrolithiasis Diaphragmatic hernia GERD (gastroesophageal reflux disease) Hypertension DJD (degenerative joint disease) Familial juvenile macular degeneration syndrome Anxiety Depression Surgical History (Updated 11/08/24 @ 10:27 by Sarah Leung CMA) Status post laparoscopic sleeve gastrectomy History of esophagogastroduodenoscopy (EGD) History of resection of rib Hx of hysterectomy Hx of adenoidectomy Hx of tonsillectomy Hx of bladder endoscopy Hx of colonoscopy Family History Mother Malignant neoplasm of breast in full remission Arthritis Father Landon's disease Son No problems noted. Son No problems noted. Social History Household Members: None Housing: House Are you a primary manager progressive care to a significant other at home: No Do you presently have visiting nurse or other home services: No Alcohol intake: current Alcohol intake frequency: does not drink Patient Tobacco Use Status: Never used Tobacco Second Hand Smoke Exposure: No Physical Exam Vital Signs: Last Vital Signs Temp 97.5 F 11/08/24 10:26 Pulse 96 11/08/24 10:26 BP 156/69 H 11/08/24 10:26 Pulse Ox 96 11/08/24 10:26 Oxygen Delivery Method Room Air 11/08/24 10:26 BMI result Body Mass Index 30.8 Const General: healthy appearing and no acute distress Resp Effort & Inspection: normal respiratory effort Auscultation: clear to auscultation bilaterally Cardio Rate: regular rate Rhythm: regular rhythm GI Inspection: Yes incision (Healing well) Auscultation: normal bowel sounds Extrem General: Yes normal to inspection Assessment & Plan Assessment & Plan (1) Status post laparoscopic sleeve gastrectomy: Code(s): Z98.84 - Bariatric surgery status Category: Surgical Plan: Overall, patient is doing well. She is following the meal plan and exercising regularly. She has no complaints at this time. She will continue to communicate with Dr. Herr regarding her meal plan. Encouraged to increase her water intake. Return to clinic 1 month.
[2024-11-08 10:26] VITALS: BP 156/69; PULSE 96; TEMP 36.4; O2SAT 96; BMI 30.8
--- OUTSIDE RECORDS SUMMARY | 2024-11-08 10:51 | XMS_ITS | Data Portability ---
Author Organization [facility] Home Service Address [address] [place] [address] Assessment Encounter Date Assessment Date Assessment LastModified [...] reduce health risks and promote healthy living. 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 Lab lipid panel, blood 2023 024 [facility], [address] [place] [address], [address], 4 11:09:35 CBC w/ auto diff 2023 024 [facility], [address] [place] [address], [address], 4 11:09:35 CMP, serum or plasma 2023 024 [facility], [address] [place] [address], [address], 4 11:09:35 vitamin D, 25-hydroxy , total, serum 2023 024 [facility], [address] [place] [address], [address], 4 11:26:40 TSH + free T4, serum 2023 024 [facility], [address] [place] [address], [address], 4 11:07:38 TSH + free T4, serum 2023 024 [facility], [address] [place] [address], [address], 4 11:07:38 Referral neurologis t referral 2022 023 [email or web address] 10 [facility], [address], [place], [address], 3 08:49:05 Procedures None recorded. Surgeries None recorded. Imaging MRI, cervical spine, w/o contrast 2023 024 [email or web address] 10 [facility], [address] [place], [address], 4 07:54:29 electromyo gram + nerve conduction study - carpal tunnel, castillo hands and wrists 2023 024 [facility] (Imaging), [address] [place], [address], 4 09:19:32 XR, cervical spine, 2 or 3 view 2023 024 [facility], [address] [place], [address], 4 14:30:08 XR, chest, 2 view 2023 024 [facility], [address] [place], [address], 4 14:30:08 Medication Orders codeine 10 mg-guaifen esin 100 mg/5 mL oral liquid 2023 024 [facility] #[id number], [address], [place], [id number], 4 09:45:13 cephalexin 500 mg capsule 2023 024 [facility] #[id number], [address], [place], [id number], 4 09:20:25 Synthroid 137 mcg tablet 2023 024 [facility] #69825, [address], [place], [id number], 4 11:42:08 ciprofloxa radha 500 mg tablet 2022 023 [facility] #[id number], [address], [place], [id number], 09:58:28 Patient TargetsNo targets recorded. Patient Instructions Encounter Date Encounter Id Patient Instructions Last Modified By Organization Details Last Modified Time 08/23/2023 [id number] hypothyroidism: care instructions Not available 08/23/2023 22:06:42 11/03/2023 [id number] Skin Cyst: Care Instructions [email or web address] Not available 11/03/2023 11:27:04 Discussed and explained advance directives such as standard forms to the patient. Face to face discussion lasted for a duration of _5__ minutes. Not available 11/03/2023 11:28:02 02/04/2024 [id number] neck pain: care instructions Not available 02/04/2024 [...] bilat eral No observ ation record ed. [facility] [address] [place] [address] [place], [address], 10/07/2022 08:10:20 02/22/20 23 02/21/2023 XR, foot No observ ation record ed. [facility] (Medical Records) [address] [place], [address], 02/21/2023 08:35:27 02/22/20 23 02/21/2023 XR, ankle No observ ation record ed. [facility] (Medical Records) [address] [place], [address], 02/21/2023 08:35:58 11/08/19 24 10/18/2023 MAMMO , scree owen, digit al, bilat eral No observ ation record ed. [email or web address] [facility] [address] [place], [address], 11/08/2023 13:26:33 02/04/20 24 02/04/2024 XR, cervi alix spine , 2 or 3 view No observ ation record ed. [facility] (Medical Records) [address] [place], [address], 02/18/2024 09:49:01 02/04/20 24 02/04/2024 XR, chest , 2 view No observ ation record ed. [facility] (Medical Records) [address] [place], [address], 02/18/2024 09:49:00 02/18/20 24 02/11/2024 XR, chest , 2 view No observ ation record ed. [facility] (Medical Records) [address] [place], [address], 02/22/2024 15:40:53 03/13/20 24 03/03/2024 MRI, cervi alix spine , w/o contr ast No observ ation record ed. [facility] (Medical Records) [address] [place], [address], 03/14/2024 15:53:15 03/16/20 24 03/16/2024 elect romyo gram + nerve condu ction study No observ ation record ed. [email or web address] [facility] (Medical Records) [address] [place], [address], 03/17/2024 12:09:59 03/16/20 24 03/16/2024 elect romyo gram + nerve condu ction study No observ ation record ed. [email or web address] [facility] (Medical Records) [address] [place], [address], 03/17/2024 12:09:59 07/31/19 25 07/31/2024 XR, chest , 2 view No observ ation record ed. [facility] (Medical Records) [address] [place], [address], 07/31/2024 08:12:29 08/31/19 25 08/30/2024 US, abdom en No observ [facility]ion [facility] [address] [place], [address], 08/30/2024 10:11:14 09/16/19 25 09/15/2024 RF, upper gastr ointe gayatri l tract , w/ contr ast PO No observ ation record ed. [facility] (Medical Records) [address] [place], [address], 09/15/2024 15:29:33 Result Notes None recorded. 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 2019 Not Available [facility] 2 14:39:08 Acute sinusiti s 96249618 Active 2021 VIJAY HAAS [address] [facility], [place], [address], [facility] 2 10:05:14 Posterio r rhinorrh ea 38907624 Active 2021 VIJAY HAAS [address] [place] [address], [address], [facility] 2 10:05:48 Pain in throat 669599277 Active 2021 VIJAY HAAS [address] [place] [address], [address], [facility] 2 10:05:53 COVID-19 602743946 Active 2021 VIJAY HAAS [address] [place] [address], [address], [facility] 2 10:28:01 Intermit tent palpitat ions 849543804 Active 2021 Brendan Dockery DO [address] [place] [address], [address], [facility] 2 14:24:47 Acute otitis media 4071391 Active 2022 VIJAY HAAS [address] [place] [address], [address], [facility] 3 14:11:22 Acute bronchit is 30397758 Active 2022 VIJAY HAAS [address] [place] [address], [address], [facility] 3 11:29:57 Acute otitis media 3267925 Active 2023 Brendan Dockery, [address] [place] [address], [address], [facility] 4 15:34:59 Epidermo id cyst of skin 339759968 Active 2023 Brendan Dockery DO [address] [place] [address], [address], [facility] 4 11:26:25 Anxiety 04492081 Active 2023 Brendan Dockery DO [address] [place] [address], [address], [facility] 4 11:04:14 Cough 23965397 Active 2023 Brendan Dockery, [address] [place] [address], [address], [facility] 4 09:46:18 Neck pain 41315883 Active 2023 Brendan Dockery DO [address] [place] [address], [address], [facility] 4 09:16:11 Pneumoni a 437045039 Active 2023 Brendan Dockery DO [address] [place] [address], [address], [facility] 4 14:44:04 Cervical radiculo lore 24330124 Active 2023 VIJAY HAAS [address] [place] [address], [address], [facility] 4 09:40:00 Bilatera l carpal tunnel syndrome 12544516839 842513 Active 2023 VIJAY HAAS [address] [place] [address], [address], [facility] 4 09:42:34 Cervical disc disorder 081835945 Active 2023 VIJAY HAAS [address] [place] [address], [address], [facility] 4 15:54:20 Gastroes ophageal reflux disease 298266043 Active 2017 Not Available [facility] 2 14:39:08 Hypothyr oidism 59720850 Active 2017 Not Available [facility] 2 14:39:09 Migraine 68433615 Active 2017 Not Available [facility] 2 14:39:08 Fibromya lgia 385280581 Active 2017 Not Available [facility] 2 14:39:09 Family history of non-Hodg kin's lymphoma 525436159 Active 2017 father, dx'd 11/2010 Not Available [facility] 2 14:39:09 Thoracic outlet syndrome 623951587 Active 2017 s/p 1st rib removal 03/2012 Not Available [facility] 2 14:39:09 Chronic headache disorder 456237871 Active 2017 Not Available [facility] 2 14:39:09 Ventricu lar prematur e complex 161742766 Active 2017 Not Available [facility] 2 14:39:09 Hyperten sive disorder 88256937 Active 2017 Not Available [facility] 2 14:39:08 Tachycar mehnaz 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 Procedures Surgical History Date Name Laterality Status Provider Name and Address Organization Details Recorded Time Colonoscopy completed Brendan Dockery DO [address] [place] [address], [address], [facility] 11/17/2021 15:53:34 Imaging Results None recorded. Procedure Notes None recorded. Medical Equipment None Reported. Allergies Allergen ID Allergen Name Allergen Category Reaction Reaction Severity Criticality Documentation Date Start Date Code Code System Note Provider Name and Address Organization Details Recorded Time 1277 Fluarix medicatio n Not available Not available Not available 10/15/2017 72701 JAMESON freitas [facility] 8 09:01:31 5796 Shingrix medicatio n Not available Not available Not available 11/17/2021 91697 26 RxNorm Brendan Dockery DO [address] [place], [address], [facility] 2 15:05:01 8069 SARS-CoV- 2 (COVID-19 ) vaccine, protein [id number] 73 medicatio n Not available Not available Not available 11/03/2023 29278 73 RxNorm Hai freitas [place] - [facility] 4 10:55:25 Medications [...] TAKE 1 TABLET BY MOUTH EVERY DAY needs appt for further refills. call office 2024 active Not Available Not Available Not Avai lable amoxicillin 500 mg tablet TAKE 1 TABLET [...] propionate 50 mcg/actuati on nasal spray,suspe nsion [place] 1 spray every day by intranasa l route. active Not Available Not Available No t Available doxycycline hyclate 100 mg tablet TAKE 1 TABLET BY MOUTH TWICE DAILY FOR 7 DAYS 11/17 completed Not Available Not Available Not Available spironolact one 50 mg tablet TAKE 1 TABLET BY MOUTH EVERY DAY 01/13 completed Not Available Not Available Not Available amoxicillin 875 mg-deep m clavulanate 125 mg tablet TAKE 1 [...] Updated DateTime 4 172.72 cm 37.7 kg/m2 496666. 91 g 87 /min 97 % 97 % 138 mm[Hg] 68 mm[Hg] Madison Smith [facility] 4 10:00:36 Date Recorded Body height Body mass index (BMI) Body weight Heart rate Respiratory rate Oxygen saturation Oxygen saturation in Arterial blood by Pulse oximetry Systolic blood pressure Diastolic blood pressure Provider Name and Address Organization Details Last Updated DateTime 4 172.72 cm 38 kg/m2 214123. 45 g 64 /min 18 /min 96 % 96 % 128 mm[Hg] 70 mm[Hg] Hai Ahumada [facility] 4 10:55:03 Date Recorded Body height Body mass index (BMI) Body weight Heart rate Oxygen saturation Oxygen saturation in Arterial blood by Pulse oximetry Systolic blood pressure Diastolic blood pressure Provider Name and Address Organization Details Last Updated DateTime 4 172.72 cm 37.6 kg/m2 026805. 32 g 74 /min 95 % 95 % 116 mm[Hg] 82 mm[Hg] Cathy Forbes [facility] 4 09:29:51 Social [...] mL dose 1 completed Brendan Dockery, DO [address] [facility], [place], [address], [facility] 03/25/2021 14:56:42 COVID-19, mRNA, LNP-S, PF, 30 mcg/0.3 mL dose 1 completed Brendan Dockery DO [address] [place] [address], [address], [facility] 03/25/2021 14:56:50 COVID-19, mRNA, LNP-S, PF, 100 mcg/0.5mL dose or 50 mcg/0.25mL dose 2 completed Brendan Dockery DO [address] [place] [address], [address], [facility] 11/17/2021 15:06:29 zoster recombinant 2 completed Brendan Dockery DO [address] [place] [address], [address], [facility] 11/17/2021 15:06:54 Past Encounters Encounter ID Performer Location Encounter Start Date Encounter Closed Date Diagnosis/Indication Diagnosis SNOMED-CT Code Diagnosis ICD10 Code Diagnosis Note [id number] Brendan Dockery [facility] [address] [place] [address] [place] [address] 10/15/2017 14:39:05 10/15/2017 16:02:57 Tenosynovitis of wrist 199189495 M65.839 given she has tried splint and taken otc and rx nsaids without resolution Hypertensive disorder 38 165743 I10 bp is stable no issues noc cp [id number] Brendan Dockery [facility] Internal [address] [place] [address] 11/23/2017 13:24:41 11/23/2017 14:43:03 Acute bacterial sinusitis 04329956 J01.90 Hypothyroidism 37464969 E03.9 stable, reviewed labs Essential hypertension 82052194 I10 stable [id number] Brendan Dockery [facility] [address] [place] [address] [place] [address] 02/28/2018 10:59:14 02/28/2018 12:08:52 Hypothyroidism 66961470 E03.9 tsh is 0.8 Hypertensive disorder 38 355779 I10 bp is stable no issues noc cp Adult heal th examination 379541972 Z00.00 discussed need for exercise and diet Screening for cardiovascular system disease 395713145 Z13.6 Screening mammography 24 700843 Z12.31 [place] [id number] Brendan Dockery [facility] [address] [facility],[place] [address] 07/12/2018 09:48:11 07/12/2018 11:06:37 Migraine 25657056 G43.909 Using imitrex with relief Hypertensive disorder 38 017128 I10 diastolic slightly elevated, will monitor Hypothyroidism 16075884 E03.9 labs last done 02/2018 Benign par oxysmal positional vertigo 973183084 H81.11 improving with meclizine Acute sinusitis 83929317 J01.90 continue mucinex, flonase, fluids, humidifier [id number] Brendan Dockery [facility] [address] [facility],[place] [address] 09/16/2018 11:50:53 09/16/2018 15:19:18 Otitis media 80539022 H66.92 Allergic cough 748228534 R05 Active or passive immunization 347560865 Z23 Hypertensive disorder 38 976378 I10 stable, reviewed Mar 2018 labs [id number] Brendan Dockery [facility] [address] [facility],[place] [address] 09/26/2018 13:31:49 09/26/2018 14:23:51 Dysfunction of eustachian tube 89418309 H69.92 [id number] Brendan Dockery [facility] [address] [facility],[place] [address] 10/03/2018 14:57:35 10/03/2018 16:29:59 Dysfunction of left eustachian tube 5379580233 167312 H69.92 [id number] Brendan Dockery [facility] [address] [place] [address] 11/23/2018 16:09:46 11/25/2018 08:16:23 Hypertensive disorder 66741314 I10 bp is stable no issues noc cp Hypothyroidism 35545517 E03.9 tsh is 0.8 Edema of l ower extremity 786511984 R60.0 will add furosemide 40mg [id number] Brendan Dockery [facility] [address] [place] [address] 12/02/2018 13:35:55 12/02/2018 14:40:20 Hypertensive disorder 17825241 I10 bp is stable no issues noc cp will cont Edema of l ower extremity 773047263 R60.0 will cont furosemide 40mg [id number] Brendan Dockery [facility] [address] [place] [address] 01/13/2019 10:20:35 01/13/2019 11:04:19 Edema of lower extremity 826543099 R60.0 b/l improved on increased dose of lasix do 80 mg again today then return to 40 mg Hypertensive disorder 38 930784 I10 stable Hypothyroidism 02011704 E03.9 normal tsh 12/2018 [id number] Brendan Dockery [facility] [address] [place] [address] 01/30/2019 13:31:42 01/30/2019 14:09:46 Edema of lower extremity 838185586 R60.0 will cont furosemide 40mg and will cont to use bid when sudden changes potassium supp or bananas Hypertensive disorder 38 874167 I10 bp is stable no issues noc cp will cont Hypothyroidism 66655744 E03.9 tsh is wnl per [facility] lab Tinea pedis 0842271 B35. 3 lotrimin cream [id number] Brendan Dockery DO [facility] [address] [place] [address] 09/04/2019 11:07:27 09/04/2019 13:34:20 Acute sinusitis 21184636 J01.90 will need to treat given her past issues [id number] Brendan Dockery [facility] [address] [place] [address] 04/01/2020 13:27:40 04/01/2020 14:38:28 Adult health examination 115853723 Z00.00 discussed need for exercise and diet Screening for cardiovascular system disease 987619352 Z13.6 Screening for osteoporosis 740458776 Z13.820 Screening mammography 24 445576 Z12.31 [place] [id number] Brendan Dockery DO [facility] [address] [place] [address] 04/15/2020 09:07:48 04/15/2020 11:14:34 Acute otitis media 2945491 H65.01 most likely another ear infection given symptoms and hx will fu with patient if still having symptoms or worsening pt understand s and will call Nasal congestion 9674363 0 R09.81 more with pressure, all right sided along maxillary and frontal sinuses Headache 11659525 R51.9 right sided, also suffers from chronic headaches so not uncommon [id number] Brendan Dockery [facility] [address] [place] [address] 03/25/2021 14:34:54 03/25/2021 16:24:44 Hypothyroidism 03356181 E03.9 tsh low and t4 is high and we nmeed to decrease her dose she is having a lot of hairloss Gastroesop hageal reflux disease 957325197 K21.00 has breakthrog uh [place] [id number] Brendan Dockery DO [facility] [address] [place] [address] 05/14/2021 09:37:08 05/14/2021 14:28:14 Gastroesophageal reflux disease 366199437 K21.00 has breakthrog uh need to incerease the nexium to bid Hypertensive disorder 38 568277 I10 bp is stable no issues noc cp will cont current tx Edema of l ower extremity 573697911 R60.0 furosemide 40mg as needed only and has not taken any since the summer and will cont to use prn when sudden changes potassium supp or bananas when she does take furosemide [id number] Brendan Dockery [facility] [address] [place] [address] 06/16/2021 09:40:38 06/16/2021 16:20:27 Chondromalacia of patella 28759261 M22.41 will fu with MRI Pain of le ft knee joint 5376808465 54976 M25.562 will fu with MRI [id number] Brendan Dockery [facility] [address] [facility] [address] [place] [address] 06/30/2021 09:21:10 07/01/2021 15:55:17 Acute sinusitis 84422615 J01.01 will start on abx and fu with patient if no improvemen t Otalgia 84550129 H92.01 [place] on abx [id number] Brendan Dockery [facility] [address] [facility] [address] [place] [employer] [facility] [place] [address] 10/17/2021 09:21:32 10/17/2021 11:33:49 Acute sinusitis 78229941 J01.01 will start on abx and fu with patient if no improvemen t Posterior rhinorrhea 758 54262 R09.82 will fu with testing Pain in throat 996106882 R07.0 can use APAP and IBU for symptom management [id number] Brendan Dockery [facility] [address] [facility],[place] [address] 11/17/2021 14:48:20 11/17/2021 15:56:50 Hypertensive disorder 24774263 I10 bp is stable no issues noc cp will cont current tx Hypothyroidism 77893801 E03.9 tsh low and t4 is high and we nmeed to decrease her dose she is having a lot of hairloss Active or passive immunization 474300509 Z23 patient advised she is due for a tdap Screening for malignant neoplasm of colon 015994784 Z12.11 already had done in jul Depression screening 171 666100 Z13.31 Did not bring glasses to fill out PHQ9 not able to complete today Tachycardia 3727909 R00. 0 given just one episode [id number] Brendan Dockery [facility] [address] [facility] [address] [place] [address] 08/11/2022 13:49:58 08/11/2022 16:33:49 Acute otitis media 8950105 H65.01 will set up with cipro for 7 days BIDworks best for the patient [id number] Brendan Dockery [facility] [address] [facility],[place] [address] 09/23/2022 09:07:41 09/23/2022 12:05:06 Acute otitis media 4275223 H65.01 will set up with cipro for 7 days [employer] best for the patient Migraine 24244984 G43.10 9 will set up with second opinion with neuro [id number] Brendan Dockery [facility] [address] [facility], [place] [address] 08/23/2023 09:51:36 08/23/2023 10:25:31 Hypertensive disorder 26724417 I10 bp is stable no issues no cp will cont current tx Hypothyroidism 05638668 E03.9 tsh low and t4 is high and we need to decrease her dose she is having a lot of hairloss [id number] Brendan Dockery [facility] [address] [facility], [place] [address] 11/03/2023 10:35:53 11/03/2023 12:15:08 Adult health examination 644393876 Z00.00 discussed need for exercise and diet Screening for cardiovascular system disease 837623867 Z13.6 Screening for malignant neoplasm of colon 179924316 Z12.11 already had done in jul Depression screening 171 760800 Z13.31 Did not bring glasses to fill out PHQ9 not able to complete today Epidermoid cyst of skin 767627040 L72.0 [id number] Brendan Dockery [facility] [address] [facility] [address] 02/04/2024 08:34:01 02/04/2024 14:30:07 Anxiety 55315465 F41.9 stable Hypertensive disorder 38 417187 I10 bp is stable no issues no cp will cont current tx Hypothyroidism 70532607 E03.9 stable Thoracic o utlet syndrome 366624433 G54.0 no chnges Neck pain 27676362 M54.2 possible radiculopa thy issue here having numbness Cough 53355108 R05.9 not getting better , will use use guaifen over weekend if no better will need levoflox etc will get cxr today [id number] Brendan Dockery DO [facility] [address] [facility] [address],[place] [address] 02/18/2024 09:14:53 02/18/2024 09:50:41 Cervical radiculopathy 52252037 M54.12 will set up MRI now and EMG for her arms Bilateral carpal tunnel syndrome 8494088883 8122079 G56.03 fu EMG Cough 04846736 R05.2 given syrup to use PRN for [...] MEDIC[place]: [place] [employer] Tamar Chacon [id number] Tamar Chacon 09/23/2022 2 [place] Tamar Chacon [id number] Tamar Chacon 08/23/2023 1 [place] Tamar Chacon [id number] Tamar Wenreau 08/23/2023 2 [place] Tamar Chacon [id number] Tamar Chacon 11/03/2023 1 [place] [employer] Tamar Wenreau [id number] Tamar Wenreau 11/03/2023 2 [place] Tamar Wenreau [id number] Tamar Wenreau 02/04/2024 1 [place] Tamar Chacon [id number] Y65 Tamar Wenreau 02/04/2024 2 [place] Tamar Chacon [id number] Tamar Chacon 02/18/2024 1 [place] [employer] Tamar Chacon [id number] Y65 Tamar Oswaldo 02/18/2024 2 [place] [facility] Tamar Salinas Oswaldo [id number] Tamar Oswaldo Notes Date Note Type Note [...] stick with VIJAY De La Torre [address] [place], [address], [facility] 09/23/2022 11:28:14 4 text/html here for annual wellnessrelates has been under a lot of stress relates that she has been sad bc she can no longer drive etc Brendan Dockery DO [address] [place], [address], [facility] 08/23/2023 22:06:45 4 text/html [...] always feels tired Brendan Dockery DO [address] [place], [address], [facility] 11/03/2023 11:28:39 4 text/html [...] arches her back Brendan Dockery DO [address] [place], [address], [facility] 02/04/2024 09:24:45 4 text/html f/u neck pain the patient reports that she is having neck painagreed to MRI for more information waiting on repeat CXRfor the pna, given cough syrup EMG will be needed for possible carpal tunnel on top of the radiculopathy from the neck will f/u after CXR comes in will fu after MRI VIJAY HAAS [address] [facility], [place], [address], [facility] 02/18/2024 09:49:55 OBGyn Episode No OBEpisode recorded.
== END 2024-11-08 10:50 | disposition home or self-care (01) ==
LOC: HO.HBS 10:12
PROVIDERS: PCP Internal Medicine; Visit Provider Physician Assistant Surgical
DX: Z98.84 Bariatric surgery status (principal)
CPT/HCPCS: 99024

== ENCOUNTER → 2024-11-08 10:12 | Outpatient (BNVA) | payer MEDICARE, MEDICAID, SELFPAY | PROVIDERS: PCP Internal Medicine; Visit Provider Physician Assistant Surgical | DX: Z98.84 Bariatric surgery status (principal) | CPT/HCPCS: 99212 ==

== ENCOUNTER 2024-12-04 11:34 | Outpatient (AMB) | payer MEDICARE, MEDICAID, SELFPAY ==
--- NOTE | 2024-12-04 11:46 | A.OFFVIS_ITS ---
VS Expanded 12/04/24 12:06 BP 131/77 Blood Pressure Location Rt brachial Blood Pressure Position Sitting Pulse 92 Pulse Source Pulse Oximeter Temp 97.1 F Temperature Source Temporal Artery Scan Pulse Oximetry 98 Oxygen Delivery Method Room Air Height 5 ft 8 in Weight 193 lb 12.8 oz BMI 29.5 Body Fat % 35.4 Body Fat Mass 68.6 Fat Free Mass 125.2 Visceral Fat Rating 8.0 Body Water % 45.8 Body Water Mass 88.8 Muscle Mass/Score 118.8 Basal Metabolic Rate/Score 1,692 Intake Visit Reasons: (OV) PO LSG 10/12/24 Allergies Seasonal Allergies Allergy (Mild, Verified 11/08/24 10:21) sneezing vaccines Allergy (Unknown, Uncoded 10/12/24 06:43) unknown HPI Comments Details: This?a?54?yo female who is s/p LSG without hiatal hernia repair on?10/12/2024. Presents for 1.5 month post op visit. Weight today is 193.8 pounds, with a BMI of 30.8. There has been a 52.2 pound weight loss,(initial weight 255 pounds) since starting the program on 07/28/2024 reflecting a 20.4 % total body weight loss and a weight loss of 22.7 pounds since surgery (operative weight 225.5 pounds) reflecting a 10 % TBWL since surgery. No complaints of nausea, emesis, abdominal pain or reflux. Reports infrequent but normal bowel movements every 2 days and uses stool softeners regularly. Present meal plan includes: Premier protein rtd shake 4 oz mixed with 4 oz almond milk 6-8, 12-2, 8-10 Protein 2.0 water 12-2 Barbells protein bar 3-5 meal at 6 pm with 3 forks protein and 3 forks veg 50 oz water daily Exercise routine includes: walk 2-4 mi daily stationary bike 300 alix per day [facility] Medical History (Updated 10/27/24 @ 00:01 by Brian Fung) Migraines Legally blind Back pain Graves disease Kidney stones Hypothyroid History of nephrolithiasis Diaphragmatic hernia GERD (gastroesophageal reflux disease) Hypertension DJD (degenerative joint disease) Familial juvenile macular degeneration syndrome Anxiety Depression Surgical History (Updated 11/08/24 @ 10:27 by Sarah Leung CMA) Status post laparoscopic sleeve gastrectomy History of esophagogastroduodenoscopy (EGD) History of resection of rib Hx of hysterectomy Hx of adenoidectomy Hx of tonsillectomy Hx of bladder endoscopy Hx of colonoscopy Family History Mother Malignant neoplasm of breast in full remission Arthritis Father Landon's disease Son No problems noted. Son No problems noted. Social History Household Members: None Housing: House Are you a primary healthcare economics manager to a significant other at home: No Do you presently have visiting nurse or other home services: No Alcohol intake: current Alcohol intake frequency: does not drink Patient Tobacco Use Status: Never used Tobacco Second Hand Smoke Exposure: No Physical Exam Vital Signs: Last Vital Signs Temp 97.1 F 12/04/24 12:06 Pulse 92 12/04/24 12:06 BP 131/77 12/04/24 12:06 Pulse Ox 98 12/04/24 12:06 Oxygen Delivery Method Room Air 12/04/24 12:06 BMI result Body Mass Index 29.5 Const General: healthy appearing and no acute distress Resp Effort & Inspection: normal respiratory effort Auscultation: clear to auscultation bilaterally Cardio Rate: regular rate Rhythm: regular rhythm GI Auscultation: normal bowel sounds Extrem General: Yes normal to inspection Assessment & Plan Assessment & Plan (1) Status post laparoscopic sleeve gastrectomy: Code(s): Z98.84 - Bariatric surgery status Category: Surgical Plan: Patient is doing well overall and tolerating her meal plan however she feels as though she is hungry. She is going to discuss her meal plan with Dr. Herr. She is exercising appropriately. She has no complaints of pain. Moving her bowels. I will have her return to the office in approximately 1 month
[2024-12-04 12:06] VITALS: BP 131/77; PULSE 92; TEMP 36.2; O2SAT 98; BMI 29.5
--- OUTSIDE RECORDS SUMMARY | 2024-12-04 12:27 | XMS_ITS | Data Portability ---
Author Organization [facility] Telehealth Patient Home Address [address] [place] [address] Assessment Encounter Date Assessment Date Assessment LastModified [...] reduce health risks and promote healthy living. [email or web address] Not available 08/23/2023 10:15:32 11/03/2023 11/03/2023 Patient [...] [email or web address] Not available 11/02/2023 16:23:59 02/04/2024 02/04/2024 [id number] [place] [id number] (MESSAGE CLERK) MDM MODERATE MUST MEET 2 OUT OF [...] recorded. Lab lipid panel, blood 2023 024 [facility], [address] [place] [address], [address], 4 11:09:35 CBC w/ auto diff 2023 024 [facility], [address] [place] [address], [address], 4 11:09:35 CMP, serum or plasma 2023 024 [facility], [address] [place] [address], [address], 4 11:09:35 vitamin D, 25-hydroxy , total, serum 2023 024 [facility], [address] [place] [address], [address], 4 11:26:40 TSH + free T4, serum 2023 024 [facility], [address] [place] [address], [address], 4 11:07:38 TSH + free T4, serum 2023 024 [facility], [address] [place] [address], [address], 4 11:07:38 Referral neurologis t referral 2022 023 [email or web address] 10 [facility], [address], [place], [address], 3 08:49:05 Procedures None recorded. Surgeries None recorded. Imaging MRI, cervical spine, w/o contrast 2023 024 [email or web address] 10 [facility], [address] [place], [address], 4 07:54:29 electromyo gram + nerve conduction study - carpal tunnel, castillo hands and wrists 2023 024 [facility] (Imaging), [address] [place], [address], 4 09:19:32 XR, cervical spine, 2 or 3 view 2023 024 [facility], [address] [place], [address], 4 14:30:08 XR, chest, 2 view 2023 024 [facility], [address] [place], [address], 4 14:30:08 Medication Orders codeine 10 mg-guaifen esin 100 mg/5 mL oral liquid 2023 024 [facility][id number], [address], [place], [id number], 4 09:45:13 cephalexin 500 mg capsule 2023 024 [facility] #59246, [address], [place], [id number], 4 09:20:25 Synthroid 137 mcg tablet 2023 024 [facility] #00343, [address], [place], [id number], 4 11:42:08 ciprofloxa radha 500 mg tablet 2022 023 [email or web address] [facility] #28251, [address], [place], [id number], 09:58:28 Patient TargetsNo targets recorded. Patient Instructions Encounter Date Encounter Id Patient Instructions Last Modified By Organization Details Last Modified Time 08/23/2023 [id number] hypothyroidism: care instructions Not available 08/23/2023 22:06:42 11/03/2023 [id number] Skin Cyst: Care Instructions [email or web address] Not available 11/03/2023 11:27:04 Discussed and explained advance directives such as standard forms to the patient. Face to face discussion lasted for a duration of _5__ minutes. Not available 11/03/2023 11:28:02 02/04/2024 [id number] neck pain: care instructions Not available 02/04/2024 [...] bilat eral No observ ation record ed. [facility] [address] [place] [address] [place], [address], 10/07/2022 08:10:20 02/22/20 23 02/21/2023 XR, foot No observ ation record ed. [email or web address] (Medical Records) [address] [place], [address], 02/21/2023 08:35:27 02/22/20 23 02/21/2023 XR, ankle No observ ation record ed. [address] (Medical Records) [address] [place], [address], 02/21/2023 08:35:58 11/08/19 24 10/18/2023 MAMMO , scree owen, digit al, bilat eral No observ ation record ed. [facility] [address] [place], [address], 11/08/2023 13:26:33 02/04/20 24 02/04/2024 XR, cervi alix spine , 2 or 3 view No observ ation record ed. [facility] (Medical Records) [address] [facility] [place], [address], 02/18/2024 09:49:01 02/04/20 24 02/04/2024 XR, chest , 2 view No observ ation record ed. [facility] (Medical Records) [address] [facility] [place], [address], 02/18/2024 09:49:00 02/18/20 24 02/11/2024 XR, chest , 2 view No observ ation record ed. [facility] (Medical Records) [address] [facility] [place], [address], 02/22/2024 15:40:53 03/13/20 24 03/03/2024 MRI, cervi alix spine , w/o contr ast No observ ation record ed. [facility] (Medical Records) [address] [place], [address], 03/14/2024 15:53:15 03/16/20 24 03/16/2024 elect romyo gram + nerve condu ction study No observ ation record ed. [email or web address] [facility] (Medical Records) [address] [place], [address], 03/17/2024 12:09:59 03/16/20 24 03/16/2024 elect romyo gram + nerve condu ction study No observ ation record ed. [email or web address] [facility] (Medical Records) [address] [place], [address], 03/17/2024 12:09:59 07/31/19 25 07/31/2024 XR, chest , 2 view No observ ation record ed. [facility] (Medical Records) [address] [place], [address], 07/31/2024 08:12:29 08/31/19 25 08/30/2024 US, abdom en No observ ation [facility] ed. [email or web address] [address] [place], [address], 08/30/2024 10:11:14 09/16/1909/15/2024 RF, upper gastr ointe gayatri l tract , w/ contr ast PO No observ ation record ed. [facility] (Medical Records) [address] [place], [address], 09/15/2024 15:29:33 Result Notes None recorded. 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 2019 Not Available [facility] 2 14:39:08 Acute sinusiti s 11621826 Active 2021 VIJAY HAAS [address] [place] [address], [address], [facility] 2 10:05:14 Posterio r rhinorrh ea 08876117 Active 2021 VIJAY HAAS [address] [place] [address], [address], [facility] 2 10:05:48 Pain in throat 035354439 Active 2021 VIJAY HAAS [address] [place] [address], [address], [facility] 2 10:05:53 COVID-19 215006255 Active 2021 VIJAY HAAS [address] [place] [address], [address], [facility] 2 10:28:01 Intermit tent palpitat ions 105138712 Active 2021 Brendan Dockery DO [address] [place] [address], [address], [facility] 2 14:24:47 Acute otitis media 6242415 Active 2022 VIJAY HAAS [address] [place] [address], [address], [facility] 3 14:11:22 Acute bronchit is 78423167 Active 2022 VIJAY HAAS [address] [place] [address], [address], [facility] 3 11:29:57 Acute otitis media 5730755 Active 2023 Brendan Dockery, [address] [place] [address], [address], [facility] 4 15:34:59 Epidermo id cyst of skin 792318693 Active 2023 Brendan Dockery DO [address] [place] [address], [address], [facility] 4 11:26:25 Anxiety 22603686 Active 2023 Brendan Dockery DO [address] [place] [address], [address], [facility] 4 11:04:14 Cough 64201994 Active 2023 Brendan Dockery DO [address] [place] [address], [address], [facility] 4 09:46:18 Neck pain 90059640 Active 2023 Brendan Dockery DO [address] [place] [address], [address], [facility] 4 09:16:11 Pneumoni a 041268363 Active 2023 Brendan Dockery DO [address] [place] [address], [address], [facility] 4 14:44:04 Cervical radiculo lore 77524500 Active 2023 VIJAY HAAS [address] [place] [address], [address], [facility] 4 09:40:00 Bilatera l carpal tunnel syndrome 89444621714 635929 Active 2023 VIJAY HAAS [address] [place] [address], [address], [facility] 4 09:42:34 Cervical disc disorder 432447099 Active 2023 VIJAY HAAS [address] [place] [address], [address], [facility] 4 15:54:20 Gastroes ophageal reflux disease 172843873 Active 2017 Not Available [facility] 2 14:39:08 Hypothyr oidism 03682442 Active 2017 Not Available [facility] 2 14:39:09 Migraine 01203115 Active 2017 Not Available [facility] 2 14:39:08 Fibromya lgia 787598829 Active 2017 Not Available [facility] 2 14:39:09 Family history of non-Hodg kin's lymphoma 103488381 Active 2017 father, dx'd 11/2010 Not Available [facility] 2 14:39:09 Thoracic outlet syndrome 021291527 Active 2017 s/p 1st rib removal 03/2012 Not Available [facility] 2 14:39:09 Chronic headache disorder 049147974 Active 2017 Not Available [facility] 2 14:39:09 Ventricu lar prematur e complex 390339671 Active 2017 Not Available [facility] 2 14:39:09 Hyperten sive disorder 74907276 Active 2017 Not Available [facility] 2 14:39:08 Tachycar mehnaz 4819956 Active 2017 w/RBBB Not Available [facility] 2 14:39:09 Tenosyno vitis of wrist 432506564 Active 2017 Not Available [facility] 2 14:39:09 Problem Notes None recorded. Procedures Surgical History Date Name Laterality Status Provider Name and Address Organization Details Recorded Time Colonoscopy completed Brendan Dockery DO [address] [place] [address], [address], [facility] 11/17/2021 15:53:34 Imaging Results None recorded. Procedure Notes None recorded. Medical Equipment None Reported. Allergies Allergen ID Allergen Name Allergen Category Reaction Reaction Severity Criticality Documentation Date Start Date Code Code System Note Provider Name and Address Organization Details Recorded Time 1277 [facility] medicatio n Not available Not available Not available 10/15/2017 [id number] JAMESON Estrada [facility] 8 09:01:31 5796 [facility] medicatio n Not available Not available Not available 11/17/2021 57693 26 RxNorm Brendan Dockery DO [address] [place], [address], [facility] 2 15:05:01 8069 SARS-CoV- 2 (COVID-19 ) vaccine, protein [id number]-[id number] 73 medicatio n Not available Not available Not available 11/03/2023 94090 73 RxNorm [facility] 4 10:55:25 Medications Name Sig [...] propionate 50 mcg/actuati on nasal spray,suspe nsion [place] 1 spray every day by intranasa l route. active Not Available Not Available No t Available doxycycline hyclate 100 mg tablet TAKE 1 TABLET BY MOUTH TWICE DAILY FOR 7 DAYS 11/17 completed Not Available Not Available Not Available spironolact one 50 mg tablet TAKE 1 TABLET BY MOUTH EVERY DAY 01/13 completed Not Available Not Available Not Available amoxicillin 875 mg-bolau m clavulanate 125 mg tablet TAKE 1 [...] Updated DateTime 4 172.72 cm 37.7 kg/m2 392780. 91 g 87 /min 97 % 97 % 138 mm[Hg] 68 mm[Hg] Madison Smith [facility] 4 10:00:36 Date Recorded Body height Body mass index (BMI) Body weight Heart rate Respiratory rate Oxygen saturation Oxygen saturation in Arterial blood by Pulse oximetry Systolic blood pressure Diastolic blood pressure Provider Name and Address Organization Details Last Updated DateTime 4 172.72 cm 38 kg/m2 843913. 45 g 64 /min 18 /min 96 % 96 % 128 mm[Hg] 70 mm[Hg] Hai Ahumada [facility] 4 10:55:03 Date Recorded Body height Body mass index (BMI) Body weight Heart rate Oxygen saturation Oxygen saturation in Arterial blood by Pulse oximetry Systolic blood pressure Diastolic blood pressure Provider Name and Address Organization Details Last Updated DateTime 4 172.72 cm 37.6 kg/m2 920181. 32 g 74 /min 95 % 95 % 116 mm[Hg] 82 mm[Hg] Cathy Andrei [facility] 4 09:29:51 Social History [...] mL dose 1 completed Brendan Dockery, DO [address] [place] [address], [address], [facility] 03/25/2021 14:56:42 COVID-19, mRNA, LNP-S, PF, 30 mcg/0.3 mL dose 1 completed Brendan Bowen DO Sarkis [address] [place] [address], [address], [facility] 03/25/2021 14:56:50 COVID-19, mRNA, LNP-S, PF, 100 mcg/0.5mL dose or 50 mcg/0.25mL dose 2 completed Brendan Dockery DO [address] [place] [address], [address], [facility] 11/17/2021 15:06:29 zoster recombinant 2 completed Brendan Dockery DO [address] [place] [address], [address], [facility] 11/17/2021 15:06:54 Past Encounters Encounter ID Performer Location Encounter Start Date Encounter Closed Date Diagnosis/Indication Diagnosis SNOMED-CT Code Diagnosis ICD10 Code Diagnosis Note [id number] Brendan Dockery [facility] [address], [place] [address] 10/15/2017 14:39:05 10/15/2017 16:02:57 Tenosynovitis of wrist 366914026 M65.839 given she has tried splint and taken otc and rx nsaids without resolution Hypertensive disorder 38 639507 I10 bp is stable no issues noc cp [id number] Brendan Dockery [address] [place] [address] 11/23/2017 13:24:41 11/23/2017 14:43:03 Acute bacterial sinusitis 75350218 J01.90 Hypothyroidism 38887716 E03.9 stable, reviewed labs Essential hypertension 30591906 I10 stable [id number] Brendan Dockery [facility] [address], [place] [address] 02/28/2018 10:59:14 02/28/2018 12:08:52 Hypothyroidism 61359325 E03.9 tsh is 0.8 Hypertensive disorder 38 702677 I10 bp is stable no issues noc cp Adult heal th examination 865995058 Z00.00 discussed need for exercise and diet Screening for cardiovascular system disease 793333370 Z13.6 Screening mammography 24 000926 Z12.31 [place] [id number] Brendan Dockery [facility] [address] [place] [address] 07/12/2018 09:48:11 07/12/2018 11:06:37 Migraine 60058025 G43.909 Using imitrex with relief Hypertensive disorder 38 295595 I10 diastolic slightly elevated, will monitor Hypothyroidism 66628980 E03.9 labs last done 02/2018 Benign par oxysmal positional vertigo 824141735 H81.11 improving with meclizine Acute sinusitis 54055664 J01.90 continue mucinex, flonase, fluids, humidifier [id number] Brendan Dockery [facility] [address] [place] [address] 09/16/2018 11:50:53 09/16/2018 15:19:18 Otitis media 62510395 H66.92 Allergic cough 847801382 R05 Active or passive immunization 940094157 Z23 Hypertensive disorder 38 099589 I10 stable, reviewed Mar 2018 labs [id number] Brendan Dockery [facility] [address] [place] [address] 09/26/2018 13:31:49 09/26/2018 14:23:51 Dysfunction of eustachian tube 50282034 H69.92 [id number] Brendan Dockery [facility] [address] [place] [address] 10/03/2018 14:57:35 10/03/2018 16:29:59 Dysfunction of left eustachian tube 3403733295 237296 H69.92 [id number] Brendan Dockery [facility] [address] [place] [address] 11/23/2018 16:09:46 11/25/2018 08:16:23 Hypertensive disorder 35037547 I10 bp is stable no issues noc cp Hypothyroidism 82644265 E03.9 tsh is 0.8 Edema of l ower extremity 129009645 R60.0 will add furosemide 40mg [id number] Brendan Dockery DO [facility] [address] [facility],[place] [address] 12/02/2018 13:35:55 12/02/2018 14:40:20 Hypertensive disorder 27917061 I10 bp is stable no issues noc cp will cont Edema of l ower extremity 730326076 R60.0 will cont furosemide 40mg [id number] Brendan Dockery DO [facility] [address] [facility],[place] [address] 01/13/2019 10:20:35 01/13/2019 11:04:19 Edema of lower extremity 883242787 R60.0 b/l improved on increased dose of lasix do 80 mg again today then return to 40 mg Hypertensive disorder 38 861977 I10 stable Hypothyroidism 64309211 E03.9 normal tsh 12/2018 [id number] Brendan Dockery DO [facility] [address] [facility],[place] [address] 01/30/2019 13:31:42 01/30/2019 14:09:46 Edema of lower extremity 391277622 R60.0 will cont furosemide 40mg and will cont to use bid when sudden changes potassium supp or bananas Hypertensive disorder 38 107269 I10 bp is stable no issues noc cp will cont Hypothyroidism 17674691 E03.9 tsh is wnl per [facility] lab Tinea pedis 8002531 B35. 3 lotrimin cream [id number] Brendan Dockery DO [facility] [address] [facility],[place] [address] 09/04/2019 11:07:27 09/04/2019 13:34:20 Acute sinusitis 11052136 J01.90 will need to treat given her past issues [id number] Brendan Dockery DO [facility] [address] [place] [address] 04/01/2020 13:27:40 04/01/2020 14:38:28 Adult health examination 263402591 Z00.00 discussed need for exercise and diet Screening for cardiovascular system disease 661312358 Z13.6 Screening for osteoporosis 508963337 Z13.820 Screening mammography 24 075164 Z12.31 [place] [id number] Brendan Dockery [facility] [address] [place] [address] 04/15/2020 09:07:48 04/15/2020 11:14:34 Acute otitis media 3374074 H65.01 most likely another ear infection given symptoms and hx will fu with patient if still having symptoms or worsening pt understand s and will call Nasal congestion 7264788 0 R09.81 more with pressure, all right sided along maxillary and frontal sinuses Headache 56577964 R51.9 right sided, also suffers from chronic headaches so not uncommon [id number] Brendan Dockery DO [facility] [address] [place] [address] 03/25/2021 14:34:54 03/25/2021 16:24:44 Hypothyroidism 86402629 E03.9 tsh low and t4 is high and we nmeed to decrease her dose she is having a lot of hairloss Gastroesop hageal reflux disease 774121091 K21.00 has breakthrog uh need [place] [id number] Brendan Dockery DO [facility] [address] [place] [address] 05/14/2021 09:37:08 05/14/2021 14:28:14 Gastroesophageal reflux disease 954860371 K21.00 has breakthrog uh need to incerease the nexium to bid Hypertensive disorder 38 933104 I10 bp is stable no issues noc cp will cont current tx Edema of l ower extremity 367723190 R60.0 furosemide 40mg as needed only and has not taken any since the summer and will cont to use prn when sudden changes potassium supp or bananas when she does take furosemide [id number] Brendan Dockery [facility] [address] [place] [address] 06/16/2021 09:40:38 06/16/2021 16:20:27 Chondromalacia of patella 25692201 M22.41 will fu with MRI Pain of le ft knee joint 8677894107 78088 M25.562 will fu with MRI [id number] Brendan Dockery [facility] [address] [facility] [address] [place] [address] 06/30/2021 09:21:10 07/01/2021 15:55:17 Acute sinusitis 63734186 J01.01 will start on abx and fu with patient if no improvemen t Otalgia 24646442 H92.01 [place] on abx [id number] Brendan Dockery [facility] [address] [facility] [address] [address] 10/17/2021 09:21:32 10/17/2021 11:33:49 Acute sinusitis 83005439 J01.01 will start on abx and fu with patient if no improvemen t Posterior rhinorrhea 758 16706 R09.82 will fu with testing Pain in throat 095124628 R07.0 can use APAP and IBU for symptom management [id number] Brendan Dockery [facility] [address] [facility] [facility] [place] [address] 11/17/2021 14:48:20 11/17/2021 15:56:50 Hypertensive disorder 21963111 I10 bp is stable no issues noc cp will cont current tx Hypothyroidism 51465862 E03.9 tsh low and t4 is high and we nmeed to decrease her dose she is having a lot of hairloss Active or passive immunization 601370235 Z23 patient advised she is due for a tdap Screening for malignant neoplasm of colon 021169125 Z12.11 already had done in jul Depression screening 171 652762 Z13.31 Did not bring glasses to fill out PHQ9 not able to complete today Tachycardia 6805010 R00. 0 given just one episode [id number] Brendan Dockery [facility] [address] [facility] [address] [address] 08/11/2022 13:49:58 08/11/2022 16:33:49 Acute otitis media 4353167 H65.01 will set up with cipro for 7 days BIDworks best for the patient [id number] Brendan Dockery [facility] [address] [facility] [address] 09/23/2022 09:07:41 09/23/2022 12:05:06 Acute otitis media 0713230 H65.01 will set up with cipro for 7 days [employer] best for the patient Migraine 47544936 G43.10 9 will set up with second opinion with neuro [id number] Brendan Dockery [facility] [address] [facility],[place] [address] 08/23/2023 09:51:36 08/23/2023 10:25:31 Hypertensive disorder 51985824 I10 bp is stable no issues no cp will cont current tx Hypothyroidism 76849284 E03.9 tsh low and t4 is high and we need to decrease her dose she is having a lot of hairloss [id number] Brendan Dockery [facility] [address] [facility] [place] [address] 11/03/2023 10:35:53 11/03/2023 12:15:08 Adult health examination 918517079 Z00.00 discussed need for exercise and diet Screening for cardiovascular system disease 839230498 Z13.6 Screening for malignant neoplasm of colon 264273449 Z12.11 already had done in jul Depression screening 171 223196 Z13.31 Did not bring glasses to fill out PHQ9 not able to complete today Epidermoid cyst of skin 502963909 L72.0 [id number] Brendan Dockery [facility] [address] [facility] [address] [place] [address] [address] 02/04/2024 08:34:01 02/04/2024 14:30:07 Anxiety 40396335 F41.9 stable Hypertensive disorder 38 384216 I10 bp is stable no issues no cp will cont current tx Hypothyroidism 53398919 E03.9 stable Thoracic o utlet syndrome 178077700 G54.0 no chnges Neck pain 67657707 M54.2 possible radiculopa thy issue here having numbness Cough 39345831 R05.9 not getting better , will use use guaifen over weekend if no better will need levoflox etc will get cxr today [id number] Brendan Dockery DO [facility] [address] [facility] [address],[place] [address] 02/18/2024 09:14:53 02/18/2024 09:50:41 Cervical radiculopathy 66854858 M54.12 will set up MRI now and EMG for her arms Bilateral carpal tunnel syndrome 4128340541 2076951 G56.03 fu EMG Cough 15552143 R05.2 given syrup to use PRN for the coughing Health Concerns Section Related Observation LastModified by Organization Detai ls LastModified Time None Recorded Concern Status LastModified by Organization Details LastModified Time None Recorded Advance Directives Directive None Recorded Payers Insurance Date Sequence Insurance Name Policy Number Policy Blandon Covered Member ID Blandon Member ID Guarantor Name 11/02/2023 2 [place] [facility] Tamar Chacon [id number] Tamar Chacon 10/19/2017 1 [facility] [id number] Tamar Chacon [id number] Tamar Chacon 11/03/2024 1 [place] [employer] Tamar Chacon [id number] Tamar Chacon 11/02/2023 1 [facility] [facility] (HMO) [id number] Tamar Chacon [id number] Tamar Chacon 11/02/2023 1 [facility] - DOS PRIOR TO 2022 - DUAL ELIGIBLE (MEDICARE REPLACEMENT/AD VANTAGE - HMO) Tamar Chacon [id number] Tamar Chacon 02/15/2024 2 [place] [facility] Tamar Chacon [id number] Tamar Chacon Notes Date Note Type Note [...] stick with VIJAY De La Torre [address] [place], [address], [facility] 09/23/2022 11:28:14 4 text/html here for annual wellnessrelates has been under a lot of stress relates that she has been sad bc she can no longer drive etc Brendan Dockery DO [address] [place], [address], [facility] 08/23/2023 22:06:45 4 [...] always feels tired Brendan Dockery DO [address] [place], [address], [facility] 11/03/2023 11:28:39 4 [...] arches her back Brendan Dockery DO [address] [place], [address], [facility] 02/04/2024 09:24:45 4 text/html f/u neck pain the patient reports that she is having neck painagreed to MRI for more information waiting on repeat CXRfor the pna, given cough syrup EMG will be needed for possible carpal tunnel on top of the radiculopathy from the neck will f/u after CXR comes in will fu after MRI VIJAY HAAS [address] [place], [address], [facility] 02/18/2024 09:49:55 OBGyn Episode No OBEpisode recorded.
== END 2024-12-04 12:57 | disposition home or self-care (01) ==
LOC: HO.HBS 11:35
PROVIDERS: PCP Internal Medicine; Visit Provider Physician Assistant Surgical
DX: Z98.84 Bariatric surgery status (principal)
CPT/HCPCS: 99024

== ENCOUNTER 2024-12-04 12:28 | Outpatient (REF) | payer MEDICARE, MEDICAID, SELFPAY ==
--- OUTSIDE RECORDS SUMMARY | 2024-12-04 12:58 | XMS_ITS | Data Portability ---
Author Organization [facility] Telehealth Patient Home Address [address] [place] [address] Assessment Encounter Date Assessment Date Assessment LastModified [...] reduce health risks and promote healthy living. 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 Lab lipid panel, blood 2023 024 [facility], [address] [place] [address], [address], 4 11:09:35 CBC w/ auto diff 2023 024 [facility], [address] [place] [address], [address], 4 11:09:35 CMP, serum or plasma 2023 024 [facility], [address] [place] [address], [address], 4 11:09:35 vitamin D, 25-hydroxy , total, serum 2023 024 [facility], [address] [place] [address], [address], 4 11:26:40 TSH + free T4, serum 2023 024 [facility], [address] [place] [address], [address], 4 11:07:38 TSH + free T4, serum 2023 024 [facility], [address] [place] [address], [address], 4 11:07:38 Referral neurologis t referral 2022 023 [email or web address] [address] [facility], [address], [place], [address], 3 08:49:05 Procedures None recorded. Surgeries None recorded. Imaging MRI, cervical spine, w/o contrast 2023 024 [email or web address] 10 [facility], [address] [place], [address], 4 07:54:29 electromyo gram + nerve conduction study - carpal tunnel, castillo hands and wrists 2023 024 [facility] (Imaging), [address] [place], [address], 4 09:19:32 XR, cervical spine, 2 or 3 view 2023 024 [facility], [address] [place], [address], 4 14:30:08 XR, chest, 2 view 2023 024 [facility], [address] [place], [address], 4 14:30:08 Medication Orders codeine 10 mg-guaifen esin 100 mg/5 mL oral liquid 2023 024 [facility] #[id number], [address] [place], [place], [id number], 4 09:45:13 cephalexin 500 mg capsule 2023 024 [facility] #[id number], [address] [place], [place], [id number], 4 09:20:25 Synthroid 137 mcg tablet 2023 024 [facility] #[id number], [address] [place], [place], [id number], 4 11:42:08 ciprofloxa radha 500 mg tablet 2022 023 [email or web address] [facility] #[id number], [address] [place], [place], [id number], 09:58:28 Patient TargetsNo targets recorded. Patient Instructions Encounter Date Encounter Id Patient Instructions Last Modified By Organization Details Last Modified Time 08/23/2023 [id number] hypothyroidism: care instructions Not available 08/23/2023 22:06:42 11/03/2023 [id number] Skin Cyst: Care Instructions [email or web address] Not available 11/03/2023 11:27:04 Discussed and explained advance directives such as standard forms to the patient. Face to face discussion lasted for a duration of _5__ minutes. Not available 11/03/2023 11:28:02 02/04/2024 [id number] neck pain: care instructions Not available 02/04/2024 [...] record ed. [facility] [address] [place] [address] [place], [address], 10/07/2022 08:10:20 02/22/20 23 02/21/2023 XR, foot No observ ation record ed. [email or web address] (Medical Records) [address] [facility] [place], [address], 02/21/2023 08:35:27 02/22/20 23 02/21/2023 XR, ankle No observ ation record ed. [address] (Medical Records) [address] [facility] [place], [address], 02/21/2023 08:35:58 11/08/19 24 10/18/2023 MAMMO , scree owen, digit al, bilat eral No observ ation [facility]. [facility] [address] [place], [address], 11/08/2023 13:26:33 02/04/20 24 02/04/2024 XR, cervi alix spine , 2 or 3 view No observ ation record ed. [facility] (Medical Records) [address] [facility] [place], [address], 02/18/2024 09:49:01 02/04/20 24 02/04/2024 XR, chest , 2 view No observ ation record ed. [facility] (Medical Records) [address] [facility] [place], [address], 02/18/2024 09:49:00 02/18/20 24 02/11/2024 XR, chest , 2 view No observ ation record ed. [facility] (Medical Records) [address] [facility] [place], [address], 02/22/2024 15:40:53 03/13/20 24 03/03/2024 MRI, cervi alix spine , w/o contr ast No observ ation record ed. [facility] (Medical Records) [address] [facility] [place], [address], 03/14/2024 15:53:15 03/16/20 24 03/16/2024 elect romyo gram + nerve condu ction study No observ ation record ed. [email or web address] [facility] (Medical Records) [address] [place], [address], 03/17/2024 12:09:59 03/16/20 24 03/16/2024 elect romyo gram + nerve condu ction study No observ ation record ed. [email or web address] [facility] (Medical Records) [address] [place], [address], 03/17/2024 12:09:59 07/31/19 25 07/31/2024 XR, chest , 2 view No observ ation record ed. [facility] (Medical Records) [address] [place], [address], 07/31/2024 08:12:29 08/31/19 25 08/30/2024 US, abdom en No observ ation record ed. [facility] [address] [place], [address], 08/30/2024 10:11:14 09/16/1909/15/2024 RF, upper gastr ointe gayatri l tract , w/ contr ast PO No observ ation record ed. [facility] (Medical Records) [address] [place], [address], 09/15/2024 15:29:33 Result Notes None recorded. Problems Name Problem SNOMED Code Status Onset Date Resolution Date Notes Provider Name and Address Organization Details Recorded Time Edema of lower extremit y 736532332 Active 2018 Not Available [facility] 2 14:39:08 Stargard t's disease 96643136 Active 2019 Not Available [facility] 2 14:39:08 Acute sinusiti s 13209865 Active 2021 VIJAY HAAS [address] [place] [address], [address], [facility] 2 10:05:14 Posterio r rhinorrh ea 45886009 Active 2021 VIJAY HAAS [address] [place] [address], [address], [facility] 2 10:05:48 Pain in throat 315397893 Active 2021 VIJAY HAAS [address] [place] [address], [address], [facility] 2 10:05:53 COVID-19 995437662 Active 2021 VIJAY HAAS [address] [place] [address], [address], [facility] 2 10:28:01 Intermit tent palpitat ions 729075437 Active 2021 Brendan Dockery DO [address] [place] [address], [address], [facility] 2 14:24:47 Acute otitis media 7645120 Active 2022 VIJAY HAAS [address] [place] [address], [address], [facility] 3 14:11:22 Acute bronchit is 86714183 Active 2022 VIJAY HAAS [address] [place] [address], [address], [facility] 3 11:29:57 Acute otitis media 1978853 Active 2023 Brendan Dockery, [address] [place] [address], [address], [facility] 4 15:34:59 Epidermo id cyst of skin 684550346 Active 2023 Brendan Dockery DO [address] [place] [address], [address], [facility] 4 11:26:25 Anxiety 56818289 Active 2023 Brendan Dockery DO [address] [place] [address], [address], [facility] 4 11:04:14 Cough 15069816 Active 2023 Brendan Dockery DO [address] [place] [address], [address], [facility] 4 09:46:18 Neck pain 63515941 Active 2023 Brendan Dockery DO [address] [place] [address], [address], [facility] 4 09:16:11 Pneumoni a 339454834 Active 2023 Brendan Dockery DO [address] [place] [address], [address], [facility] 4 14:44:04 Cervical radiculo lore 93339423 Active 2023 VIJAY HAAS [address] [place] [address], [address], [facility] 4 09:40:00 Bilatera l carpal tunnel syndrome 84786778432 275942 Active 2023 VIJAY HAAS [address] [place] [address], [address], [facility] 4 09:42:34 Cervical disc disorder 479110220 Active 2023 VIJAY HAAS [address] [place] [address], [address], [facility] 4 15:54:20 Gastroes ophageal reflux disease 144239380 Active 2017 [facility] Available [facility] 14:39:08 Hypothyr oidism 13242712 Active 2017 Not Available [facility] 2 14:39:09 Migraine 43469539 Active 2017 Not Available [facility] 2 14:39:08 Fibromya lgia 222937755 Active 2017 [facility] Available [facility] 2 14:39:09 Family history of non-Hodg kin's lymphoma 174627714 Active 2017 father, dx'd 11/2010 Not Available [facility] 2 14:39:09 Thoracic outlet syndrome 389632549 Active 2017 s/p 1st rib removal 03/2012 Not Available [facility] 2 14:39:09 Chronic headache disorder 394954775 Active 2017 Not Available [facility] 2 14:39:09 Ventricu lar prematur e complex 642191874 Active 2017 Not Available [facility] 2 14:39:09 Hyperten sive disorder 98059083 Active 2017 Not Available [facility] 2 14:39:08 Tachycar mehnaz 2171764 Active 2017 w/RBBB Not Available [facility] 2 14:39:09 Tenosyno vitis of wrist 429547913 Active 2017 Not Available [facility] 2 14:39:09 Problem Notes None recorded. Procedures Surgical History Date Name Laterality Status Provider Name and Address Organization Details Recorded Time Colonoscopy completed Brendan Dockery DO [address] [place] [address], [address], [facility] 11/17/2021 15:53:34 Imaging Results None recorded. Procedure Notes None recorded. Medical Equipment None Reported. Allergies Allergen ID Allergen Name Allergen Category Reaction Reaction Severity Criticality Documentation Date Start Date Code Code System Note Provider Name and Address Organization Details Recorded Time 1277 [facility] medicatio n Not available Not available Not available 10/15/2017 18622 JAMESON Estrada [facility] [place] 8 09:01:31 5796 Sh[facility]rix medicatio n Not available Not available Not available 11/17/2021 34772 26 RxNorm Brendan Dockery DO [address] [place], [address], [facility] 2 15:05:01 8069 SARS-CoV- 2 (COVID-19 ) vaccine, protein [id number]-[id number] 73 medicatio n Not available Not available Not available 11/03/2023 75874 73 RxNorm [facility] 4 10:55:25 Medications Name Sig [...] propionate 50 mcg/actuati on nasal spray,suspe nsion [place] 1 spray every day by intranasa l [...] Updated DateTime 4 172.72 cm 37.7 kg/m2 808417. 91 g 87 /min 97 % 97 % 138 mm[Hg] 68 mm[Hg] Madison Smith [facility] 4 10:00:36 Date Recorded Body height Body mass index (BMI) Body weight Heart rate Respiratory rate Oxygen saturation Oxygen saturation in Arterial blood by Pulse oximetry Systolic blood pressure Diastolic blood pressure Provider Name and Address Organization Details Last Updated DateTime 4 172.72 cm 38 kg/m2 953729. 45 g 64 /min 18 /min 96 % 96 % 128 mm[Hg] 70 mm[Hg] Hai Ahumada [facility] 4 10:55:03 Date Recorded Body height Body mass index (BMI) Body weight Heart rate Oxygen saturation Oxygen saturation in Arterial blood by Pulse oximetry Systolic blood pressure Diastolic blood pressure Provider Name and Address Organization Details Last Updated DateTime 4 172.72 cm 37.6 kg/m2 619309. 32 g 74 /min 95 % 95 % 116 mm[Hg] 82 mm[Hg] Cathy Andrei [facility] 4 09:29:51 Social History [...] mL dose 1 completed Brendan Dockery, DO [address] [place] [address], [address], [facility] 03/25/2021 14:56:42 COVID-19, mRNA, LNP-S, PF, 30 mcg/0.3 mL dose 1 completed Brendan Bowen DO Sarkis [address] [place] [address], [address], [facility] 03/25/2021 14:56:50 COVID-19, mRNA, LNP-S, PF, 100 mcg/0.5mL dose or 50 mcg/0.25mL dose 2 completed Brendan Dockery DO [address] [place] [address], [address], [facility] 11/17/2021 15:06:29 zoster recombinant 2 completed Brendan Dockery DO [address] [place] [address], [address], [facility] 11/17/2021 15:06:54 Past Encounters Encounter ID Performer Location Encounter Start Date Encounter Closed Date Diagnosis/Indication Diagnosis SNOMED-CT Code Diagnosis ICD10 Code Diagnosis Note [id number] Brendan Dockery [facility] [address], [place] [address] 10/15/2017 14:39:05 10/15/2017 16:02:57 Tenosynovitis of wrist 102109218 M65.839 given she has tried splint and taken otc and rx nsaids without resolution Hypertensive disorder 38 053040 I10 bp is stable no issues noc cp [id number] Brendan Dockery [address] [place] [address] 11/23/2017 13:24:41 11/23/2017 14:43:03 Acute bacterial sinusitis 72642269 J01.90 Hypothyroidism 01251081 E03.9 stable, reviewed labs Essential hypertension 51782068 I10 stable [id number] Brendan Dockery [facility] [address], [place] [address] 02/28/2018 10:59:14 02/28/2018 12:08:52 Hypothyroidism 74616547 E03.9 tsh is 0.8 Hypertensive disorder 38 243491 I10 bp is stable no issues noc cp Adult heal th examination 383620256 Z00.00 discussed need for exercise and diet Screening for cardiovascular system disease 880182672 Z13.6 Screening mammography 24 071933 Z12.31 [place] [id number] Brendan Dockery [facility] [address] [place] [address] 07/12/2018 09:48:11 07/12/2018 11:06:37 Migraine 47237239 G43.909 Using imitrex with relief Hypertensive disorder 38 361405 I10 diastolic slightly elevated, will monitor Hypothyroidism 66383138 E03.9 labs last done 02/2018 Benign par oxysmal positional vertigo 863064002 H81.11 improving with meclizine Acute sinusitis 10687918 J01.90 continue mucinex, flonase, fluids, humidifier [id number] Brendan Dockery [facility] [address] [place] [address] 09/16/2018 11:50:53 09/16/2018 15:19:18 Otitis media 97498024 H66.92 Allergic cough 735231341 R05 Active or passive immunization 708413682 Z23 Hypertensive disorder 38 741296 I10 stable, reviewed Mar 2018 labs [id number] Brendan Dockery [facility] [address] [place] [address] 09/26/2018 13:31:49 09/26/2018 14:23:51 Dysfunction of eustachian tube 71366609 H69.92 [id number] Brendan Dockery [facility] [address] [place] [address] 10/03/2018 14:57:35 10/03/2018 16:29:59 Dysfunction of left eustachian tube 7790095743 135285 H69.92 [id number] Brendan Dockery [facility] [address] [place] [address] 11/23/2018 16:09:46 11/25/2018 08:16:23 Hypertensive disorder 10863024 I10 bp is stable no issues noc cp Hypothyroidism 22346153 E03.9 tsh is 0.8 Edema of l ower extremity 616708161 R60.0 will add furosemide 40mg [id number] Brendan Dockery DO [facility] [address] [facility] [address] 12/02/2018 13:35:55 12/02/2018 14:40:20 Hypertensive disorder 72725973 I10 bp is stable no issues noc cp will cont Edema of l ower extremity 537945170 R60.0 will cont furosemide 40mg [id number] Brendan Dockery DO [facility] [address] [facility],[place] [address] 01/13/2019 10:20:35 01/13/2019 11:04:19 Edema of lower extremity 940440599 R60.0 b/l improved on increased dose of lasix do 80 mg again today then return to 40 mg Hypertensive disorder 38 149163 I10 stable Hypothyroidism 18098306 E03.9 normal tsh 12/2018 [id number] Brendan Dockery DO [facility] [address] [facility],[place] [address] 01/30/2019 13:31:42 01/30/2019 14:09:46 Edema of lower extremity 834193972 R60.0 will cont furosemide 40mg and will cont to use bid when sudden changes potassium supp or bananas Hypertensive disorder 38 683666 I10 bp is stable no issues noc cp will cont Hypothyroidism 21428508 E03.9 tsh is wnl per [facility] lab Tinea pedis 1707259 B35. 3 lotrimin cream [id number] Berndan Dockery DO [facility] [address] [facility],[place] [address] 09/04/2019 11:07:27 09/04/2019 13:34:20 Acute sinusitis 74471290 J01.90 will need to treat given her past issues [id number] Brendan Dockery DO [facility] [address] [place] [address] 04/01/2020 13:27:40 04/01/2020 14:38:28 Adult health examination 390148707 Z00.00 discussed need for exercise and diet Screening for cardiovascular system disease 871555475 Z13.6 Screening for osteoporosis 854823473 Z13.820 Screening mammography 24 593794 Z12.31 [place] [id number] Brendan Dockery [facility] [address] [place] [address] 04/15/2020 09:07:48 04/15/2020 11:14:34 Acute otitis media 6407425 H65.01 most likely another ear infection given symptoms and hx will fu with patient if still having symptoms or worsening pt understand s and will call Nasal congestion 0969218 0 R09.81 more with pressure, all right sided along maxillary and frontal sinuses Headache 01834795 R51.9 right sided, also suffers from chronic headaches so not uncommon [id number] Brendan Dockery DO [facility] [address] [place] [address] 03/25/2021 14:34:54 03/25/2021 16:24:44 Hypothyroidism 42740086 E03.9 tsh low and t4 is high and we nmeed to decrease her dose she is having a lot of hairloss Gastroesop hageal reflux disease 260860818 K21.00 has breakthrog uh [place] [id number] Berndan Dockery DO [facility] [address] [place] [address] 05/14/2021 09:37:08 05/14/2021 14:28:14 Gastroesophageal reflux disease 392903274 K21.00 has breakthrog uh need to incerease the nexium to bid Hypertensive disorder 38 502401 I10 bp is stable no issues noc cp will cont current tx Edema of l ower extremity 191458295 R60.0 furosemide 40mg as needed only and has not taken any since the summer and will cont to use prn when sudden changes potassium supp or bananas when she does take furosemide [id number] Brendan Dockery [facility] [address] [place] [address] 06/16/2021 09:40:38 06/16/2021 16:20:27 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 will fu with MRI Pain of le ft knee joint 5903230865 08136 M25.562 will fu with MRI [id number] Brendan Dockery [facility] [address] [facility] [address] [address] 06/30/2021 09:21:10 07/01/2021 15:55:17 Acute sinusitis 30191078 J01.01 will start on abx and fu with patient if no improvemen t Otalgia 30167111 H92.01 [place] abx [id number] Brendan Dockery [facility] [address] [facility] [address] [address] 10/17/2021 09:21:32 10/17/2021 11:33:49 Acute sinusitis 08532952 J01.01 will start on abx and fu with patient if no improvemen t Posterior rhinorrhea 758 40865 R09.82 will fu with testing Pain in throat 547381610 R07.0 can use APAP and IBU for symptom management [id number] Brendan Dockery [facility] [address] [facility] [address] 11/17/2021 14:48:20 11/17/2021 15:56:50 Hypertensive disorder 78139534 I10 bp is stable no issues noc cp will cont current tx Hypothyroidism 17858351 E03.9 tsh low and t4 is high and we nmeed to decrease her dose she is having a lot of hairloss Active or passive immunization 855213914 Z23 patient advised she is due for a tdap Screening for malignant neoplasm of colon 899166418 Z12.11 already had done in jul Depression screening 171 762233 Z13.31 Did not bring glasses to fill out PHQ9 not able to complete today Tachycardia 6438685 R00. 0 given just one episode [id number] Brendan Dockery [facility] [address] [facility] [address] [address] 08/11/2022 13:49:58 08/11/2022 16:33:49 Acute otitis media 1278369 H65.01 will set up with cipro for 7 days BIDworks best for the patient [id number] Brendan Dockery [facility] [address] [facility] [address] 09/23/2022 09:07:41 09/23/2022 12:05:06 Acute otitis media 3028046 H65.01 will set up with cipro for 7 days [employer] best for the patient Migraine 30467498 G43.10 9 will set up with second opinion with neuro [id number] Brendan Dockery [facility] [address] [facility],[place] [address] 08/23/2023 09:51:36 08/23/2023 10:25:31 Hypertensive disorder 00108113 I10 bp is stable no issues no cp will cont current tx Hypothyroidism 51387710 E03.9 tsh low and t4 is high and we need to decrease her dose she is having a lot of hairloss [id number] Brendan Dockery [facility] [address] [facility] [address] 11/03/2023 10:35:53 11/03/2023 12:15:08 Adult health examination 611903944 Z00.00 discussed need for exercise and diet Screening for cardiovascular system disease 176256415 Z13.6 Screening for malignant neoplasm of colon 810557620 Z12.11 already had done in jul Depression screening 171 849568 Z13.31 Did not bring glasses to fill out PHQ9 not able to complete today Epidermoid cyst of skin 425265558 L72.0 [id number] Brendan Dockery [facility] [address] [facility] [address] [address] 02/04/2024 08:34:01 02/04/2024 14:30:07 Anxiety 17902153 F41.9 stable Hypertensive disorder 38 684120 I10 bp is stable no issues no cp will cont current tx Hypothyroidism 11971693 E03.9 stable Thoracic o utlet syndrome 150371943 G54.0 no chnges Neck pain 38473002 M54.2 possible radiculopa thy issue here having numbness Cough 07249251 R05.9 not getting better , will use use guaifen over weekend if no better will need levoflox etc will get cxr today [id number] Brendan Dockery DO [facility] [address] [facility] [address],[place] [address] 02/18/2024 09:14:53 02/18/2024 09:50:41 Cervical radiculopathy 95183124 M54.12 will set up MRI now and EMG for her arms Bilateral carpal tunnel syndrome 5434168587 1958432 G56.03 fu EMG Cough 07912272 R05.2 given syrup to use PRN for the coughing Health Concerns Section Related Observation LastModified by Organization Detai ls LastModified Time None Recorded Concern Status LastModified by Organization Details LastModified Time None Recorded Advance Directives Directive None Recorded Payers Insurance Date Sequence Insurance Name Policy Number Policy Blandon Covered Member ID Blandon Member ID Guarantor Name 11/02/2023 2 [place]ICAID-[place] [facility] Tamar Chacon [id number] Tamar Chacon 10/19/2017 1 [facility] [id number] Tamar Chacon [id number] Tamar Chacon 11/03/2024 1 [place] [employer] SERVICES Tamar Chacon [id number] Tamar Chacon 11/02/2023 1 [facility] (HMO) [id number] Tamar Chacon [id number] Tamar Chacon 11/02/2023 1 [facility] - DOS PRIOR TO 2022 - DUAL ELIGIBLE (MEDICARE REPLACEMENT/AD VANTAGE - HMO) Tamar Chacon [id number] Tamar Chacon 02/15/2024 2 [place]: [facility] Tamar Chacon [id number] Tamar Chacon Notes Date Note Type Note [...] stick with VIJAY De La Torre [address] [place], [address], [facility] 09/23/2022 11:28:14 4 text/html here for annual wellnessrelates has been under a lot of stress relates that she has been sad bc she can no longer drive etc Brendan Dockery DO [address] [place], [address], [facility] 08/23/2023 22:06:45 4 [...] always feels tired Brendan Dockery DO [address] [place], [address], [facility] 11/03/2023 11:28:39 4 [...] arches her back Brendan Dockery DO [address] [place], [address], [facility] 02/04/2024 09:24:45 4 text/html f/u neck pain the patient reports that she is having neck painagreed to MRI for more information waiting on repeat CXRfor the pna, given cough syrup EMG will be needed for possible carpal tunnel on top of the radiculopathy from the neck will f/u after CXR comes in will fu after MRI VIJAY HAAS [address] [place], [address], [facility] 02/18/2024 09:49:55 OBGyn Episode No OBEpisode recorded.
== END 2024-12-04 12:29 | disposition home or self-care (01) ==
LOC: HO.MAMMO 12:28
PROVIDERS: PCP Internal Medicine; Visit Provider Internal Medicine
DX: Z12.31 Encounter for screening mammogram for malignant neoplasm of breast (principal)
CPT/HCPCS: 77063; 77067; 99212

== ENCOUNTER → 2024-12-04 12:45 | Outpatient (BNV) | payer MEDICARE, MEDICAID, SELFPAY | PROVIDERS: PCP Internal Medicine; Visit Provider Internal Medicine | DX: Z12.31 Encounter for screening mammogram for malignant neoplasm of breast (principal) | CPT/HCPCS: 77063; 77067 ==

== ENCOUNTER 2025-01-02 08:04 | Outpatient (AMB) | payer MEDICARE, MEDICAID, SELFPAY ==
--- NOTE | 2025-01-02 08:07 | MHC.OFFVISWM ---
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 Presents for 2.5 month post op visit. Weight today is 182.6 pounds, with a BMI of 27.8. There has been a 72.4 pound weight loss,(initial weight 255 pounds) since starting the program on 07/28/2024 reflecting a 28.3 % total body weight loss and a weight loss of 42.9 pounds since surgery (operative weight 225.5 pounds) reflecting a 19 % TBWL since surgery. No complaints of nausea, emesis, abdominal pain or reflux. Reports infrequent but normal bowel movements every 2 days and uses stool softeners regularly. Taking celebrate mvi. Very happy with her success. She feels great and has very good energy level. Present meal plan includes: Premier protein rtd shake 4 oz mixed with 4 oz almond milk 6-8, 12-2, 8-10 Barbell protein bar 9-11 Barbells protein bar 3-5 meal at 6 pm with 3 forks protein and 3 forks veg 50 oz water daily Exercise routine includes: walk 2-4 mi daily stationary bike 300 alix per day [facility] Medical History (Updated 10/27/24 @ 00:01 by Background Daemon) Migraines Legally blind Back pain Graves disease Kidney stones Hypothyroid History of nephrolithiasis Diaphragmatic hernia GERD (gastroesophageal reflux disease) Hypertension DJD (degenerative joint disease) Familial juvenile macular degeneration syndrome Anxiety Depression Surgical History (Updated 11/08/24 @ 10:27 by Sarah Leung CMA) Status post laparoscopic sleeve gastrectomy History of esophagogastroduodenoscopy (EGD) History of resection of rib Hx of hysterectomy Hx of adenoidectomy Hx of tonsillectomy Hx of bladder endoscopy Hx of colonoscopy Family History Mother Malignant neoplasm of breast in full remission Arthritis Father Landon's disease Son No problems noted. Son No problems noted. Social History Household Members: None Housing: House Are you a primary physician locums urgent care to a significant other at home: No Do you presently have visiting nurse or other home services: No Alcohol intake: current Alcohol intake frequency: does not drink Patient Tobacco Use Status: Never used Tobacco Second Hand Smoke Exposure: No Physical Exam Const General: healthy appearing and no acute distress Resp Effort & Inspection: normal respiratory effort Auscultation: clear to auscultation bilaterally Cardio Rate: regular rate Rhythm: regular rhythm GI Auscultation: normal bowel sounds Extrem General: Yes normal to inspection Assessment & Plan Assessment & Plan (1) Status post laparoscopic sleeve gastrectomy: Code(s): Z98.84 - Bariatric surgery status Category: Surgical Plan: Patient is doing very well. Lost over 70 lb so far. She is following her meal plan and is happy with it. She is exercising regularly. Communicating with Dr. Herr. She was taking her multivitamin, 1, 3 times per day. Recommend 1 daily. We will have her return to the office in about 1 month.
[2025-01-02 08:17] VITALS: BP 131/76; PULSE 91; TEMP 36.3; O2SAT 95; BMI 27.8
== END 2025-01-02 08:30 | disposition home or self-care (01) ==
LOC: HO.HBS 08:04
PROVIDERS: PCP Internal Medicine; Visit Provider Physician Assistant Surgical
DX: Z98.84 Bariatric surgery status (principal)
CPT/HCPCS: 99024

== ENCOUNTER → 2025-01-02 08:04 | Outpatient (BNVA) | payer MEDICARE, MEDICAID, SELFPAY | PROVIDERS: PCP Internal Medicine; Visit Provider Physician Assistant Surgical | DX: Z98.84 Bariatric surgery status (principal) | CPT/HCPCS: 99212 ==

== ENCOUNTER 2025-01-16 06:04 | Outpatient (REF) | payer MEDICARE, MEDICAID, SELFPAY ==
--- OUTSIDE RECORDS SUMMARY | 2025-01-16 06:07 | XMS_ITS | Clinical Summary ---
Author Organization [facility] Address [address] [address] Phone Care Team Providers Care Profiling Machine Setup Operator Name Role Phone Marcella Sullivan Primary Care Provider [phone] Allergies Active Allergy Reactions Criticality Noted Date Comments Fluarix [id number] (Pf) Angioedema High 07/17/2021 Medications esomeprazole (NEXIUM 24HR) 20 mg capsule Take 1 capsule by mouth daily. Active CETIRIZINE HCL (ZYRTEC ORAL) daily. 1 tab Oral Active biotin 5 mg Tab Take 1 tablet by mouth daily. Active levothyroxine (SYNTHROID) 125 MCG tablet Take 1 tablet by mouth daily. Active amitriptyline (ELAVIL) 25 MG tablet Take 0.5 tablets by mouth nightly. Active botulinum toxin type A (BOTOX) 200 unit SolR Injection Active propranolol (INDERAL LA) 120 mg 24 hr capsuleIndicati ons:hypertensio n 80 mg. as directed Orally Indications: high blood pressure Active famotidine (PEPCID) 40 MG tablet Take 40 mg by mouth daily. Active topiramate (TOPAMAX) 50 MG tablet Take 75 mg by mouth 2 (two) times a day. Active furosemide (LASIX) 40 MG tablet Take 1 tablet every day by oral route for 30 days. Active docusate sodium (COLACE) 100 MG capsule Take 1 capsule by mouth 2 (two) times a day. 5 Active valACYclovir (VALTREX) 1000 MG tablet Take 1 tablet (1,000 mg total) by mouth 3 (three) times a day for 7 days. 21 tablet 5 12/18/19 25 Encounters Date Type Department Care Team Description 12/10/2024 1:00 PM EDT Office Visit [facility] [address] [address] Emilia Sutherland, BARRETT Herpes zoster without complication (Primary Dx) from Last 3 Months Immunizations Immunization Administration Dates Next Due COVID-19 (Pre) Moderna Vaccine, mRNA, PF 0 06/10/2021 COVID-19 (Pre) Pfizer Vaccine, mRNA, PF ,09/19/2020 Family History Medical History Relation Comments Cancer Father Breast cancer Mother Cancer Mother Relation Status Comments Father Mother Social History Tobacco Use Types Packs/Day Years Used Date Smoking Tobacco: Never Smokeless Tobacco: Never Alcohol Use Standard Drinks/Week Comments Yes 1 (1 standard drink = 0.6 oz pur e alcohol) Education Answer Date Recorded Are you interested in more education? Not on krysta e 10/02/2022 Are you concerned about learning? Not on file 10/02/2022 No 10/02/2022 No 10/02/2022 Digital Access Answer Date Recorded No 11/02/2022 No 11/02/2022 Reliable internet access at home? Not on file 11/02/2022 Device with a working camera? Not on file Comments No Sex and Gender Information Value Date Recorded Sex Assigned at Not on file Legal Sex Female 9:36 PM EDT Gender Identity Not on file Sexual Orientation Not on file Last Filed Vital Signs Vital Sign Reading Time Taken Comments Blood Pressure 119/79 12/10/2024 1:19 PM EDT Pulse 93 12/10/2024 1:19 PM EDT Temperature 36.7 C (98 F) 12/10/2024 1:19 PM EDT Respiratory Rate 18 12/10/2024 1:19 PM EDT Oxygen Saturation 100% 12/10/2024 1:19 PM EDT Inhaled Oxygen Concentration - - Weight 91.2 kg (201 lb) 07/29/2021 12:04 PM EST Height 172.7 cm (5' 8 ) 07/29/2021 12:04 PM EST Body Mass Index 30.56 07/29/2021 12:04 PM EST Plan of Treatment Health Maintenance Due Date Last Done Comments Adult Td,Tdap Booster 1970 DEPRESSION SCREENING 1981 HEPATITIS C SCREENING 1987 HIV ONE-TIME SCREENING (18-65 YEARS) 1987 PAP SMEAR 1990 COLOGUARD 2014 FIT TEST 2014 FOBT 2014 SIGMOIDOSCOPY 2014 VIRTUAL COLONOSCOPY 2014 PNEUMOCOCCAL VACCINES (50+ years) (1 of 1 - PCV) 2019 MAMMOGRAM 04/20/2020 04/20/2018 ZOSTER VACCINES (2 of 2) 08/05/2021 06/10/2021 TSH LEVEL 02/28/2022 02/28/2021, 02/05, 08/26/2017, Additional history exists LIPID PANEL 03/08/2023 03/08/2018 COVID-19 VACCINE ( season) 2024 06/10/2021, 06/10/2021, 10/10/2020, Additional history exists COLONOSCOPY 07/31/2031 07/31/2021 COLORECTAL CANCER SCREENING 07/31/2031 SMOKING STATUS SCREENING (Once After 26 Yrs) Completed 05/08/2024 HEPATITIS A VACCINES Aged Out No long er eligible based on patient's age to complete this topic HIB VACCINES Aged Out No longer eligi ble based on patient's age to complete this topic MENINGOCOCCAL VACCINES (ACWY) Aged Out No longer eligible based on patient's age to complete this topic MENINGOCOCCAL VACCINES (B) Aged Out N o longer eligible based on patient's age to complete this topic Medical Devices Not on file Procedures Procedure Name Priority Date/Time Associated Diagnosis Comments ENDOSCOPY, COLON 07/31/2021 8:29 AM EST TSH Routine 02/28/2021 8:23 AM EDT Essential hypertension, malignant BI MAMMOGRAM SCREENING WITH TOMOSYNTHESIS WITH CAD (BILATERAL) Routine 04/20/2018 1:41 PM EST Visit for screening mammogram LIPID PANEL Routine 03/08/2018 7:30 AM EDT Screening for ischemic heart disease Routine general medical examination at a health care facility from Last 3 Months or Most Recently Relevant to Health Maintenance Results * ENDOSCOPY, COLON (07/31/2021 8:29 AM EST) Narrative Transcriptions Lynne Figueroa MD - 07/31/2021 8:29 AM EST Patient Name: Tamar Oswaldo Attending MD:: LYNNE FIGUEROA MD Procedure Date: 07/31/2021 8:29 AM Date of : 1970 Age: 51 Admit Type: Outpatient Gender: Female Room: [place] [address] Referring MD: MARCELLA SULLIVAN DO Exam Type: Colonoscopy Indications: Screening for colorectal malignant neoplasm, Thisis the patient's first colonoscopy Medications: Propofol per Anesthesia Procedure: Informed consent was obtained from the patientafter discussion of the indications, limitations, alternatives, benefits, and risks of the procedure. Risks specifically discussed include but are not limited to medication reactions, missed lesions, bleeding, perforation, or the need for emergent surgery. Throughout the procedure, the patient's blood pressure, pulse, end-tidal CO2, and oxygensaturations were monitored continuously. The Olympus adult variable colonoscope [id number] #7 was introduced through the anus and advanced to the terminal ileum, with identification of theappendiceal orifice and IC valve. The terminal ileum, ileocecal valve, appendiceal orifice, and rectum were photographed. The colonoscopy was performed without difficulty. The patient tolerated the procedurewell. The quality of the bowel preparation was good. The bowel preparation used was Miralax in Gatoraide, 4L. via split dose instruction. Complications: No immediate complications. Estimated blood loss:None. Findings: The perianal and digital rectal examinations were normal. Pertinent negatives include no palpablerectal lesions. Internal hemorrhoids were found duringretroflexion. The hemorrhoids were small. The entire examined colon appeared normal. The terminal ileum appeared normal. Retroflexion in the right colon was performed. Impression: - Internal hemorrhoids. - The entire examined colon is normal. - The examined portion of the ileum was normal. - No specimens collected. Recommendation: - Repeat colonoscopy in 10 years for screening purposes. LYNNE FIGUEROA MD 07/31/2021 9:02:02 AM This report has been signed electronically. Number of Addenda: 0 Note Initiated On: 07/31/2021 8:29 AM Procedure Code(s): --- Professional --- 70091, Colonoscopy, flexible; diagnostic, including collection of specimen(s) by brushing or washing, when performed (separateprocedure) --- Technical --- 68966, Colonoscopy, flexible; diagnostic, including collection of specimen(s) by brushing or washing, when performed (separateprocedure) Diagnosis Code(s): --- Professional --- Z12.11, Encounter for screening for malignantneoplasm of colon K64.8, Other hemorrhoids --- Technical --- Z12.11, Encounter for screening for malignantneoplasm of colon K64.8, Other hemorrhoids CPT copyright 2020 [employer]. All rights reserved. The codes documented in this report are preliminary and upon direct sales consultant reviewmay be revised to meet current compliance requirements. Procedure Date: 07/31/2021 8:29:[address] [place] [address] [place] Marcella A Bigda DO GI PROCEDURE ORDERABLES Final Re sult * (ABNORMAL) TSH (02/28/2021 8:23 AM EDT) TSH 0.09(L) 0.27 - 4.20 uIU/mL [facility] Blood 02/28/2021 8:23 AM EDT 02/28/2021 8:25 AM EDT us Marcella A Bigda DO LAB BLOOD ORDERABLES Final Resul t [address] [address] * BI MAMMOGRAM SCREENING WITH TOMOSYNTHESIS WITH CAD (BILATERAL) (04/20/2018 1:41 PM EST) Anatomical Region Laterality Modality Breast Left, Breast Right, Breast Bilateral Bila teral Mammography 04/20/2018 6:22 PM EST Impressions 04/20/2018 6:25 PM EST No mammographic signs of malignancy. Annual screening is recommended. BI-RADS CATEGORY: 1 - Negative. DENSITY: The breast tissue is almost entirely fat. POS - [id number] Narrative 04/20/2018 6:25 PM EST Bilateral mammography is performed in conjunction with computed aided detection. 3-D tomography along with 2-D C view imaging was also performed. Comparison made to previous dated as far back as 06/29/2006 and as recent as 12/31/2016. No suspicious masses, areas of architectural distortion or suspicious microcalcifications. Procedure Note Tyrese Romero MD - 04/20/2018 Bilateral mammography is performed in conjunction with computed aideddetection. 3-D tomography along with 2-D C view imaging was alsoperformed. Comparison made to previous dated as far back as 06/29/2006 andas recent as 12/31/2016. No suspicious masses, areas of architectural distortion or suspiciousmicrocalcifications. IMPRESSION: No mammographic signs of malignancy. Annual screening is recommended. BI-RADS CATEGORY: 1 - Negative. DENSITY: The breast tissue is almost entirely fat. POS - [id number] us Marcella A Bigda DO IMG MG EXAMS Final Result * Lipid panel (03/08/2018 7:30 AM EDT) HDL 56 mg/dL [facility] Comment: Interpretation: Risk Level Females Decreased >55mg/dL Average 50-55 mg/dL Increased <50 mg/dL CHOLESTEROL 190 0 - 240 mg/dL [facility] TRIGLYCERIDES 85 30 - 160 mg/dL [facility] LDL 117 50 - 129 mg/dL [facility] Comment: LDL levels in terms of risk for coronary heart disease: <100 mg/dL: Optimal 100-129 mg/dL: Near or above optimal 130-159 mg/dL: Borderline high 160-189 mg/dL: High >190 mg/dL: Very High CARDIAC RISK RATIO 3.4 3.3 - 4.4 [facility] Blood 03/08/2018 7:30 AM EDT 03/08/2018 8:00 AM EDT us Marcella Sullivan DO LAB BLOOD ORDERABLES Final Resul t [address] [address] from Last 3 Months or Most Recently Relevant to Health Maintenance Insurance [facility] MEDICARE PART A & [place] & [place] [facility] [place] [id number] MEDICARE PART A & [place] & B [facility] MEDICARE PART A & B [facility] MEDICARE PART A & B Care Teams Profiling Machine Setup Operator Relationship Specialty Start Date End Date Marcella Sullivan DO PCP - General 03/25/17 Additional Source Comments The information contained in this document represents components of the legal health record. It is not the complete legal health record.[facility]
[2025-01-16 06:15] LABS: MANUAL DIFF FLAG NO
[2025-01-16 07:49] LABS: Hematocrit 43.3 % (37.0-47.0); Hemoglobin 14.4 g/dl (12.0-16.0); Imm Gran Abs Auto 0.01 X10*3/uL (0.00-0.03); Imm Gran Pct Auto 0.2 % (0.0-0.4); Lymphocytes Absolute Auto 1.7 X10*3/uL (1.2-4.9); Mean Corpuscular HGB Conc 33.3 g/dl (31.0-35.0); Mean Corpuscular Hemoglobin 31.0 pg (27.0-33.0); Mean Corpuscular Volume 93.3 fL (80.0-98.0); NRBC Abs Auto 0.000 X10*3/uL (0.0-0.012); NRBC Pct Auto 0.0 /100WBC (0.0-0.2); Platelet Count 227 X10*3/uL (160-400); Red Blood Count 4.64 X10*6/uL (4.20-5.50); White Blood Count 5.0 X10*3/uL (4.8-10.8)
[2025-01-16 08:32] LABS: Alanine Aminotransferase 16 U/L (0-31); Albumin Level 4.2 g/dL (3.5-5.0); Alkaline Phosphatase 52 U/L (39-117); Anion Gap 15 (12-20); Aspartate Amino Transferase 22 U/L (5-31); Blood Urea Nitrogen 15 mg/dL (9-16); Calcium 9.4 mg/dL (8.4-10.2); Carbon Dioxide 27 mmol/L (22-29); Chloride 106 mmol/L (96-108); Cholesterol 160 mg/dL (<200); Estimated Glomerular Filt Rate > 60; HDL Cholesterol 53 mg/dL (>40); Potassium 4.1 mmol/L (3.3-5.1); Sodium 144 mmol/L (135-145); Total Protein 6.7 g/dL (6.5-8.0); Triglycerides 61 mg/dL (<150)
[2025-01-16 08:45] LABS: Free T4 (Free Thyroxine) 1.23 ng/dL (0.71-1.85); Thyroid Stimulating Hormone 0.10 uIU/mL (0.32-4.0)
== END 2025-01-16 06:05 | disposition home or self-care (01) ==
LOC: HO.LAB 06:04
PROVIDERS: PCP Internal Medicine; Visit Provider Internal Medicine
DX: I10 Essential (primary) hypertension (principal); E03.9 Hypothyroidism, unspecified
CPT/HCPCS: 36415; 80053; 80061; 84439; 84443; 85025

== ENCOUNTER 2025-02-01 09:37 | Outpatient (AMB) | payer MEDICARE, MEDICAID, SELFPAY ==
[2025-02-01 09:29] VITALS: BMI 26.0
--- NOTE | 2025-02-01 09:29 | A.OFFVIS_ITS ---
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 Presents for 4 month post op visit. Weight today is 171 pounds, with a BMI of 26. There has been a 84 pound weight loss,(initial weight 255 pounds) since starting the program on 07/28/2024 reflecting a 32.9 % total body weight loss and a weight loss of 54.5 pounds since surgery (operative weight 225.5 pounds) reflecting a 24.1 % TBWL since surgery. No complaints of nausea, emesis, abd ominal pain or reflux. Reports infrequent but normal bowel movements every 2 days and uses stool softeners regularly. Taking celebrate mvi. Very happy with her success. She feels great and has very good energy level. Present meal plan includes: Premier protein rtd shake 4 oz mixed with 4 oz almond milk 6-8, 12-2, 8-10 Barbell protein bar 9-11 Barbells protein bar 3-5 meal at 6 pm with 3 forks protein and 3 forks veg 50 oz water daily Exercise routine includes: walk 5-6 mi daily stationary bike 300 alix 4 x per week [facility] Medical History Migraines Legally blind Back pain Graves disease Kidney stones Hypothyroid History of nephrolithiasis Diaphragmatic hernia GERD (gastroesophageal reflux disease) Hypertension DJD (degenerative joint disease) Familial juvenile macular degeneration syndrome Anxiety Depression Surgical History Status post laparoscopic sleeve gastrectomy History of esophagogastroduodenoscopy (EGD) History of resection of rib Hx of hysterectomy Hx of adenoidectomy Hx of tonsillectomy Hx of bladder endoscopy Hx of colonoscopy Family History Mother Malignant neoplasm of breast in full remission Arthritis Father Landon's disease Son No problems noted. Son No problems noted. Social History Household Members: None Housing: House Are you a primary care specialist to a significant other at home: No Do you presently have visiting nurse or other home services: No Alcohol intake: current Alcohol intake frequency: does not drink Patient Tobacco Use Status: Never used Tobacco Second Hand Smoke Exposure: No Telehealth Telehealth Telehealth Platform: Telephone Location of provider rendering services: practice address Location of patient: address on file Patient Identification confirmed using: Name, : Yes Telehealth method: voice only Patient verbally consented to treatment: Yes Patient verbally consented to billing insurance company: Yes Patient informed of any privacy concerns related to visit: Yes Minutes spent on Phone/Video with Pt.: 15 Assessment & Plan Assessment & Plan (1) Status post laparoscopic sleeve gastrectomy: Code(s): Z98.84 - Bariatric surgery status Category: Surgical Plan: Patient is doing very well. She continues to follow the meal plan as directed by Dr. Herr. She is walking regularly, 5-6 miles daily. She is using her stationary bike and treadmill intermittently. She is very happy with her weight loss progress. No complaints at this time. She will continue as such and follow-up in the office for her six-month follow-up appointment. Check labs at that time.
--- OUTSIDE RECORDS SUMMARY | 2025-02-01 10:43 | XMS_ITS | Encounter Summary ---
Author Organization [facility] Address [address] [place] [address] Phone Care Team Providers Care Filter Cleaner Name Role Phone Brendan Dockery DO Primary Care Provider [phone] Encounter Details Date Type Department Care Team (Late st Contact Info) Description 09/06/2017 Ancillary Orders [facility], X-Ray - [facility] [address] [place] [address] Brendan Dockery DO [address] [facility] [address] [place], [place] [id number] [email or web address] Pain of left thumb Social History Tobacco Use Types Packs/Day Years Used Date Smoking Tobacco: Never Assessed Comments Unknown Sex and Gender Information Value Date Recorded Sex Assigned at Not on file Legal Sex Female 9:36 PM EDT Gender Identity Not on file Sexual Orientation Not on file documented as of this encounter Plan of Treatment Not on file documented as of this encounter Results * XR FINGER THUMB (LEFT) (09/06/2017 10:08 AM EDT) Anatomical Region Laterality Modality Hand Left Radiographic Isadora ging 09/06/2017 10:1 7 AM EDT Impressions 09/06/2017 10:19 AM EDT Minor DJD in the first CMC joint. No other bony pathology is apparent. POS [id number] Narrative 09/06/2017 10:19 AM EDT 4 views. No comparison No evidence of trauma, tumor or infection. Very minimal joint space narrowing and marginal spurring in the first CMC joint. No other significant arthritic changes. Probable small degenerative subchondral cyst along the ulnar aspect of the proximal first metacarpal rather than inflammatory erosion. Procedure Note Houston Lacey MD - 09/06/2017 4 views. No comparison No evidence of trauma, tumor or infection. Very minimal joint space narrowing and marginal spurring in the first CMCjoint. No other significant arthritic changes. Probable small degenerative subchondral cyst along the ulnar aspect of theproximal first metacarpal rather than inflammatory erosion. IMPRESSION: Minor DJD in the first CMC joint. No other bony pathology is apparent. POS [id number] us Brendan Dockery DO IMG XR UPPER EXTREMITY Final Res ult documented in this encounter Visit Diagnoses Diagnosis Pain of left thumb documented in this encounter Care Teams Filter Cleaner Relationship Specialty Start Date End Date Brendan Dockery DO [email or web address] PCP - General 03/25/17 documented as of this encounter Additional Source Comments The information contained in this document represents components of the legal health record. It is not the complete legal health record.[facility]
--- OUTSIDE RECORDS SUMMARY | 2025-02-01 10:43 | XMS_ITS | Encounter Summary ---
Author Organization [facility] Address [address] [address] Phone Care Team Providers Care Meat Processing Center Manager Name Role Phone Brendan Dockery DO Primary Care Provider [phone] Encounter Details Date Type Department Care Team ([facility] st Contact Info) Description 02/28/2018 Ancillary Orders Virtual Department [address] [place] [address] Brendan Dockery DO [address] [facility] [place] [address] [place] [address] Visit for screening mammogram Social History Tobacco Use Types Packs/Day Years Used Date Smoking Tobacco: Never Smokeless Tobacco: Never Alcohol Use Standard Drinks/Week Comments Yes 0 (1 standard drink = 0.6 oz pur e alcohol) Comments Unknown Sex and Gender Information Value Date Recorded Sex Assigned at Not on file Legal Sex Female 9:36 PM EDT Gender Identity Not on file Sexual Orientation Not on file documented as of this encounter Plan of Treatment Not on file documented as of this encounter Results * BI MAMMOGRAM SCREENING WITH TOMOSYNTHESIS WITH CAD (BILATERAL) (04/20/2018 1:41 PM EST) Anatomical Region Laterality Modality Breast Left, Breast Right, Breast Bilateral Bila teral Mammography 04/20/2018 6:22 PM EST Impressions 04/20/2018 6:25 PM EST No mammographic signs of malignancy. Annual screening is recommended. BI-RADS CATEGORY: 1 - Negative. DENSITY: The breast tissue is almost entirely fat. POS - [id number] Narrative 04/20/2018 6:25 PM EST Bilateral mammography is performed in conjunction with computed aided detection. 3-D tomography along with 2-D C view imaging was also performed. Comparison made to previous dated as far back as 06/29/2006 and as recent as 12/31/2016. No suspicious masses, areas of architectural distortion or suspicious microcalcifications. Procedure Note Tyrese Stephen MD - 04/20/2018 Bilateral mammography is performed [...] tissue is almost entirely fat. POS - [id number] Brendan Dockery DO IMG MG EXAMS Final Result documented in this encounter Visit Diagnoses Diagnosis Visit for screening mammogram Visit for screening mammogram documented in this encounter Care Teams Meat Processing Center Manager Relationship Specialty Start Date End Date Brendan Dockery DO PCP - General 03/25/17 documented as of this encounter Additional Source Comments The information contained in this document represents components of the legal health record. It is not the complete legal health record.[facility]
--- OUTSIDE RECORDS SUMMARY | 2025-02-01 10:43 | XMS_ITS | Encounter Summary ---
Author Organization [facility] Address [address] [address] Phone Care Team Providers Care Compliance Paralegal Name Role Phone Brendan Dockery DO Primary Care Provider [phone] Encounter Details Date Type Department Care Team (Late st Contact Info) Description 08/26/2017 Transcribe Orders [facility] [address] [place] [address] Brendan Dockery DO 179 [facility] [place] [address] [place] [address] [email or web address] Myxedema heart disease (Primary Dx) Social History Tobacco Use Types Packs/Day Years Used Date Smoking Tobacco: Never Assessed Comments Unknown Sex and Gender Information Value Date Recorded Sex Assigned at Not on file Legal Sex Female 9:36 PM EDT Gender Identity Not on file Sexual Orientation Not on file documented as of this encounter Plan of Treatment Not on file documented as of this encounter Results * TSH (08/26/2017 7:49 AM EDT) TSH 1.84 0.27 - 4.20 uIU/mL [facility] Blood 08/26/2017 7:49 AM EDT 08/26/2017 9:01 AM EDT us Brendan Dockery DO LAB BLOOD ORDERABLES Final Resul t [facility] [address] [place] [address] documented in this encounter Visit Diagnoses Diagnosis Myxedema heart disease- Primary Unspecified hypothyroidism documented in this encounter Care Teams Compliance Paralegal Relationship Specialty Start Date End Date Brendan Dockery DO [email or web address] PCP - General 03/25/17 documented as of this encounter Additional Source Comments The information contained in this document represents components of the legal health record. It is not the complete legal health record.[facility]
--- OUTSIDE RECORDS SUMMARY | 2025-02-01 10:43 | XMS_ITS | Encounter Summary ---
Author Organization [facility] Address [address] [facility] [address] [place] [address] Phone Care Team Providers Care Dust Puller Name Role Phone Brendan Dockery DO Primary Care Provider [phone] Encounter Details Date Type Department Care Team (Late st Contact Info) Description 09/06/2017 Ancillary Orders [facility] [address] [place] [address] Brendan Dockery DO [address] [facility] [place] [address] [email or web address] Social History Tobacco Use Types Packs/Day Years Used Date Smoking Tobacco: Never Assessed Comments Unknown Sex and Gender Information Value Date Recorded Sex Assigned at Not on file Legal Sex Female 9:36 PM EDT Gender Identity Not on file Sexual Orientation Not on file documented as of this encounter Plan of Treatment Not on file documented as of this encounter Visit Diagnoses Not on filedocumented in this encounter Care Teams Dust Puller Relationship Specialty Start Date End Date Brendan Dockery DO [email or web address] PCP - General 03/25/17 documented as of this encounter Additional Source Comments The information contained in this document represents components of the legal health record. It is not the complete legal health record.[facility]
--- OUTSIDE RECORDS SUMMARY | 2025-02-01 10:43 | XMS_ITS | Clinical Summary ---
Author Organization [facility] Address [address] [address] Phone Care Team Providers Care Plastic Block Boiler Reliner Name Role Phone Marcella Sullivan Primary Care Provider [phone] Allergies Active Allergy Reactions Criticality Noted Date Comments Fluarix [id number] (Pf) Angioedema High 07/17/2021 Medications esomeprazole (NEXIUM [...] mouth 2 (two) times a day. Active Encounters Date Type Department Care Team Description 12/10/2024 1:00 PM EDT Office Visit [facility] [address] [address] Emilia Sutherland, BARRETT Herpes zoster without complication (Primary Dx) from Last 3 Months Immunizations Immunization Administration Dates Next Due COVID-19 (Pre) Moderna Vaccine, mRNA, PF 0 06/10/2021 COVID-19 (Pre-03/29) Pfizer Vaccine, mRNA, PF ,09/19/2020 Family History [...] 07/31/2021 8:29 AM EST Patient Name: Tamar Wenreau Attending MD:: LYNNE FIGUEROA MD Procedure Date: 07/31/2021 8:29 AM Date of : 1970 Age: 51 Admit Type: Outpatient Gender: Female Room: [place] [address] Referring MD: MARCELLA SULLIVAN DO Exam Type: [...] monitored continuously. The Olympus adult variable colonoscope [id number] #[id number] was introduced through the anus and [...] 8:29 AM Procedure Code(s): --- Professional --- 59388, Colonoscopy, flexible; diagnostic, including collection of specimen(s) by brushing or washing, when performed (separateprocedure) --- Technical --- 86726, Colonoscopy, flexible; diagnostic, including collection of specimen(s) by brushing or washing, when performed (separateprocedure) Diagnosis Code(s): --- Professional --- Z12.11, Encounter for screening for malignantneoplasm of colon K64.8, Other hemorrhoids --- Technical --- Z12.11, Encounter for screening for malignantneoplasm of colon K64.8, Other hemorrhoids CPT copyright 2020 [employer]. All rights reserved. The codes documented in this report are preliminary and upon certified coder reviewmay be revised to meet current compliance requirements. Procedure Date: 07/31/2021 8:29:[address] [place] [address] us Marcella A Bigda DO GI PROCEDURE ORDERABLES Final Re sult * (ABNORMAL) TSH (02/28/2021 8:23 AM EDT) TSH 0.09(L) 0.27 - 4.20 uIU/mL [facility] Blood 02/28/2021 8:23 AM EDT 02/28/2021 8:25 AM EDT us Marcella A Bigda DO LAB BLOOD ORDERABLES Final Resul t [facility] [address] [place], [place] [id number] * BI MAMMOGRAM SCREENING WITH TOMOSYNTHESIS WITH CAD (BILATERAL) (04/20/2018 1:41 PM EST) Anatomical Region Laterality Modality Breast Left, Breast Right, Breast Bilateral Bila teral Mammography 04/20/2018 6:22 PM EST Impressions 04/20/2018 6:25 PM EST No mammographic signs of malignancy. Annual screening is recommended. BI-RADS CATEGORY: 1 - Negative. DENSITY: The breast tissue is almost entirely fat. POS - [id number] Narrative 04/20/2018 6:25 PM EST Bilateral mammography [...] tissue is almost entirely fat. POS - [id number] us Marcella A Bigda DO IMG MG EXAMS Final Result * Lipid panel (03/08/2018 7:30 AM EDT) HDL 56 mg/dL [facility] Comment: Interpretation: Risk Level Females Decreased >55mg/dL Average 50-55 mg/dL Increased <50 mg/dL CHOLESTEROL 190 0 - 240 mg/dL [facility] TRIGLYCERIDES 85 30 - 160 mg/dL [facility] LDL 117 50 - 129 mg/dL [facility] Comment: LDL levels in terms of risk for coronary heart disease: <100 mg/dL: Optimal 100-129 mg/dL: Near or above optimal 130-159 mg/dL: Borderline high 160-189 mg/dL: High >190 mg/dL: Very High CARDIAC RISK RATIO 3.4 3.3 - 4.4 C [facility] Blood 03/08/2018 7:30 AM EDT 03/08/2018 8:00 AM EDT us Marcella Sullivan DO LAB BLOOD ORDERABLES Final Resul t [facility] [address] [place] [address] from Last 3 Months or Most Recently Relevant to Health Maintenance Insurance [facility] MEDICARE PART A & B Member Subscriber Plan / Payer (Ef fective 2017-Present) Name:Tamar Chacon Member ID:[id number] Relation to Subscriber:Self Name:Tamar Chacon Subscriber ID:[id number] Payer ID:[id number] Group ID:Not on file Type:Medicare Address: [facility] [place] [address] [place] B Member Subscriber Plan / Payer (Ef fective 2017-) Name:OswaldoTamar dominguez Member ID:[id number] Relation to Subscriber:Self Name:OswaldoTamar nowak Subscriber ID:[id number] Payer ID:[id number] Group ID:Not on file Type:Medicare Address: [facility] [employer]feed [facility] [address] [place] [address] [place] PART A & [facility] [place] [id number] MEDICARE PART A & B [place] B Care Teams Plastic Block Boiler Reliner Relationship Specialty Start Date End Date Marcella Sullivan DO PCP - General 03/25/17 Additional Source Comments The information contained in this document represents components of the legal health record. It is not the complete legal health record.[facility]
--- OUTSIDE RECORDS SUMMARY | 2025-02-01 10:43 | XMS_ITS | Encounter Summary ---
Author Organization [facility] Address [address] [place] [address] [place] [address] Phone Care Team Providers Care Billing And Insurance Coordinator Name Role Phone Brendan Dockery Primary Care Provider [phone] Encounter Details Date Type Department Care Team (Latest Contact Info) Description 04/19/2017 Transcribe Orders [facility] [address] [place] [address] Colton Zendejas MD Hypothyroidism following radioiodine therapy (Primary Dx) Social History Tobacco Use Types [...] as of this encounter Results * TSH (04/19/2017 9:20 AM EST) TSH 0.96 0.27 - 4.20 uIU/mL [facility] Blood 04/19/2017 9:20 AM EST 04/19/2017 9:41 AM EST us Colton Zendejas MD LAB BLOOD ORDERABLES Final Re sult [facility] [address] [place] [address] documented in this encounter Visit Diagnoses Diagnosis Hypothyroidism following radioiodine therapy- Primary Other postablative hypothyroidism documented in this encounter Care Teams Billing And Insurance Coordinator Relationship Specialty Start Date End Date Brendan Dockery DO [email or web address] PCP - General 03/25/17 documented as of this encounter Additional Source Comments The information contained in this document represents components of the legal health record. It is not the complete legal health record.[facility]
--- OUTSIDE RECORDS SUMMARY | 2025-02-01 10:43 | XMS_ITS | Encounter Summary ---
Author Organization [facility] Address [address] [place] [address] Phone Care Team Providers Care News Specialist Name Role Phone Brendan Dockery Primary Care Provider [phone] Encounter Details Date Type Department Care Team (Latest Contact Info) Description 01/31/2020 Transcribe Orders Virtual Department [address] [place] [address] Darell Geronimo MD [address] [place] [address], [address] [address] Calculus of kidney (Primary Dx) Social History Tobacco Use Types Packs/Day Years Used Date Smoking Tobacco: Never Smokeless Tobacco: Never Alcohol Use Standard Drinks/Week Comments Yes 0 (1 standard drink = 0.6 oz pur e alcohol) Comments No Sex and Gender Information Value Date Recorded Sex Assigned at Not on file Legal Sex Female 9:36 PM EDT Gender Identity Not on file Sexual Orientation Not on file documented as of this encounter Plan of Treatment Not on file documented as of this encounter Results * US Kidneys (02/09/2020 7:36 AM EDT) Anatomical Region Laterality Modality Abdomen, Kidney Ultrasound 02/09/2020 8:12 AM EDT Impressions 02/09/2020 8:12 AM EDT No evidence of nephrolithiasis or obstruction. Narrative 02/09/2020 8:12 AM EDT COMPARISON: 11/14/2018. RENAL ULTRASOUND FINDINGS: Right Kidney: measures 11 x 5 cm. No hydronephrosis, masses or calculi. Cortical echogenicity and thickness are normal. No perinephric fluid collections. Left Kidney: measures 11 x 5 cm. No hydronephrosis, masses or calculi. Cortical echogenicity and thickness are normal. No perinephric fluid collections. Procedure Note Kam French MD - 02/09/2020 COMPARISON: 11/14/2018. RENAL ULTRASOUND FINDINGS: Right Kidney: measures 11 x 5 cm. No hydronephrosis, masses or calculi.Cortical echogenicity and thickness are normal. No perinephric fluidcollections. Left Kidney: measures 11 x 5 cm. No hydronephrosis, masses or calculi.Cortical echogenicity and thickness are normal. No perinephric fluidcollections. IMPRESSION: No evidence of nephrolithiasis or obstruction. Darell Geronimo MD [facility] RENAL Final Result documented in this encounter Visit Diagnoses Diagnosis Calculus of kidney- Primary Calculus of kidney documented in this encounter Care Teams News Specialist Relationship Specialty Start Date End Date Brendan Dockery DO [email or web address] PCP - General 03/25/17 documented as of this encounter Additional Source Comments The information contained in this document represents components of the legal health record. It is not the complete legal health record.[facility]
--- OUTSIDE RECORDS SUMMARY | 2025-02-01 10:43 | XMS_ITS | Encounter Summary ---
Author Organization [facility] Address [address] [address] Phone Care Team Providers Care 1St Grade Teacher Name Role Phone Brendan Dockery DO Primary Care Provider [phone] Encounter Details Date Type Department Care Team ([facility] st Contact Info) Description 04/01/2020 Ancillary Orders Virtual Department 30 [place] [address] Brendan Dockery DO [address] [place] [address] [email or web address] Breast screening; Encounter for screening for osteoporosis Social History Tobacco Use Types Packs/Day Years [...] documented as of this encounter Visit Diagnoses Diagnosis Breast screening Breast screening, unspecified Encounter for screening for osteoporosis documented in this encounter Care Teams 1St Grade Teacher Relationship Specialty Start Date End Date Brendan Dockery DO [email or web address] PCP - General 03/25/17 documented as of this encounter Additional Source Comments The information contained in this document represents components of the legal health record. It is not the complete legal health record.[facility]
--- OUTSIDE RECORDS SUMMARY | 2025-02-01 10:43 | XMS_ITS | Encounter Summary ---
Author Organization [facility] Address [address] [facility] [address] [place] [address] Phone Care Team Providers Care Master Printer Name Role Phone Brendan Dockery DO Primary Care Provider Encounter Details Date Type Department Care Team (Late st Contact Info) Description 07/31/2021 Procedure Pass [facility] Endoscopy Admitting Dept Virtual Department 30 [place] [address] Social History Tobacco Use Types Packs/Day Years [...] on filedocumented in this encounter Care Teams Master Printer Relationship Specialty Start Date End Date Brendan Dockery DO PCP - General 03/25/17 documented as of this encounter Additional Source Comments The information contained in this document represents components of the legal health record. It is not the complete legal health record.[facility]
--- OUTSIDE RECORDS SUMMARY | 2025-02-01 10:43 | XMS_ITS | Encounter Summary ---
Author Organization [facility] Address [address] [facility] [address] [place] [address] Phone Care Team Providers Care Project Account Manager Name Role Phone Brendan Dockery DO Primary Care Provider [phone] Encounter Details Date Type Department Care Team (Late st Contact Info) Description 07/31/2021 Procedure Pass [facility] Endoscopy Admitting Dept Virtual Department [address] [place] [address] Social History Tobacco Use Types Packs/Day Years [...] on filedocumented in this encounter Care Teams Project Account Manager Relationship Specialty Start Date End Date Brendan Dockery DO PCP - General 03/25/17 documented as of this encounter Additional Source Comments The information contained in this document represents components of the legal health record. It is not the complete legal health record.[facility]
--- OUTSIDE RECORDS SUMMARY | 2025-02-01 10:43 | XMS_ITS | Encounter Summary ---
Author Organization [facility] Address [address] [facility] [address] [place] [address] Phone Care Team Providers Care Consulting Systems Engineer Name Role Phone Brendan Dockery DO Primary Care Provider Encounter Details Date Type Department Care Team (Late st Contact Info) Description 03/08/2018 Transcribe Orders [facility] [address] [place] [address] Brendan Dockery DO 179 [facility] [place] [address] [place] [address] Screening for ischemic heart disease (Primary Dx); Routine general medical examination at a health care facility Social History Tobacco Use Types Packs/Day Years [...] documented as of this encounter Results * Lipid panel (03/08/2018 7:30 AM EDT) HDL 56 mg/dL [facility] Comment: Interpretation: Risk Level Females Decreased >55mg/dL Average 50-55 mg/dL Increased <50 mg/dL CHOLESTEROL 190 0 - 240 mg/dL [facility] TRIGLYCERIDES 85 30 - 160 mg/dL [facility] LDL 117 50 - 129 mg/dL [facility] Comment: LDL levels in terms of risk for coronary heart disease: <100 mg/dL: Optimal 100-129 mg/dL: Near or above optimal 130-159 mg/dL: Borderline high 160-189 mg/dL: High >190 mg/dL: Very High CARDIAC RISK RATIO 3.4 3.3 - 4.4 C [facility] Blood 03/08/2018 7:30 AM EDT 03/08/2018 8:00 AM EDT us Brendan A Bigda DO LAB BLOOD ORDERABLES Final Resul t [facility] [address] [place] [address] * Comprehensive metabolic panel (03/08/2018 7:30 AM EDT) SODIUM 140 133 - 146 mmol/L [facility] POTASSIUM 4.4 3.3 - 5.1 mmol/L [facility] CHLORIDE 99 96 - 108 mmol/L [facility] CO2 27 21 - 35 mmol/L [facility] BUN 14 6 - 19 mg/dL [facility] CREATININE 0.80 0.5 - 1.5 mg/dL [facility] GLUCOSE 96 70 - 99 mg/dL [facility] ALBUMIN 4.3 3.9 - 4.8 g/dL [facility] TOTAL PROTEIN 7.3 6.5 - 8.0 g/dL [facility] CALCIUM 9.7 8.4 - 10.3 mg/dL [facility] ALKALINE PHOSPHATASE 84 39 - 117 U/L [facility] TOTAL BILIRUBIN 0.5 0.0 - 1.2 mg/dL [facility] AST 24 0 - 37 U/L [facility] ALT 25 0 - 40 U/L [facility] GLOBULIN 3.0 1 - 4.8 g/dL [facility] EGFR 87 >59 mL/min/1.7 3m2 [facility] Comment:If patient is black, multiply result by 1.159. Estimated glomerular filtration rate calculated using the CKD-EPI equation. ANION GAP 18 10 - 20 mmol/L [facility] Blood 03/08/2018 7:30 AM EDT 03/08/2018 8:00 AM EDT us Brendan Brad Dockery DO LAB BLOOD ORDERABLES Final Resul t [facility] [address] [place] [address] * (ABNORMAL) CBC and differential (03/08/2018 7:30 AM EDT) WBC 8.13 3.40 - 11.20 K/uL [facility] RBC 4.93(H) 3.80 - 4.80 M/uL [facility] HGB 15.0 12.0 - 15.0 g/dL [facility] HCT 43.3 36.0 - 46.0 % [facility] PLT 302 130 - 400 K/uL [facility] MCV 87.8 79.0 - 98.0 fL [facility] MCH 30.4 27.0 - 34.8 pg [facility] MCHC 34.6 31.5 - 36.0 g/dL [facility] RDW 11.9 10.8 - 14.6 % [facility] MPV 9.8 9.4 - 12.4 fl [facility] NRBC 0.00 /100 WBCs [facility] ABSOLUTE NRBC 0.00 K/uL [facility] DIFF METHOD Auto [facility] NEUTS 66.8 45.30 - 77.70 % [facility] LYMPHS 23.0 12.30 - 39.70 % [facility] MONOS 7.1 4.10 - 12.80 % [facility] EOS 1.8 0 - 7.2 % [facility] BASOS 0.7 0 - 2.80 % [facility] Granulocytes, immature (%) 0.6 0.0 - 0.9 % [facility] ABSOLUTE NEUTS 5.42 1.40 - 7.70 K/uL [facility] ABSOLUTE LYMPHS 1.87 0.60 - 3.20 K/uL [facility] ABSOLUTE MONOS 0.58 0.11 - 0.59 K/uL [facility] ABSOLUTE EOS 0.15 0.01 - 0.50 K/uL [facility] ABSOLUTE BASOS 0.06 0.00 - 0.08 K/uL [facility] Granulocytes, immature 0.05 0.00 - 0.05 K/uL [facility] Blood 03/08/2018 7:30 AM EDT 03/08/2018 8:00 AM EDT us Brendan Dockery DO LAB BLOOD ORDERABLES Final Resul t Performing Organization Address City/State/[facility] Co de Phone Number [address] [address] documented in this encounter Visit Diagnoses Diagnosis Screening for ischemic heart disease- Primary Routine general medical examination at a health care facility documented in this encounter Care Teams Consulting Systems Engineer Relationship Specialty Start Date End Date Brendan Dockery DO [email or web address] PCP - General 03/25/17 documented as of this encounter Additional Source Comments The information contained in this document represents components of the legal health record. It is not the complete legal health record.[facility]
== END 2025-02-01 09:59 | disposition home or self-care (01) ==
LOC: HO.HBS 09:37
PROVIDERS: PCP Internal Medicine; Visit Provider Physician Assistant Surgical
DX: E66.3 Overweight (principal); Z68.26 Body mass index [BMI] 26.0-26.9, adult; Z90.3 Acquired absence of stomach [part of]; Z98.84 Bariatric surgery status
CPT/HCPCS: 99213

== ENCOUNTER 2025-04-19 08:12 | Outpatient (REF) | payer MEDICARE, MEDICAID, SELFPAY ==
--- NOTE | ~2025-04-19 | XR_ITS ---
EXAMINATION: XR HIP, RIGHT CLINICAL INFORMATION: PAIN COMPARISON: None available. TECHNIQUE: Two views of the right hip. Pelvis 1 view FINDINGS: Right hip joint space is maintained. No evidence of acute fracture or dislocation. Subtle small round lucency in the lateral femoral neck, appears nonaggressive, more commonly seen as a synovial herniation pit. Mild symphysis pubis degeneration. Bilateral SI joints are symmetric and intact. No acute pelvic fracture seen. No abnormal soft tissue calcification. XR/XR hip RT w [id number] IMPRESSION: No acute osseous findings Electronically signed by: Mack Ashton MD 04/19/2025 04:38 PM EST
--- OUTSIDE RECORDS SUMMARY | 2025-04-19 08:24 | XMS_ITS | Encounter Summary ---
Author Organization [facility] Address [address] [place] [address] Phone Care Team Providers Care Wildlife Biologist Name Role Phone Brendan Dockery DO Primary Care Provider [phone] Encounter Details Date Type Department Care Team (Late st Contact Info) Description 09/06/2017 Ancillary Orders [facility] [address] [place] [address] Brendan Dockery DO [address] [facility] [address] [place], [place] [id number] Pain of left thumb Social History Tobacco [...] thumb documented in this encounter Care Teams Wildlife Biologist Relationship Specialty Start Date End Date Brendan Dockery DO [email or web address] PCP - General 03/25/17 documented as of this encounter Additional Source Comments The information contained in this document represents components of the legal health record. It is not the complete legal health record.[facility]
--- OUTSIDE RECORDS SUMMARY | 2025-04-19 08:24 | XMS_ITS | Encounter Summary ---
Author Organization [facility] Address [address] [place] [address] Phone Care Team Providers Care Material Stockkeeper Yard Name Role Phone Brendan Dockery Primary Care Provider [phone] Encounter Details Date Type Department Care Team (Latest Contact Info) Description 01/31/2020 Transcribe Orders Virtual Department 30 [place] [address] Darell Geronimo MD [address] [place] [address], [address] [address] [email or web address] Calculus of kidney (Primary Dx) Social History [...] of nephrolithiasis or obstruction. Darell Geronimo MD [facility] Final Result documented in this encounter Visit Diagnoses Diagnosis Calculus of kidney- Primary Calculus of kidney documented in this encounter Care Teams Material Stockkeeper Yard Relationship Specialty Start Date End Date Brendan Dockery DO [email or web address] PCP - General 03/25/17 documented as of this encounter Additional Source Comments The information contained in this document represents components of the legal health record. It is not the complete legal health record.[facility]
--- OUTSIDE RECORDS SUMMARY | 2025-04-19 08:24 | XMS_ITS | Clinical Summary ---
Author Organization [facility] Address [address] [address] Phone Care Team Providers Care Sizing Machine And Drier Operator Name Role Phone Marcella Sullivan DO Primary Care Provider [phone] Allergies Active Allergy Reactions Criticality Noted Date Comments Fluarix [id number] (Pf) Angioedema High 07/17/2021 Medications esomeprazole (NEXIUM [...] Encounters Date Type Department Care Team Description 04/11/2025 Transcribe Orders [facility] Department 30 [place] [address] Marcella Sullivan Encounter for screening for osteoporosis (Primary Dx); Breast screening 04/03/2025 Refill [facility] at [address] [address] Emilia Sutherland, BARRETT Medication Refill from Last 3 Months Immunizations Immunization Administration [...] Additional history exists LIPID PANEL 03/08/2023 03/08/2018 INFLUENZA VACCINE (#1) 2025 COVID-19 VACCINE ( season) 2025 06/10/2021, 06/10/2021, 10/10/2020, Additional history exists COLONOSCOPY 07/31/2031 07/31/2021 COLORECTAL CANCER SCREENING 07/31/2031 RSV VACCINE (1 - 1-dose 75+ series) 01/15/2044 SMOKING STATUS SCREENING (Once After 26 Yrs) Completed 05/08/2024 HEPATITIS A VACCINES Aged Out No long er eligible based on patient's age to complete this topic HIB VACCINES Aged Out No longer eligi ble based on patient's age to complete this topic IPV VACCINES Aged Out No longer eligi ble [...] Comments ENDOSCOPY, COLON 07/31/2021 8:29 AM EST THYROID STIMULATING HORMONE (TSH) Routine 02/28/2021 8:23 AM EDT Essential hypertension, [...] 07/31/2021 8:29 AM EST Patient Name: Tamar Chacon Attending MD:: LYNNE FIGUEROA MD Procedure Date: 07/31/2021 8:29 AM Date of : 1970 Age: 51 Admit Type: Outpatient Gender: Female Room: [place] [address] Referring MD: MARCELLA SULLIVAN DO Exam Type: [...] monitored continuously. The Olympus adult variable colonoscope [id number] #[id number] was introduced through the anus and [...] 8:29 AM Procedure Code(s): --- Professional --- 68778, Colonoscopy, flexible; diagnostic, including collection of specimen(s) by brushing or washing, when performed (separateprocedure) --- Technical --- 74222, Colonoscopy, flexible; diagnostic, including collection of specimen(s) by brushing or washing, when performed (separateprocedure) Diagnosis Code(s): --- Professional --- Z12.11, Encounter for screening for malignantneoplasm of colon K64.8, Other hemorrhoids --- Technical --- Z12.11, Encounter for screening for malignantneoplasm of colon K64.8, Other hemorrhoids CPT copyright 2020 [employer]. All rights reserved. The codes documented in this report are preliminary and upon logistics solution manager reviewmay be revised to meet current compliance requirements. Procedure Date: 07/31/2021 8:29:[address] [place] [id number] [place] Marcella A Bigda DO GI PROCEDURE ORDERABLES Final Re sult * (ABNORMAL) TSH (02/28/2021 8:23 AM EDT) TSH 0.09(L) 0.27 - 4.20 uIU/mL [facility] Blood 02/28/2021 8:23 AM EDT 02/28/2021 8:25 AM EDT us Marcella A Bigda DO LAB BLOOD BKR ORDERABLES Final R esult [address] [address] * BI MAMMOGRAM SCREENING WITH TOMOSYNTHESIS WITH CAD (BILATERAL) (04/20/2018 1:41 PM EST) Anatomical Region Laterality Modality Breast Left, Breast Right, Breast Bilateral Bila teral Mammography 04/20/2018 6:22 PM EST Impressions 04/20/2018 6:25 PM EST No mammographic signs of malignancy. Annual screening is recommended. BI-RADS CATEGORY: 1 - Negative. DENSITY: The breast tissue is almost entirely fat. POS - [id number] Narrative 04/20/2018 6:25 PM EST Bilateral mammography [...] tissue is almost entirely fat. POS - [id number] us Marcella A Bigda DO IMG MG EXAMS Final Result * Lipid panel (03/08/2018 7:30 AM EDT) HDL 56 mg/dL [facility] Comment: Interpretation: Risk Level Females Decreased >55mg/dL Average 50-55 mg/dL Increased <50 mg/dL CHOLESTEROL 190 0 - 240 mg/dL [facility] TRIGLYCERIDES 85 30 - 160 mg/dL [facility] LDL 117 50 - 129 mg/dL [facility] Comment: LDL levels in terms of risk for coronary heart disease: <100 mg/dL: Optimal 100-129 mg/dL: Near or above optimal 130-159 mg/dL: Borderline high 160-189 mg/dL: High >190 mg/dL: Very High CARDIAC RISK RATIO 3.4 3.3 - 4.4 C [facility] Blood 03/08/2018 7:30 AM EDT 03/08/2018 8:00 AM EDT us Marcella A Bigda DO LAB BLOOD BKR ORDERABLES Final R esult [address] [address] from Last 3 Months or Most Recently Relevant to Health Maintenance Insurance [facility] MEDICARE PART A & B [place] [facility] [place] [phone] MEDICARE PART A & [place] B [facility] MEDICARE PART A & [place] B [facility] MEDICARE PART A & B Care Teams Sizing Machine And Drier Operator Relationship Specialty Start Date End Date Marcella Sullivan DO PCP - General 03/25/17 Additional Source Comments The information contained in this document represents components of the legal health record. It is not the complete legal health record.[facility]
--- OUTSIDE RECORDS SUMMARY | 2025-04-19 08:24 | XMS_ITS | Encounter Summary ---
Author Organization [facility] Address [address] [facility] [address] [place] [address] Phone Care Team Providers Care Research And Development Engineer Name Role Phone Brendan Dockery DO Primary Care Provider [phone] Encounter Details Date Type Department Care Team (Late st Contact Info) Description 07/31/2021 Procedure Pass [facility] Endoscopy Admitting Dept Virtual Department 30 [place] [address] Social History Tobacco Use Types Packs/Day Years [...] on filedocumented in this encounter Care Teams Research And Development Engineer Relationship Specialty Start Date End Date Brendan Dockery DO PCP - General 03/25/17 documented as of this encounter Additional Source Comments The information contained in this document represents components of the legal health record. It is not the complete legal health record.[facility]
--- OUTSIDE RECORDS SUMMARY | 2025-04-19 08:25 | XMS_ITS | Encounter Summary ---
Author Organization [facility] Address [address] [place] [address] [place] [address] Phone Care Team Providers Care Shank Faker Name Role Phone Brendan Dockery Primary Care Provider [phone] Encounter Details Date Type Department Care Team (Latest Contact Info) Description 04/19/2017 Transcribe Orders [address] [address] Colton Zendejas MD Hypothyroidism following radioiodine therapy [...] EST) TSH 0.96 0.27 - 4.20 uIU/mL [facility] Blood 04/19/2017 9:20 AM EST 04/19/2017 9:41 AM EST us Colton Zendejas MD LAB BLOOD BKR ORDERABLES Charis l Result [facility] 30 [place] [address] documented in this encounter Visit Diagnoses Diagnosis 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 It is not the complete legal health record.[facility]
--- OUTSIDE RECORDS SUMMARY | 2025-04-19 08:25 | XMS_ITS | Encounter Summary ---
Author Organization [facility] Address [address] [address] Phone Care Team Providers Care Paying Teller Name Role Phone Brendan oDckery DO Primary Care Provider [phone] Encounter Details Date Type Department Care Team ([facility] st Contact Info) Description 04/01/2020 Ancillary Orders Virtual Department 30 [place] [address] Brendan Dockery DO [address] [place] [address] Breast screening; Encounter for screening for osteoporosis [...] osteoporosis documented in this encounter Care Teams Paying Teller Relationship Specialty Start Date End Date Brendan Dockery DO PCP - General 03/25/17 documented as of this encounter Additional Source Comments The information contained in this document represents components of the legal health record. It is not the complete legal health record.[facility]
--- OUTSIDE RECORDS SUMMARY | 2025-04-19 08:25 | XMS_ITS | Encounter Summary ---
Author Organization [facility] Address [address] [address] Phone Care Team Providers Care Office Support Specialist Name Role Phone Brendan Dockery DO Primary Care Provider [phone] Encounter Details Date Type Department Care Team ([facility] st Contact Info) Description 04/11/2025 Transcribe Orders Virtual Department 30 [place] [address] Brendan Dockery DO [address] [facility] [place] [address] [place] [address] Encounter for screening for osteoporosis (Primary Dx); Breast screening Social History Tobacco Use Types Packs/Day Years [...] as of this encounter Plan of Treatment Scheduled Orders Name Type Priority Associated Diagnoses Orde r Schedule DXA Screening Imaging Routine Encounter for screening for osteoporosis Expected: 05/11/2025, Expires: 04/11/2026 Mammogram Screening (Bilateral) Imaging Routine Breast screening Expected: 05/11/2025, Expires: 04/11/2026 documented as of this encounter Visit Diagnoses Diagnosis Encounter for screening for osteoporosis- Primary Breast screening Breast screening, unspecified documented in this encounter Care Teams Office Support Specialist Relationship Specialty Start Date End Date Brendan Dockery DO [email or web address] PCP - General 03/25/17 documented as of this encounter Additional Source Comments The information contained in this document represents components of the legal health record. It is not the complete legal health record.[facility]
--- OUTSIDE RECORDS SUMMARY | 2025-04-19 08:25 | XMS_ITS | Encounter Summary ---
Author Organization [facility] Address [address] [facility] [address] [place] [address] Phone Care Team Providers Care Digital Media Designer Name Role Phone Brendan Dockery DO Primary Care Provider [phone] Encounter Details Date Type Department Care Team (Late st Contact Info) Description 03/08/2018 Transcribe Orders [facility] Phleb [address] [place] [address] Brendan Dockery DO [address] [facility] [place] [address] Screening for ischemic heart disease (Primary Dx); [...] (03/08/2018 7:30 AM EDT) HDL 56 mg/dL [facility] Comment: Interpretation: Risk Level Females Decreased >55mg/dL Average 50-55 mg/dL Increased <50 mg/dL CHOLESTEROL 190 0 - 240 mg/dL [facility] TRIGLYCERIDES 85 30 - 160 mg/dL [facility] LDL 117 50 - 129 mg/dL [facility] Comment: LDL levels in terms of risk for coronary heart disease: <100 mg/dL: Optimal 100-129 mg/dL: Near or above optimal 130-159 mg/dL: Borderline high 160-189 mg/dL: High >190 mg/dL: Very High CARDIAC RISK RATIO 3.4 3.3 - 4.4 C [facility] Blood 03/08/2018 7:30 AM EDT 03/08/2018 8:00 AM EDT us Brendan A Sarkis DO LAB BLOOD BKR ORDERABLES Final R esult [facility] [address] [place], [place] [id number] * Comprehensive metabolic panel (03/08/2018 7:30 AM EDT) SODIUM 140 133 - 146 mmol/L [facility] POTASSIUM 4.4 3.3 - 5.1 mmol/L [facility] CHLORIDE 99 96 - 108 mmol/L [facility] CO2 27 21 - 35 mmol/L [facility] BUN 14 6 - 19 mg/dL [facility] CREATININE 0.80 0.5 - 1.5 mg/dL [facility] GLUCOSE 96 70 - 99 mg/dL [facility] ALBUMIN 4.3 3.9 - 4.8 g/dL [facility] TOTAL PROTEIN 7.3 6.5 - 8.0 g/dL [facility] CALCIUM 9.7 8.4 - 10.3 mg/dL [facility] ALKALINE PHOSPHATASE 84 39 - 117 U/L [facility] TOTAL BILIRUBIN 0.5 0.0 - 1.2 mg/dL [facility] AST 24 0 - 37 U/L [facility] ALT 25 0 - 40 U/L [facility] GLOBULIN 3.0 1 - 4.8 g/dL [facility] EGFR 87 >59 mL/min/1.7 3m2 [facility] Comment:If patient is black, multiply result by 1.159. Estimated glomerular filtration rate calculated using the CKD-EPI equation. ANION GAP 18 10 - 20 mmol/L [facility] Blood 03/08/2018 7:30 AM EDT 03/08/2018 8:00 AM EDT us Brendan A Bigda DO LAB BLOOD BKR ORDERABLES Final R esult [facility] [address] [place] [address] * (ABNORMAL) CBC and differential (03/08/2018 7:30 AM EDT) WBC 8.13 3.40 - 11.20 K/uL [facility] RBC 4.93(H) 3.80 - 4.80 M/uL [facility] HGB 15.0 12.0 - 15.0 g/dL [facility] HCT 43.3 36.0 - 46.0 % [facility] PLT 302 130 - 400 K/uL [facility] MCV 87.8 79.0 - 98.0 fL [facility] MCH 30.4 27.0 - 34.8 pg [facility] MCHC 34.6 31.5 - 36.0 g/dL [facility] RDW 11.9 10.8 - 14.6 % [facility] MPV 9.8 9.4 - 12.4 fl [facility] NRBC 0.00 /100 WBCs [facility] ABSOLUTE NRBC 0.00 K/uL [facility] DIFF METHOD Auto [facility] NEUTS 66.8 45.30 - 77.70 % [facility] LYMPHS 23.0 12.30 - 39.70 % [facility] MONOS 7.1 4.10 - 12.80 % [facility] EOS 1.8 0 - 7.2 % [facility] BASOS 0.7 0 - 2.80 % [facility] Granulocytes, immature (%) 0.6 0.0 - 0.9 % [facility] ABSOLUTE NEUTS 5.42 1.40 - 7.70 K/uL [facility] ABSOLUTE LYMPHS 1.87 0.60 - 3.20 K/uL [facility] ABSOLUTE MONOS 0.58 0.11 - 0.59 K/uL [facility] ABSOLUTE EOS 0.15 0.01 - 0.50 K/uL [facility] ABSOLUTE BASOS 0.06 0.00 - 0.08 K/uL [facility] Granulocytes, immature 0.05 0.00 - 0.05 K/uL [facility] Blood 03/08/2018 7:30 AM EDT 03/08/2018 8:00 AM EDT us Brendan Dockery DO LAB BLOOD BKR ORDERABLES Final R esult Performing Organization Address City/State/[facility] Co de Phone Number [address] [address] documented in this encounter Visit Diagnoses Diagnosis Screening for ischemic heart disease- Primary Routine general medical examination at a health care facility documented in this encounter Care Teams Digital Media Designer Relationship Specialty Start Date End Date Brendan Dockery DO [email or web address] PCP - General 03/25/17 documented as of this encounter Additional Source Comments The information contained in this document represents components of the legal health record. It is not the complete legal health record.[facility]
--- OUTSIDE RECORDS SUMMARY | 2025-04-19 08:25 | XMS_ITS | Encounter Summary ---
Author Organization [facility] Address [address] [address] Phone Care Team Providers Care Facing Grinder Name Role Phone Brendan Dockery DO Primary Care Provider [phone] Encounter Details Date Type Department Care Team ([facility] st Contact Info) Description 02/28/2018 Ancillary Orders Virtual Department 30 [place] [address] Brendan Dockery DO [address] [facility] [place] [address] [place] [address] Visit for screening mammogram Social History Tobacco [...] tissue is almost entirely fat. POS - [id number] Narrative 04/20/2018 6:25 PM EST Bilateral mammography [...] tissue is almost entirely fat. POS - [id number] Brendan Dockery DO IMG MG EXAMS Final Result documented in this encounter Visit Diagnoses Diagnosis Visit for screening mammogram Visit for screening mammogram documented in this encounter Care Teams Facing Grinder Relationship Specialty Start Date End Date Brendan Dockery DO PCP - General 03/25/17 documented as of this encounter Additional Source Comments The information contained in this document represents components of the legal health record. It is not the complete legal health record.[facility]
--- OUTSIDE RECORDS SUMMARY | 2025-04-19 08:25 | XMS_ITS | Encounter Summary ---
Author Organization [facility] Address [address] [facility] [address] [place] [address] Phone Care Team Providers Care Telephone Order Clerk Name Role Phone Brendan Dockery DO Primary Care Provider [phone] Encounter Details Date Type Department Care Team (Late st Contact Info) Description 07/31/2021 Procedure Pass [facility] Endoscopy Admitting Dept Virtual Department 30 [place] [address] Social History Tobacco Use Types Packs/Day Years [...] on filedocumented in this encounter Care Teams Telephone Order Clerk Relationship Specialty Start Date End Date Brendan Dockery DO PCP - General 03/25/17 documented as of this encounter Additional Source Comments The information contained in this document represents components of the legal health record. It is not the complete legal health record.[facility]
--- OUTSIDE RECORDS SUMMARY | 2025-04-19 08:25 | XMS_ITS | Encounter Summary ---
Author Organization [facility] Address [address] [facility] [address] [place] [address] Phone Care Team Providers Care Outreach Consultant Name Role Phone Brendan Dockery Primary Care Provider [phone] Reason for Visit * Reason Comments Medication Refill Encounter Details Date Type Department Care Team (Late st Contact Info) Description 04/03/2025 Refill [facility] at [address] [address] Emilia Sutherland, FOREIGN LANGUAGES DEPARTMENT CHAIR [address] [place] [address] [email or web address] Medication Refill Social History Tobacco Use Types Packs/Day Years [...] on filedocumented in this encounter Care Teams Outreach Consultant Relationship Specialty Start Date End Date Brendan Dockery DO [email or web address] PCP - General 03/25/17 documented as of this encounter Additional Source Comments The information contained in this document represents components of the legal health record. It is not the complete legal health record.[facility]
--- OUTSIDE RECORDS SUMMARY | 2025-04-19 08:25 | XMS_ITS | Encounter Summary ---
Author Organization [facility] Address [address] [place] [address] Phone Care Team Providers Care Nail Machine Operator Name Role Phone Brendan Dockery DO Primary Care Provider [phone] Encounter Details Date Type Department Care Team ([facility] st Contact Info) Description 08/26/2017 Transcribe Orders [facility] Phleb [address] [address] Brendan Dockery DO [address] [facility] [address] [place], [place] [phone] Myxedema heart disease (Primary Dx) Social History [...] EDT) TSH 1.84 0.27 - 4.20 uIU/mL [facility] Blood 08/26/2017 7:49 AM EDT 08/26/2017 9:01 AM EDT us Brenadn Dockery DO LAB BLOOD BKR ORDERABLES Final R esult [facility] 30 [place] [address] documented in this encounter Visit Diagnoses Diagnosis Myxedema heart disease- Primary Unspecified hypothyroidism documented in this encounter Care Teams Nail Machine Operator Relationship Specialty Start Date End Date Brendan Dockery DO [email or web address] PCP - General 03/25/17 documented as of this encounter Additional Source Comments The information contained in this document represents components of the legal health record. It is not the complete legal health record.[facility]
--- OUTSIDE RECORDS SUMMARY | 2025-04-19 08:25 | XMS_ITS | Encounter Summary ---
Author Organization [facility] Address [address] [facility] [address] [place] [address] Phone Care Team Providers Care Nurse'S Assistant Name Role Phone Brendan Dockery DO Primary Care Provider [phone] Encounter Details Date Type Department Care Team ([facility] st Contact Info) Description 09/06/2017 Ancillary Orders [facility] Phleb Main [address] [place] [address] Brendan Dockery DO [address] [place] [address] [email or web address] Social History Tobacco Use Types Packs/Day Years [...] on filedocumented in this encounter Care Teams Nurse'S Assistant Relationship Specialty Start Date End Date Brendan Dockery DO PCP - General 03/25/17 documented as of this encounter Additional Source Comments The information contained in this document represents components of the legal health record. It is not the complete legal health record.[facility]
== END 2025-04-19 08:13 | disposition home or self-care (01) ==
LOC: HO.XRAY 08:12
PROVIDERS: PCP Internal Medicine; Visit Provider Internal Medicine
DX: M25.551 Pain in right hip (principal)
CPT/HCPCS: 73502

== ENCOUNTER → 2025-04-19 08:16 | Outpatient (BNV) | payer MEDICARE, MEDICAID, SELFPAY | PROVIDERS: PCP Internal Medicine; Visit Provider Radiology Diagnostic Ultrasound | DX: M25.551 Pain in right hip (principal) | CPT/HCPCS: 73502 ==

== ENCOUNTER 2025-04-23 12:04 | Outpatient (AMB) | payer MEDICARE, MEDICAID, SELFPAY ==
--- NOTE | 2025-04-23 12:27 | A.OFFVIS_ITS ---
VS Expanded 04/23/25 12:28 BP 129/82 Blood Pressure Location Rt brachial Blood Pressure Position Sitting Pulse 87 Pulse Source Pulse Oximeter Temp 97.7 F Temperature Source Temporal Artery Scan Pulse Oximetry 98 Oxygen Delivery Method Room Air Height 5 ft 8 in Weight 148 lb 6.4 oz BMI 22.6 Body Fat % 24.2 Body Fat Mass 36.0 Fat Free Mass 112.4 Visceral Fat Rating 5.0 Body Water % 53.6 Body Water Mass 79.6 Muscle Mass/Score 106.8 Basal Metabolic Rate/Score 1,478 Intake Visit Reasons: OV PO LSG 10/12/24 Allergies Seasonal Allergies Allergy (Mild, Verified 04/23/25 12:33) sneezing vaccines Allergy (Unknown, Uncoded 04/23/25 12:33) unknown Medication List - Last Reconciled 04/23/25 by Percy Florez RN levothyroxine 125 mcg PO DAILY HPI Comments Details: 55?year old woman who is s/p LSG on?10/12/2024. Presents for 6 month post op visit. Starting weight 255 lbs 07/28/2024. Operative weight 225.5 lbs Weight at last visit was 171 lbs, with a BMI of 26. Today, her weight is 148.4, with a BMI of 22.6. This reflects a 22.6 lb weight loss No complaints of nausea, emesis, abdominal pain or reflux. Reports some gurgling if eats too much/too fast. Taking celebrate MVI. Very happy with her success. She feels great and has very good energy level. Current meal plan includes: Protein coffee every morning 6oz 15G protein Premier protein rtd shake 4 oz mixed with 4 oz almond milk 6-8, 12-2, 8-10 sometimes she replaces shake with yogurt with blueberries Barbell protein bar 9-11 Barbell protein bar 3-5 meal at 6 pm with 6 forks protein and 3 forks veg 50 oz water daily Exercise routine includes: walk 5-6 miles daily. Typically achieves 15,000-16,000 steps/day stationary bike 300 alix 4x per week [facility] Medical History Migraines Legally blind Back pain Graves disease Kidney stones Hypothyroid History of nephrolithiasis Diaphragmatic hernia GERD (gastroesophageal reflux disease) Hypertension DJD (degenerative joint disease) Familial juvenile macular degeneration syndrome Anxiety Depression Surgical History Status post laparoscopic sleeve gastrectomy History of esophagogastroduodenoscopy (EGD) History of resection of rib Hx of hysterectomy Hx of adenoidectomy Hx of tonsillectomy Hx of bladder endoscopy Hx of colonoscopy Family History Mother Malignant neoplasm of breast in full remission Arthritis Father Landon's disease Son No problems noted. Son No problems noted. Social History Household Members: None Housing: House Are you a primary small animal caretaker to a significant other at home: No Do you presently have visiting nurse or other home services: No Alcohol intake: current Alcohol intake frequency: does not drink Patient Tobacco Use Status: Never used Tobacco Second Hand Smoke Exposure: No Physical Exam Vital Signs: Last Vital Signs Temp 97.7 F 04/23/25 12:28 Pulse 87 04/23/25 12:28 BP 129/82 04/23/25 12:28 Pulse Ox 98 04/23/25 12:28 Oxygen Delivery Method Room Air 04/23/25 12:28 BMI result Body Mass Index 22.6 Assessment & Plan Assessment & Plan (1) Status post laparoscopic sleeve gastrectomy: Code(s): Z98.84 - Bariatric surgery status Category: Surgical Plan: Patient eager to advance diet and cook. Given list of appropriate food options a nd discussed choosing the better options. Updated meal plan: goal 70-85G protein/day protein coffee 1 premier shake 30G (divided into 2 drinks) yogurt with blueberries 15G Dinner at 6pm: 6 forks protein, 6 forks veggie 21G 1 protein bar 20G Will order routine labs since she is 6 months post op Patient has contact info and can reach out with questions/concerns Follow up: 3 months Orders: Orders Insulin Today Z84 - Bariatric surgery status Complete Blood Count Auto Diff Today - Bariatric surgery status Comprehensive Met. Panel Today 84 - Bariatric surgery status Ferritin Today Z - Bariatric surgery status Vitamin B12 and Folate Today .84 - Bariatric surgery status Lipid Panel Today - Bariatric surgery status Hemoglobin A1c Today Z98.84 - Bariatric surgery status Vitamin D 25-OH Total Today Z98.84 - Bariatric surgery status Zinc Today Z98.84 - Bariatric surgery status C Reactive Protein Today Z98.84 - Bariatric surgery status Vitamin B1 Today Z98.84 - Bariatric surgery status Vitamin A Today Z98.84 - Bariatric surgery status IRON PROFILE Today Z98.84 - Bariatric surgery status
[2025-04-23 12:28] VITALS: BP 129/82; PULSE 87; TEMP 36.5; O2SAT 98; BMI 22.6
--- OUTSIDE RECORDS SUMMARY | 2025-04-24 00:34 | XMS_ITS | Data Portability ---
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 REVIEW OF PRIOR EXTERNAL NOTES/RESULTS, ORDERING OF TEST(S) CATEGORY 2. ASSESSMENT REQUIRING INDEPENDENT HISTORIAN(S) INCLUDE WHO THE HISTORIAN IS AND RELATION TO PT AND WHY PT IS UNABLE TO GIVE COMPLETE HISTORY ELEMENT 3: RISK (LOW) RISK OF COMPLICATIONS AND/OR MORBIDITY OR MORTALITY OF PATIENT MANAGEMENT PROVIDER MUST THOROUGHLY DOCUMENT ALL OF THE ELEMENTS COVERED Not available 04/13/2025 12:08:30 Plan of Treatment Reminders Order Date Submit Date Provider Last Modified By Organization Details Last Modified Time Details Appointments None recorded. Lab hemoglobin , gastrointe stinal, stool 2024 025 [facility], [address] [place] [address], [address], 5 14:34:25 TSH + free T4, serum 2024 025 [facility], [address] [place] [address], [address], 5 14:34:25 lipid panel, blood 2023 024 [facility], [address] [place] [address], [address], 4 11:09:35 CBC w/ auto diff 2023 024 [facility], [address] [place] [address], [address], 4 11:09:35 CMP, serum or plasma 2023 024 [facility], [address] [place] [address], [address], 4 11:09:35 vitamin D, 25-hydroxy , total, serum 2023 024 [facility], [address] [place] [address], [address], 4 11:26:40 Referral None recorded. Procedures None recorded. Surgeries None recorded. Imaging MAMMO, screening, digital, bilateral [address] [facility], [address] [place] [address], [address], 5 14:39:11 bone density [address] [facility], [address] [place] [address], [address], 5 14:39:10 MRI, cervical spine, w/o contrast 2023 024 [email or web address] 10 [facility], [address] [place] [address], [address], 4 07:54:29 electromyo gram + nerve conduction study - carpal tunnel, castillo hands and wrists 2023 024 [facility] (Imaging), [address] [place] [address], [address], 4 09:19:32 XR, cervical spine, 2 or 3 view 2023 024 [facility], [address] [place] [address], [address], 4 14:30:08 XR, chest, 2 view 2023 [facility], [address] [place], [address], 4 14:30:08 Medication Orders valacyclov ir 1 gram tablet 2024 025 [facility] #[id number], [address], [place], [id number], 5 14:34:40 levothyrox ine 125 mcg tablet 2024 025 [facility] #[id number], [address], [place], [id number], 5 14:33:08 codeine 10 mg-guaifen esin 100 mg/5 mL oral liquid 2023 024 [facility] #[id number], [address], [place], [id number], 4 09:45:13 cephalexin 500 mg capsule 2023 024 [facility] #[id number], [address], [place], [id number], 4 09:20:25 Patient TargetsNo targets recorded. Patient Instructions Encounter Date Encounter Id Patient Instructions Last Modified By Organization Details Last Modified Time 11/03/2023 [id number] Skin Cyst: Care Instructions Not available 11/03/2023 11:27:04 Discussed and explained advance directives such as standard forms to the patient. Face to face discussion lasted for a duration of _5__ minutes. Not available 11/03/2023 11:28:02 02/04/2024 [id number] neck pain: care instructions Not available 02/04/2024 09:16:54 cough: care instructions Not available 02/04/2024 09:21:28 04/10/2025 [id number] advance care planning: care instructions [email or web address] Not available 04/10/2025 14:32:58 hypothyroidism: care instructions [email or web address] Not available 04/10/2025 14:32:59 Discussed and explained advance directives such as standard forms to the . Face to face discussion lasted for a duration of ___ minutes. Not available 02/26/2025 11:08:04 Reason for Referral None Reported. Results Created Date Observation Date Name Description Value Unit Range Abnormal Flag Note LastModifiedBy Organization Detail LastModifiedTime 11/08/19 24 10/18/2023 MAMMO , scree owen, digit al, bilat eral No observ ation record ed. [email or web address] [facility] [address] [place], [address], 11/08/2023 13:26:33 02/04/20 24 02/04/2024 XR, cervi alix spine , 2 or 3 view No observ ation record ed. [facility] (Medical Records) [address] [place], [address], 02/18/2024 09:49:01 02/04/20 24 02/04/2024 XR, chest , 2 view No observ ation record ed. [facility] (Medical Records) [address] [place], [address], 02/18/2024 09:49:00 02/18/20 24 02/11/2024 XR, chest , 2 view No observ ation record ed. [email or web address] (Medical Records) [address] [place], [address], 04/10/2025 14:24:01 03/13/20 24 03/03/2024 MRI, cervi alix spine , w/o contr ast No observ ation record ed. [email or web address] (Medical Records) [address] [place], [address], 04/10/2025 14:24:01 03/16/20 24 03/16/2024 elect romyo gram + nerve condu ction study No observ ation record ed. [address] (Medical Records) [address] [place], [address], 04/10/2025 14:24:01 03/16/20 24 03/16/2024 elect romyo gram + nerve condu ction study No observ ation record ed. [address] (Medical Records) [address] [place], [address], 04/10/2025 14:24:01 07/31/19 25 07/31/2024 XR, chest , 2 view No observ ation record ed. [address] (Medical Records) [address] [place], [address], 04/10/2025 14:24:01 08/31/19 25 08/30/2024 US, abdom en No observ ation record ed. [address] (Medical Records) [address] [place], [address], 04/10/2025 14:24:00 09/16/19 25 09/15/2024 RF, upper gastr ointe gayatri l tract , w/ contr ast PO No observ ation record ed. [address] (Medical Records) [address] [place], [address], 04/10/2025 14:24:00 12/18/19 25 12/04/2024 MAMMO , scree owen, digit al, bilat eral No observ ation record ed. [address] [facility] [address] [place] [address] [place], [address], 04/10/2025 14:24:00 04/19/20 25 04/19/2025 XR, hip + pelvi s, unila teral , 2 or 3 view No observ ation record ed. [address] (Medical Records) [address] [place] [address], [address], 04/19/2025 23:05:11 Result Notes None recorded. Problems Name Problem SNOMED Code Status Onset Date Resolution Date Notes Provider Name and Address Organization Details Recorded Time Gastroes ophageal reflux disease 147713660 Active 2017 Not Available [facility] 2 14:39:08 Hypothyr oidism 77580379 Active 2017 Not Available [facility] 2 14:39:09 Migraine 91202361 Active 2017 Not Available [facility] 2 14:39:08 Fibromya lgia 035821971 Active 2017 Not Available [facility] 2 14:39:09 Family history of non-Hodg kin's lymphoma 680596602 Active 2017 father, dx'd 11/2010 Not Available [facility] 2 14:39:09 Thoracic outlet syndrome 226698547 Active 2017 s/p 1st rib removal 03/2012 Not Available [facility] 2 14:39:09 Chronic headache disorder 122594979 Active 2017 Not Available [facility] 2 14:39:09 Ventricu lar prematur e complex 677634969 Active 2017 Not Available [facility] 2 14:39:09 Hyperten sive disorder 25925698 Active 2017 Not Available [facility] 2 14:39:08 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 Active 2017 w/RBBB Not Available [facility] 2 14:39:09 Tenosyno vitis of wrist 198126799 Active 2017 Not Available [facility] 2 14:39:09 Edema of lower extremit y 373974136 Active 2018 Not Available [facility] 2 14:39:08 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 2019 Not Available [facility] 2 14:39:08 Acute sinusiti s 34314585 Active 2021 JAMI TRYBA, PA [address] [place] [address], [address], [facility] 2 10:05:14 Posterio r rhinorrh ea 99193403 Active 2021 VIJAY HAAS [address] [place] [address], [address], [facility] 2 10:05:48 Pain in throat 864805322 Active 2021 VIJAY HAAS [address] [place] [address], [address], [facility] 2 10:05:53 COVID-19 042901267 Active 2021 VIJAY HAAS [address] [place] [address], [address], [facility] 2 10:28:01 Intermit tent palpitat ions 443722364 Active 2021 Brendan Dockery DO [address] [place] [address], [address], [facility] 2 14:24:47 Acute otitis media 4642407 Active 2022 VIJAY HAAS [address] [place] [address], [address], [facility] 3 14:11:22 Acute bronchit is 35786640 Active 2022 VIJAY HAAS [address] [place] [address], [address], [facility] 3 11:29:57 Acute otitis media 2024899 Active 2023 Brendan Dockery DO [address] [place] [address], [address], [facility] 4 15:34:59 Epidermo id cyst of skin 111840369 Active 2023 Brendan Dockery DO [address] [place] [address], [address], [facility] 4 11:26:25 Anxiety 92728904 Active 2023 Brendan Dockery, DO [address] [place] [address], [address], [facility] 4 11:04:14 Cough 55033305 Active 2023 Brendan Dockery, [address], [address], [facility] 4 09:46:18 Neck pain 89549836 Active 2023 Brendan Dockery, DO [address] [place] [address], [address], [facility] 4 09:16:11 Pneumoni a 798675209 Active 2023 Brendan Dockery, [address], [address], [facility] 4 14:44:04 Cervical radiculo lore 33965326 Active 2023 VIJAY HAAS [address] [place] [address], [address], [facility] 4 09:40:00 Bilatera l carpal tunnel syndrome 33352562075 124561 Active 2023 VIJAY AHAS [address] [place] [address], [address], [facility] 4 09:42:34 Cervical disc disorder 710404369 Active 2023 VIJAY HAAS [address] [place] [address], [address], [facility] 4 15:54:20 Recurren t herpes simplex labialis 029554186 Active 2024 Brendan Dockery [address], [address], [facility] 5 14:33:54 Pain of hip region 95897752 Active 2024 Brendan Dockery [address], [address], [facility] 5 11:24:21 Osteopen ia 493275131 Active 2024 Brendan SalinasAlba Dockery DO [address] [place] [address], [address], [facility] 5 11:26:19 Right lateral elbow tendinop athy 62022642988 9107 Active 2024 Brendan Bowen DO Sarkis [address] [place] [address], [address], [facility] 5 12:08:53 Problem Notes None recorded. Procedures Surgical History Date Name Laterality Status Provider Name and Address Organization Details Recorded Time 025 Corticosteroid Injection completed Brendan BradAlba Dockery [address], [address], [facility] 04/13/2025 12:08:20 Colonoscopy completed Brendan BradAlba Dockery DO [address] [place] [address], [address], [facility] 11/17/2021 15:53:34 Imaging Results None recorded. Procedure Notes None recorded. Medical Equipment None Reported. Allergies Allergen ID Allergen Name Allergen Category Reaction Reaction Severity Criticality Documentation Date Start Date Code Code System Note Provider Name and Address Organization Details Recorded Time 1277 Fluarix medicatio n Not available Not available Not available 10/15/2017 [facility] 8 09:01:31 5796 Shingrix medicatio n Not available Not available Not available 11/17/2021 62492 26 RxNorm Brendan SalinasAlba Dockery DO [address] [place] [address], [address], [facility] 2 15:05:01 8069 SARS-CoV- 2 (COVID-19 ) vaccine, protein [id number]-[id number] 73 medicatio n Not available Not available Not available 11/03/2023 60362 73 RxNorm [facility] 4 10:55:25 Medications Name Sig Start [...] TAKE 1 TABLET BY MOUTH EVERY DAY 04/10 completed Not Available Not Available Not Available prednisone 10 mg tablet TAKE 4 [...] completed Not Available Not Available Not Available valacyclovi r 1 gram tablet Take 1 tablet every 12 hours by oral route for 7 days. 2024 active Not Available Not Available Not Avai lable sumatriptan 100 mg tablet prn 07/12 completed Not Available Not Available Not Available sucralfate 100 mg/mL oral suspension SHAKE LIQUID AND TAKE 10 ML BY MOUTH TWICE DAILY active Not Available Not Available No t Available famotidine 40 mg tablet TAKE 1 [...] completed Not Available Not Available Not Available pantoprazol e 40 mg tablet,lenore yed release TAKE 1 TABLET BY MOUTH DAILY active Not Available Not Available No t Available levothyroxi ne 125 mcg tablet TAKE 1 TABLET BY MOUTH EVERY DAY NEEDS APPT FOR FURTHER REFILLS. CALL OFFICE 2024 active Not Available Not Available Not Avai lable ropinirole 0.5 mg tablet Take 1 tablet every day by oral route. 02/28 completed Not Available Not Available Not Available ranitidine 150 mg tablet Take one tablet every day. 04/01 completed Not Available Not Available Not Available propranolol ER 80 mg capsule,24 hr,extended release TAKE 1 CAPSULE BY MOUTH EVERY DAY active Not Available Not Available No t Available docusate sodium 100 mg capsule TAKE 1 CAPSULE BY MOUTH TWICE DAILY active Not Available Not Available No [...] Not Available Not Available No t Available ondansetron 4 mg disintegrat ing tablet TAKE 1 TABLET BY MOUTH EVERY 12 HOURS NEEDED FOR NAUSEA AND VOMITING active Not Available Not Available No t Available etodolac 500 mg tablet Take one tablet twice a day. 07/12 completed Not Available Not Available Not Available fluticasone propionate 50 mcg/actuati on nasal spray,suspe nsion [place] 1 spray every day by intranasa l [...] in Arterial blood by Pulse oximetry Systolic And Diastolic Provider Name and Address Organization Details Last Updated DateTime 4 172.72 cm 38 kg/m2 382648. 45 g 64 /min 18 /min 96 % 96 % 128/70 mm[Hg] Hai Ahumada [facility] 4 10:55:03 Date Recorded Body height Body mass index (BMI) Body weight Heart rate Oxygen saturation Oxygen saturation in Arterial blood by Pulse oximetry Systolic And Diastolic Provider Name and Address Organization Details Last Updated DateTime 4 172.72 cm 37.6 kg/m2 587500. 32 g 74 /min 95 % 95 % 116/82 mm[Hg] Cathy Forbes [facility] 4 09:29:51 Date Recorded Body height Body mass index (BMI) Body weight Heart rate Oxygen saturation Oxygen saturation in Arterial blood by Pulse oximetry Systolic And Diastolic Provider Name and Address Organization Details Last Updated DateTime 5 172.72 cm 23 kg/m2 32421.4 5 g 70 /min 98 % 98 % 120/70 mm[Hg] Madison Valdezmond [facility] 5 14:12:21 Social History Question Answer Notes LastModified by Knowrom ion Details LastModified Time Tobacco Smoking Status Never Smoker Not Available [facility] 04/09/2020 03:36:23 What Was The Date Of Your Most Recent Tobacco Screening? 04/10/2025 [email or web address] Information not available 04/10/2025 Sex: Unknown Functional Status None recorded. Mental Status None recorded. Family History Nothing Reported. Medical History Condition Response Coronary Artery Disease N Gout N Other N Kidney Stones N Blood Diseases N Breast Cancer N Blood Transfusion N COPD N Depression N Lung Disease [...] mL dose 1 completed Brendan Dockery DO [address] [place] [address], [address], [facility] 03/25/2021 14:56:42 COVID-19, mRNA, LNP-S, PF, 30 mcg/0.3 mL dose 1 completed Brendan Dockery DO [address] [place] [address], [address], [facility] 03/25/2021 14:56:50 COVID-19, mRNA, LNP-S, PF, 100 mcg/0.5mL dose or 50 mcg/0.25mL dose 2 completed Brendan Dockery DO [address] [place] [address], [address], [facility] 11/17/2021 15:06:29 zoster recombinant 2 completed Brendan Dockery [address], [address], [facility] 11/17/2021 15:06:54 Past Encounters Encounter ID Performer Location Encounter Start Date Encounter Closed Date Diagnosis/Indication Diagnosis SNOMED-CT Code Diagnosis ICD10 Code Diagnosis IMO Codes Diagnosis Note [id number] Brendan Dockery [address],[place] [address] 10/15/2017 14:39:05 10/15/2017 16:02:57 Tenosynovitis of wrist 565617941 M65.839 given she has tried splint and taken otc and rx nsaids without resolution Hypertensive disorder 38 214469 I10 bp is stable no issues noc cp [id number] Brendan Dockery [facility] [address],[place] [address] 11/23/2017 13:24:41 11/23/2017 14:43:03 Acute bacterial sinusitis 15328496 J01.90 Hypothyroidism 12944731 E03.9 stable, reviewed labs Essential hypertension 34998583 I10 stable [id number] Brendan Dockery [facility] [address] [facility] [place] [address] 02/28/2018 10:59:14 02/28/2018 12:08:52 Hypothyroidism 39737872 E03.9 tsh is 0.8 Hypertensive disorder 38 118397 I10 bp is stable no issues noc cp Adult heal th examination 564931044 Z00.00 discussed need for exercise and diet Screening for cardiovascular system disease 289520373 Z13.6 Screening mammography 24 326140 Z12.31 [place] [id number] Brendan Dockery [facility] [address] [facility] [address] 07/12/2018 09:48:11 07/12/2018 11:06:37 Migraine 05746110 G43.909 Using imitrex with relief Hypertensive disorder 38 192209 I10 diastolic slightly elevated, will monitor Hypothyroidism 56180481 E03.9 labs last done 02/2018 Benign par oxysmal positional vertigo 178088049 H81.11 improving with meclizine Acute sinusitis 98082392 J01.90 continue mucinex, flonase, fluids, humidifier [id number] Brendan Dockery [facility] [address] [facility],[place] [facility] [address] 09/16/2018 11:50:53 09/16/2018 15:19:18 Otitis media 61154953 H66.92 Allergic cough 270115411 R05 Active or passive immunization 723377129 Z23 Hypertensive disorder 38 733972 I10 stable, reviewed Mar 2018 labs [id number] Brendan Dockery [facility] [address] [facility] [place] [address] 09/26/2018 13:31:49 09/26/2018 14:23:51 Dysfunction of eustachian tube 67357787 H69.92 [id number] Brendan Dockery [facility] [address] [facility] [place] [address] 10/03/2018 14:57:35 10/03/2018 16:29:59 Dysfunction of left eustachian tube 8943723884 425843 H69.92 [id number] Brendan Dockery [facility] [address] [facility],[place] [address] 11/23/2018 16:09:46 11/25/2018 08:16:23 Hypertensive disorder 48243844 I10 bp is stable no issues noc cp Hypothyroidism 81513574 E03.9 tsh is 0.8 Edema of l ower extremity 434348961 R60.0 will add furosemide 40mg [id number] Brendan Dockery [facility] [address] [facility],[place] [address] 12/02/2018 13:35:55 12/02/2018 14:40:20 Hypertensive disorder 09526029 I10 bp is stable no issues noc cp will cont Edema of l ower extremity 151812255 R60.0 will cont furosemide 40mg [id number] Brendan Dockery [facility] [address] [facility],[place] [address] 01/13/2019 10:20:35 01/13/2019 11:04:19 Edema of lower extremity 901395316 R60.0 b/l improved on increased dose of lasix do 80 mg again today then return to 40 mg Hypertensive disorder 38 739308 I10 stable Hypothyroidism 13791928 E03.9 normal tsh 12/2018 [id number] [facility] [address] [facility],[place] [address] 01/30/2019 13:31:42 01/30/2019 14:09:46 Edema of lower extremity 744395587 R60.0 will cont furosemide 40mg and will cont to use bid when sudden changes potassium supp or bananas Hypertensive disorder 38 849334 I10 bp is stable no issues noc cp will cont Hypothyroidism 17339157 E03.9 tsh is wnl per [facility] lab Tinea pedis 3929475 B35. 3 lotrimin cream [id number] [facility] [address] [facility] [place] [address] 09/04/2019 11:07:27 09/04/2019 13:34:20 Acute sinusitis 56574702 J01.90 will need to treat given her past issues [id number] Brendan Dockery DO [facility] [address] [place] [address] 04/01/2020 13:27:40 04/01/2020 14:38:28 Adult health examination 539334154 Z00.00 discussed need for exercise and diet Screening for cardiovascular system disease 123406643 Z13.6 Screening for osteoporosis 096019950 Z13.820 Screening mammography 24 452164 Z12.31 [place] [id number] Brendan Dockery DO [facility] [address] [facility],[place] [address] 04/15/2020 09:07:48 04/15/2020 11:14:34 Acute otitis media 6449192 H65.01 most likely another ear infection given symptoms and hx will fu with patient if still having symptoms or worsening pt understand s and will call Nasal congestion 7980258 0 R09.81 more with pressure, all right sided along maxillary and frontal sinuses Headache 25378389 R51.9 right sided, also suffers from chronic headaches so not uncommon [id number] Brendan Dockery DO [facility] [address] [place] [address] 03/25/2021 14:34:54 03/25/2021 16:24:44 Hypothyroidism 05528816 E03.9 tsh low and t4 is high and we nmeed to decrease her dose she is having a lot of hairloss Gastroesop hageal reflux disease 422764308 K21.00 has breakthrog uh [place] [id number] Brendan Dockery DO [facility] [address] [facility],[place] [address] 05/14/2021 09:37:08 05/14/2021 14:28:14 Gastroesophageal reflux disease 365192184 K21.00 has breakthrog uh need to incerease the nexium to bid Hypertensive disorder 38 188366 I10 bp is stable no issues noc cp will cont current tx Edema of l ower extremity 367485255 R60.0 furosemide 40mg as needed only and has not taken any since the summer and will cont to use prn when sudden changes potassium supp or bananas when she does take furosemide [id number] Brendan Dockery [facility] [address] [facility],[place] [address] 06/16/2021 09:40:38 06/16/2021 16:20:27 Chondromalacia of patella 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 M22.41 will fu with MRI Pain of le ft knee joint [id number] M25.562 will fu with MRI [id number] Brendan Dockery [facility] Internal Medicine [address] [facility] [address] [place] [facility] [address] 06/30/2021 09:21:10 07/01/2021 15:55:17 Acute sinusitis 46265656 J01.01 will start on abx and fu with patient if no improvemen t Otalgia 99549529 H92.01 will start on abx [id number] Brendan Dockery [facility] Internal Medicine [address] [facility],[place] [facility] [address] 10/17/2021 09:21:32 10/17/2021 11:33:49 Acute sinusitis 99429228 J01.01 will start on abx and fu with patient if no improvemen t Posterior rhinorrhea 758 97256 R09.82 will fu with testing Pain in throat 584971807 R07.0 can use APAP and IBU for symptom management [id number] Brendan Dockery [facility] Internal Medicine [address] [facility],[place] [facility] [address] 11/17/2021 14:48:20 11/17/2021 15:56:50 Hypertensive disorder 70081104 I10 bp is stable no issues noc cp will cont current tx Hypothyroidism 49649818 E03.9 tsh low and t4 is high and we nmeed to decrease her dose she is having a lot of hairloss Active or passive immunization 902857755 Z23 patient advised she is due for a tdap Screening for malignant neoplasm of colon 507126745 Z12.11 already had done in jul Depression screening 171 Z13.31 Did not bring glasses to fill out PHQ9 not able to complete today Tachycardia 2671223 R00. 0 given just one episode [id number] Brendan Dockery [facility] Internal Medicine [address] [facility],[place] [address] 08/11/2022 13:49:58 08/11/2022 16:33:49 Acute otitis media 1509588 H65.01 will set up with cipro for 7 days BIDworks best for the patient [id number] Brendan Dockery [facility] Internal Medicine [address] [facility],[place] [address] 09/23/2022 09:07:41 09/23/2022 12:05:06 Acute otitis media 0580289 H65.01 will set up with cipro for 7 days BIDworks best for the patient Migraine 96403425 G43.10 9 will set up with second opinion with neuro [id number] Brendan Dockery [facility] Internal Medicine [address] [facility],[place] [facility] [address] 08/23/2023 09:51:36 08/23/2023 10:25:31 Hypertensive disorder 56206907 I10 bp is stable no issues no cp will cont current tx Hypothyroidism 61888852 E03.9 tsh low and t4 is high and we need to decrease her dose she is having a lot of hairloss [id number] Brendan Dockery [facility] Internal [facility] [address] [facility], [place] [facility] [address] 11/03/2023 10:35:53 11/03/2023 12:15:08 Adult health examination 334595824 Z00.00 discussed need for exercise and diet Screening for cardiovascular system disease 583342101 Z13.6 Screening for malignant neoplasm of colon 595966041 Z12.11 already had done in jul Depression screening 171 Z13.31 Did not bring glasses to fill out PHQ9 not able to complete today Epidermoid cyst of skin 812552721 L72.0 [id number] Brendan Dockery [facility] Internal Medicine [address] [facility] [address] 02/04/2024 08:34:01 02/04/2024 14:30:07 Anxiety 41895268 F41.9 stable Hypertensive disorder 38 022523 I10 bp is stable no issues no cp will cont current tx Hypothyroidism 75444269 E03.9 stable Thoracic o utlet syndrome 368152396 G54.0 no chnges Neck pain 47849886 M54.2 possible radiculopa thy issue here having numbness Cough 13882016 R05.9 not getting better , will use use guaifen over weekend if no better will need levoflox etc will get cxr today [id number] Brendan Dockery [facility] Internal Medicine [address],[place] [address] 02/18/2024 09:14:53 02/18/2024 09:50:41 Cervical radiculopathy 91031737 M54.12 will set up MRI now and EMG for her arms Bilateral carpal tunnel syndrome [id number] 0027185 G56.03 fu EMG Cough 68569813 R05.2 given syrup to use PRN for the coughing [id number] Brendan Dockery [facility] Internal Medicine [address],[place] [address] 04/10/2025 14:04:12 04/10/2025 14:39:10 Screening for cardiovascular system disease 957230244 Z13.6 lipds done LDL 96 Screening for malignant neoplasm of colon 841045945 Z12.11 already had done in jul Screening for osteoporosis 706419176 Z13.820 Screening mammography 24 812850 Z12.31 is due note mother with breast ca Depression screening 171 405217 Z13.31 Did not bring glasses to fill out PHQ9 not able to complete today Hypertensive disorder 38 643730 I10 bp is stable no issues no cpno meds!!! 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 [id number] Brendan Dockery [facility] Internal Medicine [address] [facility] [address],[place] [address] 04/13/2025 10:50:50 04/13/2025 16:00:06 Right lateral elbow tendinopathy 0164514696 93626 M77.11 [id number] charlene ariana Health Concerns Section Related Observation LastModified by Organization Detai ls LastModified Time None Recorded Concern Status LastModified by Organization Details LastModified Time None Recorded Advance Directives Directive None Recorded Payers Insurance Date Sequence Insurance Name Policy Number Policy Blandon Covered Member ID Blandon Member ID Guarantor Name 04/12/2025 2 [place] [facility] Tamar Chacon [id number] Tamar Chacon 10/19/2017 1 [facility] [id number] Tamar Chacon [id number] Tamar Chacon 04/12/2025 1 MED[place] B-[place] [facility] [employer] Tamar Chacon [id number] Tamar Chacon 04/12/2025 1 [facility] (HMO) [id number] Tamar Chacon [id number] Tamar Chacon 04/12/2025 1 [facility] - DOS PRIOR TO 2022 - DUAL ELIGIBLE (MEDICARE REPLACEMENT/AD VANTAGE - HMO) Tamar Chacon [id number] Tamar Chacon 04/12/2025 2 [place] [facility] Tamar Chacon [id number] Tamar Chacon Notes Date Note Type Note Provider Name and Address Organization Details Recorded Time 4 text/htm l Medicare Annual Wellness VisitReported by PatientSocial/Behavioral HistoryFor diet and nutrition, patient reportshealthy diet. For fracture risk, patient reportsno history of fractures,no recent explained fracture,no sudden unexplained fractures, andno previous musculoskeletal injuries. For physical activity, patient reportsexercises on a regular basis,recent increase in physical activity, andgood physical condition.Mental Status:For depression risk, patient reportsnever feels sad, empty, or tearful,no loss of interest in activities,no significant changes in weight,no sleep disturbances or insomnia,no agitation,no loss of energy,no feelings of worthlessness or guilt,no thoughts of suicide,no history of depression, andno history of mood disorders. For orientation, patient reportsno disorientation to time,no disorientation to date, andno disorientation to place. For concentration and memory, patient reportsno decreased concentrating ability,no memory lapses or loss, anddoes not forget words. For speech/motor difficulties, patient reportsno speech difficulties,no difficulty expressing formulated concepts,no difficulty with fine manipulative tasks,no difficulty writing/copying,no slowed reaction time, anddoes not knock things over when trying to pick them up.Functional AbilityFor hearing, patient reportsno loss of hearing. For vision, patient reportsno vision problems. For activities of daily living, patient reportsable to bathe with limited or no assistance,able to contol urination and bowels,able to dress with limited or no assistance,able to feed self with limited or no assistance,able to get out of chair or bed with limited or no assistance,able to groom with limited or no assistance, andable to toilet with limited or no assistance. For instrumental activities of daily living, patient reportsable to do house work with limited or no assistance,able to grocery shop with limited or no assistance,able to manage medications with limited or no assistance,able to manage money with limited or no assistance,able to prepare meals with limited or no assistance, andable to use the phone with limited or no assistance. For falls risk assessment, patient reportsno frequent falls while walking,no fall in the past year,no fall since last visit, andno dizziness/vertigo. For home safety, patient reportsno unsafe nehemiah hazzards,no unsafe stairs,no unsafe gas appliances,working smoke/co detectors,wears protective head gear for biking/high velocity,use of seatbelts,practicing 'safer sex',no vision or hearing loss while driving,no fire arms,has hand bars in the bathroom/shower, andgood lighting in the home.ROS as noted in the HPI here for rech and annual wellness evalstates biggest issue is fatigue always feels tired Brendan Dockery, DO [address] [facility], [place], [address], [facility] Internal Medicine 11/03/2023 11:28:39 4 text/htm l ROS as noted in the HPI patient is evaluated via tele/video assessment per patient consentduring current pandemic starts with a head cold 2 weeks agonow coughing and hears crackle in chest no head cold synmptoms now just coughhaving neck pain as well with radiation down her arm worse lying downstates feels like something is in her neckhurts down her mid backfeels when arches her back Brendan Dockery DO [address] [place], [address], [facility] Internal Medicine 02/04/2024 09:24:45 4 text/htm l ROS as noted in the HPI f/u neck pain the patient reports that she is having neck painagreed to MRI for more information waiting on repeat CXRfor the pna, given cough syrup EMG will be needed for possible carpal tunnel on top of the radiculopathy from the neck will f/u after CXR comes in will fu after MRI VIJAY HAAS [address] [place], [address], [facility] Internal Medicine 02/18/2024 09:49:55 5 text/htm l Care Management - HypertensionReported by PatientHPIFor self care, patient reportsnot under emotional stress. For severity, patient reportssymptoms are improvinganddoes not interfere with daily activities. For associated symptoms, patient reportsno dizziness,no lightheadedness,no chest pain,no shortness of breath,no palpitations,no edema,no calf muscle cramps,no blurred vision,no confusion,no headaches, andno fatigue. Medicare Annual Wellness VisitReported by PatientSocial/Behavioral HistoryFor diet and nutrition, patient reportshealthy diet. For fracture risk, patient reportsno history of fractures,no recent explained fracture,no sudden unexplained fractures, andno previous musculoskeletal injuries. For physical activity, patient reportsexercises on a regular basis,recent increase in physical activity, andgood physical condition.Mental Status:For depression risk, patient reportsnever feels sad, empty, or tearful,no loss of interest in activities,no significant changes in weight,no sleep disturbances or insomnia,no agitation,no loss of energy,no feelings of worthlessness or guilt,no thoughts of suicide,no history of depression, andno history of mood disorders. For orientation, patient reportsno disorientation to time,no disorientation to date, andno disorientation to place. For concentration and memory, patient reportsno decreased concentrating ability,no memory lapses or loss, anddoes not forget words. For speech/motor difficulties, patient reportsno speech difficulties,no difficulty expressing formulated concepts,no difficulty with fine manipulative tasks,no difficulty writing/copying,no slowed reaction time, anddoes not knock things over when trying to pick them up.Functional AbilityFor hearing, patient reportsno loss of hearing. For vision, patient reportsno vision problems. For activities of daily living, patient reportsable to bathe with limited or no assistance,able to contol urination and bowels,able to dress with limited or no assistance,able to feed self with limited or no assistance,able to get out of chair or bed with limited or no assistance,able to groom with limited or no assistance, andable to toilet with limited or no assistance. For instrumental activities of daily living, patient reportsable to do house work with limited or no assistance,able to grocery shop with limited or no assistance,able to manage medications with limited or no assistance,able to manage money with limited or no assistance,able to prepare meals with limited or no assistance, andable to use the phone with limited or no assistance. For falls risk assessment, patient reportsno frequent falls while walking,no fall in the past year,no fall since last visit, andno dizziness/vertigo. For home safety, patient reportsno unsafe nehemiah hazzards,no unsafe stairs,no unsafe gas appliances,working smoke/co detectors,wears protective head gear for biking/high velocity,use of seatbelts,practicing 'safer sex',no vision or hearing loss while driving,no fire arms,has hand bars in the bathroom/shower, andgood lighting in the home.ROS as noted in the HPI here for rechk and is doing ok overall relates has had bariatric surgery and lost 100lbs Brendan Dockery DO [address] [facility], [place], [address], [facility] Internal Medicine 04/10/2025 14:35:02 5 text/htm l Musculoskeletal PainReported by PatientHPIFor location, patient reportspain is not radiating. For severity, patient reportsimproving. For associated symptoms, patient reportsno fever,no weak limbs,no tingling,no numbness of the legs/feet, andno incontinence. For adl (activities of daily living), patient reportsimprove with medication.ROS as noted in the HPI noted discomfort to right lat epicond getting worse Brendan Dockery, DO [address] [facility], [place], [address], [facility] Internal Medicine 04/13/2025 12:09:36 OBGyn Episode No OBEpisode recorded.
== END 2025-04-23 13:14 | disposition home or self-care (01) ==
LOC: HO.HBS 12:04
PROVIDERS: PCP Internal Medicine; Visit Provider Nurse Practitioner
DX: Z71.3 Dietary counseling and surveillance (principal); Z98.84 Bariatric surgery status
CPT/HCPCS: 99214; G2211

== ENCOUNTER → 2025-04-23 12:04 | Outpatient (BNVA) | payer MEDICARE, MEDICAID, SELFPAY | PROVIDERS: PCP Internal Medicine; Visit Provider Nurse Practitioner | DX: Z98.84 Bariatric surgery status (principal) | CPT/HCPCS: 99212 ==

== ENCOUNTER 2025-05-07 06:08 | Outpatient (REF) | payer MEDICARE, MEDICAID, SELFPAY ==
--- OUTSIDE RECORDS SUMMARY | 2025-05-07 06:12 | XMS_ITS | Encounter Summary ---
Author Organization [facility] Address [address] [address] Phone Care Team Providers Care Community Integration Specialist Name Role Phone Brendan Dockery DO Primary Care Provider [phone] Encounter Details Date Type Department Care Team ([facility] st Contact Info) Description 04/01/2020 Ancillary Orders Virtual Department [address] [place] [address] Brendan Dockery DO [address] [facility] [place] [address] Breast screening; Encounter for screening for osteoporosis [...] osteoporosis documented in this encounter Care Teams Community Integration Specialist Relationship Specialty Start Date End Date Brendan Dockery DO PCP - General 03/25/17 documented as of this encounter Additional Source Comments The information contained in this document represents components of the legal health record. It is not the complete legal health record.[facility]
--- OUTSIDE RECORDS SUMMARY | 2025-05-07 06:12 | XMS_ITS | Encounter Summary ---
Author Organization [facility] Address [address] [facility] [address] [place] [address] Phone Care Team Providers Care Carton Gluing Machine Operator Name Role Phone Brendan Dockery DO Primary Care Provider [phone] Encounter Details Date Type Department Care Team (Late st Contact Info) Description 03/08/2018 Transcribe Orders [facility] [address] [place] [address] Brendan Dockery DO [address] [facility] [place] [address] Screening for ischemic heart disease (Primary Dx); [...] (03/08/2018 7:30 AM EDT) HDL 56 mg/dL [facility] Comment: Interpretation: Risk Level Females Decreased >55mg/dL Average 50-55 mg/dL Increased <50 mg/dL CHOLESTEROL 190 0 - 240 mg/dL [facility] TRIGLYCERIDES 85 30 - 160 mg/dL [facility] LDL 117 50 - 129 mg/dL [facility] Comment: LDL levels in terms of risk for coronary heart disease: <100 mg/dL: Optimal 100-129 mg/dL: Near or above optimal 130-159 mg/dL: Borderline high 160-189 mg/dL: High >190 mg/dL: Very High CARDIAC RISK RATIO 3.4 3.3 - 4.4 C [facility] Blood 03/08/2018 7:30 AM EDT 03/08/2018 8:00 AM EDT us Brendan A Sarkis DO LAB BLOOD BKR ORDERABLES Final R esult [facility] [address] [place], [place] [id number] * Comprehensive metabolic panel (03/08/2018 7:30 AM EDT) SODIUM 140 133 - 146 mmol/L [facility] POTASSIUM 4.4 3.3 - 5.1 mmol/L [facility] CHLORIDE 99 96 - 108 mmol/L [facility] CO2 27 21 - 35 mmol/L [facility] BUN 14 6 - 19 mg/dL [facility] CREATININE 0.80 0.5 - 1.5 mg/dL [facility] GLUCOSE 96 70 - 99 mg/dL [facility] ALBUMIN 4.3 3.9 - 4.8 g/dL [facility] TOTAL PROTEIN 7.3 6.5 - 8.0 g/dL [facility] CALCIUM 9.7 8.4 - 10.3 mg/dL [facility] ALKALINE PHOSPHATASE 84 39 - 117 U/L [facility] TOTAL BILIRUBIN 0.5 0.0 - 1.2 mg/dL [facility] AST 24 0 - 37 U/L [facility] ALT 25 0 - 40 U/L [facility] GLOBULIN 3.0 1 - 4.8 g/dL [facility] EGFR 87 >59 mL/min/1.7 3m2 [facility] Comment:If patient is black, multiply result by 1.159. Estimated glomerular filtration rate calculated using the CKD-EPI equation. ANION GAP 18 10 - 20 mmol/L [facility] Blood 03/08/2018 7:30 AM EDT 03/08/2018 8:00 AM EDT us Brendan A Bigda DO LAB BLOOD BKR ORDERABLES Final R esult [facility] [address] [place] [address] * (ABNORMAL) CBC and differential (03/08/2018 7:30 AM EDT) WBC 8.13 3.40 - 11.20 K/uL [facility] RBC 4.93(H) 3.80 - 4.80 M/uL [facility] HGB 15.0 12.0 - 15.0 g/dL [facility] HCT 43.3 36.0 - 46.0 % [facility] PLT 302 130 - 400 K/uL [facility] MCV 87.8 79.0 - 98.0 fL [facility] MCH 30.4 27.0 - 34.8 pg [facility] MCHC 34.6 31.5 - 36.0 g/dL [facility] RDW 11.9 10.8 - 14.6 % [facility] MPV 9.8 9.4 - 12.4 fl [facility] NRBC 0.00 /100 WBCs [facility] ABSOLUTE NRBC 0.00 K/uL [facility] DIFF METHOD Auto [facility] NEUTS 66.8 45.30 - 77.70 % [facility] LYMPHS 23.0 12.30 - 39.70 % [facility] MONOS 7.1 4.10 - 12.80 % [facility] EOS 1.8 0 - 7.2 % [facility] BASOS 0.7 0 - 2.80 % [facility] Granulocytes, immature (%) 0.6 0.0 - 0.9 % [facility] ABSOLUTE NEUTS 5.42 1.40 - 7.70 K/uL [facility] ABSOLUTE LYMPHS 1.87 0.60 - 3.20 K/uL [facility] ABSOLUTE MONOS 0.58 0.11 - 0.59 K/uL [facility] ABSOLUTE EOS 0.15 0.01 - 0.50 K/uL [facility] ABSOLUTE BASOS 0.06 0.00 - 0.08 K/uL [facility] Granulocytes, immature 0.05 0.00 - 0.05 K/uL [facility] Blood 03/08/2018 7:30 AM EDT 03/08/2018 8:00 AM EDT us Brendan Dockery DO LAB BLOOD BKR ORDERABLES Final R esult Performing Organization Address City/State/[facility] [[email or web address]] Co de Phone Number [address] [address] documented in this encounter Visit Diagnoses Diagnosis Screening for ischemic heart disease- Primary Routine general medical examination at a health care facility documented in this encounter Care Teams Carton Gluing Machine Operator Relationship Specialty Start Date End Date Brendan Dockery DO [email or web address] PCP - General 03/25/17 documented as of this encounter Additional Source Comments The information contained in this document represents components of the legal health record. It is not the complete legal health record.[facility]
--- OUTSIDE RECORDS SUMMARY | 2025-05-07 06:12 | XMS_ITS | Encounter Summary ---
Author Organization [facility] Address [address] [facility] [address] [place] [address] Phone Care Team Providers Care Retail Sales Director Name Role Phone Brendan Dockery Primary Care Provider [phone] Reason for Visit * Reason Comments Medication Refill Encounter Details Date Type Department Care Team (Late st Contact Info) Description 04/03/2025 Refill [facility] at [address] [address] Emilia Sutherland, SALES REPRESENTATIVE [employer] [address] [place] [address] [email or web address] Medication Refill Social History Tobacco Use Types [...] on filedocumented in this encounter Care Teams Retail Sales Director Relationship Specialty Start Date End Date Brendan Dockery DO [email or web address] PCP - General 03/25/17 documented as of this encounter Additional Source Comments The information contained in this document represents components of the legal health record. It is not the complete legal health record.[facility]
--- OUTSIDE RECORDS SUMMARY | 2025-05-07 06:12 | XMS_ITS | Continuity of Care Document ---
Author Organization [facility], [facility] Address [address] [facility] [place] [address] [place] [address] Assessment Encounter Date Assessment Date Assessment LastModified by Organization Details LastModified Time 04/10/2025 04/10/2025 Patient presente d to office [...] promote healthy living. Not available 02/26/2025 11:08:04 Plan of Treatment Reminders Order Date Submit Date Provider Last Modified By Organization Details Last Modified Time Details Appointments None recorded. Lab hemoglobin , gastrointe stinal, stool 2024 025 [facility], [address] [place] [address], [address], 14:34:25 TSH + free T4, serum 2024 025 [facility], [address] [place] [address], [address], 14:34:25 Referral None recorded. Procedures None recorded. Surgeries None recorded. Imaging MAMMO, screening, digital, bilateral 2024 025 [email or web address] 10 [facility], [address] [place], [address], 5 09:49:03 bone density 2024 025 [email or web address] 10 [facility], [address] [place], [address], 5 09:49:34 Medication Orders valacyclov ir 1 gram tablet 2024 025 [id number], [address] [place], [place], [id number], 14:34:40 levothyrox ine 125 mcg tablet 2024 025 [facility] #[id number], [address] [place], [place], [id number], 14:33:08 Patient TargetsNo targets recorded. Patient Instructions Encounter Date Encounter Id Patient Instructions Last Modified By Organization Details Last Modified Time 04/10/2025 [id number] advance care planning: care instructions Not available 04/10/2025 14:32:58 hypothyroidism: care instructions Not available 04/10/2025 14:32:59 Discussed and explained advance directives such as standard forms to the . Face to face discussion lasted for a duration of ___ minutes. Not available 02/26/2025 11:08:04 Reason for Referral None Reported. Results Created Date Observation Date Name Description Value Unit Range Abnormal Flag Note LastModifiedBy Organization Detail LastModifiedTime 04/19/20 25 04/19/2025 XR, hip + pelvi s, unila teral , 2 or 3 view No observ ation record ed. [facility] (Medical Records) [address] [place], [address], 04/19/2025 23:05:11 Result Notes None recorded. Problems Name Problem SNOMED Code Status Onset Date Resolution Date Notes Provider Name and Address Organization Details Recorded Time Gastroes ophageal reflux disease 962700274 Active 2017 Not Available [facility] 14:39:08 Hypothyr oidism 86541619 Active 2017 Not Available [facility] 14:39:09 Migraine 21647106 Active 2017 Not Available [facility] 2 14:39:08 Fibromya lgia 989788732 Active 2017 Not Available [facility] 2 14:39:09 Family history of non-Hodg kin's lymphoma 505890156 Active 2017 father, dx'd 11/2010 Not Available [facility] 14:39:09 Thoracic outlet syndrome 004981898 Active 2017 s/p 1st rib removal 03/2012 Not Available [facility] 14:39:09 Chronic headache disorder 087292639 Active 2017 Not Available [facility] 2 14:39:09 Ventricu lar prematur e complex 687765363 Active 2017 Not Available [facility] 14:39:09 Hyperten sive disorder 19709611 Active 2017 Not Available [facility] 14:39:08 Tachycar mehnaz 8552901 Active 2017 w/RBBB Not Available [facility] 2 14:39:09 Tenosyno vitis of wrist 061153612 Active 2017 Not Available [facility] 2 14:39:09 Edema of lower extremit y 641495262 Active 2018 Not Available [facility] 2 14:39:08 Stargard t's disease 66111316 Active 2019 Not Available [facility] 2 14:39:08 Acute sinusiti s 22710993 Active 2021 VIJAY HAAS [address] [place], [address], [facility] 2 10:05:14 Posterio r rhinorrh ea 17666562 Active 2021 VIJAY HAAS [address] [place], [address], [facility] 2 10:05:48 Pain in throat 864148622 Active 2021 VIJAY HAAS [address] [place] [address], [address], [facility] 2 10:05:53 COVID-19 585814940 Active 2021 VIJAY HAAS [address] [place] [address], [address], [facility] 2 10:28:01 Intermit tent palpitat ions 231442604 Active 2021 Brendan Dockery, DO [address] [place] [address], [address], [facility] 2 14:24:47 Acute otitis media 0326415 Active 2022 VIJAY HAAS [address] [place] [address], [address], [facility] 3 14:11:22 Acute bronchit is 88235422 Active 2022 VIJAY HAAS [address] [place] [address], [address], [facility] 3 11:29:57 Acute otitis media 1293587 Active 2023 Brendan Dockery, DO [address] [place] [address], [address], [facility] 4 15:34:59 Epidermo id cyst of skin 244387537 Active 2023 Brendan Dockery, DO [address] [place] [address], [address], [facility] 4 11:26:25 Anxiety 03733574 Active 2023 Brendan Dockery DO [address] [place] [address], [address], [facility] 4 11:04:14 Cough 03901357 Active 2023 Brendan Dockery DO [address] [place] [address], [address], [facility] 4 09:46:18 Neck pain 77127416 Active 2023 Brendan Dockery DO [address] [place] [address], [address], [facility] 4 09:16:11 Pneumoni a 606620868 Active 2023 Brendan Dockery DO [address] [place] [address], [address], [facility] 4 14:44:04 Cervical radiculo lore 31130722 Active 2023 VIJAY HAAS [address] [place] [address], , [facility] 4 09:40:00 Bilatera l carpal tunnel syndrome 70203617194 133789 Active 2023 VIJAY HAAS [address] [place] [address], , [facility] 4 09:42:34 Cervical disc disorder 932896595 Active 2023 VIJAY HAAS [address] [place] [address], , [facility] 4 15:54:20 Recurren t herpes simplex labialis 982417809 Active 2024 Brendan Dockery DO [address] [place] [address], , [facility] 5 14:33:54 Pain of hip region 37540920 Active 2024 Brendan Dockery DO [address] [place] [address], [address], [facility] 5 11:24:21 Osteopen ia 412151890 Active 2024 Brendan Dockery DO [address] [place] [address], [address], [facility] 5 11:26:19 Right lateral elbow tendinop athy 83472811227 9107 Active 2024 Brendan Dockery DO [address] [place] [address], [address], [facility] 5 12:08:53 Problem Notes None recorded. Procedures Surgical History Date Name Laterality Status Provider Name and Address Organization Details Recorded Time 025 Corticosteroid Injection completed Brendan Dockery [address], [address], [facility] 04/13/2025 12:08:20 Colonoscopy completed Brendan Dockery [address], [address], [facility] 11/17/2021 15:53:34 Imaging Results None recorded. Procedure Notes None recorded. Medical Equipment None Reported. Allergies Allergen ID Allergen Name Allergen Category Reaction Reaction Severity Criticality Documentation Date Start Date Code Code System Note Provider Name and Address Organization Details Recorded Time 1277 Fluarix medicatio n Not available Not available Not available 10/15/2017 [facility] 8 09:01:31 5796 Shingrix medicatio n Not available Not available Not available 11/17/2021 10038 26 RxNorm Brendan DockeryDO [address] [place] [address], [address], [facility] 2 15:05:01 8069 SARS-CoV- 2 (COVID-19 ) vaccine, protein [id number]-[id number] 73 medicatio n Not available Not available Not available 11/03/2023 49780 73 RxNorm [facility] 4 10:55:25 Medications Name Sig Start Date [...] propionate 50 mcg/actuati on nasal spray,suspe nsion [place] 1 spray every day by intranasa l [...] (BMI) Body weight Heart rate Oxygen saturation Systolic And Diastolic Provider Name and Address Organization Details Last Updated DateTime 5 172.72 cm 23 kg/m2 78495.4 5 g 70 /min 98 % 120/70 mm[Hg] [facility] 5 14:12:21 Social History Question Answer Notes LastModified by Organizat ion Details LastModified Time Tobacco Smoking Status Never Smoker Not Available [facility] 04/09/2020 03:36:23 What Was The Date Of Your Most Recent Tobacco Screening? 04/10/2025 [email or web address] Information not available 04/10/2025 Sex: Unknown Functional [...] mL dose 1 completed Brendan Dockery DO [address] [place] [address], [address], [facility] 03/25/2021 14:56:42 COVID-19, mRNA, LNP-S, PF, 30 mcg/0.3 mL dose 1 completed Brendan Dockery DO [address] [place] [address], [address], [facility] 03/25/2021 14:56:50 COVID-19, mRNA, LNP-S, PF, 100 mcg/0.5mL dose or 50 mcg/0.25mL dose 2 completed Brendan Dockery DO [address] [place] [address], [address], [facility] 11/17/2021 15:06:29 zoster recombinant 2 completed Brendan Dockery DO [address] [place] [address], [address], [facility] 11/17/2021 15:06:54 Past Encounters Encounter ID Performer Location Encounter Start Date Encounter Closed Date Diagnosis/Indication Diagnosis SNOMED-CT Code Diagnosis ICD10 Code Diagnosis IMO Codes Diagnosis Note [id number] DO [facility] [address],[place] [address] 04/10/2025 14:04:12 04/10/2025 14:39:10 Screening for cardiovascular system disease 655034013 Z13.6 lipds done LDL 96 Screening for malignant neoplasm of colon 494288026 Z12.11 already had done in jul Screening for osteoporosis 653029631 Z13.820 Screening mammography 24 332729 Z12.31 is due note mother with breast ca Depression screening 171 336384 Z13.31 Did not bring glasses to fill out PHQ9 not able to complete today Hypertensive disorder 38 664929 I10 bp is stable no issues no cpno meds!!! Preventive procedure 169 592009 Z00.00 81967118 discussed need for exercise and diet Hypothyroidism 95074401 E03.9 will need to decrease the dose to 125 [facility] Recurrent herpes simplex labialis 284569555 B00.1 784860 Health Concerns Section Related Observation LastModified by Organization Detai ls LastModified Time None Recorded Concern Status LastModified by Organization Details LastModified Time None Recorded Payers Encounter Date Sequence Insurance Name Policy Number Policy Blandon Covered Member ID Blandon Member ID Guarantor Name 04/10/2025 1 [place] [employer] Tamar Chacon [id number] Tamar Chacon 04/10/2025 2 [place] [facility] Tamar Chacon [id number] Tamar Chacon Notes Date Note Type Note Provider Name and Address Organization Details Recorded Time 5 text/htm l Care Management - HypertensionReported [...] had bariatric surgery and lost 100lbs Brendan Dockery, DO [address] [facility], [place], [address], [facility] 04/10/2025 14:35:02 OBGyn Episode No OBEpisode recorded.
--- OUTSIDE RECORDS SUMMARY | 2025-05-07 06:12 | XMS_ITS | Data Portability ---
Author Organization [facility], Telehealth Patient Home Address [address] [place] [address] Assessment Encounter Date Assessment Date Assessment LastModified [...] [email or web address] Not available 11/02/2023 16:23:59 02/04/2024 02/04/2024 [id number] [place] [address] (RISK ANALYST) MDM MODERATE MUST MEET 2 OUT OF [...] living. Not available 02/26/2025 11:08:04 04/13/2025 04/13/2025 [id number] [place] [address] (RISK ANALYST) : MDM LOW MUST MEET 2 OF [...] hemoglobin , gastrointe stinal, stool 2024 025 [facility], [address] [place] [address], [address], 5 14:34:25 TSH + free T4, serum 2024 025 [facility], [address] [place] [address], [address], 5 14:34:25 lipid panel, blood 2023 024 [facility], [address] [place] [address], [address], 4 11:09:35 CBC w/ auto diff 2023 024 [facility], [address] [place] [address], [address], 4 11:09:35 CMP, serum or plasma 2023 024 [facility], [address] [place] [address], [address], 4 11:09:35 vitamin D, 25-hydroxy , total, serum 2023 024 [facility], [address] [place] [address], [address], 4 11:26:40 Referral None recorded. Procedures None recorded. Surgeries None recorded. Imaging MAMMO, screening, digital, bilateral 2024 [email or web address] [place] [address] Diagnostic Imaging, [address] [place] [address], [address], 5 09:49:03 bone density 2024 [email or web address] [place] [address] Diagnostic Imaging, [address] [place] [address], [address], 5 09:49:34 MRI, cervical spine, w/o contrast 2023 [email or web address] [place] [address] Central Scheduling, [address] [place] [address], [address], 4 07:54:29 electromyo gram + nerve conduction study - carpal tunnel, castillo hands and wrists 2023 024 [facility] (Imaging), [address] [place] [address], [address], 4 09:19:32 XR, cervical spine, 2 or 3 view 2023 024 [facility] Central Scheduling, [address] [place] [address], [address], 4 14:30:08 XR, chest, 2 view 2023 [facility] Central Scheduling, [address] [place], [address], 4 14:30:08 Medication Orders valacyclov ir 1 gram tablet 2024 025 [facility] #[id number], [address], [place], [id number], 5 14:34:40 levothyrox ine 125 mcg tablet 2024 025 [facility] #69254, [address], [place], [id number], 5 14:33:08 codeine 10 mg-guaifen esin 100 mg/5 mL oral liquid 2023 024 [facility] #[id number], [address], [place], [id number], 4 09:45:13 cephalexin 500 mg capsule 2023 024 [facility] #[id number], [address], [place], [id number], 4 09:20:25 Patient TargetsNo targets recorded. Patient Instructions Encounter Date Encounter Id Patient Instructions Last Modified By Organization Details Last Modified Time 11/03/2023 [id number] Skin Cyst: Care Instructions Not available 11/03/2023 11:27:04 Discussed and explained advance directives such as standard forms to the patient. Face to face discussion lasted for a duration of _5__ minutes. Not available 11/03/2023 11:28:02 02/04/2024 [id number] neck pain: care instructions Not available 02/04/2024 09:16:54 cough: care instructions Not available 02/04/2024 09:21:28 04/10/2025 [id number] advance care planning: care instructions [email or web address] Not available 04/10/2025 14:32:58 hypothyroidism: [email or web address] Not [facility] 04/10/2025 14:32:59 Discussed and explained [...] eral No observ ation record ed. [email or web address] [address] [place], [address], 11/08/2023 13:26:33 02/04/20 24 02/04/2024 XR, cervi alix spine , 2 or 3 view No observ ation record ed. [facility] (Medical Records) [address] [place], [address], 02/18/2024 09:49:01 02/04/20 24 02/04/2024 XR, chest , 2 view No observ ation record ed. [facility] (Medical Records) [address] [place], [address], 02/18/2024 09:49:00 02/18/20 24 02/11/2024 XR, chest , 2 view No observ ation record ed. [email or web address] (Medical Records) [address] [place], [address], 04/10/2025 14:24:01 03/13/20 24 03/03/2024 MRI, cervi alix spine , w/o contr ast No observ ation record ed. [email or web address] (Medical Records) [address] [place], [address], 04/10/2025 14:24:01 03/16/20 24 03/16/2024 elect romyo gram + nerve condu ction study No observ ation record ed. [address] (Medical Records) [address] [place], [address], 04/10/2025 14:24:01 03/16/20 24 03/16/2024 elect romyo gram + nerve condu ction study No observ ation record ed. [address] (Medical Records) [address] [place], [address], 04/10/2025 14:24:01 07/31/19 25 07/31/2024 XR, chest , 2 view No observ ation record ed. [address] (Medical Records) [address] [place], [address], 04/10/2025 14:24:01 08/31/19 25 08/30/2024 US, abdom en No observ ation record ed. [address] (Medical Records) [address] [place], [address], 04/10/2025 14:24:00 09/16/19 25 09/15/2024 RF, upper gastr ointe gayatri l tract , w/ contr ast PO No observ ation record ed. [address] (Medical Records) [address] [place], [address], 04/10/2025 14:24:00 12/18/19 25 12/04/2024 MAMMO , scree owen, digit al, bilat eral No observ ation record ed. [address] [facility] 2 [facility] [place], [address], 04/10/2025 14:24:00 04/19/20 25 04/19/2025 XR, hip + pelvi s, unila teral , 2 or 3 view No observ ation record ed. [address] (Medical Records) [address] [facility], [place], [address], 04/19/2025 23:05:11 Result Notes None recorded. Problems Name Problem SNOMED Code Status Onset Date Resolution Date Notes Provider Name and Address Organization Details Recorded Time Gastroes ophageal reflux disease 623337341 Active 2017 Not Available [facility] 2 14:39:08 Hypothyr oidism 93304289 Active 2017 Not Available [facility] 2 14:39:09 Migraine 28590170 Active 2017 Not Available [facility] 2 14:39:08 Fibromya lgia 362439868 Active 2017 Not Available [facility] 2 14:39:09 Family history of non-Hodg kin's lymphoma 599027288 Active 2017 father, dx'd 11/2010 Not Available [facility] 2 14:39:09 Thoracic outlet syndrome 596529282 Active 2017 s/p 1st rib removal 03/2012 Not Available [facility] 2 14:39:09 Chronic headache disorder 273811144 Active 2017 Not Available [facility] 2 14:39:09 Ventricu lar prematur e complex 605032560 Active 2017 Not Available [facility] 2 14:39:09 Hyperten sive disorder 18715693 Active 2017 Not Available [facility] 2 14:39:08 Tachycar mehnaz 2572449 Active 2017 w/RBBB Not Available [facility] 2 14:39:09 Tenosyno vitis of wrist 590911491 Active 2017 Not Available [facility] 2 14:39:09 Edema of lower extremit y 023270225 Active 2018 Not Available [facility] 2 14:39:08 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 2019 Not Available [facility] 2 14:39:08 Acute sinusiti s 08675316 Active 2021 VIJAY HAAS [address] [place] [address], [address], [facility] 2 10:05:14 Posterio r rhinorrh ea 40612902 Active 2021 VIJAY HAAS [address] [place] [address], [address], [facility] 2 10:05:48 Pain in throat 222430027 Active 2021 VIJAY HAAS [address] [place] [address], [address], [facility] 2 10:05:53 COVID-19 287218375 Active 2021 VIJAY HAAS [address] [place] [address], [address], [facility] 2 10:28:01 Intermit tent palpitat ions 467685067 Active 2021 Brendan Dockery DO [address] [place] [address], [address], [facility] 2 14:24:47 Acute otitis media 1365169 Active 2022 VIJAY HAAS [address] [place] [address], [address], [facility] 3 14:11:22 Acute bronchit is 67829954 Active 2022 VIJAY HAAS [address] [place] [address], [address], [facility] 3 11:29:57 Acute otitis media 1051163 Active 2023 Brendan Dockery DO [address] [place] [address], [address], [facility] 4 15:34:59 Epidermo id cyst of skin 977629870 Active 2023 Brendan Dockery DO [address] [place] [address], [address], [facility] 4 11:26:25 Anxiety 40945205 Active 2023 Brendan Dockery, DO [address] [place] [address], [address], [facility] 4 11:04:14 Cough 16456334 Active 2023 Brendan Dockery, DO [address] [place] [address], [address], [facility] 4 09:46:18 Neck pain 20095286 Active 2023 Brendan Dockery, DO [address] [place] [address], [address], [facility] 4 09:16:11 Pneumoni a 824733143 Active 2023 Brendan Dockery DO [address] [place] [address], [address], [facility] 4 14:44:04 Cervical radiculo lore 06723454 Active 2023 VIJAY HAAS [address] [place] [address], [address], [facility] 4 09:40:00 Bilatera l carpal tunnel syndrome 92779273221 135296 Active 2023 VIJAY HAAS [address] [place] [address], [address], [facility] 4 09:42:34 Cervical disc disorder 850419803 Active 2023 VIJAY HAAS [address] [place] [address], [address], [facility] 4 15:54:20 Recurren t herpes simplex labialis 313021231 Active 2024 Brendan Dockery [address], [address], [facility] 5 14:33:54 Pain of hip region 41872379 Active 2024 Brendan Dockery DO [address] [place] [address], [address], [facility] 5 11:24:21 Osteopen ia 068228865 Active 2024 Brendan BradAlba Dockery DO [address] [place] [address], [address], [facility] 5 11:26:19 Right lateral elbow tendinop athy 96206142052 9107 Active 2024 Brendan Dockery DO [address] [place] [address], [address], [facility] 5 12:08:53 Problem Notes None recorded. Procedures Surgical History Date Name Laterality Status Provider Name and Address Organization Details Recorded Time 025 Corticosteroid Injection completed Brendan Dockery DO [address] [place] [address], [address], [facility] 04/13/2025 12:08:20 Colonoscopy completed Brendan Dockery DO [address] [place] [address], [address], [facility] 11/17/2021 15:53:34 Imaging Results None recorded. Procedure Notes None recorded. Medical Equipment None Reported. Allergies Allergen ID Allergen Name Allergen Category Reaction Reaction Severity Criticality Documentation Date Start Date Code Code System Note Provider Name and Address Organization Details Recorded Time 1277 Fluarix medicatio n Not available Not available Not available 10/15/2017 [facility] 8 09:01:31 5796 Shingrix medicatio n Not available Not available Not available 11/17/2021 79225 26 RxNorm Brendan Dockery DO [address] [place] [address], [address], [facility] 2 15:05:01 8069 SARS-CoV- 2 (COVID-19 ) vaccine, protein [id number]-CoV23 73 medicatio n Not available Not available Not available 11/03/2023 35415 73 [facility]Norm [facility] 4 10:55:25 Medications Name Sig Start [...] propionate 50 mcg/actuati on nasal spray,suspe nsion [place] 1 spray every day by intranasa l [...] weight Heart rate Respiratory rate Oxygen saturation Systolic And Diastolic Provider Name and Address Organization Details Last Updated DateTime 4 172.72 cm 38 kg/m2 069210. 45 g 64 /min 18 /min 96 % 128/70 mm[Hg] Hai Ahumada [place] - [facility] 4 10:55:03 Date Recorded Body height Body mass index (BMI) Body weight Heart rate Oxygen saturation Systolic And Diastolic Provider Name and Address Organization Details Last Updated DateTime 4 172.72 cm 37.6 kg/m2 491246. 32 g 74 /min 95 % 116/82 mm[Hg] Cathy Forbes [facility] 4 09:29:51 Date Recorded Body height Body mass index (BMI) Body weight Heart rate Oxygen saturation Systolic And Diastolic Provider Name and Address Organization Details Last Updated DateTime 5 172.72 cm 23 kg/m2 43860.4 5 g 70 /min 98 % 120/70 mm[Hg] Madison Valdezmond [facility] 5 14:12:21 Social History Question Answer Notes LastModified by [employer] ion Details LastModified Time Tobacco Smoking Status Never Smoker Not Available [facility] 04/09/2020 03:36:23 What Was The Date Of Your Most Recent Tobacco Screening? 04/10/2025 [email or web address] Information not available 04/10/2025 Sex: Unknown Functional Status None recorded. Mental Status None recorded. Family History Nothing Reported. Medical History Condition Response Coronary Artery Disease N Blood Diseases N Blood Transfusion N COPD N Depression N Anxiety Disorder N Obesity N Polyps N Infertility N Mental Disorder N Varicosities N Stroke N Fibromyalgia N Kidney Disease N Hospitalizations N Eating Disorder N Skin Problems N MRSA exposure N Constipation N Tuberculosis N Asthma N Pulmonary Embolism N Chicken Pox N Lung Disease N Defects or Inherited Disease N Endometriosis N Liver Disease N Thyroid Problems N GI Problems N Anemia N Diabetes N Congestive Heart Failure (CHF) N Abuse/Domestic Violence N Reflux/GERD N Heart Disease N Hypertension N Gout N Other N Kidney Stones N Muscle, Joint, or Bone Problems N Vision or Eye Problems N Arthritis N Cancer N Headaches N Heart Problems N Hepatitis N Autism Spectrum Disorder (ASD) N Breast Cancer N Bladder or Kidney Problems N High Cholesterol N Allergies/Hayfever N Mental Illness N Ovarian Cancer N Seizures/Epilepsy N Eczema N Diverticulitis N Osteoporosis N Gynecological HistoryNo gynecological history recorded. Obstetrics History GPAL:G 0 P 0 0 0 0 Immunizations Vaccine Type Date Status Note Provider Nam e and Address Organization Details Recorded Time COVID-19, mRNA, LNP-S, PF, 30 mcg/0.3 mL dose 1 completed Brendan Dockery DO [address] [place] [address], [address], [facility] 03/25/2021 14:56:42 COVID-19, mRNA, LNP-S, PF, 30 mcg/0.3 mL dose 1 completed Brendan Dockery DO [address] [place] [address], [address], [facility] 03/25/2021 14:56:50 COVID-19, mRNA, LNP-S, PF, 100 mcg/0.5mL dose or 50 mcg/0.25mL dose 2 completed Brendan Dockery DO [address] [place] [address], [address], [facility] 11/17/2021 15:06:29 zoster recombinant 2 completed Brendan Dockery DO [address] [place] [address], [address], [facility] 11/17/2021 15:06:54 Past Encounters Encounter ID Performer Location Encounter Start Date Encounter Closed Date Diagnosis/Indication Diagnosis SNOMED-CT Code Diagnosis ICD10 Code Diagnosis IMO Codes Diagnosis Note [id number] B[address],[place] [address] 10/15/2017 14:39:05 10/15/2017 16:02:57 Tenosynovitis of wrist 913314506 M65.839 given she has tried splint and taken otc and rx nsaids without resolution Hypertensive disorder 38 151218 I10 bp is stable no issues noc cp [id number] Brendan Dockery [address],[place] [address] 11/23/2017 13:24:41 11/23/2017 14:43:03 Acute bacterial sinusitis 56905878 J01.90 Hypothyroidism 62681449 E03.9 stable, reviewed labs Essential hypertension 54845977 I10 stable [id number] Brendan Dockery [facility] [address] [facility] [place] [address] 02/28/2018 10:59:14 02/28/2018 12:08:52 Hypothyroidism 89168726 E03.9 tsh is 0.8 Hypertensive disorder 38 181121 I10 bp is stable no issues noc cp Adult heal th examination 296004392 Z00.00 discussed need for exercise and diet Screening for cardiovascular system disease 552877960 Z13.6 Screening mammography 24 778155 Z12.31 [place] [id number] Brendan Dockery [facility] [address] [facility] [address] 07/12/2018 09:48:11 07/12/2018 11:06:37 Migraine 06103232 G43.909 Using imitrex with relief Hypertensive disorder 38 421740 I10 diastolic slightly elevated, will monitor Hypothyroidism 04665990 E03.9 labs last done 02/2018 Benign par oxysmal positional vertigo 249862508 H81.11 improving with meclizine Acute sinusitis 88406418 J01.90 continue mucinex, flonase, fluids, humidifier [id number] Brendan Dockery [facility] [address] [facility], [place] [address] 09/16/2018 11:50:53 09/16/2018 15:19:18 Otitis media 94964757 H66.92 Allergic cough 169159961 R05 Active or passive immunization 625401940 Z23 Hypertensive disorder 38 325638 I10 stable, reviewed Mar 2018 labs [id number] Brendan Dockery [facility] [address] [facility] [address] 09/26/2018 13:31:49 09/26/2018 14:23:51 Dysfunction of eustachian tube 23904987 H69.92 [id number] Brendan Dockery [facility] [address] [facility] [facility] [place] [address] 10/03/2018 14:57:35 10/03/2018 16:29:59 Dysfunction of left eustachian tube 8294893474 977389 H69.92 [id number] Brendan Dockery [facility] [address] [facility] [address] 11/23/2018 16:09:46 11/25/2018 08:16:23 Hypertensive disorder 77346099 I10 bp is stable no issues noc cp Hypothyroidism 23988635 E03.9 tsh is 0.8 Edema of l ower extremity 433018835 R60.0 will add furosemide 40mg [id number] Brendan Dockery [facility] [address] [facility] [address] 12/02/2018 13:35:55 12/02/2018 14:40:20 Hypertensive disorder 72795380 I10 bp is stable no issues noc cp will cont Edema of l ower extremity 966493589 R60.0 will cont furosemide 40mg [id number] Brendan Dockery [facility] [address] [facility] [place] [address] 01/13/2019 10:20:35 01/13/2019 11:04:19 Edema of lower extremity 408442645 R60.0 b/l improved on increased dose of lasix do 80 mg again today then return to 40 mg Hypertensive disorder 38 349353 I10 stable Hypothyroidism 77120635 E03.9 normal tsh 12/2018 [id number] Brendan BradAlba Dockery [facility] [address] [facility], [place] [address] 01/30/2019 13:31:42 01/30/2019 14:09:46 Edema of lower extremity 006984957 R60.0 will cont furosemide 40mg and will cont to use bid when sudden changes potassium supp or bananas Hypertensive disorder 38 450551 I10 bp is stable no issues noc cp will cont Hypothyroidism 65540082 E03.9 tsh is wnl per [facility] lab Tinea pedis 2820880 B35. 3 lotrimin cream [id number] Brendan Dockery [facility] [address] [facility] [facility] [place] [address] 09/04/2019 11:07:27 09/04/2019 13:34:20 Acute sinusitis 06228247 J01.90 will need to treat given her past issues [id number] Brendan Dockery [facility] [address] [facility] [place] [facility] [place] [address] 04/01/2020 13:27:40 04/01/2020 14:38:28 Adult health examination 552513867 Z00.00 discussed need for exercise and diet Screening for cardiovascular system disease 425564402 Z13.6 Screening for osteoporosis 568677534 Z13.820 Screening mammography 24 620260 Z12.31 [place] [id number] Brendan Dockery [facility] [address] [facility] [address] 04/15/2020 09:07:48 04/15/2020 11:14:34 Acute otitis media 2994376 H65.01 most likely another ear infection given symptoms and hx will fu with patient if still having symptoms or worsening pt understand s and will call Nasal congestion 5327526 0 R09.81 more with pressure, all right sided along maxillary and frontal sinuses Headache 49396386 R51.9 right sided, also suffers from chronic headaches so not uncommon [id number] Brendan Dockery [facility] [address] [facility] [facility] [place] [address] 03/25/2021 14:34:54 03/25/2021 16:24:44 Hypothyroidism 33959275 E03.9 tsh low and t4 is high and we nmeed to decrease her dose she is having a lot of hairloss Gastroesop hageal reflux disease 814626351 K21.00 has breakthrog uh [place] [id number] Brendan Dockery [facility] [address] [facility] [address] 05/14/2021 09:37:08 05/14/2021 14:28:14 Gastroesophageal reflux disease 923862779 K21.00 has breakthrog uh need to incerease the nexium to bid Hypertensive disorder 38 939939 I10 bp is stable no issues noc cp will cont current tx Edema of l ower extremity 017984254 R60.0 furosemide 40mg as needed only and has not taken any since the summer and will cont to use prn when sudden changes potassium supp or bananas when she does take furosemide [id number] Brendan Dockery [facility] [address] [facility], [place] [address] 06/16/2021 09:40:38 06/16/2021 16:20:27 Chondromalacia of patella 89770358 M22.41 will fu with MRI Pain of le ft knee joint 4231814823 40207 M25.562 will fu with MRI [id number] Brendan Dockery [facility] [address] [facility], [place] [address] 06/30/2021 09:21:10 07/01/2021 15:55:17 Acute sinusitis 59094224 J01.01 will start on abx and fu with patient if no improvemen t Otalgia 44359830 H92.01 will start on abx [id number] Brendan Dockery [facility] [address] [facility], [place] [address] 10/17/2021 09:21:32 10/17/2021 11:33:49 Acute sinusitis 75433829 J01.01 will start on abx and fu with patient if no improvemen t Posterior rhinorrhea 758 19258 R09.82 will fu with testing Pain in throat 759345169 R07.0 can use APAP and IBU for symptom management [id number] Brendan Dockery [facility] [address] [facility], [place] [address] 11/17/2021 14:48:20 11/17/2021 15:56:50 Hypertensive disorder 80188606 I10 bp is stable no issues noc cp will cont current tx Hypothyroidism 18436212 E03.9 tsh low and t4 is high and we nmeed to decrease her dose she is having a lot of hairloss Active or passive immunization 693448893 Z23 patient advised she is due for a tdap Screening for malignant neoplasm of colon 197779697 Z12.11 already had done in jul Depression screening 171 277776 Z13.31 Did not bring glasses to fill out PHQ9 not able to complete today Tachycardia 9538943 R00. 0 given just one episode [id number] Brendan Dockery [facility] [address] [facility] [address] 08/11/2022 13:49:58 08/11/2022 16:33:49 Acute otitis media 2162385 H65.01 will set up with cipro for 7 days BIDworks best for the patient [id number] Brendan Dockery [facility] Internal Medicine [address] [facility] [address] [address] 09/23/2022 09:07:41 09/23/2022 12:05:06 Acute otitis media 1578646 H65.01 will set up with cipro for 7 days BIDworks best for the patient Migraine 82230372 G43.10 9 will set up with second opinion with neuro [id number] Brendan Dockery [facility] Internal Medicine [address] [facility] [address] [address] 08/23/2023 09:51:36 08/23/2023 10:25:31 Hypertensive disorder 93224660 I10 bp is stable no issues no cp will cont current tx Hypothyroidism 20089427 E03.9 tsh low and t4 is high and we need to decrease her dose she is having a lot of hairloss [id number] Brendan Dockery [facility] Internal Medicine [address] [facility] [address] [address] 11/03/2023 10:35:53 11/03/2023 12:15:08 Adult health examination 871690092 Z00.00 discussed need for exercise and diet Screening for cardiovascular system disease 368296106 Z13.6 Screening for malignant neoplasm of colon 334521123 Z12.11 already had done in jul Depression screening 171 905422 Z13.31 Did not bring glasses to fill out PHQ9 not able to complete today Epidermoid cyst of skin 020066374 L72.0 [id number] Brendan Dockery [facility] Internal Medicine [address] [facility] [address] [address] 02/04/2024 08:34:01 02/04/2024 14:30:07 Anxiety 89850140 F41.9 stable Hypertensive disorder 38 558325 I10 bp is stable no issues no cp will cont current tx Hypothyroidism 15449864 E03.9 stable Thoracic o utlet syndrome 126296466 G54.0 no chnges Neck pain 69606059 M54.2 possible radiculopa thy issue here having numbness Cough 27344285 R05.9 not getting better , will use use guaifen over weekend if no better will need levoflox etc will get cxr today [id number] Brendan Dockery [facility] Internal Medicine [address] [facility], [place] [address] 02/18/2024 09:14:53 02/18/2024 09:50:41 Cervical radiculopathy 93053946 M54.12 will set up MRI now and EMG for her arms Bilateral carpal tunnel syndrome [id number] 7902097 G56.03 fu EMG Cough 77614305 R05.2 given syrup to use PRN for the coughing [id number] Brendan Dockery [facility] Internal Medicine [address] [facility],[employer] [email or web address] [address] 04/10/2025 14:04:12 04/10/2025 14:39:10 Screening for cardiovascular system disease 804015350 Z13.6 lipds done LDL 96 Screening for malignant neoplasm of colon 374052296 Z12.11 already had done in jul Screening for osteoporosis 190938270 Z13.820 Screening mammography 24 409893 Z12.31 is due note mother with breast ca Depression screening 171 267103 Z13.31 Did not bring glasses to fill out PHQ9 not able to complete today Hypertensive disorder 38 171595 I10 bp is stable no issues no cpno meds!!! Preventive procedure 169 142466 Z00.00 69608139 discussed need for exercise and diet Hypothyroidism 38385317 E03.9 will need to decrease the dose to 125 re[facility] lab alden Recurrent herpes simplex labialis 069031141 B00.1 914922 [id number] Brendan Dockery [facility] Internal Medicine [address] [facility],[place] [address] 04/13/2025 10:50:50 04/13/2025 16:00:06 Right lateral elbow tendinopathy 7476162918 63917 M77.11 [id number] charlene ariana Health Concerns Section Related Observation LastModified by Organization Detai ls LastModified Time None Recorded Concern Status LastModified by Organization Details LastModified Time None Recorded Advance Directives Directive None Recorded Payers Insurance Date Sequence Insurance Name Policy Number Policy Blandon Covered Member ID Blandon Member ID Guarantor Name 04/12/2025 2 [place] [facility] Tamar Brad Chacon [id number] Tamar Chacon 10/19/2017 1 [facility] [id number] Tamar Chacon [id number] Tamar Chacon 04/12/2025 1 MEDICARE B-[place] [facility] [employer] Tamar Chacon [id number] Tamar Chacon 04/12/2025 1 [facility] (HMO) [id number] Tamar Chacon [id number] Tamar Chacon 04/12/2025 1 [facility] - DOS PRIOR TO 2022 - DUAL ELIGIBLE (MEDICARE REPLACEMENT/AD VANTAGE - HMO) Tamar Chacon [id number] Tamar Chacon 04/12/2025 2 [place] [facility] Tamar Chacon [id number] Tamar Chacon Notes Date Note Type Note [...] Brendan Dockery, DO [address] [facility], [place], [address], [facility] 11/03/2023 11:28:39 4 text/htm l [...] Brendan Dockery DO [address] [facility], [place], [address], [facility] Internal Medicine 02/04/2024 09:24:45 4 text/htm l [...] will fu after MRI VIJAY HAAS [address] [place], [address], [facility] Internal Medicine 02/18/2024 09:49:55 5 text/htm l [...] and lost 100lbs Brendan Dockery, DO [address] [facility], [place], [address], [facility] Internal Medicine 04/10/2025 14:35:02 5 text/htm l Musculoskeletal PainReported by PatientHPIFor location, patient reportspain is not radiating. For severity, patient reportsimproving. For associated symptoms, patient reportsno fever,no weak limbs,no tingling,no numbness of the legs/feet, andno incontinence. For adl (activities of daily living), patient reportsimprove with medication.ROS as noted in the HPI noted discomfort to right lat epicond getting worse Brendan Dockery, DO [address] [facility], [place], [address], [facility] 04/13/2025 12:09:36 OBGyn Episode No OBEpisode recorded.
--- OUTSIDE RECORDS SUMMARY | 2025-05-07 06:12 | XMS_ITS | Encounter Summary ---
Author Organization [facility] Address [address] [address] Phone Care Team Providers Care Bisque Placer Name Role Phone Brendan Dockery DO Primary Care Provider [phone] Encounter Details Date Type Department Care Team ([facility] st Contact Info) Description 04/11/2025 Transcribe Orders Virtual Department 30 [place] [address] Brendan Dockery DO [address] [facility] [place] [address] [place] [address] Encounter for screening for osteoporosis (Primary Dx); [...] unspecified documented in this encounter Care Teams Bisque Placer Relationship Specialty Start Date End Date Brendan Dockery DO [email or web address] PCP - General 03/25/17 documented as of this encounter Additional Source Comments The information contained in this document represents components of the legal health record. It is not the complete legal health record.[facility]
--- OUTSIDE RECORDS SUMMARY | 2025-05-07 06:12 | XMS_ITS | Encounter Summary ---
Author Organization [facility] Address [address] [place] [address] [place] [address] Phone Care Team Providers Care Electrical And Instrument Engineer Name Role Phone Brendan Dockery Primary Care Provider [phone] Encounter Details Date Type Department Care Team (Latest Contact Info) Description 04/19/2017 Transcribe Orders [address] [address] Colton Zendejas MD Hypothyroidism following radioiodine therapy [...] EST) TSH 0.96 0.27 - 4.20 uIU/mL [facility] Blood 04/19/2017 9:20 AM EST 04/19/2017 9:41 AM EST us Colton Zendejas MD LAB BLOOD BKR ORDERABLES Charis l Result [facility] [address] [place] [address] documented in this encounter Visit Diagnoses Diagnosis 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 It is not the complete legal health record.[facility]
--- OUTSIDE RECORDS SUMMARY | 2025-05-07 06:12 | XMS_ITS | Clinical Summary ---
Author Organization [facility] Address [address] [address] Phone Care Team Providers Care Cloth Burler Name Role Phone Marcella Sullivan DO Primary Care Provider [phone] Allergies Active Allergy Reactions Criticality Noted Date Comments Fluarix [id number] (Pf) Angioedema High 07/17/2021 Medications esomeprazole (NEXIUM [...] Department Care Team Description 04/11/2025 Transcribe Orders [facility] Department [address] [place] [address] Marcella Sullivan Encounter for screening for osteoporosis (Primary Dx); Breast screening 04/03/2025 Refill [facility] at [address] [address] Emilia Sutherland, BARRETT Medication Refill from Last [...] 52 Admit Type: Outpatient Gender: Female Room: [place] [address] Referring MD: MARCELLA SULLIVAN DO Exam Type: [...] monitored continuously. The Olympus adult variable colonoscope [id number] #7 was introduced through the anus and [...] 8:29 AM Procedure Code(s): --- Professional --- 66147, Colonoscopy, flexible; diagnostic, including collection of specimen(s) by brushing or washing, when performed (separateprocedure) --- Technical --- 73629, Colonoscopy, flexible; diagnostic, including collection of specimen(s) by brushing or washing, when performed (separateprocedure) Diagnosis Code(s): --- Professional --- Z12.11, Encounter for screening for malignantneoplasm of colon K64.8, Other hemorrhoids --- Technical --- Z12.11, Encounter for screening for malignantneoplasm of colon K64.8, Other hemorrhoids CPT copyright 2020 [employer]. All rights reserved. The codes documented in this report are preliminary and upon target worker reviewmay be revised to meet current compliance requirements. Procedure Date: 07/31/2021 8:29:[address] [place] [address] [id number] us Marcella A Bigda DO GI PROCEDURE ORDERABLES Final Re sult * (ABNORMAL) TSH (02/28/2021 8:23 AM EDT) TSH 0.09(L) 0.27 - 4.20 uIU/mL [facility] Blood 02/28/2021 8:23 AM EDT 02/28/2021 8:25 AM EDT us Marcella Brad Sullivan DO LAB BLOOD BKR ORDERABLES Final R esult [address] [address] * BI MAMMOGRAM SCREENING WITH TOMOSYNTHESIS WITH CAD (BILATERAL) (04/20/2018 1:41 PM EST) Anatomical Region Laterality Modality Breast Left, Breast Right, Breast Bilateral Bila teral Mammography 04/20/2018 6:22 PM EST Impressions 04/20/2018 6:25 PM EST No mammographic signs of malignancy. Annual screening is recommended. BI-RADS CATEGORY: 1 - Negative. DENSITY: The breast tissue is almost entirely fat. POS - [id number] Narrative 04/20/2018 6:25 PM EST Bilateral mammography [...] tissue is almost entirely fat. POS - [id number] us Marcella A Bigda DO IMG MG EXAMS Final Result * Lipid panel (03/08/2018 7:30 AM EDT) HDL 56 mg/dL [facility] Comment: Interpretation: Risk Level Females Decreased >55mg/dL Average 50-55 mg/dL Increased <50 mg/dL CHOLESTEROL 190 0 - 240 mg/dL [facility] TRIGLYCERIDES 85 30 - 160 mg/dL [facility] LDL 117 50 - 129 mg/dL [facility] Comment: LDL levels in terms of risk for coronary heart disease: <100 mg/dL: Optimal 100-129 mg/dL: Near or above optimal 130-159 mg/dL: Borderline high 160-189 mg/dL: High >190 mg/dL: Very High CARDIAC RISK RATIO 3.4 3.3 - 4.4 C [facility] Blood 03/08/2018 7:30 AM EDT 03/08/2018 8:00 AM EDT us Marcella A Bigda DO LAB BLOOD BKR ORDERABLES Final R esult [facility] [address] [place] [address] from Last 3 Months or Most Recently Relevant to Health Maintenance Insurance [facility] MEDICARE PART A & B [place] [facility] [place] [phone] MED[facility]ARE PART [facility] [place] [phone] MEDICARE PART A & B [place] [facility] & B [facility] MEDICARE PART A & B Care Teams Cloth Burler Relationship Specialty Start Date End Date Marcella Sullivan DO PCP - General 03/25/17 Additional Source Comments The information contained in this document represents components of the legal health record. It is not the complete legal health record.[facility]
--- OUTSIDE RECORDS SUMMARY | 2025-05-07 06:12 | XMS_ITS | Encounter Summary ---
Author Organization [facility] Address [address] [place] [address] Phone Care Team Providers Care Solar Sales Name Role Phone Brendan Dockery Primary Care Provider [phone] Encounter Details Date Type Department Care Team (Latest Contact Info) Description 01/31/2020 Transcribe Orders Virtual Department [address] [place] [address] Darell Geronimo MD [address] [place] [address], [address] [address] Calculus of kidney (Primary Dx) Social History [...] of nephrolithiasis or obstruction. Darell Geronimo MD [facility] Final Result documented in this encounter Visit Diagnoses Diagnosis Calculus of kidney- Primary Calculus of kidney documented in this encounter Care Teams Solar Sales Relationship Specialty Start Date End Date Brendan Dockery DO [email or web address] PCP - General 03/25/17 documented as of this encounter Additional Source Comments The information contained in this document represents components of the legal health record. It is not the complete legal health record.[facility]
--- OUTSIDE RECORDS SUMMARY | 2025-05-07 06:12 | XMS_ITS | Encounter Summary ---
Author Organization [facility] Address [address] [place] [address] Phone Care Team Providers Care Certified Low Vision Therapist Name Role Phone Brendan Dockery DO Primary Care Provider [phone] Encounter Details Date Type Department Care Team (Late st Contact Info) Description 09/06/2017 Ancillary Orders [facility], X-Ray - [facility] [address] [place] [address] Brendan Dockery DO [address] [facility] [address] [place], [place] [id number] [email or web address] Pain of left thumb Social History Tobacco [...] thumb documented in this encounter Care Teams Certified Low Vision Therapist Relationship Specialty Start Date End Date Brendan Dockery DO [email or web address] PCP - General 03/25/17 documented as of this encounter Additional Source Comments The information contained in this document represents components of the legal health record. It is not the complete legal health record.[facility]
--- OUTSIDE RECORDS SUMMARY | 2025-05-07 06:12 | XMS_ITS | Encounter Summary ---
Author Organization [facility] Address [address] [facility] [address] [place] [address] Phone Care Team Providers Care Batter Scaler Name Role Phone Brendan Dockery DO Primary Care Provider [phone] Encounter Details Date Type Department Care Team (Late st Contact Info) Description 07/31/2021 Procedure Pass [facility] Endoscopy Admitting Dept Virtual Department [address] [place] [address] Social History Tobacco Use Types Packs/Day Years [...] on filedocumented in this encounter Care Teams Batter Scaler Relationship Specialty Start Date End Date Brendan Dockery DO PCP - General 03/25/17 documented as of this encounter Additional Source Comments The information contained in this document represents components of the legal health record. It is not the complete legal health record.[facility]
--- OUTSIDE RECORDS SUMMARY | 2025-05-07 06:12 | XMS_ITS | Encounter Summary ---
Author Organization [facility] Address [address] [facility] [address] [place] [address] Phone Care Team Providers Care Checker And Packer Name Role Phone Brendan Dockery DO Primary Care Provider [phone] Encounter Details Date Type Department Care Team ([facility] st Contact Info) Description 09/06/2017 Ancillary Orders [facility] Phleb Main [address] [place] [address] Brendan Dockery DO [address] [facility] [address] [email or web address] Social History Tobacco Use Types Packs/Day Years [...] on filedocumented in this encounter Care Teams Checker And Packer Relationship Specialty Start Date End Date Brendan Dockery DO PCP - General 03/25/17 documented as of this encounter Additional Source Comments The information contained in this document represents components of the legal health record. It is not the complete legal health record.[facility]
--- OUTSIDE RECORDS SUMMARY | 2025-05-07 06:12 | XMS_ITS | Continuity of Care Document ---
Author Organization [facility], [facility] Address [address] [place] [address] [place] [address] Assessment Encounter Date Assessment Date Assessment LastModified by Organization Details LastModified Time 04/13/2025 04/13/2025 [address] [place] [address] (DRY MOLDER) : MDM LOW MUST MEET 2 OF [...] Details Last Modified Time Details Appointments None record ed. Lab None record ed. Referral None record ed. Procedures None record ed. Surgeries None record ed. Imaging None record ed. Medication Orders None record ed. Patient TargetsNo targets recorded. Patient InstructionsNo instructions recorded. Reason for Referral None Reported. Results Created Date Observation Date Name Description Value Unit Range Abnormal Flag Note LastModifiedBy Organization Detail LastModifiedTime 04/19/2004/19/2025 XR, hip + pelvi s, unila teral , 2 or 3 view No observ ation record ed. [facility] (Medical Records) [address] [place], [address], 04/19/2025 23:05:11 Result Notes None recorded. Problems Name Problem SNOMED Code Status Onset Date Resolution Date Notes Provider Name and Address Organization Details Recorded Time Gastroes ophageal reflux disease 845674556 Active 2017 Not Available [facility] 2 14:39:08 Hypothyr oidism 98965392 Active 2017 Not Available [facility] 2 14:39:09 Migraine 39462634 Active 2017 Not Available [facility] 2 14:39:08 Fibromya lgia 114662346 Active 2017 Not Available [facility] 2 14:39:09 Family history of non-Hodg kin's lymphoma 325012892 Active 2017 father, dx'd 11/2010 [facility] Available [facility] 2 14:39:09 Thoracic outlet syndrome 227398628 Active 2017 s/p 1st rib removal 03/2012 Not Available [facility] 2 14:39:09 Chronic headache disorder 541693014 Active 2017 Not Available [facility] 2 14:39:09 Ventricu lar prematur e complex 152321257 Active 2017 Not Available [facility] 2 14:39:09 Hyperten sive disorder 38713576 Active 2017 Not Available [facility] 2 14:39:08 Tachycar mehnaz 1645339 Active 2017 w/RBBB Not Available [facility] 2 14:39:09 Tenosyno vitis of wrist 693453992 Active 2017 Not Available [facility] 2 14:39:09 Edema of lower extremit y 159828025 Active 2018 Not Available [facility] 2 14:39:08 Stargard t's disease 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 2019 Not Available [facility] 2 14:39:08 Acute sinusiti s 20614546 Active 2021 VIJAY HAAS [address] [place], [address], [facility] 2 10:05:14 Posterio r rhinorrh ea 76933313 Active 2021 VIJAY HAAS [address] [place] [address], [address], [facility] 2 10:05:48 Pain in throat 305152398 Active 2021 VIJAY HAAS [address] [place] [address], [address], [facility] 2 10:05:53 COVID-19 853826187 Active 2021 VIJAY HAAS [address] [place] [address], [address], [facility] 2 10:28:01 Intermit tent palpitat ions 096532777 Active 2021 Brendan Dockery DO [address] [place] [address], [address], [facility] 2 14:24:47 Acute otitis media 8796252 Active 2022 VIJAY HAAS [address] [place] [address], [address], [facility] 3 14:11:22 Acute bronchit is 94329164 Active 2022 VIJAY HAAS [address] [place] [address], [address], [facility] 3 11:29:57 Acute otitis media 4150239 Active 2023 Brendan Dockery DO [address] [place] [address], [address], [facility] 4 15:34:59 Epidermo id cyst of skin 068783575 Active 2023 Brendan Dockery DO [address] [place] [address], [address], [facility] 4 11:26:25 Anxiety 39746270 Active 2023 Brendan Dockery, DO [address] [place] [address], [address], [facility] 4 11:04:14 Cough 89743366 Active 2023 Brendan Dockery, DO [address] [place] [address], [address], [facility] 4 09:46:18 Neck pain 66219972 Active 2023 Brendan Dockery, DO [address] [place] [address], [address], [facility] 4 09:16:11 Pneumoni a 200408528 Active 2023 Brendan Dockery DO [address] [place] [address], [address], [facility] 4 14:44:04 Cervical radiculo lore 45123698 Active 2023 VIJAY HAAS [address] [place] [address], [address], [facility] 4 09:40:00 Bilatera l carpal tunnel syndrome 87582056456 561395 Active 2023 VIJAY HAAS [address] [place] [address], [address], [facility] 4 09:42:34 Cervical disc disorder 398012458 Active 2023 VIJAY HAAS [address] [place] [address], [address], [facility] 4 15:54:20 Recurren t herpes simplex labialis 157872204 Active 2024 Brendan Dockery DO [address] [place] [address], [address], [facility] 5 14:33:54 Pain of hip region 34002387 Active 2024 Brendan Dockery DO [address] [place] [address], [address], [facility] 5 11:24:21 Osteopen ia 417474398 Active 2024 Brendan SalinasAlba Dockery DO [address] [place] [address], [address], [facility] 5 11:26:19 Right lateral elbow tendinop athy 66980713609 9107 Active 2024 Brendan SalinasAlba Dockery DO [address] [place] [address], [address], [facility] 5 12:08:53 Problem Notes None recorded. Procedures Surgical History Date Name Laterality Status Provider Name and Address Organization Details Recorded Time 025 Corticosteroid Injection completed Brendan BradAlba Dockery DO [address] [place] [address], [address], [facility] 04/13/2025 12:08:20 Colonoscopy completed Brendan BradAlba Dockery DO [address] [place] [address], [address], [facility] 11/17/2021 15:53:34 Imaging Results None recorded. Procedure Notes None recorded. Medical Equipment None Reported. Allergies Allergen ID Allergen Name Allergen Category Reaction Reaction Severity Criticality Documentation Date Start Date Code Code System Note Provider Name and Address Organization Details Recorded Time 1277 Fluarix medicatio n Not available Not available Not available 10/15/2017 [facility] 09:01:31 5796 Shingrix medicatio n Not available Not available Not available 11/17/2021 01996 26 RxNorm Brendan SalinasAlba JasonDO keyshawn [address] [place] [address], [address], [facility] 2 15:05:01 8069 SARS-CoV- 2 (COVID-19 ) vaccine, protein [id number]-CoV23 73 medicatio n Not available Not available Not available 11/03/2023 19733 73 [facility] 4 10:55:25 Medications Name Sig Start [...] propionate 50 mcg/actuati on nasal spray,suspe nsion Nelson 1 spray every day by intranasa l [...] Not Available Not Available Not Available Vitals None Recorded Social History Question Answer Notes LastModified by Organizat ion Details LastModified Time Tobacco Smoking Status Never Smoker Not Available [facility] 04/09/2020 03:36:23 What Was The Date Of Your Most Recent Tobacco Screening? 04/10/2025 [email or web address] Information not available 04/10/2025 Sex: Unknown Functional [...] N Cancer N Stroke N Varicosities N Fibromyalgia N Headaches N Kidney Disease N Heart Problems N Hospitalizations N Skin Problems N Eating Disorder N MRSA exposure N Constipation N Tuberculosis N Asthma N Hepatitis N Pulmonary Embolism N Chicken Pox N Autism Spectrum Disorder (ASD) N Breast Cancer N Lung Disease N Defects or Inherited Disease N Endometriosis N Bladder or Kidney Problems N High Cholesterol N Liver Disease N Allergies/Hayfever N Thyroid Problems N GI Problems N Anemia N Mental Illness N Ovarian Cancer N Diabetes N Seizures/Epilepsy N Congestive Heart Failure (CHF) N Eczema N Diverticulitis N Abuse/Domestic Violence N Reflux/GERD N Heart Disease N Hypertension N Osteoporosis N Gynecological HistoryNo gynecological history recorded. Obstetrics History GPAL:G 0 P 0 0 0 0 Immunizations Vaccine Type Date Status Note Provider Nam e and Address Organization Details Recorded Time COVID-19, mRNA, LNP-S, PF, 30 mcg/0.3 mL dose 1 completed Brendan Dockery DO [address] [place] [address], [address], [facility] 03/25/2021 14:56:42 COVID-19, mRNA, LNP-S, PF, 30 mcg/0.3 mL dose 1 completed Brendan Dockery DO [address] [place] [address], [address], [facility] 03/25/2021 14:56:50 COVID-19, mRNA, LNP-S, PF, 100 mcg/0.5mL dose or 50 mcg/0.25mL dose 2 completed Brendan Dockery DO [address] [place] [address], [address], [facility] 11/17/2021 15:06:29 zoster recombinant 2 completed Brendan Dockery DO [address] [place] [address], [address], [facility] 11/17/2021 15:06:54 Past Encounters Encounter ID Performer Location Encounter Start Date Encounter Closed Date Diagnosis/Indication Diagnosis SNOMED-CT Code Diagnosis ICD10 Code Diagnosis IMO Codes Diagnosis Note [id number] Brendan Bowen Sarkis [facility] [address] [facility] [facility] [place] [address] 04/10/2025 14:04:12 04/10/2025 14:39:10 Screening for cardiovascular system disease 102035232 Z13.6 lipds done LDL 96 Screening for malignant neoplasm of colon 413088608 Z12.11 already had done in jul Screening for osteoporosis 248728946 Z13.820 Screening mammography 24 782314 Z12.31 is due note mother with breast ca Depression screening 171 491115 Z13.31 Did not bring glasses to fill out PHQ9 not able to complete today Hypertensive disorder 38 917520 I10 bp is stable no issues no cpno meds!!! Preventive procedure 169 636623 Z00.00 57147486 discussed need for exercise and diet Hypothyroidism 68286514 E03.9 will need to decrease the dose to 125 rechk lab [facility] Recurrent herpes simplex labialis 147540783 B00.1 460437 [id number] Brendan Andrés Dockery [facility] [address] [facility] [facility] [place] [address] 04/13/2025 10:50:50 04/13/2025 16:00:06 Right lateral elbow tendinopathy 2720322589 60886 M77.11 [id number] charlene ariana Health Concerns Section Related Observation LastModified by Organization Detai ls LastModified Time None Recorded Concern Status LastModified by Organization Details LastModified Time None Recorded Payers Encounter Date Sequence Insurance Name Policy Number Policy Blandon Covered Member ID Blandon Member ID Guarantor Name 04/13/2025 1 [place] [employer] Tamar Chacon [id number] Tamar Chacon 04/13/2025 2 [place]ICAID[place] [facility] Tamar Chacon [id number] Tamar Chacon Notes Date Note Type Note Provider Name a nd Address Organization Details Recorded Time 5 text/html Musculoskeletal PainReported by PatientHPIFor location, patient reportspain is not radiating. For severity, patient reportsimproving. For associated symptoms, patient reportsno fever,no weak limbs,no tingling,no numbness of the legs/feet, andno incontinence. For adl (activities of daily living), patient reportsimprove with medication.ROS as noted in the HPI noted discomfort to right lat epicond getting worse Brendan Dockery, DO [address] [facility], [place], [address], [facility] 04/13/2025 12:09:36 OBGyn Episode No OBEpisode recorded.
--- OUTSIDE RECORDS SUMMARY | 2025-05-07 06:12 | XMS_ITS | Encounter Summary ---
Author Organization [facility] Address [address] [facility] [address] [place] [address] Phone Care Team Providers Care Pocket Grinder Operator Name Role Phone Brendan Dockery DO Primary Care Provider [phone] Encounter Details Date Type Department Care Team (Late st Contact Info) Description 07/31/2021 Procedure Pass [facility] Endoscopy Admitting Dept Virtual Department [address] [place] [address] Social History Tobacco Use Types Packs/Day Years [...] on filedocumented in this encounter Care Teams Pocket Grinder Operator Relationship Specialty Start Date End Date Brendan Dockery DO PCP - General 03/25/17 documented as of this encounter Additional Source Comments The information contained in this document represents components of the legal health record. It is not the complete legal health record.[facility]
--- OUTSIDE RECORDS SUMMARY | 2025-05-07 06:12 | XMS_ITS | Encounter Summary ---
Author Organization [facility] Address [address] [address] Phone Care Team Providers Care Head Packager Name Role Phone Brendan Dockery DO Primary Care Provider [phone] Encounter Details Date Type Department Care Team ([facility] st Contact Info) Description 02/28/2018 Ancillary Orders Virtual Department [address] [place] [address] Brendan Dockery DO [address] [facility] [place] [address] [place] [address] Visit for screening mammogram Social History Tobacco [...] tissue is almost entirely fat. POS - [id number] Narrative 04/20/2018 6:25 PM EST Bilateral mammography [...] tissue is almost entirely fat. POS - [id number] Brendan Dockery DO IMG MG EXAMS Final Result documented in this encounter Visit Diagnoses Diagnosis Visit for screening mammogram Visit for screening mammogram documented in this encounter Care Teams Head Packager Relationship Specialty Start Date End Date Brendan Dockery DO PCP - General 03/25/17 documented as of this encounter Additional Source Comments The information contained in this document represents components of the legal health record. It is not the complete legal health record.[facility]
--- OUTSIDE RECORDS SUMMARY | 2025-05-07 06:12 | XMS_ITS | Encounter Summary ---
Author Organization [facility] Address [address] [place] [address] Phone Care Team Providers Care Express Clerk Name Role Phone Brendan Dockery DO Primary Care Provider [phone] Encounter Details Date Type Department Care Team ([facility] st Contact Info) Description 08/26/2017 Transcribe Orders [facility] [address] [address] Brendan Dockery DO [address] [facility] [address] [place], [place] [id number] Myxedema heart disease (Primary Dx) Social History [...] EDT) TSH 1.84 0.27 - 4.20 uIU/mL [facility] Blood 08/26/2017 7:49 AM EDT 08/26/2017 9:01 AM EDT us Brendan Dockery DO LAB BLOOD BKR ORDERABLES Final R esult [facility] [address] [place] [address] documented in this encounter Visit Diagnoses Diagnosis Myxedema heart disease- Primary Unspecified hypothyroidism documented in this encounter Care Teams Express Clerk Relationship Specialty Start Date End Date Brendan Dockery DO [email or web address] PCP - General 03/25/17 documented as of this encounter Additional Source Comments The information contained in this document represents components of the legal health record. It is not the complete legal health record.[facility]
[2025-05-07 06:31] LABS: MANUAL DIFF FLAG NO
[2025-05-07 07:20] LABS: Hematocrit 47.1 % (37.0-47.0); Hemoglobin 15.8 g/dl (12.0-16.0); Imm Gran Abs Auto 0.01 X10*3/uL (0.00-0.03); Imm Gran Pct Auto 0.2 % (0.0-0.4); Lymphocytes Absolute Auto 2.0 X10*3/uL (1.2-4.9); Mean Corpuscular HGB Conc 33.5 g/dl (31.0-35.0); Mean Corpuscular Hemoglobin 31.1 pg (27.0-33.0); Mean Corpuscular Volume 92.7 fL (80.0-98.0); NRBC Abs Auto 0.000 X10*3/uL (0.0-0.012); NRBC Pct Auto 0.0 /100WBC (0.0-0.2); Platelet Count 223 X10*3/uL (160-400); Red Blood Count 5.08 X10*6/uL (4.20-5.50); White Blood Count 6.5 X10*3/uL (4.8-10.8)
[2025-05-07 07:30] LABS: Hemoglobin A1C 87.0424 umol/L
[2025-05-07 07:54] LABS: Anion Gap 14 (12-20)
[2025-05-07 08:20] LABS: Folate 13.2 ng/mL (> or = 4.0); Vitamin B12 631 pg/mL (200-900)
[2025-05-07 08:43] LABS: Alanine Aminotransferase 22 U/L (0-31); Albumin Level 4.6 g/dL (3.5-5.0); Alkaline Phosphatase 57 U/L (39-117); Aspartate Amino Transferase 19 U/L (5-31); Blood Urea Nitrogen 24 mg/dL (9-16); Calcium 9.9 mg/dL (8.4-10.2); Carbon Dioxide 28 mmol/L (22-29); Chloride 106 mmol/L (96-108); Cholesterol 200 mg/dL (<200); Estimated Glomerular Filt Rate > 60; Ferritin 105 ng/mL (10-250); HDL Cholesterol 62 mg/dL (>40); Iron 106 mcg/dL (30-160); Percent Iron Saturation 44 % (15-50); Potassium 3.8 mmol/L (3.3-5.1); Sodium 144 mmol/L (135-145); Total Iron Binding Capacity 240 mcg/dL (228-428); Total Protein 7.3 g/dL (6.5-8.0); Triglycerides 76 mg/dL (<150); Unsaturated Iron Binding 134 ug/dL
== END 2025-05-07 06:09 | disposition home or self-care (01) ==
LOC: HO.LAB 06:08
PROVIDERS: PCP Internal Medicine; Visit Provider Nurse Practitioner
DX: Z13.6 Encounter for screening for cardiovascular disorders (principal); Z13.1 Encounter for screening for diabetes mellitus; Z98.84 Bariatric surgery status
CPT/HCPCS: 36415; 80053; 80061; 82306; 82607; 82728; 82746; 83036; 83525; 83540; 84425; 84590; 84630; 85025; 86140